=== PATIENT | male | born 1950 | race Caucasian/White ===

== ENCOUNTER 2022-04-02 12:43 | Outpatient (RCR) | payer MEDICARE, SELFPAY | END 2022-10-23 16:00 | disposition home or self-care (01) | LOC: HO.WCC 12:43 | PROVIDERS: PCP Internal Medicine; Visit Provider Surgery | DX: I87.333 Chronic venous hypertension (idiopathic) with ulcer and inflammation of bilateral lower extremity (principal); L97.812 Non-pressure chronic ulcer of other part of right lower leg with fat layer exposed; L97.822 Non-pressure chronic ulcer of other part of left lower leg with fat layer exposed; L97.322 Non-pressure chronic ulcer of left ankle with fat layer exposed; L13.8 Other specified bullous disorders; I89.0 Lymphedema, not elsewhere classified; Z79.01 Long term (current) use of anticoagulants; Z79.4 Long term (current) use of insulin; Z79.899 Other long term (current) drug therapy | CPT/HCPCS: 11042; 11045; 29580; 97597; 97598; 99212; 99213; 99214 ==

== ENCOUNTER 2023-01-13 03:14 | Inpatient (IN) | payer MEDICARE, SELFPAY ==
[2023-01-13] VITALS (7 sets, daily range): BP systolic 120–170; BP diastolic 56–70; PULSE 60–92; RESP 16–20; TEMP 36.5–36.8; O2SAT 95–97; BMI 48.5
--- NOTE | ~2023-01-13 | XR_ITS ---
EXAMINATION: XR CHEST CLINICAL INFORMATION: NG tube placement COMPARISON: None available. TECHNIQUE: Frontal view of the chest was obtained. FINDINGS: Enteric tube courses into the stomach. Left-sided pacemaker lead tips overlie the right atrium and right ventricle. Lung volumes are symmetric. No focal consolidation is seen. No evidence of pneumothorax, pleural effusion, or pulmonary edema. The cardiomediastinal contour is unremarkable. No acute osseous findings are seen. XR/XR chest 1V IMPRESSION: Enteric tube courses into the stomach. No acute cardiopulmonary findings.
--- NOTE | ~2023-01-13 | CT_ITS ---
EXAMINATION: CT ABDOMEN AND PELVIS WITHOUT CONTRAST CLINICAL INFORMATION: Abdominal pain, suspect small bowel obstruction COMPARISON: None available. TECHNIQUE: Multidetector volumetric imaging was performed from the superior aspect of the liver through the pubic symphysis. Sagittal and coronal reformatted images were obtained on the technologist's workstation. This CT examination was performed using dose optimization techniques as appropriate, variously including the following: *Automated exposure control *Adjustment of mA and/or kV according to patient size (this includes techniques or standardized protocols for targeted exams where dose is matched to indication/reason for exam; i.e. extremities or head) *Use of iterative reconstruction technique DLP: 989 mGy-cm FINDINGS: LUNG BASES: The visualized lung bases are unremarkable. LIVER, GALLBLADDER, AND BILIARY TREE: The liver is normal in size, shape, and attenuation. No focal hepatic lesion or biliary ductal dilatation is identified on this noncontrast exam. The gallbladder is unremarkable. PANCREAS: Unremarkable. SPLEEN: Unremarkable. ADRENAL GLANDS: Unremarkable. KIDNEYS AND URETERS: No hydronephrosis or obstructing calculus bilaterally. Few small bilateral renal cysts are noted; no follow-up recommended. BLADDER: Unremarkable. GASTROINTESTINAL TRACT: There are multiple dilated, fluid-filled loops of small bowel predominantly in the central to left abdomen. The more distal small bowel in the right abdomen is nondilated, and overall configuration is most suspicious for a small bowel obstruction. Transition point is suspected to be related to a right periumbilical hernia containing loops of small bowel. The appendix is unremarkable. No free fluid or free air is seen. ABDOMINAL WALL: As noted above, there is a periumbilical hernia containing loops of small bowel. There is an additional supraumbilical ventral hernia containing loops of small and large bowel. Bilateral fat-containing hernias are also present. LYMPH NODES: Borderline enlarged retroperitoneal lymph node on image 45/82. VASCULAR: Scattered atherosclerotic calcification. PELVIC VISCERA: Unremarkable. OSSEOUS STRUCTURES: Degenerative changes are noted in the spine. CT/CT abdomen pelvis wo IV con IMPRESSION: 1. Small bowel obstruction with transition point suspected to be related to a right periumbilical hernia containing loops of small bowel. 2. Additional supraumbilical ventral hernia containing loops of small and large bowel. 3. Borderline enlarged retroperitoneal lymph node, of uncertain clinical significance.
--- NOTE | ~2023-01-13 | XR_ITS ---
EXAMINATION: XR CHEST CLINICAL INFORMATION: Confirm NG tube placement COMPARISON: January 13, 2023 TECHNIQUE: AP portable view of the chest was obtained. FINDINGS: Density about the upper and lower right lung appears be related to calcified cartilage. No confluent parenchymal disease identified. No pneumothorax pleural effusion. Heart normal size. No evidence of pulmonary edema. Dual-chamber pacemaker in place. Enteric catheter seen traversing to the stomach. Sidehole appears to be in the region of the gastroesophageal junction. XR/XR chest 1V IMPRESSION: Enteric catheter appears to lie within the stomach with sidehole at the level of the GE junction.
--- NOTE | ~2023-01-13 | XR_ITS ---
EXAMINATION: XR CHEST CLINICAL INFORMATION: Confirm new NG tube placement COMPARISON: Chest radiograph from earlier in the day. TECHNIQUE: Frontal view of the chest was obtained. FINDINGS: Bipolar pacer again identified. NG tube tip is barely in the stomach and needs to be advanced. Heart, mediastinum and pulmonary vessels within normal limits. Left base atelectasis again noted. Degenerative changes present. XR/XR chest 1V IMPRESSION: Proximal positioning of NG tube which needs advancement and repeat imaging. Left base atelectasis.
--- NOTE | 2023-01-13 04:24 | ED_ITS ---
HPI - General Adult General Chief complaint: General Medical Stated complaint: Hernia, Constipation Time Seen by Provider: 01/13/23 03:26 Source: patient Mode of arrival: EMS History of Present Illness HPI narrative: 72-year-old male is brought in by EMS for no bowel movement for the past 3 days, he is not passing gas, he did try magnesium citrate today and has recently been admitted to [facility] for bowel obstruction secondary to his ventral hernia. Patient states that he is mildly nauseated but has been able to drink small amounts of water but he has not been able to eat he otherwise denies any fevers or chills. Related Data Allergies Allergy/AdvReac Type Severity Reaction Status Date / Time Unable to Assess Allergy Verified 01/13/23 03:51 Review of Systems 2 Review of Systems: Pertinent positives and negatives as stated in HPI [facility] Past Medical History Source: nursing notes reviewed Social History Social History Alcohol intake: former Smoked in Last 30 Days: No Use of substances other than those prescribed or required for medical reasons: No Advance Directives: No Advance Directives Information Provided: Yes Physical Exam ED Vital Signs: Vital Signs - 24 hr 01/13/23 03:28 01/13/23 03:33 Temperature 98.0 F 98.0 F Pulse Rate 61 60 Respiratory Rate 20 20 Blood Pressure 120/66 132/58 L Pulse Oximetry 97 96 Oxygen Delivery Method Room Air Room Air BMI result Body Mass Index 48.5 VITAL SIGNS: Reviewed. GENERAL: Elevated BMI, Well developed, well nourished, in no acute distress. HEAD: Normocephalic/atraumatic EYES: PERRLA, EOMI EARS: Ext canals without abnormality NOSE: Nares patent bilateral OROPHARYNX: no oral lesions noted, posterior pharynx clear NECK: Supple, no adenopathy LUNGS: Normal breath sounds. No adventitious sounds or accessory muscle use. SpO2<96> CARDIOVASCULAR: Regular rate and rhythm without noted murmurs ABDOMEN: Soft, large ventral hernia noted but not for and no overlying skin changes, non-distended with bowel sounds. MUSCULOSKELETAL: No tenderness, deformities, or effusions noted on gross inspection. EXTREMITIES: No cyanosis, clubbing or edema. SKIN: Inspection of the skin reveals no rashes NEUROLOGIC: Alert and oriented x 4. Strength and sensation to light touch were grossly intact x 4. Medical Decision Making Medical Decision Making [facility] Narrative: 72-year-old male with history and clinical presentation, DDX: SBO, constipation, gastritis I reviewed all investigations and there is no leukocytosis that there is a mild left shift, patient has a normocytic anemia and otherwise no thrombocytopenia. Chemistry indices are negative for TOMEKA and there are no electrolyte or transaminases derangements. Total bilirubin is mildly elevated at 1.7. Urinalysis is negative for UTI or hematuria. CT scan confirms that in fact there is a small bowel obstruction with a transition point in relation to the right periumbilical hernia containing loops of small bowel. There is an additional ventral hernia that contains loops of small and large bowel. NG has been placed and patient was made NPO. [id number]: I discussed case with General surgery, Dr. Howard, who will see the patient. Differential Diagnosis Differential Diagnoses: The differential diagnosis associated with the presentation includes Please see the discussion above Admission/Observation Consideration of admission/observation: Escalation of care including admission/observation considered Please see the discussion above Consult Healthcare Provider Management of the patient was discussed with: Sales Planner Please see the discussion above Lab Data [facility] Lab Attestation statement: I reviewed the patient's lab results. Please see the discussion above 01/13/23 04:39 01/13/23 04:39 Labs: Lab Results 01/13/23 01/13/23 Range/Units 04:22 04:39 WBC 7.7 (4.8-10.8) X10*3/uL RBC 3.80 L (4.60-5.80) X10*6/uL Hgb 12.3 L (14.0-18.0) g/dl Hct 37.3 L (42.0-52.0) % MCV 98.2 H (80.0-98.0) fL MCH 32.4 (27.0-33.0) pg MCHC 33.0 (31.0-36.0) g/dl RDW 14.4 (11.0-16.0) % Plt Count 160 (160-400) X10*3/uL MPV 8.8 L (9.4-12.4) fL Immature Gran % (Auto) 0.3 (0.0-0.4) % Neut % (Auto) 75.4 H (45-73) % Lymph % (Auto) 15.5 L (20-40) % [place] % (Auto) 7.2 (2-11) % Eos % (Auto) 1.3 (0-4) % Baso % (Auto) 0.3 (0-2) % Lymph # (Auto) 1.2 (1.2-4.9) X10*3/uL [place] # (Auto) 0.6 (0.1-1.2) X10*3/uL Eos # (Auto) 0.1 (0.0-0.4) X10*3/uL Baso # (Auto) 0.0 (0.0-0.2) X10*3/uL Abs Immat Gran (auto) 0.02 (0.00-0.03) X10*3/uL Absolute Neuts (auto) 5.8 (2.0-8.3) x10*3/uL Absolute Nucleated RBC 0.000 (0.0-0.012) X10*3/uL Nucleated RBC % (auto) 0.0 (0.0-0.2) /100WBC Sodium 142 (135-145) mmol/L Potassium 4.2 (3.3-5.1) mmol/L Chloride 105 (96-108) mmol/L Carbon Dioxide 25 (22-29) mmol/L Anion Gap 16 (12-20) BUN 12 (9-16) mg/dL Creatinine 0.90 (0.5-1.4) mg/dL Estim Creat Clear Calc 110.2 Estimated GFR > 60 POC Glucose 175 H (60-115) mg/dL Random Glucose 184 H (60-115) mg/dL Calcium 9.4 (8.4-10.2) mg/dL Total Bilirubin 1.7 H (0.0-1.0) mg/dL AST 25 (5-37) U/L ALT 23 (0-40) U/L Alkaline Phosphatase 76 (39-117) U/L Total Protein 7.1 (6.5-8.0) g/dL Albumin 4.0 (3.5-5.0) g/dL Urine Color Yellow Urine Appearance Clear Urine pH 7.0 (5.0-9.0) Ur Specific [place] 1.015 (1.005-1.025) Urine Protein 100 (2+) H (Neg-Trace) mg/dL Urine Glucose (UA) Negative (Negative) mg/dL Urine Ketones Trace (Negative) mg/dL Urine Blood Negative (Negative) Urine Nitrite Negative (Negative) Ur Leukocyte Esterase Negative (Negative) Urine RBC 0-2 (0-2) /HPF Urine WBC 0-5 (0-5) /HPF Ur Squamous Epith Cells 0-2 (0-2) /HPF Urine Bacteria None Seen (None Seen) Hyaline Casts 0-2 (0-2) /LPF Radiology Impression Discussion of test interpretation with radiology: I have reviewed the radiologist's reading. Radiologist Impression: Please see the discussion above Chronic Conditions Patient?s care impacted by: Diabetes Discharge Plan Discharge Clinical Impression: Complete small bowel obstruction Patient Disposition: Admitted As Inpatient
[2023-01-13 04:45] LABS: Glucose, Whole Blood 175 mg/dL (60-115)
[2023-01-13 04:46] LABS: MANUAL DIFF FLAG NO
[2023-01-13 04:47] LABS: Basophils Percent Auto 0.3 % (0-2); Eosinophils Absolute Auto 0.1 X10*3/uL (0.0-0.4); Eosinophils Percent Auto 1.3 % (0-4); Hematocrit 37.3 % (42.0-52.0); Hemoglobin 12.3 g/dl (14.0-18.0); Imm Gran Abs Auto 0.02 X10*3/uL (0.00-0.03); Imm Gran Pct Auto 0.3 % (0.0-0.4); Lymphocytes Absolute Auto 1.2 X10*3/uL (1.2-4.9); Lymphocytes Percent Auto 15.5 % (20-40); Mean Corpuscular Hemoglobin 32.4 pg (27.0-33.0); Mean Corpuscular Volume 98.2 fL (80.0-98.0); Mean Platelet Volume 8.8 fL (9.4-12.4); Monocytes Absolute Auto 0.6 X10*3/uL (0.1-1.2); Monocytes Percent Auto 7.2 % (2-11); Neutrophils Absolute Auto 5.8 x10*3/uL (2.0-8.3); Neutrophils Percent Auto 75.4 % (45-73); Platelet Count 160 X10*3/uL (160-400); Red Cell Distribution Width 14.4 % (11.0-16.0); White Blood Count 7.7 X10*3/uL (4.8-10.8)
[2023-01-13 04:48] LABS: Appearance Urine Clear; Color Urine Yellow; Glucose Urine UA Negative (Negative); Leukocyte Esterase Urine Negative (Negative); Nitrite Urine Negative (Negative); Specific Gravity - Urine 1.015 (1.005-1.025); UMIC TRIGGER UACC YES; Urine Blood Negative (Negative); Urine Ketones Trace mg/dL (Negative); Urine Protein 100 (2+) mg/dL (Neg-Trace)
[2023-01-13 04:53] LABS: Bacteria Urine None Seen (None Seen); Hyaline Casts Urine 0-2 /LPF (0-2); RBC Urine 0-2 /HPF (0-2); Squamous Epithelial Cell Urine 0-2 /HPF (0-2); WBC Urine 0-5 /HPF (0-5)
[2023-01-13 05:07] LABS: Alanine Aminotransferase 23 U/L (0-40); Alkaline Phosphatase 76 U/L (39-117); Anion Gap 16 (12-20); Aspartate Amino Transferase 25 U/L (5-37); Bilirubin Total 1.7 mg/dL (0.0-1.0); Blood Urea Nitrogen 12 mg/dL (9-16); Calcium 9.4 mg/dL (8.4-10.2); Carbon Dioxide 25 mmol/L (22-29); Chloride 105 mmol/L (96-108); Creatinine Clr Calc Pharmacy 110.2; Estimated Glomerular Filt Rate > 60; Glucose Random 184 mg/dL (60-115); Potassium 4.2 mmol/L (3.3-5.1); Sodium 142 mmol/L (135-145); Total Protein 7.1 g/dL (6.5-8.0)
--- NOTE | 2023-01-13 05:40 | PC.NURSE ---
This RN attempted to put in NG tube, per pt L-nare is blocked due to an old break. Attempted in R-nare. unsuccessful at this time.
[2023-01-13] MEDS: Lidocaine HCl 2 % Urojet 10 ML JEL.PF.APP TOPICAL (06:02)
[2023-01-13] MEDS: 0.9 % Sodium Chloride 1,000 ML 75 ML IVCONT (06:12)
--- NOTE | 2023-01-13 06:25 | PC.NURSE ---
studio model assisted to put in NG tube after lidocaine administered. CXR put in computer.
--- NOTE | 2023-01-13 06:44 | PM.HPGS ---
History of Present Illness History of Present Illness Date of Service: 01/16/23 Chief complaint: Ventral Hernias Narrative: Cedrick Aguilera Jr is a 72 year old male seen here in the ED for abdominal pain and hernia. He says he has had this abdominal hernia for many years. He says he has been to [facility] multiple times for this hernia and similar complaints of abdominal pain. He says his last visit to [facility] was maybe 3 months ago for the same problem. About 3 days ago, he had diarrhea and vague abdominal pain. He says that this abdominal pain had persisted. He though that he started to feel constipated yesterday as well. He says his pain seemed worse yesterday so he decided to come to the ED last night. He denies any vomitting. He says he has had some flatus here in the ED. He also says that his pain has improved a lot and describes this as mild now. He had colon resection for diverticular disease in [facility] in 2006. He says he underwent emergency surgery for bowel obstruction in 2013 in [facility] and he says part of small bowel were resected at that time. He says he was in a coma for several days thereafter. He also says that since he had the surgery in 2013, he may have had hernias since then. He has a pacemaker in place. He says he is an ex smoker, and was diagnosed to have COPD. Review of Systems Constitutional: Constitutional: Denies chills and Denies fever(s) Cardiovascular: Cardiovascular: Denies chest pain, Denies dyspnea and Reports dyspnea on exertion Respiratory: Respiratory: Denies cough, Denies dyspnea and Reports dyspnea on exertion Gastrointestinal: Gastrointestinal: Denies hematochezia, Denies change in bowel habits and Reports diarrhea Genitourinary: Genitourinary: Denies hematuria and Denies difficulty urinating Musculoskeletal: Musculoskeletal: Denies back pain and Denies limited range of motion Neurologic: Denies focal weakness and Denies convulsions Psychiatric: Psychiatric: Denies depression and Denies mood swings [facility] Past Medical History Medical History (Updated 01/13/23 @ 12:05 by Edgard Howard MD) Bilateral leg ulcer Chronic edema Diabetes mellitus Morbid obesity Ventral hernia COPD (chronic obstructive pulmonary disease) HTN (hypertension), benign Pacemaker Family History Family History (Updated 01/13/23 @ 11:44 by Mattie Jasen, PAPER MACHINE TENDER) Mother Breast cancer Surgical History Surgical History (Updated 01/13/23 @ 07:21 by Edgard Howard MD) History of exploratory laparotomy History of colon resection Social History Social History Household Members: None Housing: Apartment Alcohol intake: former Patient Tobacco Use Status: Never used Tobacco service: No Meds Allergies Allergy/AdvReac Type Severity Reaction Status Date / Time Unable to Assess Allergy Verified 01/13/23 03:51 Active Medications: Current Medications Sodium Chloride (Ns) 1,000 mls @ 75 mls/hr IVCONT .[id number] DEBRA Last Admin: 01/13/23 06:12 Dose: 75 mls/hr Home Medications Medication Instructions Recorded Confirmed Last Taken Type acetaminophen 325 mg tablet 650 mg PO BEDTIME PRN Pain 01/13/23 01/13/23 Unknown History (Tylenol) amlodipine 5 mg tablet 5 mg PO DAILY 01/13/23 01/13/23 01/12/23 History aripiprazole 2 mg tablet 2 mg PO DAILY 01/13/23 01/13/23 01/12/23 History atenolol 25 mg tablet 25 mg PO BID 01/13/23 01/13/23 01/12/23 History atorvastatin 40 mg tablet 40 mg PO BEDTIME 01/13/23 01/13/23 Unknown History furosemide 40 mg tablet 40 mg PO DAILY 01/13/23 01/13/23 Unknown History gabapentin 100 mg capsule 200 mg PO BEDTIME 01/13/23 01/13/23 Unknown History insulin glargine 100 unit/mL (3 60 unit subcut BEDTIME 01/13/23 01/13/23 Unknown History mL) subcutaneous pen (Lantus Solostar U-100 Insulin) insulin lispro 100 unit/mL See Protocol subcut TID 01/13/23 01/13/23 Unknown History subcutaneous pen (Humalog KwikPen (U-100) Insulin) levothyroxine 150 mcg tablet 150 mcg PO DAILY@0600 01/13/23 01/13/23 01/12/23 History lithium carbonate 300 mg capsule 300 mg PO BID 01/13/23 01/13/23 01/12/23 History omeprazole 40 mg capsule,delayed 40 mg PO SUTUTHSA@0630 01/13/23 01/13/23 Unknown History release ropinirole 0.5 mg tablet 0.5 mg PO BEDTIME 01/13/23 01/13/23 Unknown History sertraline 100 mg tablet 200 mg PO DAILY 01/13/23 01/13/23 01/12/23 History warfarin 5 mg tablet 5 mg PO DAILY@1800 01/13/23 01/13/23 Unknown History Physical Exam Vital Signs: Vital Signs: Last Vital Signs Temp 98.0 F 01/13/23 03:33 Pulse 60 01/13/23 03:33 Resp 20 01/13/23 03:33 BP 132/58 L 01/13/23 03:33 Pulse Ox 96 01/13/23 03:33 O2 Del Method Room Air 01/13/23 03:33 BMI result Body Mass Index 48.5 Const: Other: looks comfortable General: comfortable and no acute distress Orientation/consciousness: patient oriented x3 Neck: Neck: Yes no lymphadenopathy Resp: Auscultation: clear to auscultation bilaterally Cardio: Rhythm: regular rhythm GI: Other: large hernia x2, midline and to the right, soft, minimal tenderness on midline, no guarding or rebound Palpation (GI): Soft to palpation, nontender and no guarding Neuro: General: patient oriented x3 Extrem: Other: Bilateral lower extremity edema Results Results Labs: Short CBC 01/13/23 Range/Units 04:39 WBC 7.7 (4.8-10.8) X10*3/uL Hgb 12.3 L (14.0-18.0) g/dl Hct 37.3 L (42.0-52.0) % Plt Count 160 (160-400) X10*3/uL BMP 01/13/23 04:39 Sodium 142 Potassium 4.2 Chloride 105 Carbon Dioxide 25 BUN 12 Creatinine 0.90 Calcium 9.4 Liver Function 01/13/23 Range/Units 04:39 Total Bilirubin 1.7 H (0.0-1.0) mg/dL AST 25 (5-37) U/L ALT 23 (0-40) U/L Alkaline Phosphatase 76 (39-117) U/L Albumin 4.0 (3.5-5.0) g/dL Urine 01/13/23 Range/Units 04:22 Urine Color Yellow Urine Appearance Clear Urine pH 7.0 (5.0-9.0) Ur Specific [place] 1.015 (1.005-1.025) Urine Protein 100 (2+) H (Neg-Trace) mg/dL Urine Glucose (UA) Negative (Negative) mg/dL Additional studies: Laboratory Results WBC 7.7 X10*3/uL (4.8-10.8) 01/13/23 04:39 RBC 3.80 X10*6/uL (4.60-5.80) L 01/13/23 04:39 Hgb 12.3 g/dl (14.0-18.0) L 01/13/23 04:39 Hct 37.3 % (42.0-52.0) L 01/13/23 04:39 MCV 98.2 fL (80.0-98.0) H 01/13/23 04:39 MCH 32.4 pg (27.0-33.0) 01/13/23 04:39 MCHC 33.0 g/dl (31.0-36.0) 01/13/23 04:39 RDW 14.4 % (11.0-16.0) 01/13/23 04:39 Plt Count 160 X10*3/uL (160-400) 01/13/23 04:39 MPV 8.8 fL (9.4-12.4) L 01/13/23 04:39 Immature Gran % (Auto) 0.3 % (0.0-0.4) 01/13/23 04:39 Neut % (Auto) 75.4 % (45-73) H 01/13/23 04:39 Lymph % (Auto) 15.5 % (20-40) L 01/13/23 04:39 [place] % (Auto) 7.2 % (2-11) 01/13/23 04:39 Eos % (Auto) 1.3 % (0-4) 01/13/23 04:39 Baso % (Auto) 0.3 % (0-2) 01/13/23 04:39 Lymph # (Auto) 1.2 X10*3/uL (1.2-4.9) 01/13/23 04:39 [place] # (Auto) 0.6 X10*3/uL (0.1-1.2) 01/13/23 04:39 Eos # (Auto) 0.1 X10*3/uL (0.0-0.4) 01/13/23 04:39 Baso # (Auto) 0.0 X10*3/uL (0.0-0.2) 01/13/23 04:39 Abs Immat Gran (auto) 0.02 X10*3/uL (0.00-0.03) 01/13/23 04:39 Absolute Neuts (auto) 5.8 x10*3/uL (2.0-8.3) 01/13/23 04:39 Absolute Nucleated RBC 0.000 X10*3/uL (0.0-0.012) 01/13/23 04:39 Nucleated RBC % (auto) 0.0 /100WBC (0.0-0.2) 01/13/23 04:39 Sodium 142 mmol/L (135-145) 01/13/23 04:39 Potassium 4.2 mmol/L (3.3-5.1) 01/13/23 04:39 Chloride 105 mmol/L (96-108) 01/13/23 04:39 Carbon Dioxide 25 mmol/L (22-29) 01/13/23 04:39 Anion Gap 16 (12-20) 01/13/23 04:39 BUN 12 mg/dL (9-16) 01/13/23 04:39 Creatinine 0.90 mg/dL (0.5-1.4) 01/13/23 04:39 Estim Creat Clear Calc 110.2 01/13/23 04:39 Estimated GFR > 60 01/13/23 04:39 POC Glucose 175 mg/dL (60-115) H 01/13/23 04:39 Random Glucose 184 mg/dL (60-115) H 01/13/23 04:39 Calcium 9.4 mg/dL (8.4-10.2) 01/13/23 04:39 Total Bilirubin 1.7 mg/dL (0.0-1.0) H 01/13/23 04:39 AST 25 U/L (5-37) 01/13/23 04:39 ALT 23 U/L (0-40) 01/13/23 04:39 Alkaline Phosphatase 76 U/L (39-117) 01/13/23 04:39 Total Protein 7.1 g/dL (6.5-8.0) 01/13/23 04:39 Albumin 4.0 g/dL (3.5-5.0) 01/13/23 04:39 Urine Color Yellow 01/13/23 04:22 Urine Appearance Clear 01/13/23 04:22 Urine pH 7.0 (5.0-9.0) 01/13/23 04:22 Ur Specific [place] 1.015 (1.005-1.025) 01/13/23 04:22 Urine Protein 100 (2+) mg/dL (Neg-Trace) H 01/13/23 04:22 Urine Glucose (UA) Negative mg/dL (Negative) 01/13/23 04:22 Urine Ketones Trace mg/dL (Negative) 01/13/23 04:22 Urine Blood Negative (Negative) 01/13/23 04:22 Urine Nitrite Negative (Negative) 01/13/23 04:22 Ur Leukocyte Esterase Negative (Negative) 01/13/23 04:22 Urine RBC 0-2 /HPF (0-2) 01/13/23 04:22 Urine WBC 0-5 /HPF (0-5) 01/13/23 04:22 Ur Squamous Epith Cells 0-2 /HPF (0-2) 01/13/23 04:22 Urine Bacteria None Seen (None Seen) 01/13/23 04:22 Hyaline Casts 0-2 /LPF (0-2) 01/13/23 04:22 Impressions Abdomen/Pelvis CT 01/13/23 04:22 IMPRESSION: 1. Small bowel obstruction with transition point suspected to be related to a right periumbilical hernia containing loops of small bowel. 2. Additional supraumbilical ventral hernia containing loops of small and large bowel. 3. Borderline enlarged retroperitoneal lymph node, of uncertain clinical significance. Chest X-Ray 01/13/23 06:30 IMPRESSION: Enteric tube courses into the stomach. No acute cardiopulmonary findings. Assessment and Plan (1) Ventral hernia: Status: Acute He has 2 ventral hernias above. I have reviewed his CT scan and these hernias show bowel loops with some dilatation of SB loops on the right periumbilical hernia. He has had no vomitting and says he has passed flatus in the ED. An NGT was inserted in the ED and there was not much output. I explained to him that his CT scan showing involvement of bowel loops in the hernia, especially on the periumbilical one is concerning. I had a long discussion with him therefore about proceeding with repair of these hernias with likely mesh placement. I reviewed with him the risks including but not limited to bleeding, infections, bowel injury, recurrence, blood clots, NH, stroke, respiratory failure. He does state that he feels he has had this problem for years., He actually looks comfortable and states that his pain appears to have resolved. He says he would like soem time to think about any surgical intervention as he understands that he has significant perioperative risks. He does have multiple medical problems and it may be best to have risk assessment and stratification prior to proceeding with surgery for the hernia. His overall exam is very benign at this time. Time Spent With Patient Time: Total time managing care of this patient today ____ minutes. Quality Stroke Does the patient have a stroke diagnosis?: No VTE Prior VTE?: No VTE Risk Level:: Medical - moderate - high VTE Device Contraindication: N/A - Device Ordered VTE Drug Contraindication: N/A - Med Ordered Procedures Date of Service Date of Service: 01/16/23
--- NOTE | 2023-01-13 07:10 | PC.NURSE ---
This RN notified by Tech that NG tube was out. Oncoming RN aware and will work with educator to replace.
--- NOTE | 2023-01-13 07:27 | P.CONHOSP_ITS ---
History of Present Illness Data of Consult Service Date: 01/13/23 Primary Care Provider: Unknown Physician HPI 72 year old man with hx of HTN, DM. obesity, pacemaker admitted by general surgery for 2 ventral hernias and possible SBO. He had complaints of no bowel movement for 3 days and no flatus. He has a history of bowel obstruction due to ventral hernia. He reported some mild nausea but no vomiting. NGT placed in the ED with minimal output. If the patient was to agree to surgery the plan would be for repair of hernias with mesh placement. Vital signs have been stable and labs are all within acceptable limits. Review of Systems 2 Review of Systems: Denies any recent fever chills or decrease in appetite respiratory denies any shortness of breath coverage production cardiovascular denied chest pain gastrointestinal denies any dysphagia abdominal pain nausea vomiting or diarrhea genitourinary denies any dysuria frequency or hematuria musculoskeletal denies any joint pain or swelling neuropsych denies any weakness or seizures all other systems reviewed are negative [facility] Medical History (Updated 01/13/23 @ 12:05 by Edgard Howard MD) Bilateral leg ulcer Chronic edema Diabetes mellitus Morbid obesity Ventral hernia COPD (chronic obstructive pulmonary disease) HTN (hypertension), benign Pacemaker Family History (Updated 01/13/23 @ 11:44 by Mattie Aggarwal NP) Mother Breast cancer Surgical History (Updated 01/13/23 @ 07:21 by Edgard Howard MD) History of exploratory laparotomy History of colon resection Social History Alcohol intake: former Patient Tobacco Use Status: Never used Tobacco Smoked in Last 30 Days: No Use of substances other than those prescribed or required for medical reasons: No Advance Directives: No Advance Directives Information Provided: Yes Nutrition Risks: No Nutritional Risk Meds Allergies Allergy/AdvReac Type Severity Reaction Status Date / Time Unable to Assess Allergy Verified 01/13/23 03:51 Active Medications: Current Medications Heparin Sodium (Porcine) (Heparin Sodium,Porcine 5,000 Unit/Ml Vial) 5,000 unit SUBCUT Q8H [facility] Sodium Chloride (Ns) 1,000 mls @ 75 mls/hr IVCONT .[id number] DEBRA Last Admin: 01/13/23 06:12 Dose: 75 mls/hr Lactated Ringer's (Lr) 1,000 mls @ 80 mls/hr IVCONT .[id number] [facility] Sodium Chloride (0.9 % Sodium Chloride Flush 3 Ml Syringe) 3 ml IVFLUSH QSHIFT [facility] Home Medications Medication Instructions Recorded Confirmed Last Taken Type acetaminophen 325 mg tablet 650 mg PO BEDTIME PRN Pain 01/13/23 01/13/23 Unknown History (Tylenol) amlodipine 5 mg tablet 5 mg PO DAILY 01/13/23 01/13/23 01/12/23 History aripiprazole 2 mg tablet 2 mg PO DAILY 01/13/23 01/13/23 01/12/23 History atenolol 25 mg tablet 25 mg PO BID 01/13/23 01/13/23 01/12/23 History atorvastatin 40 mg tablet 40 mg PO BEDTIME 01/13/23 01/13/23 Unknown History furosemide 40 mg tablet 40 mg PO DAILY 01/13/23 01/13/23 Unknown History gabapentin 100 mg capsule 200 mg PO BEDTIME 01/13/23 01/13/23 Unknown History insulin glargine 100 unit/mL (3 60 unit subcut BEDTIME 01/13/23 01/13/23 Unknown History mL) subcutaneous pen (Lantus Solostar U-100 Insulin) insulin lispro 100 unit/mL See Protocol subcut TID 01/13/23 01/13/23 Unknown History subcutaneous pen (Humalog KwikPen (U-100) Insulin) levothyroxine 150 mcg tablet 150 mcg PO DAILY@0600 01/13/23 01/13/23 01/12/23 History lithium carbonate 300 mg capsule 300 mg PO BID 01/13/23 01/13/23 01/12/23 History omeprazole 40 mg capsule,delayed 40 mg PO SUTUTHSA@0630 01/13/23 01/13/23 Unknown History release ropinirole 0.5 mg tablet 0.5 mg PO BEDTIME 01/13/23 01/13/23 Unknown History sertraline 100 mg tablet 200 mg PO DAILY 01/13/23 01/13/23 01/12/23 History warfarin 5 mg tablet 5 mg PO DAILY@1800 01/13/23 01/13/23 Unknown History Physical Exam 2 Vital Signs and Narrative: Vital Signs: Last Vital Signs Temp 98.0 F 01/13/23 03:33 Pulse 60 01/13/23 03:33 Resp 20 01/13/23 03:33 BP 132/58 L 01/13/23 03:33 Pulse Ox 96 01/13/23 03:33 O2 Del Method Room Air 01/13/23 03:33 BMI result Body Mass Index 48.5 Appearing in no acute distress head is normocephalic atraumatic eyes pupils are PERRLA sclera is anicteric mouth throat mucous membranes are intact and moist neck is supple no lymphadenopathy, no JVD noted lung sounds are clear to auscultation heart regular rate rhythm, clear S1, S2 positive bowel sounds, abdomen is soft, nontender, NG tube in place neuro patient is alert x3, no focal deficits Results Labs 01/13/23 04:39 01/13/23 04:39 Labs: Laboratory Results - last 24 hr 01/13/23 01/13/23 04:22 04:39 MCV 98.2 H MCH 32.4 MCHC 33.0 RDW 14.4 Plt Count 160 MPV 8.8 L Immature Gran % (Auto) 0.3 Neut % (Auto) 75.4 H Lymph % (Auto) 15.5 L Holt % (Auto) 7.2 Eos % (Auto) 1.3 Baso % (Auto) 0.3 Lymph # (Auto) 1.2 Holt # (Auto) 0.6 Eos # (Auto) 0.1 Baso # (Auto) 0.0 Abs Immat Gran (auto) 0.02 Absolute Neuts (auto) 5.8 Absolute Nucleated RBC 0.000 Nucleated RBC % (auto) 0.0 Anion Gap 16 Estim Creat Clear Calc 110.2 Estimated GFR > 60 POC Glucose 175 H Random Glucose 184 H Calcium 9.4 Total Bilirubin 1.7 H AST 25 ALT 23 Alkaline Phosphatase 76 Total Protein 7.1 Albumin 4.0 Urine Color Yellow Urine Appearance Clear Urine pH 7.0 Ur Specific [place] 1.015 Urine Protein 100 (2+) H Urine Glucose (UA) Negative Urine Ketones Trace Urine Blood Negative Urine Nitrite Negative Ur Leukocyte Esterase Negative Urine RBC 0-2 Urine WBC 0-5 Ur Squamous Epith Cells 0-2 Urine Bacteria None Seen Hyaline Casts 0-2 Imaging Radiologist's Impressions: Impressions Abdomen/Pelvis CT 01/13/23 04:22 IMPRESSION: 1. Small bowel obstruction with transition point suspected to be related to a right periumbilical hernia containing loops of small bowel. 2. Additional supraumbilical ventral hernia containing loops of small and large bowel. 3. Borderline enlarged retroperitoneal lymph node, of uncertain clinical significance. Chest X-Ray 01/13/23 06:30 IMPRESSION: Enteric tube courses into the stomach. No acute cardiopulmonary findings. Assessment and Plan (1) Bilateral leg ulcer: Status: Acute Plan 72 year old man with hx of HTN, DM. obesity, pacemaker admitted by general surgery for 2 ventral hernias and possible SBO. NGT placed in the ED with minimal output. If the patient was to agree to surgery the plan would be for repair of hernias with mesh placement. Regarding risk stratification, according to ACS surgical risk calculator (https://riskcalculator.facs.org/RiskCalculator/Outcome.jsp ) patient is moderate risk for cade and post-operative complications. Ventral hernia with possible SBO Patient with NG tube placed in ED Management as per surgical team Hx of DVT on Warfarin Bilateral lower extremity lymphedema Cleanse bilateral lower extremity with soap and water Jw wraps Diabetes mellitus type 2 Sliding scale Long-acting insulin Hypertension Stable blood pressure Continue amlodipine and atenolol Hypothyroidism Continue levothyroxine Mental health Continue home medications GERD Continue PPI Morbid obesity. BMI 40.5 Discussed importance of weight management as this may be contributing to worsening of other comorbidities DVT prophylaxis as per admitting provider Time Spent With Patient Time: Total time managing care of this patient today ____ minutes.
--- NOTE | 2023-01-13 07:38 | PC.NURSE ---
a&ox3, vss and up to date. when receiving shift report from night RN - pt was ambulating to the commode on the side of the bed and accidentally dislodged/took out NG tube that was just placed. new 14Fr NG tube placed w/o difficulty - hyperactive/gurgling sounds noted upon auscultation when assessing placement, gastric content visible in canister - intermittent suction paused until chest xray confirms placement of tube. pt complains of no pain jessica. IVF still hung and running at 75mls/hr. pt resting in no apparent distress. respirations even and unlabored. call ramon placed within reach.
--- NOTE | 2023-01-13 08:01 | PM.EVENT ---
Event Note Date of Service: 01/14/23 Event Note: Patient admitted earlier because of ventral hernia with abdominal pain. States he feels much better and pain has resolved. He had good bowel movements about 45 minutes ago in the ER and states he has been passing good flatus Large hernias noted Abdominal exam very benign - soft, no significant tenderness no guarding no rebound Hospitalist consult requested in view multiple medical problems Clinically looks well Time Spent With Patient Time: Total time managing care of this patient today ____ minutes.
[2023-01-13] MEDS: Lactated Ringers 1,000 ML 80 ML IVCONT (08:17)
--- NOTE | 2023-01-13 08:17 | PC.NURSE ---
IVF administered per provider order. pt resting in no apparent distress w/ the lights dimmed. call ramon placed within reach.
--- NOTE | 2023-01-13 09:02 | PC.NURSE ---
chest xray order put in to confirm placement of NGT.
--- NOTE | 2023-01-13 09:10 | PHA.MEDREC ---
Pharmacy Consult ? Medication Reconciliation Pharmacy has completed the medication reconciliation. Patient was drowsy but still able to name medications, strengths and timing.
--- NOTE | 2023-01-13 10:00 | PC.NURSE ---
vss and up to date. pt verbalizing no pain at this time. pt still waiting for chest xray to confirm placement of NGT - will place pt on suction when able. pt resting comfortably in no apparent distress. respirations even and unlabored. IVF still up and running. call ramon placed within reach.
--- NOTE | 2023-01-13 10:06 | PC.NURSE ---
case management came to pt's room to speak with pt. pt currently sleeping in this time. case management states that they will try again shortly. pt in no apparent distress. call ramon placed within reach.
--- NOTE | 2023-01-13 10:07 | MHC.CM.PN ---
PATIENT IS ASLEEP AND DOES NOT WAKE EASILY. RN IN ROOM WITH PATIENT. CALL TO CONTACT LISTED @ [phone] AND FOUND TO BE A PHYSICIAN OFFICE. NO MESSAGE LEFT. CASE MANAGEMENT TO MEET WITH PATIENT AT A BETTER TIME. DC PLAN IS CURRENTLY SURGICAL INTERVENTION VERSUS CONSERVATIVE CARE. PATIENT IS CONSIDERING HIS OPTIONS, ACCORDING TO NOTES. LIFE LINE AROUND NECK. NO HCP ON FILE. IT IS UNCLEAR AT THIS TIME IF PATIENT LIVES ALONE OR HAS ANY SERVICES. IMM 01/13 LEFT BEDSIDE FOR REVIEW. COPY IN CHART.
--- NOTE | 2023-01-13 10:12 | MHC.CM.PN ---
NO CM ASSESSMENT PERFORMED UNTIL PATIENT IS AWAKE AND ALERT.
--- NOTE | 2023-01-13 10:27 | MHC.CM.PN ---
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 HCP CAN BE COMPLETED AT A MORE APPROPRIATE TIME PATIENT CURRENTLY AWAITING XRAY CONFIRMATION OF NG PLACEMENT.
--- NOTE | 2023-01-13 11:37 | PC.NURSE ---
the patient still has not had his cxr to confirm placement of his new NG tube, this nurse went into XR and stated he needed a repeat cxr and it had previously been ordered. radiology stated they will go perform the cxr next.
--- NOTE | 2023-01-13 12:32 | PC.NURSE ---
repeat cxr performed, its noted that the NG tube needed further advancement, this nurse advanced the NG tube further and placed another cxr order for confirment
--- NOTE | 2023-01-13 13:02 | PC.NURSE ---
pt remains alert and oriented. pt resting comfortably in bed watching tv in no apparent distress. respirations even and unlabored. IVF still hung and running at 80mls/hr. call ramon placed within reach.
--- NOTE | 2023-01-13 14:08 | PC.NURSE ---
pt sleeping, woke to verbal stimulus, a&ox3, pt IVF running per order, ng tube turned onto intermittent wall suction, pt aware he needs to call if he needs to get oob due to the NG tube, call ramon within reach, will continue to monitor
--- NOTE | 2023-01-13 14:51 | PC.NURSE ---
pts sister called, pt ok'd for us to let her know he is doing well and that he will be in the hospital with a bowel obstruction. he asked for us not to mention surgery being involved with his care as to not frighten her. the sister was informed that he was doing well and will be staying in the hospital. pt notified to call his sister when he gets to the room.
--- NOTE | 2023-01-13 15:05 | PM.EVENT ---
Event Note Date of Service: 01/13/23 Event Note: Seen multiple times during the day Says he feels ?pretty good? Denies abdominal pain Has had multiple flatus Good BMs Appears comfortable Abdomen soft with large hernias, nontender NG tube output scanty Appreciate hospitalist eval Patient states he uncertain if he will proceed with repair Time Spent With Patient Time: Total time managing care of this patient today ____ minutes.
--- NOTE | 2023-01-13 15:42 | PC.NURSE ---
a&ox3, vss and up to date. pt remains to c/o no pain at this time. pt is asking what information was relayed to his sister who called and asked about status update. notified pt on what information was given to sister. pt is verbalizing that he is nervous that his sister will become nervous d/t the fact that he is in the hospital. notified pt that we have a patient phone that he is able to utilize if he would like to talk to his sister on his own. IVF still hung and running. pt resting comfortably in no apparent distress. respirations even and unlabored. call ramon placed within reach.
[2023-01-13] MEDS: 0.9 % Sodium Chloride Flush 3 ML SYRINGE IVFLUSH (15:46)
--- NOTE | 2023-01-13 18:58 | PC.NURSE ---
messaged admitting provider in regards to pt requesting anxiety medication. pt does not take anxiety medication at home normally but states that he's been feeling extremely anxious while being in the hospital bed. pt aware that provider has been notified.
[2023-01-13] MEDS: LORazepam 2 MG/ML VIAL 0.5 MG IVPUSH (19:22)
--- NOTE | 2023-01-13 19:23 | PC.NURSE ---
per admitting provider telephone order (quinten garcía), 0.5mg ativan administered per provider order. order now put in mar for q6h.
--- NOTE | 2023-01-13 20:02 | PC.NURSE ---
Pt placed on hospital bed for comfort. Appears less anxious after ativan administration.
[2023-01-13 21:09] LABS: Glucose, Whole Blood 139 mg/dL (60-115)
[2023-01-13] MEDS: Gabapentin 100 MG CAPSULE 200 MG PO (22:06)
[2023-01-13] MEDS: rOPINIRole HCL 0.5 MG TABLET PO (22:07)
[2023-01-13] MEDS: Lithium Carbonate 300 MG CAPSULE PO (22:07)
[2023-01-13] MEDS: atenoloL 25 MG TABLET PO (22:07)
[2023-01-14] MEDS: LORazepam 2 MG/ML VIAL 0.5 MG IVPUSH (02:43)
--- NOTE | 2023-01-14 03:33 | PC.NURSE ---
New NG securement device applied at this time
[2023-01-14] MEDS: Lactated Ringers 1,000 ML 80 ML IVCONT (04:49)
[2023-01-14] MEDS: Levothyroxine Sodium 150 MCG TABLET PO (06:07)
[2023-01-14] MEDS: Sertraline HCL 100 MG TABLET 200 MG PO (07:59)
[2023-01-14] MEDS: atenoloL 25 MG TABLET PO (07:59)
[2023-01-14] MEDS: amLODIPine Besylate 5 MG TABLET PO (07:59)
[2023-01-14] MEDS: Furosemide 40 MG TABLET PO (07:59)
[2023-01-14] MEDS: Heparin Sodium,Porcine 5,000 UNIT/ML VIAL 5000 UNIT SUBCUT (08:00)
[2023-01-14] MEDS: 0.9 % Sodium Chloride Flush 3 ML SYRINGE IVFLUSH (08:02)
[2023-01-14 08:04] VITALS: BP 151/67; PULSE 54; RESP 19
--- NOTE | 2023-01-14 08:52 | P.PNGS_ITS ---
Subjective Subjective Date of Service: 01/16/23 Interval history: Not happy with care in the ER overnight He implied that staff was not pain him attention Otherwise pain much improved Minimal output from the NG tube overnight He has had multiple large bowel movements and has been passing flatus Does have baseline chronic pain with regards to his hernias Physical Exam 2 Vital Signs: Vital Signs: Last Vital Signs Temp 97.7 F 01/13/23 19:46 Pulse 54 01/14/23 08:04 Resp 19 01/14/23 08:04 BP 151/67 H 01/14/23 08:04 Pulse Ox 97 01/13/23 22:07 O2 Del Method Room Air 01/13/23 22:07 BMI result Body Mass Index 48.5 Const: Other: Mildly short of breath General: comfortable Resp: Other: Some shortness of breath - he says this is baseline for him Cardio: Other: Regular rhythm GI: Other: Large hernia x2, soft, no guarding rebound, partially reducible Extrem: Other: Dressings taken down on both legs - note of chronic edema, some patchy superficial ulcerations, no scabbing or necrosis or eschar Objective Data Active Medications Amlodipine Besylate (Amlodipine Besylate 5 Mg Tablet) 5 mg PO DAILY [facility]; Protocol Last Admin: 01/14/23 07:59 Dose: 5 mg Documented By: MALCOM Aripiprazole (Aripiprazole 2 Mg Tablet) 2 mg PO DAILY [facility] Atenolol (Atenolol 25 Mg Tablet) 25 mg PO BID [facility]; Protocol Last Admin: 01/14/23 07:59 Dose: 25 mg Documented By: MALCOM Furosemide (Furosemide 40 Mg Tablet) 40 mg PO DAILY [facility]; Protocol Last Admin: 01/14/23 07:59 Dose: 40 mg Documented By: MALCOM Gabapentin (Gabapentin 100 Mg Capsule) 200 mg PO BEDTIME [facility] Last Admin: 01/13/23 22:06 Dose: 200 mg Documented By: LISANDRO Heparin Sodium (Porcine) (Heparin Sodium,Porcine 5,000 Unit/Ml Vial) 5,000 unit SUBCUT Q8H [facility] Last Admin: 01/14/23 08:00 Dose: 5,000 unit Documented By: MALCOM Sodium Chloride (Ns) 1,000 mls @ 75 mls/hr IVCONT .[id number] [facility] Last Admin: 01/13/23 17:41 Dose: Not Given Documented By: NEPTALI Non-Admin Reason: See Note Lactated Ringer's (Lr) 1,000 mls @ 80 mls/hr IVCONT .[id number] [facility] Last Admin: 01/14/23 04:49 Dose: 80 mls/hr Documented By: LISANDRO Insulin Glargine (Insulin Glargine,Hum.Rec.Anlog 100 Unit/Ml 10 Ml Vial) 60 unit SUBCUT BEDTIME [facility] Last Admin: 01/13/23 22:09 Dose: Not Given Documented By: LISANDRO Non-Admin Reason: NPO Levothyroxine Sodium (Levothyroxine Sodium 150 Mcg Tablet) 150 mcg PO DAILY@0600 [facility] Last Admin: 01/14/23 06:07 Dose: 150 mcg Documented By: LISANDRO [place] Carbonate ([place] Carbonate 300 Mg Capsule) 300 mg PO BID [facility] Last Admin: 01/13/23 22:07 Dose: 300 mg Documented By: LISANDRO Lorazepam (Lorazepam 2 Mg/Ml Vial) 0.5 mg IVPUSH Q6H PRN PRN Reason: anxiety Last Admin: 01/14/23 02:43 Dose: 0.5 mg Documented By: ZACHERY Morphine Sulfate (Morphine Sulfate 4 Mg/Ml Cartridge) 3 mg IVPUSH Q4H PRN; Protocol PRN Reason: Pain, Severe (Pain Scale 7-10) Omeprazole (Omeprazole 40 Mg Capsule.Dr) 40 mg PO SUTUTHSA@0630 [facility] Ondansetron HCl (Ondansetron Hcl 4 Mg/2 Ml Vial) 4 mg IVPUSH Q8H PRN PRN Reason: Nausea and Vomiting Ropinirole HCl (Ropinirole Hcl 0.5 Mg Tablet) 0.5 mg PO BEDTIME [facility] Last Admin: 01/13/23 22:07 Dose: 0.5 mg Documented By: LISANDRO Sertraline HCl (Sertraline Hcl 100 Mg Tablet) 200 mg PO DAILY [facility] Last Admin: 01/14/23 07:59 Dose: 200 mg Documented By: MALCOM Sodium Chloride (0.9 % Sodium Chloride Flush 3 Ml Syringe) 3 ml IVFLUSH QSHIFT [facility] Last Admin: 01/14/23 08:02 Dose: 3 ml Documented By: MALCOM Labs 01/13/23 04:39 01/13/23 04:39 Labs: Laboratory Results - last 24 hr 01/13/23 21:06 POC Glucose 139 H Procedures Date of Service Date of Service: 01/16/23 Progress Note: A&P Assessment and plan (1) Ventral hernia: Status: Acute Assessment and Plan: He has multiple large ventral hernias He now states that he had seen an hernia specialist in [place] and he was told to lose 100 lb for any surgery Currently does not seem to present with acute obstructive symptoms He does admit to chronic pain in his hernias for many years Practically no output from his NG tube Passing flatus and BMs He says that he would like to hold off on urgent hernia surgery at least for now He understands complexity of the surgery along with this significant perioperative risks I will remove his NG tube He is waiting for a regular hospital room (2) Bilateral leg ulcer: Status: Acute Assessment and Plan: He has chronic stasis ulcers on both lower legs He says he is being followed in [place] for this in a wound clinic I change all his dressings wrapped both feet in bandage because of edema Time Spent With Patient Time: Total time managing care of this patient today ____ minutes. Quality Stroke Does the patient have a stroke diagnosis?: No VTE Prior VTE?: No VTE Risk Level:: Medical - moderate - high VTE Device Contraindication: N/A - Device Ordered VTE Drug Contraindication: N/A - Med Ordered
--- NOTE | 2023-01-14 09:47 | PC.NURSE ---
messaged provider logged on in orders ricky to touch base and clarify orders for IV fluids. notified hr low to mid 50s, no cp/dizziness/sob at rest. talking well. NGT in place. +CMS.
[2023-01-14 09:48] LABS: Lithium 0.45 mmol/L (0.60-1.20)
[2023-01-14 09:50] VITALS: BP 162/69; PULSE 53; RESP 15; TEMP 36.5; O2SAT 97
--- NOTE | 2023-01-14 10:11 | MHC.EDTECH ---
SISTER/OLIVA VELOZ CALLS FOR UPDAT ON HER BROTHER CALLS FROM [phone]
--- NOTE | 2023-01-14 11:08 | PC.NURSE ---
NGT removed- no issues on removal. reports abdominal pain has been mostly relieved. aox4. calm, coop. ambulated at bedside for urinal. mostly steady gait. standby asst.
--- NOTE | 2023-01-14 11:25 | PC.NURSE ---
md garcía made aware pt req'ing to go home- beds/tiger text chat members notified re: this - doctor pending response and tp come down to talk w pt per rn request as well as pt request. holding off on admit at this time.
--- NOTE | 2023-01-14 11:44 | PC.NURSE ---
report given to antonia monaco to contact transport
[2023-01-14] MEDS: Lithium Carbonate 300 MG CAPSULE PO (11:50)
[2023-01-14] MEDS: ARIPiprazole 2 MG TABLET PO (11:50)
[2023-01-14 11:56] VITALS: BP 158/77; PULSE 61; RESP 20; TEMP 36.6; O2SAT 98
--- NOTE | 2023-01-14 11:58 | PC.NURSE ---
belongings check done by conrado at this time- bringing item to security. transport was called by xin akbar
--- NOTE | 2023-01-14 12:04 | MHC.CM.PN ---
CM MET WITH PT IN ED 22 PT REPORTS HE LIVES ALONE AND IS INDEPENDENT WITH CARE HE SAYS HE HAS NO SERVICES AT THIS TIME HE REPORTS [facility] DID TRY TO SET UP SERVICES FOR HIM THE PAST, HOWEVER THEY DID NOT STAY LONG AND REPORTED HE WAS DIFFICULT TO GET ALONG WITH. HE REPORTS AFTER THAT THEY DISCHARGED HIM FROM SERVICE HE DOES REPORT GOING TO [facility] PT REPORTS HE USES A CANE TO AMBULATE PT ALSO BELIEVES HE HAS A HCP AT [facility], HE DECLINED TO COMPLETE ONE TODAY AND SAYS IF [facility] DOES NOT HAVE ONE FOR HIM, HE DOES NOT WANT TO DO ONE PT SAYS HE GOES TO [facility] FOR PRIMARY CARE AND RECENTLY RECEIVED A LETTER SAYING HIS NEW PROVIDER IS DR PATEL, HIS USUAL PROVIDER HAS GONE ON [facility] IMM DELIVERED DCP: HOME, NO SERVICES UNSURE IF PT WOULD BE ELIGIBLE FOR A VNA HE HAS NOT SEE HIS NEW PROVIDER YET PT IS UNSURE IF HE WILL HAVE TRANSPORT, HE IS AWARE CM CAN ASSIST IF NOT
[2023-01-14 12:37] VITALS: BP 155/75; PULSE 61; RESP 18; TEMP 36.6; O2SAT 97
--- NOTE | 2023-01-14 13:01 | PM.EVENT ---
Event Note Date of Service: 01/16/23 Event Note: pt had stated earlier this morning - he wanted to sign out AMA while waiting for med surg med he was convinced to stay at least for today he was able to get up to med surg as per staff - pt was rude and uncooperative to nursing staff he says he has no abdl pain and continues to pass flatus abd remains soft denies nausea will try on sips of liquids for today I had a long discussion with him about importance of staying for now Time Spent With Patient Time: Total time managing care of this patient today ____ minutes.
--- NOTE | 2023-01-14 13:15 | PC.NURSE ---
patient very agitated, refusing high fall risk precautions even though very unsteady, ripped out iv with blood everywhere, aware that patient is signing out ama
[2023-01-14 15:17] VITALS: BP 155/72; PULSE 68; RESP 20; TEMP 36.8; O2SAT 97
[2023-01-15 09:19] LABS: Glucose, Whole Blood 140 mg/dL (60-115)
--- NOTE | 2023-05-29 13:03 | PM.DS ---
DS: Providers Provider Date of Service: 06/16/23 Date of admission: 01/13/23 07:03 Primary care physician: Unknown Physician Consults: 01/13/23 07:05 Consult to Hospitalist Routine Comment: Consulting Provider: Hospitalist Reason For Exam: HTN, COPD, DM, pacemaker DS: Diagnosis Discharge Diagnosis (1) Ventral hernia: Status: Acute (2) Bilateral leg ulcer: Status: Acute DS: Summary Hospital Course Hospital Course: The patient is a 72-year-old male with diabetes, morbid obesity, COPD, admitted because vomiting with question of partial small-bowel obstruction. He did have multiple abdominal wall hernias from previous surgeries. These contained bowel loops. However, he was passing flatus and bowel movements. Clinically, he was not obstructed. I started him on clear liquids which he tolerated. In view of his multiple medical problems, I had also consulted the hospitalist service However, the patient signed out against medical advise on 01/14/2023. Time Attestation Discharge coordination time: Less than 30 minutes Quality: Safe Use of Opioids Does Pt have an Active Cancer Diagnosis on the Problem List?: No Quality: Stroke Does the patient have a stroke diagnosis?: No Physical Exam Vital Signs: Vital Signs: Last Vital Signs Temp 98.2 F 01/14/23 15:17 Pulse 68 01/14/23 15:17 Resp 20 01/14/23 15:17 BP 155/72 H 01/14/23 15:17 Pulse Ox 97 01/14/23 15:17 O2 Del Method Room Air 01/14/23 15:17 BMI result Body Mass Index 48.5 Const: General: comfortable and no acute distress Orientation/consciousness: patient oriented x3 Neck: Neck: Yes no lymphadenopathy Resp: Auscultation: clear to auscultation bilaterally Cardio: Rhythm: regular rhythm GI: Other: Multiple abdominal hernias, nontender Palpation (GI): Soft to palpation, nontender and no guarding Neuro: General: patient oriented x3 DS: Data Data Completed and Pending Labs on day of discharge: Laboratory Results WBC 7.7 X10*3/uL (4.8-10.8) 01/13/23 04:39 RBC 3.80 X10*6/uL (4.60-5.80) L 01/13/23 04:39 Hgb 12.3 g/dl (14.0-18.0) L 01/13/23 04:39 Hct 37.3 % (42.0-52.0) L 01/13/23 04:39 MCV 98.2 fL (80.0-98.0) H 01/13/23 04:39 MCH 32.4 pg (27.0-33.0) 01/13/23 04:39 MCHC 33.0 g/dl (31.0-36.0) 01/13/23 04:39 RDW 14.4 % (11.0-16.0) 01/13/23 04:39 Plt Count 160 X10*3/uL (160-400) 01/13/23 04:39 MPV 8.8 fL (9.4-12.4) L 01/13/23 04:39 Immature Gran % (Auto) 0.3 % (0.0-0.4) 01/13/23 04:39 Neut % (Auto) 75.4 % (45-73) H 01/13/23 04:39 Lymph % (Auto) 15.5 % (20-40) L 01/13/23 04:39 [place] % (Auto) 7.2 % (2-11) 01/13/23 04:39 Eos % (Auto) 1.3 % (0-4) 01/13/23 04:39 Baso % (Auto) 0.3 % (0-2) 01/13/23 04:39 Lymph # (Auto) 1.2 X10*3/uL (1.2-4.9) 01/13/23 04:39 [place] # (Auto) 0.6 X10*3/uL (0.1-1.2) 01/13/23 04:39 Eos # (Auto) 0.1 X10*3/uL (0.0-0.4) 01/13/23 04:39 Baso # (Auto) 0.0 X10*3/uL (0.0-0.2) 01/13/23 04:39 Abs Immat Gran (auto) 0.02 X10*3/uL (0.00-0.03) 01/13/23 04:39 Absolute Neuts (auto) 5.8 x10*3/uL (2.0-8.3) 01/13/23 04:39 Absolute Nucleated RBC 0.000 X10*3/uL (0.0-0.012) 01/13/23 04:39 Nucleated RBC % (auto) 0.0 /100WBC (0.0-0.2) 01/13/23 04:39 Sodium 142 mmol/L (135-145) 01/13/23 04:39 Potassium 4.2 mmol/L (3.3-5.1) 01/13/23 04:39 Chloride 105 mmol/L (96-108) 01/13/23 04:39 Carbon Dioxide 25 mmol/L (22-29) 01/13/23 04:39 Anion Gap 16 (12-20) 01/13/23 04:39 BUN 12 mg/dL (9-16) 01/13/23 04:39 Creatinine 0.90 mg/dL (0.5-1.4) 01/13/23 04:39 Estim Creat Clear Calc 110.2 01/13/23 04:39 Estimated GFR > 60 01/13/23 04:39 POC Glucose 140 mg/dL (60-115) H 01/14/23 16:32 Random Glucose 184 mg/dL (60-115) H 01/13/23 04:39 Calcium 9.4 mg/dL (8.4-10.2) 01/13/23 04:39 Total Bilirubin 1.7 mg/dL (0.0-1.0) H 01/13/23 04:39 AST 25 U/L (5-37) 01/13/23 04:39 ALT 23 U/L (0-40) 01/13/23 04:39 Alkaline Phosphatase 76 U/L (39-117) 01/13/23 04:39 Total Protein 7.1 g/dL (6.5-8.0) 01/13/23 04:39 Albumin 4.0 g/dL (3.5-5.0) 01/13/23 04:39 Urine Color Yellow 01/13/23 04:22 Urine Appearance Clear 01/13/23 04:22 Urine pH 7.0 (5.0-9.0) 01/13/23 04:22 Ur Specific [place] 1.015 (1.005-1.025) 01/13/23 04:22 Urine Protein 100 (2+) mg/dL (Neg-Trace) H 01/13/23 04:22 Urine Glucose (UA) Negative mg/dL (Negative) 01/13/23 04:22 Urine Ketones Trace mg/dL (Negative) 01/13/23 04:22 Urine Blood Negative (Negative) 01/13/23 04:22 Urine Nitrite Negative (Negative) 01/13/23 04:22 Ur Leukocyte Esterase Negative (Negative) 01/13/23 04:22 Urine RBC 0-2 /HPF (0-2) 01/13/23 04:22 Urine WBC 0-5 /HPF (0-5) 01/13/23 04:22 Ur Squamous Epith Cells 0-2 /HPF (0-2) 01/13/23 04:22 Urine Bacteria None Seen (None Seen) 01/13/23 04:22 Hyaline Casts 0-2 /LPF (0-2) 01/13/23 04:22 [place] 0.45 mmol/L (0.60-1.20) L 01/14/23 09:23 Impressions Abdomen/Pelvis CT 01/13/23 04:22 IMPRESSION: 1. Small bowel obstruction with transition point suspected to be related to a right periumbilical hernia containing loops of small bowel. 2. Additional supraumbilical ventral hernia containing loops of small and large bowel. 3. Borderline enlarged retroperitoneal lymph node, of uncertain clinical significance. Chest X-Ray 01/13/23 12:41 IMPRESSION: Enteric catheter appears to lie within the stomach with sidehole at the level of the GE junction. Discharge Plan Discharge Patient Disposition: Left Against Medical Advice Discharge Diagnosis: partial small bowel obstruction Referrals: Physician,Unknown J [Primary Care Provider] - 1 Week Discharge Medications: No Action furosemide 40 mg tablet 40 mg PO DAILY atorvastatin 40 mg tablet 40 mg PO BEDTIME sertraline 100 mg tablet 200 mg PO DAILY atenolol 25 mg tablet 25 mg PO BID amlodipine 5 mg tablet 5 mg PO DAILY omeprazole 40 mg capsule,delayed release(DR/EC) 40 mg PO SUTUTHSA@0630 lithium carbonate 300 mg capsule 300 mg PO BID ropinirole 0.5 mg tablet 0.5 mg PO BEDTIME warfarin 5 mg tablet 5 mg PO DAILY@1800 levothyroxine 150 mcg tablet 150 mcg PO DAILY@0600 gabapentin 100 mg capsule 200 mg PO BEDTIME insulin lispro [Humalog KwikPen Insulin] 100 unit/mL insulin pen See Protocol subcut TID Protocol: Insulin Correction Scale Less than or equal to 110 ---- Give (units): 0 111 to 150 Give (units): 0 151 to 200 Give (units): 2 201 to 250 Give (units): 4 251 to 300 Give (units): 6 301 to 350 Give (units): 8 Greater than 350 Give (units): 10 Call MD if Blood Glucose > : 350 aripiprazole 2 mg tablet 2 mg PO DAILY insulin glargine [Lantus Solostar U-100 Insulin] 100 unit/mL (3 mL) insulin pen 60 unit subcut BEDTIME acetaminophen [Tylenol] 325 mg Tablet 650 mg PO BEDTIME PRN (Reason: Pain) Discharge Orders: Discharge Order (Routine); Ordered 05/29/23 Ordered By: Edgard Howard Care Plan Goals: Patient signed out against medical advise Health Concerns: Patient signed out against medical advise Multiple hernias, COPD, diabetes, hypertension Plan of Treatment: Patient signed out against medical advise Assessment: Patient signed out against medical advise Discharge Date/Time: 01/14/23 13:21
== END 2023-01-14 13:21 | disposition left against medical advice (07) | DRG 394 ==
LOC: HO.ED 05:29 → HO.EDOVER 07:08 → HO.S3 01-14 11:17
PROVIDERS: Nurse Practitioner Acute Care; Admitting Provider Surgery; Emergency Provider Student in an Organized Health Care Education/Training Program; Visit Provider Surgery
DX: K43.6 Other and unspecified ventral hernia with obstruction, without gangrene (principal); I87.313 Chronic venous hypertension (idiopathic) with ulcer of bilateral lower extremity; Z68.42 Body mass index [BMI] 45.0-49.9, adult; L97.929 Non-pressure chronic ulcer of unspecified part of left lower leg with unspecified severity; L97.919 Non-pressure chronic ulcer of unspecified part of right lower leg with unspecified severity; J44.9 Chronic obstructive pulmonary disease, unspecified; E66.01 Morbid (severe) obesity due to excess calories; Z95.0 Presence of cardiac pacemaker; Z79.4 Long term (current) use of insulin; Z79.01 Long term (current) use of anticoagulants; Z79.890 Hormone replacement therapy; Z79.899 Other long term (current) drug therapy
CPT/HCPCS: 36415; 71045; 74176; 80053; 80178; 81001; 82947; 85025; 99285; J1643; J2060

== ENCOUNTER → 2023-01-13 07:03 | Outpatient (BNV) | payer MEDICARE, SELFPAY | PROVIDERS: Admitting Provider Surgery; Emergency Provider Student in an Organized Health Care Education/Training Program; Visit Provider Nurse Practitioner Acute Care | DX: L97.919 Non-pressure chronic ulcer of unspecified part of right lower leg with unspecified severity (principal); L97.929 Non-pressure chronic ulcer of unspecified part of left lower leg with unspecified severity | CPT/HCPCS: 99222 ==

== ENCOUNTER → 2023-01-13 07:03 | Outpatient (BNV) | payer MEDICARE, SELFPAY | PROVIDERS: Admitting Provider Surgery; Emergency Provider Student in an Organized Health Care Education/Training Program; Visit Provider Surgery | DX: K43.9 Ventral hernia without obstruction or gangrene (principal); L97.919 Non-pressure chronic ulcer of unspecified part of right lower leg with unspecified severity; L97.929 Non-pressure chronic ulcer of unspecified part of left lower leg with unspecified severity | CPT/HCPCS: 99222; 99238; 99499 ==

== ENCOUNTER 2023-01-14 15:35 | Inpatient (IN) | payer MEDICARE, SELFPAY ==
--- NOTE | 2023-01-14 15:33 | PM.EVENT ---
Event Note Date of Service: 01/14/23 Event Note: pt apparently had signed out AMA, changed his mind and went to administration previous orders have been discontinued - will continue with same orders as per Dr. Charles - no need to do admit H and P Time Spent With Patient Time: Total time managing care of this patient today ____ minutes.
--- OUTSIDE RECORDS SUMMARY | 2023-01-14 15:38 | XMS_ITS | Continuity of Care Document ---
Author Name Unknown Organization [facility] Address [address] [place] [address]- Care Team Providers Care Electrical Engineering Professor Name Role Phone Chyna Duarte MD Primary Care Physician Encounter [facility] Date(s): 11/05/20 - 12/05/[address] [address]- Allergies, Adverse Reactions, Alerts Substance Reaction Severity Status NKA Active Immunizations Given and Recorded Vaccine Date Status Refusal Reason SARS-CoV-2 (COVID-19) mRNA BNT-162b2 vac 08/29/20 Given SARS-CoV-2 (COVID-19) mRNA BNT-162b2 vac 08/07/20 Given influenza virus vaccine, inactivated 02/23/20 Give n influenza virus vaccine, inactivated 1 03/31/19 Gi alana influenza virus vaccine, inactivated 02/10/18 Give n influenza virus vaccine, inactivated 03/05/17 Give n influenza virus vaccine, inactivated 02/08/16 Give n influenza virus vaccine, inactivated 02/28/15 Give n influenza virus vaccine, inactivated 01/25/14 Give n influenza virus vaccine, inactivated 01/10/13 Give n influenza virus vaccine, inactivated 2 01/28/10 Gi alana influenza virus vaccine, inactivated 3 01/25/09 Gi alana influenza virus vaccine, inactivated 4 03/04/06 Gi alana influenza virus vaccine, inactivated 03/15/05 Give n influenza virus vaccine, inactivated 03/20/04 Give n influenza virus vaccine, inactivated 02/15/03 Give n influenza virus vaccine, inactivated 03/07/02 Give n pneumococcal 13-valent vaccine 02/23/20 Given pneumococcal 13-valent vaccine 02/10/18 Given tetanus/diphtheria/pertussis, acel(Tdap) 03/31/19 Given pneumococcal 23-valent vaccine 04/16/14 Given FluLaval (oldterm) 6 01/05/12 Given Influenza Vaccine (oldterm) 7 02/10/11 Given Diphth-Tetanus Toxoids Adsorbed(oldterm) 8 01/25/09 Given Pneumococcal Poly (PPV23) (oldterm) 9 03/04/06 Giv en Pneumococcal Vacc (oldterm) 06/25/01 Given Not Given Vaccine Date Status Refusal Reason pneumococcal 23-valent vaccine 5 01/19/14 Not Give n Patient Refuses 1Early/Late Reason: Other : GIVEN 03/31/19 DURING VISIT 2Admin Note: VIS 12/04/2009 3Admin Note: VIS GIVEN 12/05/2008 4Admin Note: vis given 5Admin Note: VIS given 10/2011 6Admin Note: VIS GIVEN [id number] 7Admin Note: VIS GIVEN 03/14/2008 8Admin Note: vis given 9Result Note: pt states he has previously had this vaccine Medications acetaminophen 325 mg oral tablet 975 mg, 3, tablet, By Mouth, Every 6 hours, PRN, # 120 tablet, Refills 0, Tot. Refills 0, Maintenance, as needed for pain, 08/06/19 0:18:00 EDT, Route to Pharmacy Electronically, [id number], 176, cm, 07/07/19 10:15:00 EDT, Height, 129, kg,... Start Date: 08/06/19 Status: Ordered Aerochamber w/Mask (Large) See Instructions, # 1 each, Maintenance, to be used with flovent and albuterol dx: J44.9, 07/11/20 9:19:00 EDT, Supply, 176, cm, 07/11/20 8:51:00 EDT, Height, 131.6, kg, 06/03/20 4:19:00 EST, Dry Weight Start Date: 07/11/20 Status: Ordered albuterol CFC free 90 mcg/inh inhalation aerosol 2, puffs, Inhalation, Every 6 hours, PRN, # 9 Gm, Refills 5, Tot. Refills 5, Maintenance, 11/22/20 12:17:00 EDT, Aerosol, Route to Pharmacy Electronically, [id number], [facility], 176, cm, 11/22/20 11:05:00 EDT,... Start Date: 11/22/20 Status: Ordered amLODIPine 5 mg oral tablet 1 tablet, By Mouth, Daily, # 90 tablet, 3 Refills, Maintenance, 07/09/20 16:29:00 EDT, [facility], 176, cm, 06/28/20 13:04:00 EST, Height, 131.6, kg, 06/03/20 4:19:00 EST, Dry Weight Start Date: 07/09/20 Status: Ordered atenolol 25 mg oral tablet 1, tablet, By Mouth, 2 times a day, # 180 tablet, Refills 3, Tot. Refills 0, Maintenance, 07/01/20 20:37:00 EST, Route to Pharmacy Electronically, [facility], 176, cm, 06/28/20 13:04:00 EST, Height, 131.6, kg, 06/03/20 4:19:00 EST, Dry Weight Start Date: 07/01/20 Status: Ordered atorvastatin 40 mg oral tablet 1 tablet, By Mouth, Daily, # 90 tablet, 3 Refills, Maintenance, 07/09/20 16:32:00 EDT, [facility], 176, cm, 06/28/20 13:04:00 EST, Height, 131.6, kg, 06/03/20 4:19:00 EST, Dry Weight Start Date: 07/09/20 Status: Ordered AutoBIPAP EPAPmin 11 IPAPmax 22 PS 6 with heated humidification AutoBIPAP EPAPmin 11 IPAPmax 22 PS 6 with heated humidification, See Instructions, # 1 each, Refills 0, Tot. Refills 0, Maintenance, use overnight and naps from [facility], 11/08/19 11:45:00 EDT, Compound, 176, cm, 09/23/19 8:30:00 EDT, Height, 129, kg... Start Date: 11/08/19 Status: Ordered clonazePAM 0.5 mg oral tablet 1 tablet = 0.5 mg, By Mouth, Daily at bedtime, ordered by Dr. Maria Elena Nino, 0 Refills, Maintenance,11/05/17 10:42:58 EDT Start Date: 11/05/17 Status: Ordered Compression Stockings See Instructions, # 1 pair, Maintenance, Juxta Lite Circaid compression wraps bilateral 30-40 mmHg,06/12/16 10:24:21, Compound Start Date: 06/12/16 Status: Ordered Compression Stockings See Instructions, # 1 pair, Maintenance, Juxta Lite compression wraps bilateral lower legs DX CVI with ulcers, 05/13/16 15:16:30, Compound Start Date: 05/13/16 Status: Ordered Flovent HFA 110 mcg/inh inhalation aerosol 1 puff, Inhalation, 2 times a day, rinse mouth and throat after use use with spacer chamber, # 1 each, 0 Refills, Maintenance, 07/11/20 9:19:00 EDT, [facility], Partial fill upon patient request if the prescription is for a schedule II opi... Start Date: 07/11/20 Status: Ordered free style lyndon reader free style lyndon reader, See Instructions, # 1 each, Refills 0, Tot. Refills 0, Maintenance, to be used to check BG up to 4 times a day dx: E 11.65 NATASHA = lifetime, 07/19/18 12:54:46 EDT, Compound Start Date: 07/19/18 Status: Ordered free style lyndon sensors free style lyndon sensors, See Instructions, # 1 units, Refills 11, Tot. Refills 11, Maintenance, sammi used to check BG up to 4 times a day 1 unit = 30 day supply dx: E11.65 NATASHA: lifetime, 07/19/18 12:54:41 EDT, Compound Start Date: 07/19/18 Status: Ordered furosemide 40 mg oral tablet 1, tablet, By Mouth, Daily, # 90 tablet, Refills 3, Tot. Refills 0, Maintenance, 12/07/19 16:59:00 EDT, Route to Pharmacy Electronically, [email or web address], 176, cm, 09/23/19 8:30:00 EDT, Height, 129, kg, 05/29/18 0:31:00 EST, Dry Weight Start Date: 12/07/19 Status: Ordered gabapentin 300 mg oral capsule 300 mg, 1, capsule, By Mouth, 3 times a day, # 45 capsule, Refills 0, Tot. Refills 0, Maintenance, 08/06/19 0:18:00 EDT, Route to Pharmacy Electronically, [facility], 176, cm, 07/07/19 10:15:00 EDT, Height, 129, kg, 05/29/18 0:31:00 EST, . Start Date: 08/06/19 Status: Ordered HumaLOG KwikPen 100 units/mL injectable solution See Instructions, s/c inj TID before meals acc to scale: 1u 150-200; 3u 201-250; 5u 251-300; 7u 301-350; 9u 351-400; 11u 401-450; call MD for BG over 450, # 10 mL, 5 Refills, Maintenance, 11/08/20 7:18:00 EDT, [facility], 176, cm, 08/25... Start Date: 11/08/20 Status: Ordered Insulin Syringe, BD Ultra-Fine 1 cc 30 G x 12.7 mm (1/2in) See Instructions, # 360 each, Refills 3, Tot. Refills 3, Maintenance, to be used with insulin QID for dx: E11.65, 09/25/16 10:37:06, Compound Start Date: 09/25/16 Status: Ordered Juxta Fit Circaid compression wraps Juxta Fit Circaid compression wraps, See Instructions, # 1 pair, Refills 0, Tot. Refills 0, Maintenance, bilateral lower legs, 05/01/17 11:25:43, Compound Start Date: 05/01/17 Status: Ordered Lantus Solostar Pen 100 units/mL subcutaneous solution = 70 units, Subcutaneous Injection, Daily at bedtime, # 75 mL, 1 Refills, Maintenance, 06/28/20 16:38:00 EST, Solution, [facility], 176, cm, 06/28/20 13:04:00 EST, Height, 131.6, kg, 06/03/20 4:19:00 EST, Dry Weight Start Date: 06/28/20 Stop Date: 12/25/20 Status: Ordered levothyroxine 150 mcg (0.15 mg) oral tablet 1 tablet, By Mouth, Daily, # 90 tablet, 3 Refills, Maintenance, 07/01/20 20:38:00 EST, [facility], 176, cm, 06/28/20 13:04:00 EST, Height, 131.6, kg, 06/03/20 4:19:00 EST, Dry Weight Start Date: 07/01/20 Status: Ordered lisinopril 40 mg oral tablet 1 tablet, By Mouth, Daily, # 90 tablet, 3 Refills, Maintenance, 07/09/20 16:32:00 EDT, [facility], 176, cm, 06/28/20 13:04:00 EST, Height, 131.6, kg, 06/03/20 4:19:00 EST, Dry Weight Start Date: 07/09/20 Status: Ordered lithium 300 mg oral tablet, extended release 2 tablet = 600 mg, By Mouth, Daily at bedtime, Maintenance, 11/30/09 22:37:01 Start Date: 11/30/09 Status: Ordered omeprazole 40 mg oral enteric coated capsule 1 capsule, By Mouth, Daily, # 90 capsule, 3 Refills, Maintenance, 07/09/20 16:32:00 EDT, [facility], 176, cm, 06/28/20 13:04:00 EST, Height, 131.6, kg, 06/03/20 4:19:00 EST, Dry Weight Start Date: 07/09/20 Status: Ordered PAP Supplies - Mask, Tubing, Filters, Head Gear, Chin Strap, and Water Chamber PAP Supplies - Mask, Tubing, Filters, Head Gear, Chin Strap, and Water Chamber, See Instructions, #1 each, Refills 12, Tot. Refills 12, Maintenance, to be used with CPAP machine for dx: SANJIV G47.30 length of need: 99=lifetime, 05/08/16 13:26:55, Com... Start Date: 05/08/16 Status: Ordered Pen Bowman, 31 G x 5 mm BD Ultra Fine III See Instructions, # 300 each, Refills 3, Tot. Refills 3, Maintenance, use with lantus and humalog as directed dx: e11.65, 05/06/16 15:47:30, Compound Start Date: 05/06/16 Stop Date: 05/01/17 Status: Ordered Readi-Cat 2 oral suspension See Instructions, take as directed, # 2 each, 0 Refills, Maintenance, 12/05/20 15:52:00 EDT, [facility], Partial fill upon patient request if the prescription is for a schedule II opioid drug., take as directed, 176, cm, 11/22/20 11:05:0... Start Date: 12/05/20 Status: Ordered rOPINIRole 0.5 mg oral tablet 1 tablet, By Mouth, Daily at bedtime, # 90 tablet, 3 Refills, Maintenance, 03/26/20 13:32:00 EST, [facility], 176, cm, 02/02/20 8:56:00 EDT, Height, 129, kg, 05/29/18 0:31:00 EST, Dry Weight Start Date: 03/26/20 Status: Ordered sertraline 100 mg oral tablet 2 tablet = 200 mg, By Mouth, Daily, # 30 tablet, 0 Refills, Maintenance, Tablet Start Date: 06/05/11 Status: Ordered Tagitol V 40% oral suspension See Instructions, for CT colonography, dispense three 20mL bottles, # 3 each, 0 Refills, Maintenance, 10/15/20 18:05:00 EDT, [facility], Partial fill upon patient request if the prescription is for a schedule II opioid drug., for CT colo... Start Date: 10/15/20 Status: Ordered unna boot dressing change once a week unna boot dressing change once a week, See Instructions, # 1 each, Refills 0, Tot. Refills 0, Maintenance, for dx: diabetic leg wound, 11/14/19 10:32:00 EDT, Supply Start Date: 11/14/19 Status: Ordered warfarin 5 mg oral tablet See Instructions, TAKE 1 AND 1/2 TO 2 TABLETS BY MOUTH DAILY PER MD/RN PROTOCOL, # 180 tablet, 3Refills, Maintenance, [facility], 176, cm, 09/06/20 11:13:00 EDT, Height, 131.6, kg, 06/03/20 4:19:00 EST, Dry Weight Start Date: 11/05/20 Status: Ordered Problem List Condition Effective Dates Status Health Status Inform ant Cataract(Confirmed) Active Chronic constipation(Confirmed) 08/21/08 Active COVID-19 virus infection(Confirmed) Active DVT (deep venous thrombosis)(Confirmed) Active Diabetes mellitus - adult onset(Confirmed) 08/21/08 Active Essential hypertension(Confirmed) 08/03/08 Active Benign essential tremor(Confirmed) Active Positive FIT (fecal immunoch emical test)(Confirmed) Active Goal-TO SURVIVE THIS YEAR(Confirmed) Active Hernia, ventral(Confirmed) Active Hypothyroidism(Confirmed) 2004 Active Secondary insomnia(Confirmed) Active Fatty liver disease based on CT(Confirmed) 08/21/08 Active Lower back pain(Confirmed) Active Lymphedema(Confirmed) Active Major depression(Confirmed) 1 Active Morbid obesity(Confirmed) Active SANJIV (obstructive sleep apnea)(Confirmed) Active Sigmoid colon resection + complication(Confirmed) 2002 Active Tachy-nelda syndrome(Confirmed) Active Diabetic leg ulcer(Confirmed) Active 1Sees Dr. Molina and Radha, therapist, at [facility] [place] Social History Social History Type Response Smoking Status Former smoker, quit more than 30 days ago entered on: 06/28/20 Sex
--- OUTSIDE RECORDS SUMMARY | 2023-01-14 15:38 | XMS_ITS | Continuity of Care Document ---
Author Name Unknown Organization [facility] ter Address [address] [place] [id number] Care Team Providers Care Assembly Detailer Name Role Phone Mary GARRISON, Jann Culp Primary Care Physician Encounter [facility] Date(s): 10/04/22 - 10/07/[address] [id number] Discharge Disposition: A-Transfer VNA/Home Health Attending Physician: Jacob Hutchins MD Admitting Physician: Ann Hale MD Referring Physician: Not on Staff, Referring MD Allergies, Adverse Reactions, Alerts No Known Allergies Immunizations Given and Recorded Vaccine Date Status Refusal Reason [id number] 12y+ bivalent booster vax 03/11/22 Given influenza virus vaccine, inactivated 03/11/22 Give n influenza virus vaccine, inactivated 02/07/21 Give n influenza virus vaccine, inactivated 02/23/20 Give n [...] influenza virus vaccine, inactivated 03/07/02 Give n SARS-CoV-2 mRNA ([id number]) vax 5/5/22 Given pneumococcal 23-valent vaccine 06/06/21 Given pneumococcal 23-valent vaccine 04/16/14 Given SARS-CoV-2 (COVID-19) mRNA BNT-162b2 vac 6 03/04/21 Given SARS-CoV-2 (COVID-19) mRNA BNT-162b2 vac 08/29/20 Given SARS-CoV-2 (COVID-19) mRNA BNT-162b2 vac 08/07/20 Given pneumococcal 13-valent vaccine 02/23/20 Given pneumococcal 13-valent vaccine 02/10/18 Given tetanus/diphtheria/pertussis, acel(Tdap) 03/31/19 Given FluLaval (oldterm) 7 01/05/12 Given Influenza Vaccine (oldterm) 8 02/10/11 Given Diphth-Tetanus Toxoids Adsorbed(oldterm) 9 01/25/09 Given Pneumococcal Poly (PPV23) (oldterm) 10 03/04/06 Gi alana Pneumococcal Vacc (oldterm) 06/25/01 Given Not Given Vaccine Date Status Refusal Reason pneumococcal 23-valent vaccine 5 01/19/14 Not Give n Patient Refuses 1Early/Late Reason: Other : GIVEN 03/31/19 DURING VISIT 2Admin Note: VIS 12/04/2009 3Admin Note: VIS GIVEN 12/05/2008 4Admin Note: vis given 5Result Comment: DILUENT LOT#: [id number] EXP: 08/2022 MFG: FRESENSIUS 6Admin Note: VIS given 10/2011 7Admin Note: VIS GIVEN [id number] 8Admin Note: VIS GIVEN 03/14/2008 9Admin Note: vis given 10Result Note: pt states he has previously had this vaccine Medications Abilify 2 mg oral tablet 2 mg, 1, tablet, By Mouth, Daily, # 30 tablet, Refills 0, Maintenance, 05/02/22 9:55:00 EST, Partial fill upon patient request if the prescription is for a schedule II opioid drug. Start Date: 05/02/22 Status: Ordered acetaminophen 325 mg oral tablet 975 mg, 3, tablet, By Mouth, Every 6 hours, PRN, # 120 tablet, Refills 0, Tot. Refills 0, Maintenance, as needed for pain, 08/06/19 0:18:00 EDT, Route to Pharmacy Electronically, [id number], 176, cm, 07/07/19 10:15:00 EDT, Height, 129, kg,... Start Date: 08/06/19 Status: Ordered Aerochamber w/Mask (Large) See Instructions, # 1 each, Maintenance, to be used with flovent and albuterol dx: J44.9, 07/11/20 9:19:00 EDT, Supply, 176, cm, 07/11/20 8:51:00 EDT, Height, 131.6, kg, 06/03/20 4:19:00 EST, Dry Weight Start Date: 07/11/20 Status: Ordered Albuterol (Eqv-ProAir HFA) 90 mcg/inh inhalation aerosol 2 inhalation, Inhalation, Every 6 hours, PRN NEEDED FOR WHEEZING, # 17 Gm, 6 Refills, Maintenance, 01/15/22 14:49:00 EDT, [facility] ([facility]), 50, USE 2 INHALATIONS BY MOUTHEVERY 6 HOURS NEEDED FOR WHEEZING, 176, cm, ... Start Date: 01/15/22 Status: Ordered amLODIPine 5 mg oral tablet 1 tablet, By Mouth, Daily, # 90 tablet, 3 Refills, Maintenance, 01/15/22 14:49:00 EDT, [facility] ([facility]), 176, cm, 01/15/22 10:10:00 EDT, Height, 131.6, kg, 06/03/20 4:19:00 EST, Dry Weight Start Date: 01/15/22 Status: Ordered atenolol 25 mg oral tablet 1, tablet, By Mouth, 2 times a day, # 180 tablet, Refills 3, Maintenance, 12/31/21 14:27:00 EDT, Route to Pharmacy Electronically, [facility] ([facility]), 176, cm, 08/29/21 9:11:00 EDT, Height, 131.6, kg, 06/03/20 4:19:00 EST, Dry... Start Date: 12/31/21 Status: Ordered atorvastatin 40 mg oral tablet 1 tablet, By Mouth, Daily, # 90 tablet, 1 Refills, Maintenance, 08/02/22 15:55:00 EDT, [facility] ([facility]), 176, cm, 07/10/22 14:41:00 EDT, Height Start Date: 08/02/22 Status: Ordered AutoBIPAP EPAPmin 11 IPAPmax 22 PS 6 with heated humidification AutoBIPAP EPAPmin 11 IPAPmax 22 PS 6 with heated humidification, See Instructions, # 1 each, Refills 0, Tot. Refills 0, Maintenance, use overnight and naps from [facility], 11/08/19 11:45:00 EDT, Compound, 176, cm, 09/23/19 8:30:00 EDT, Height, 129, kg... Start Date: 11/08/19 Status: Ordered Compression Stockings See Instructions, # 1 pair, Maintenance, Juxta Lite Circaid compression wraps bilateral 30-40 mmHg,06/12/16 10:24:21, Compound Start Date: 06/12/16 Status: Ordered Compression Stockings See Instructions, # 1 pair, Maintenance, Juxta Lite compression wraps bilateral lower legs DX CVI with ulcers, 05/13/16 15:16:30, Compound Start Date: 05/13/16 Status: Ordered Flovent Diskus 250 mcg/inh inhalation powder 1 puffs, Inhalation, 2 times a day, # 1 each, 11 Refills, Maintenance, 07/11/22 17:27:00 EDT, Powder, [facility] ([facility] ), Partial fill upon patient request if the prescription is for a schedule II opioid drug., 1 puffs Inhalat... Start Date: 07/11/22 Status: Ordered free style lyndon reader free [...] Status: Ordered furosemide 40 mg oral tablet 60 mg, 1.5, tablet, By Mouth, Daily, # 90 tablet, Refills 3, Maintenance, 12/31/21 14:28:00 EDT, Route to Pharmacy Electronically, [facility] ([facility]), 176, cm, 08/29/21 9:11:00 EDT, Height, 131.6, kg, 06/03/20 4:19:00 EST, Dry... Start Date: 12/31/21 Status: Ordered gabapentin 100 mg oral capsule 200 mg, Capsule, By Mouth, 10/06/22 21:00:00 EDT Start Date: 10/06/22 Stop Date: 10/06/22 Status: Completed gabapentin 100 mg oral capsule 200 mg, 2, capsule, By Mouth, Daily at bedtime, # 60 capsule, Refills 0, Tot. Refills 0, Maintenance, 09/25/22 16:03:00 EDT, Do Not Route, Partial fill upon patient request if the prescription is fora schedule II opioid drug. Start Date: 09/25/22 Status: Ordered HumaLOG KwikPen 100 units/mL injectable solution See Instructions, s/c inj TID before meals acc to scale: 1u 150-200; 3u 201-250; 5u 251-300; 7u 301-350; 9u 351-400; 11u 401-450; call MD for BG over 450, # 15 mL, 3 Refills, Maintenance, 01/14/22 16:55:00 EDT, [facility], 176, cm, ... Start Date: 01/14/22 Status: Ordered Incruse Ellipta 62.5 mcg/inh inhalation powder 1 inhalation, Inhalation, Every 24 hours, APART., # 30 each, 11 Refills, Maintenance, 08/01/22 16:56:00 EDT, [facility] ([facility]), 176, cm, 07/10/22 14:41:00 EDT, Height Start Date: 08/01/22 Stop Date: 08/02/22 Status: Ordered Insulin Syringe, BD Ultra-Fine 1 [...] Solostar Pen 100 units/mL subcutaneous solution = 60 units, Subcutaneous Injection, Daily at bedtime, # 10 mL, 3 Refills, Maintenance, 01/14/22 16:55:00 EDT, Solution, [facility], 176, cm, 08/29/21 9:11:00 EDT, Height, 131.6, kg, 06/03/20 4:19:00 EST, Dry Weight Start Date: 01/14/22 Stop Date: 01/09/23 Status: Ordered levothyroxine 150 mcg (0.15 mg) oral tablet 1 tablet, By Mouth, Daily, # 90 tablet, 3 Refills, Maintenance, 04/01/22 15:34:00 EST, [facility] ([facility]), 176, cm, 03/24/22 14:42:00 EST, Height, 131.6, kg, 06/03/20 4:19:00 EST, Dry Weight Start Date: 04/01/22 Status: Ordered lisinopril 40 mg oral tablet 1 tablet, By Mouth, Daily, # 90 tablet, 3 Refills, [facility], 176, cm, 06/06/21 9:59:00 EST, Height, 131.6, kg, 06/03/20 4:19:00 EST, Dry Weight Start Date: 08/17/21 Status: Ordered lithium 300 mg oral tablet, extended release 2 tablet = 600 mg, By Mouth, Daily at bedtime, Maintenance, 11/30/09 22:37:01 Start Date: 11/30/09 Status: Ordered omeprazole 40 mg oral enteric coated capsule 1 capsule, By Mouth, Daily, # 90 capsule, 3 Refills, Maintenance, 06/26/22 20:48:00 EST, [facility] ([facility] ), 176, cm, 05/02/22 9:48:00 EST, Height Start Date: 06/26/22 Status: Ordered PAP Supplies - Mask, Tubing, Filters, Head Gear, Chin Strap, and Water Chamber PAP Supplies - Mask, Tubing, Filters, Head Gear, Chin Strap, and Water Chamber, See Instructions, #1 each, Refills 12, Tot. Refills 12, Maintenance, to be used with CPAP machine for dx: SANJIV G47.30 length of need: 99=lifetime, 05/08/16 13:26:55, Com... Start Date: 05/08/16 Status: Ordered Pen Mio, 31 G x 5 mm BD Ultra Fine III See Instructions, # 300 each, Refills 3, Tot. Refills 3, Maintenance, use with lantus and humalog as directed dx: e11.65, 05/06/16 15:47:30, Compound Start Date: 05/06/16 Stop Date: 05/01/17 Status: Ordered rOPINIRole 0.5 mg oral tablet 1 tablet, By Mouth, Daily at bedtime, # 90 tablet, 3 Refills, Maintenance, 04/01/22 15:34:00 EST, [facility] ([facility]), 176, cm, 03/24/22 14:42:00 EST, Height, 131.6, kg, 06/03/20 4:19:00 EST, Dry Weight Start Date: 04/01/22 Status: Ordered sertraline 100 mg oral tablet 2 tablet = 200 mg, By Mouth, Daily, # 30 tablet, 0 Refills, Maintenance, Tablet Start Date: 06/05/11 Status: Ordered unna boot dressing change once [...] MD/RN PROTOCOL, # 180 tablet, 3Refills, Maintenance, 12/31/21 14:28:00 EDT, [facility] ([facility]), 176, cm, 08/29/21 9:11:00 EDT, Height, 131.6, kg, 06/03/20 4:1... Start Date: 12/31/21 Status: Ordered Xeroform (4x9) See Instructions, # 14 each, Refills 1, Tot. 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 Goal-TO SURVIVE THIS YEAR Confirmed Active Hernia, ventral Confirmed Active Hypertension Confirmed Active Hypothyroidism Confirmed 2004 Active Secondary insomnia Confirmed Active Fatty liver disease based on CT Confirmed 08/21/08 Active Lower back pain Confirmed Active Lymphedema Confirmed Active Major depression 1 Confirmed Active Obese class I Confirmed Active SANJIV (obstructive sleep apnea) Confirmed Active Hip osteoarthritis Confirmed Active COPD type A Confirmed Active Sigmoid colon resection + complication Confirmed 2002 Active Right flank pain Confirmed Active Seborrheic dermatitis Confirmed Active 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 Molina and Giancarlo, therapist, at [facility] in [place] Results Orders for Microbiology Reports Name Date Urine Culture (URINE CULTURE) 10/04/22 Microbiology Reports TEST:Urine Culture STATUS:Auth (Verified) BODY SITE: SOURCE:URINE COLLECTED DATE/TIME:10/04/22 5:14 AM Urine Culture SPECIMEN DESCRIPTION : URINE SPECIAL REQUESTS : NONE CULTURE : <10,000 COL/ML REPORT STATUS : FINAL 10/05/2022 Radiology Reports * Exam Date Time Procedure Performing Provider Status 10/05/22 1:33 AM XR Abdomen AP Small Bowel W/ contrast Latrice Dolan; Auth (Verified) Notes: (XR Abdomen AP Small Bowel W/ contrast) Reason For Exam: Pain;Pain RESULT: XR Abdomen AP Small Bowel with contrast XR Abdomen AP Small Bowel with contrast INDICATION: Reason: Pain; Clinical Question(s): Obstruction; Order Comment: contrast given to nurse@ 1355pm and already charged to pt. DE NWC will time pt starts drinking. Day shift RN never called after pt drank contrast, did not pass on report to table games shift manager nurse about time. Per RN, pt states I drank contrast but do not remember when. @ 12:38AM COMPARISON: CT scan 10/04/2022 FINDINGS: Contrast gas seen throughout the colon. There is also contrast within the stomach. Mildly distendedsmall bowel loops may or present ileus. No free air identified. IMPRESSION: Limited examination demonstrates contrast within the colon. No evidence of obstruction. WSN: [id number] Ordering Physician: Temi Richards Dictated By: Junaid Conroy MD Dictated Date/Time: 10/05/22 9:11 am Reviewed By: Junaid Conroy MD Signed By: Junaid Conroy MD Signed Date/Time: 10/05/22 9:11 am Transcribed By: RAYMOND Transcribed Date/Time: 10/05/22 9:10 am * Exam Date Time Procedure Performing Provider Status 10/04/22 4:[address] Abd/Pelvis W/ IV Contrast Only Meri Burns (Verified) Notes: (CT Abd/Pelvis W/ IV Contrast Only) Reason For Exam: LLQ abdominal pain;Other: RESULT: CT Abd/Pelvis W/ IV Contrast Only CT Abd/Pelvis W/ IV Contrast Only Hx of Present Illness: from home-reports increased abd pain since this am; hs of multiple abdominalsurgeries-on coumadin; Reason: Other:; LLQ abdominal pain; Clinical Question(s): Obstruction; OrderComment: TECHNIQUE: Spiral CT through the abdomen and pelvis with IV contrast formatted in 3 planes. 100 cc of Omnipaque 300 was administered intravenously. This study was performed without oral contrast. Weight-based protocol using automatic tube modulation was used to optimize exposure parameters. CTDIvol Body: 20.20 mGy, DLP Body: 1100 mGy*cm. COMPARISON: 12/07/2020 FINDINGS: Control Cabinet Assembler View Findings, Lines and Tubes: None. Visualized Chest: Mild subsegmental atelectasis or scarring within the included portion of the right lower thorax Diaphragm: Unremarkable Liver: No evidence of focal parenchymal lesion or surface contour abnormality. Gallbladder: Physiologically distended without evidence of mineralized gallstone Bile ducts: No biliary ductal dilation. Spleen: Upper limits of normal in size without evidence of focal abnormality Pancreas: Enhances homogeneously. No evidence of peripancreatic collection. Adrenal glands: Normal. Kidneys and ureters: 1.4 cm exophytic cyst arising from the interpolar cortex of the left kidney isnot significantly changed in size. No evidence of developing renal contour abnormality, hydronephrosis or suspicious mass lesion. No evidence of hydronephrosis or genitourinary calculus. Bladder: Bladder contour is within normal limits for the degree of distention Reproductive organs: Unremarkable. Stomach, small bowel, and large bowel/abdominal wall: Stomach is moderately distended. Broad-based supraumbilical ventral abdominal wall hernia in the midline containing a portion of thetransverse colon and small bowel with sac measuring 1.2 x 1.2 cm, and neck measuring 7.8 cm. Periumbilical hernia centered to the right of midline containing small bowel. The exiting small bowel loop is relatively decompressed in keeping with several small bowel obstruction. Small bowel loops proximal to this level are mildly distended and contains scattered air fluid levels. Adjacent broad-based infraumbilical ventral abdominal hernias with sac measuring 5.1 x 5.6 cm and neck measuring 3.3 cm containing a mildly distended fluid- filled small bowel loop. Mild amount retained stool throughout the colon. Signs of prior left hemicolectomy with anastomoticsuture line visualized within the ventral aspect of the left hemipelvis. Multiple small and large bowel loops are closely applied to the ventral abdominal wall in keeping with underlying adhesions. Appendix: Normal in caliber Peritoneum and retroperitoneum: No ascites or pneumoperitoneum. No omental or mesenteric lesions. Lymph nodes: No enlarged lymph nodes. Blood vessels: Normal. No aneurysm. Portal vein enhances appropriately. Bones: Included skeleton demonstrates no CT evidence of aggressive bone lesion. IMPRESSION: 3 bowel containing ventral abdominal wall hernias That located to the right of midline in the periumbilical region represents the site of at least partial small bowel obstruction. Surgical consultation is recommended Signs of prior left hemicolectomy with anastomosis of the lateral descending/sigmoid colon Multiple bowel loops are closely applied to the ventral abdominal wall suggesting adhesions Preliminary report provided by [employer] was reviewed. An actionable message ([place]) has been communicated via the [email or web address] system on 10/04/2022 8:00 AM, Message ID [id number]. WSN: [id number] Ordering Physician: Mary Castano Dictated By: Dany Scott Jr, MD Dictated Date/Time: 10/04/22 8:01 am Reviewed By: Dany Scott Jr, MD Signed By: Dany Scott Jr, MD Signed Date/Time: 10/04/22 8:01 am Transcribed By: RAYMOND Transcribed Date/Time: 10/04/22 7:45 am Vital Signs Most recent to oldest [Reference Range]: 1 2 3 Height 175 cm (10/07/22 9:37 AM) 175 cm (10/07/22 6:45 AM) 175 cm (10/06/22 8:25 PM) Weight 105 kg (10/06/22 8:00 AM) Oxygen Saturation [94-100 %] 95 % (10/07/22 9:37 AM) 98 % (10/07/22 6:45 AM) 95 % (10/06/22 8:25 PM) Pulse Rate [55-90 bpm] 73 bpm (10/07/22 9:37 AM) 74 bpm (10/07/22 8:08 AM) 66 bpm (10/07/22 6:45 AM) Body Mass Index [18.5-24.99 kg/m2] 34.29 kg/m2 *>HHI* (10/06/22 8:00 AM) Blood Pressure [90-138/55-84 mm Hg] 116/60mm Hg (10/07/22 9:37 AM) 119/83mm Hg (10/07/22 8:08 AM) 145/62mm Hg *H* (10/07/22 6:45 AM) Respiratory Rate [16-30 br/min] 18 br/min (10/07/22 9:37 AM) 20 br/min (10/07/22 6:45 AM) 18 br/min (10/06/22 9:21 PM) Temperature [96.8-100.4 DegF] 97.3 DegF (10/07/22 9:37 AM) 97.7 DegF (10/07/22 6:45 AM) 97.7 DegF (10/06/22 8:25 PM) Mode of Delivery (Oxygen) Room air (10/07/22 9:37 AM) Room air (10/07/22 6:45 AM) Room air (10/06/22 8:25 PM) Blood pressure sites Arm, right (10/07/22 9:37 AM) Arm, left (10/07/22 8:08 AM) Arm, right (10/07/22 6:45 AM) Temperature Route Oral (10/07/22 9:37 AM) Oral (10/07/22 6:45 AM) Oral (10/06/22 8:25 PM) Dry Weight 130 kg (10/06/22 8:00 AM) 130.5 kg (10/06/22 6:00 AM) 130.5 kg (10/06/22 1:21 AM) Weight Obtained Via Bed scale (10/06/22 8:00 AM) Dry Weight Obtained Via Patient/family s tated (10/06/22 8:00 AM) Social History Social History Type Response Smoking Status Former smoker; Other : qiut 13 years; entered on: 05/24/14 Sex Admission evaluation note * David Musa MD: MODIFY David Musa MD: MODIFY, MODIFY, MODIFY, MODIFY, MODIFY, MODIFY, MODIFY Jacques DO, Dhaval: MODIFY, PERFORM Jacques DO, Dhaval: PERFORM, MODIFY Jacques DO, Dhaval: MODIFY, MODIFY Jacques DO, Dhaval: MODIFY, MODIFY Jacques DO, Dhaval: MODIFY, MODIFY Jacques DO, Dhaval: MODIFY, MODIFY Jacques DO, Dhaval: MODIFY, MODIFY Jacques DO, Dhaval: MODIFY, MODIFY Jacques DO, Dhaval: MODIFY, MODIFY Jacques DO, Dhaval: MODIFY, MODIFY Jacques DO, Dhaval: MODIFY, MODIFY Jacques DO, Dhaval: MODIFY, MODIFY Jacques DO, Dhaval: MODIFY, MODIFY Jacques DO, Dhaval: MODIFY, MODIFY Jacques DO, Dhaval: MODIFY, MODIFY Jacques DO, Dhaval: MODIFY, MODIFY Jacques DO, Dhaval: MODIFY, MODIFY Jacques DO, Dhaval: MODIFY, MODIFY Jacques DO, Dhaval: MODIFY, MODIFY Jacques DO, Dhaval: MODIFY, MODIFY Jacques DO, Dhaval: MODIFY, MODIFY Jacques DO, Dhaval: MODIFY, MODIFY Jacques DO, Dhaval: MODIFY Event Display: Admission Note Authored Date: Patient: ??TRUDY DARLING ? Age:??71 Years?Sex:??Male?:??1950?? Chief Complaint/Reason for Consultation Aox4 coming from home x2 known hernias, unable to have bowel movement or pass gas today. recent medchanges for lasix. feels constipated. History of Present Illness This is a 71-year-old male with a past medical history of diabetes mellitus, SANJIV on BiPAP, COPD, obesity, tremor, DVT on chronic warfarin anticoagulation, lymphedema, bipolar depression, hypertension, hyperlipidemia and 2 large ventral hernias with multiple past abdominal surgeries including a sigmoid colectomy for diverticulitis in 2002, SBO secondary to ventral hernia status post primary repairand excision in 2013, who presented to the ED with 2 days of abdominal pain and constipation, general surgery was contacted for possible SBO, no surgical intervention was recommended, patient will beadmitted for medical management.? The patient's last bowel movement was??reported to be?? evening??10/02, he has not had a bowel movement since or passed gas??and presents with??progressively worsening abdominal pain.??He reports??that prior to this episode he was having regular bowel movements??with brown stools, about ever y??day to a??day and a half. Since presenting to the ED??he has had 1 episode of vomiting??and has been passing??some slight amounts of flatulence.?? Endorses mild??baseline abdominal pain of 1/10 while sitting,??which worsens to 5-6 out of 10??with palpation. He was able to have 1 significant bowel movement??which she reports feeling much better afterwards.?? He endorses reduced oral intake, denies any fevers, chills, shortness of breath or difficulty breathing. He is able to reduce his ventral hernias without difficulty. ?? CT abdomen pelvis showed abdominal wall hernias containing bowel, there is a periumbilical hernia to the right of the midline containing small bowel, the exiting small bowel loop is relatively decompressed this was noted to represent the site of at least a partial small bowel obstruction, small bowel loops proximal to this level are mildly distended and contains scattered air-fluid levels.?? Noted to have signs of prior left hemicolectomy with anastomosis of the lateral descending/sigmoid colon.?? Multiple bowel loops closely applied to the ventral abdominal wall suggest adhesions. ?? Vital signs show the patient be afebrile, heart rate in the 50s to 60s, blood pressure 141/68, to 112/61, saturating 95% on room air.?? Labs show an elevated white cell count of 11.5, H&H of 13.1/40.7, platelet count of 170, INR 1.9, electrolytes largely within normal limits, glucose of 250, BUN of 24, creatinine 1.0, albumin of 5.0, LFTs within normal limits, total bilirubin elevated at 1.4.?? Lactate of 1.5.?? COVID-negative. UA shows elevated specific gravity, +1 albumin and +1 leukocytes with slight bacteria. ?? So far in the emergency department the patient received 1 treatment of albuterol nebulizer solution, 4 mg of Zofran, and a total of 1 L of LR IV fluids. At bedside he was resting comfortably??in an upright chair, following a bowel movement he reports??improvement??in??abdominal pain, he reports feeling much better. Review of Systems A review of systems was completed and is otherwise negative except as mentioned in history of present illness. Objective Measurements?? Height: 175 cm (10/04/22) Dry Weight: 130.5 kg (10/04/22) ?? Vital Signs?? Temperature: 98.1 DegF (10/04/22 06:38:00) Temperature Route: Oral (10/04/22 06:38:00) Pulse Rate: 60 bpm (10/04/22 17:30:00) Respiratory Rate: 16 br/min (10/04/22 17:30:00) Vented: No (10/04/22 17:30:00) Systolic Blood Pressure: 133 mm Hg (10/04/22 17:30:00) Diastolic Blood Pressure: 66 mm Hg (10/04/22 17:30:00) Blood pressure sites: Arm, right (10/04/22 17:30:00) Mean Arterial Pressure: 78 mm Hg (10/04/22 14:50:00) Pulse Pressure: 67 mm Hg (10/04/22 17:30:00) Oxygen Saturation: 95 % (10/04/22 17:30:00) Mode of Delivery (Oxygen): Room air (10/04/22 17:30:00) Early Warning Score: 2 (10/04/22 18:55:20) ?? Intake/Output? 10/04 12:08 10/04 07:00 10/03 07:00 10/02 07:00 10/01 07:00 ?? 10/04 19:30 10/04 19:30 10/04 06:59 10/03 06:59 10/02 06:59 Intake ?0 ?0 ?0 ?0 ?0 Output ?275 ?275 ?0 ?0 ?0 Net Total ? -275 ? -275 ?0 ?0 ?0 ?? Physical Exam General: The patient was found resting and in no acute distress, sitting upright at bedside. HEENT:??NCAT, EOMI, no scleral icterus,??moist mucus membranes, trachea midline. Cardiovascular: RRR S1 and S2 heard with no murmurs, rubs or gallops. Respiratory: Breath sounds clear to auscultation bilaterally. No wheezing. GI: Soft,??obese, with??2 ventral hernias, the left??ventral hernia was mildly tender to palpation.??Normal bowel sounds present. MSK/Skin:??Chronic venous stasis changes of the lower extremities??with erythema and trace edema. Chronic wounds with bandages placed over them, no drainage noted. Neuro: No gross motor or neuro deficits. Moving all four extremities independently, sensation intact throughout. Psych: Alert and oriented x3, appropriate level of concern and pleasant. Assessment/Plan This is a 71-year-old male with a past medical history of diabetes mellitus, SANJIV on BiPAP, COPD, obesity, tremor, DVT on chronic warfarin anticoagulation, lymphedema, bipolar depression, hypertension, hyperlipidemia and 2 large ventral hernias with multiple past abdominal surgeries including a sigmoid colectomy for diverticulitis in 2002, SBO secondary to ventral hernia status post primary repairand excision in 2013, who presented to the ED with 2 days of abdominal pain and constipation, general surgery was contacted for possible SBO, no surgical intervention was recommended, patient will beadmitted for medical management.? Possible SBO Large ventral hernias??- s/p multiple past abdominal surgeries H/o SBO - secondary to ventral hernia??repair H/o sigmoid colectomy Patient presented with??2-day history of??constipation??without passing flatulence??and progressively worsening abdominal pain.??Patient has been afebrile with stable vital signs. CT a/p showed??a periumbilical hernia to the right of the midline containing small bowel, the exiting small bowel loop is relatively decompressed this was noted to represent the site of at least a partial small bowel obstruction, small bowel loops proximal to this level are mildly distended and contains scattered air-fluid levels.?? He was seen by surgery??and no acute surgical intervention was recommended. ??Pending??KUB as per??SBO??protocol. Since presenting to the ED the patient??reports passing gas and has had a bowel movement. Patient reports improved symptoms after having a bowel movement. Although pt had a??bowel movement, it's possible he could still??have??SBO,??so??we will continue to monitor??closely??and follow-up with KUB. ?? Plan - F/u with KUB as per surgery SBO protocol - If the patient develops further nausea or vomiting??consider placing NG tube placement for decompression - Hold Coumadin, started on heparin gtt for prior DVT history - NPO except for medications - Hold bowel regimen - as per surgery team recs - Surgery following ?? H/o DVT Chronic venous stasis INR 1.9 on warfarin. Pt without new LE??pain or swelling. ?? Plan: - Hold warfarin - Start heparin gtt? Diabetes mellitus Patient on insulin glargine 60 units daily at home??with insulin sliding scale ?? Plan -Start glargine 30 units nightly, reduced dose due to NPO -ISS q4h with POC q4h -Hypoglycemia emergency orders ?? HTN Patient on amlodipine??5 mg daily,??atenolol 25 mg twice daily??and??lisinopril 40 mg daily Patient has been mostly normotensive??since presentation Given patient is n.p.o. we will hold oral antihypertensives ?? Plan -Ordered-IV metoprolol 5 mg??every 6 hours -Hold??oral antihypertensives??while n.p.o. ?? Hypothyroidism Pt currently on levothyroxine??150 mcg daily Per pharmacy can hold??levothyroxine for few days given long half-life. ?? Plan -Ordered??levothyroxine 260 mcg IV??twice a week starting Thursday -Hold PO??levothyroxine while n.p.o. -Follow-up with TSH??reflex T4 ?? Major depression w/ Bipolar features Patient follows with psychiatry ?? Plan -Continue home [place] and check level -Hold sertraline??and??Abilify ?? COPD Patient on home Flovent discuss and Incruse Ellipta Patient saturating well on room air??without audible wheeze. ?? Plan?? Ordered Breo Ellipta in place of Flovent??(not on formulary) Ordered for Spiriva in place of Incruse Ellipta??(not on formulary) ?? Benign essential tremor Hold atenolol while NPO as above ?? RLS - Hold ropinirole ?? HLD - Hold atorvastatin ?? SANJIV - not on BiPAP Patient unable to tolerate BiPAP at home, stopped last January Declines trial while hospitalized here. ?? Quality Measures: VTE prophylaxis: heparin gtt Diet: NPO Code status: DNR - confirmed with pt at bedside OMN:??possibly SBO ?? Discussed with ??Mutlu ?? - Dhaval Jacques DO - PGY2 - Internal Medicine - Pager # [phone]? The patient seen and examined on this date. The case reviewed in detail with admitting resident on this date. I reviewed and agree as above, Dvt, moderate risk. David Musa MD?? Histories Allergies Allergies ?(Active and Proposed Allergies Only) NKA? (Severity: Unknown severity, Onset: Unknown) ?? Past Medical History/Problem List Active Problems??(26) Benign essential tremor Cataract Chronic constipation COPD type A Diabetes mellitus - adult onset Diabetic leg ulcer DVT (deep venous thrombosis) Fatty liver disease based on CT Goal-TO SURVIVE THIS YEAR Hernia, ventral Hip osteoarthritis Hypertension Hypothyroidism Lower back pain Lymphedema Major depression SANJIV (obstructive sleep apnea) Positive FIT (fecal immunochemical test) Right flank pain Seborrheic dermatitis Secondary insomnia Severe obesity Sigmoid colon resection + complication Suspected [place] disease Tachy-nelda syndrome Wheezing ?? Past Surgical History colon resection: 11/2002 Sigmoid colectomy Incisional hernia, incarcerated ?? Social History Alcohol Details:??Use: Never. Employment/School Details:??Status: Retired. 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 Tobacco Details:??Former smoker, Other: qiut 13 years. Details:??Use: Former smoker. ?? Family History Mother: Cancer of breast Medications Home Medications Acetaminophen (acetaminophen 325 mg oral tablet)?975?Milligram?3?tablet?By Mouth?Every 6 hours?as needed?as needed for pain Albuterol (Albuterol (Eqv-ProAir HFA) 90 mcg/inh inhalation aerosol)?2?inhalation?Inhalation?Every 6 hours?as needed? NEEDED FOR WHEEZING Amlodipine (amLODIPine 5 mg oral tablet)?1?tab(s)?By Mouth?Daily Aripiprazole (Abilify 2 mg oral tablet)?2?Milligram?1?tablet?By Mouth?Daily Atenolol (atenolol 25 mg oral tablet)?1?tablet?By Mouth?2 times a day Atorvastatin (atorvastatin 40 mg oral tablet)?1?tab(s)?By Mouth?Daily Fluticasone (Flovent Diskus 250 mcg/inh inhalation powder)?1?puff(s)?Inhalation?2 timesa day Furosemide (furosemide 40 mg oral tablet)?60?Milligram?1.5?tablet?By Mouth?Daily Gabapentin (gabapentin 100 mg oral capsule)?200?Milligram?2?capsule?By Mouth?Daily at bedtime Insulin Glargine (Lantus Solostar Pen 100 units/mL subcutaneous solution)?60?unit(s)?Subcutaneous Injection?Daily at bedtime?for 90?Days Insulin Lispro (HumaLOG KwikPen 100 units/mL injectable solution)?See Instructions?s/c inj TID before meals acc to scale: 1u 150-200; 3u 201-250; 5u 251-300; 7u 301-350; 9u 351-400; 11u 401-450; call MD for BG over 450 Levothyroxine (levothyroxine 150 mcg (0.15 mg) oral tablet)?1?tab(s)?By Mouth?Daily Lisinopril (lisinopril 40 mg oral tablet)?1?tab(s)?By Mouth?Daily [place] (lithium 300 mg oral tablet, extended release)?2?tab(s)?600?Milligram?By Mouth?Daily at bedtime Omeprazole (omeprazole 40 mg oral enteric coated capsule)?1?capsule?By Mouth?Daily Ropinirole (rOPINIRole 0.5 mg oral tablet)?1?tab(s)?By Mouth?Daily at bedtime Sertraline (sertraline 100 mg oral tablet)?2?tab(s)?200?Milligram?By Mouth?Daily umeclidinium (Incruse Ellipta 62.5 mcg/inh inhalation powder)?1?inhalation?Inhalation?Every 24 hours?for 24?hour?APART. Warfarin (warfarin 5 mg oral tablet)?See Instructions?TAKE 1 AND 1/2 TO 2 TABLETS BY MOUTH DAILY PER MD/RN PROTOCOL ?? Inpatient Medications Medications (22) Active SCHEDULED: (9) Breo Ellipta 200 mcg / 25 mcg Inhaler (Breo Ellipta 200 mcg-25 mcg Inhaler) ??1 puffs, Inhalation, Daily Insulin Glargine 100 units/mL Inj (Insulin Glargine Inj) ??30 units 0.3 mL, Subcutaneous Injection,Daily at bedtime Insulin Lispro 100 units/mL Inj (3mL) (Insulin LISPRO Sliding Scale) ??2-10 units, Subcutaneous Injection, Every 4 hours Levothyroxine 100 mcg Inj (Levothyroxine Inj) ??260 mcg, IV Push Slowly, Every Thursday and [place] 300 mg Tablet (LITHium Tablet) ??600 mg, By Mouth, Daily at bedtime Metoprolol 5 mg Inj (Metoprolol Inj) ??5 mg 5 mL, IV Push Slowly, Every 6 hours NaCl 0.9% Flush 3ml (NaCL 0.9% Flush) ??3 mL, IV Push, Every 8 hours Pantoprazole 40 mg EC Tablet (pantoprazole 40 mg oral delayed release tablet) ??40 mg, By Mouth, Daily Spiriva Respimat 2.5 mcg Inhaler (Spiriva Respimat Inhaler) ??2 puffs, Inhalation, Daily CONTINUOUS: (1) Heparin 25,000 units / 250 mL D5W premix 25,000 units [12 units/kg/hr] + D5%W Premixed IV 250 mL (Heparin 25,000 units in 250 mL Premix 25,000 units [12 units/kg/hr] + D5%W Premixed IV 250 mL) ??250 mL, IV Infusion, 15.66 mL/hr PRN: (12) Acetaminophen 325 mg Tablet (Acetaminophen Tablet) ??650 mg, By Mouth, Every 4 hours Albuterol 90mcg/Inhalation Inhaler HFA (Ventolin 90 mcg Inhaler) ??180 mcg 2 puffs, Inhalation, Every 6 hours Dextromethorphan-Guaifenesin 20 mg-200 mg/10 mL Liqu UD (Robitussin DM Liquid) ??10 mL, By Mouth, Every 4 hours Dextrose Inj Syringe (Dextrose 50% Inj Syringe (25Gm)) ??12.5 Gm, IV Push Slowly, Every 20 minutes Dextrose Inj Syringe (Dextrose 50% Inj Syringe (25Gm)) ??25 Gm, IV Push Slowly, Every 15 minutes Glucose 40% Gel (15 Gm) (Glucose Gel) ??15 Gm, By Mouth, Every 20 minutes Glucose 40% Gel (15 Gm) (Glucose Gel) ??30 Gm, By Mouth, Every 20 minutes Heparin 5000 units/mL Inj (1 mL) (Heparin Inj) ??7,500 units 1.5 mL, IV Push, Every 6 hours Heparin 5000 units/mL Inj (1 mL) (Heparin Inj) ??4,000 units 0.8 mL, IV Push, Every 6 hours Melatonin 3 mg Tablet (Melatonin Tablet) ??3 mg, By Mouth, Daily at bedtime NaCl 0.9% Flush 3ml (NaCL 0.9% Flush) ??3 mL, IV Push, Every 8 hours Ondansetron 2mg/mL Inj (2mL Vial) (Ondansetron Inj) ??4 mg, IV Push Slowly, Every 30 minutes Results Recent Labs BLOOD COUNT & DIFF WBC 11.5 k/mm3 (High)?? 10/04/2022 00:47 RBC 4.24 m/mm3 (Low)?? 10/04/2022 00:47 Hgb 13.1 Gm/dL (Low)?? 10/04/2022 00:47 Hct 40.7 % ()?? 10/04/2022 00:47 MCV 96.0 femtoliters (High)?? 10/04/2022 00:47 MCH 30.9 pg ()?? 10/04/2022 00:47 MCHC 32.2 g/dL (Low)?? 10/04/2022 00:47 Platelet Count 170 k/mm3 ()?? 10/04/2022 00:47 RDW-SD 49.3 femtoliters (High)?? 10/04/2022 00:47 MPV 9.8 femtoliters ()?? 10/04/2022 00:47 Nucleated RBC (Automated) 0.0 #/100 WBC'S ()?? 10/04/2022 00:47 Abs. NRBC 0.0 k/mm3 ()?? 10/04/2022 00:47 Abs. Neut 9.3 k/mm3 (High)?? 10/04/2022 00:47 Abs. Lymph 1.2 k/mm3 ()?? 10/04/2022 00:47 Abs. [place] 0.7 k/mm3 ()?? 10/04/2022 00:47 Abs. Eo 0.2 k/mm3 ()?? 10/04/2022 00:47 Abs. Baso 0.0 k/mm3 ()?? 10/04/2022 00:47 Neut % 80.7 % (High)?? 10/04/2022 00:47 Lymph % 10.8 % (Low)?? 10/04/2022 00:47 [place] % 5.8 % ()?? 10/04/2022 00:47 Eos % 1.9 % ()?? 10/04/2022 00:47 Baso % 0.3 % ()?? 10/04/2022 00:47 Imm Gran 0.5 % ()?? 10/04/2022 00:47 Abs. Imm Gran 0.1 k/mm3 ()?? 10/04/2022 00:47 ?? CHEM GENERAL Sodium 137 mmol/L ()?? 10/04/2022 00:47 Potassium 5.0 mmol/L ()?? 10/04/2022 00:47 Chloride 101 mmol/L ()?? 10/04/2022 00:47 Bicarbonate Level 26 mmol/L ()?? 10/04/2022 00:47 Anion Gap 10 ()?? 10/04/2022 00:47 Glucose Level 250 mg/dL (High)?? 10/04/2022 00:47 BUN 24 mg/dL (High)?? 10/04/2022 00:47 Creatinine-Blood 1.0 mg/dL ()?? 10/04/2022 00:47 Estimated GFR Creatinine 79 ML/MIN/1.73 M2 ()?? 10/04/2022 00:47 Calcium 10.0 mg/dL ()?? 10/04/2022 00:47 Protein, Total 7.6 Gm/dL ()?? 10/04/2022 00:47 Albumin 5.0 Gm/dL (High)?? 10/04/2022 00:47 AG Ratio 1.9 ()?? 10/04/2022 00:47 Alkaline Phosphatase 101 units/L ()?? 10/04/2022 00:47 Lipase 14 units/L ()?? 10/04/2022 00:47 AST (SGOT) 18 units/L ()?? 10/04/2022 00:47 ALT (SGPT) 22 units/L ()?? 10/04/2022 00:47 Bilirubin, Total 1.4 mg/dL (High)?? 10/04/2022 00:47 Lactate 1.5 mmol/L ()?? 10/04/2022 00:47 ?? COAG INR 1.9 (High)?? 10/04/2022 00:52 Protime (PT) 19.5 seconds (High)?? 10/04/2022 00:52 ?? COUMADIN CLINIC RESULTS INR (Coumadin Clinic) 2.2 (Normal)?? 10/03/2022 00:00 ?? UA/URINALYSIS Appear/Color, Urine YELLOW ()?? 10/04/2022 05:14 Specific [place], Urine 1.031 (High)?? 10/04/2022 05:14 pH, Urine 6.5 ()?? 10/04/2022 05:14 Albumin, Urine 1+ (Abnormal)?? 10/04/2022 05:14 Glucose, Urine NEGATIVE ()?? 10/04/2022 05:14 Ketones, Urine NEGATIVE ()?? 10/04/2022 05:14 Bilirubin, Urine NEGATIVE ()?? 10/04/2022 05:14 Hemoglobin, Urine NEGATIVE ()?? 10/04/2022 05:14 Nitrite, Urine NEGATIVE ()?? 10/04/2022 05:14 Leukocyte, Urine 1+ (Abnormal)?? 10/04/2022 05:14 Urobilinogen NORMAL mg/dL ()?? 10/04/2022 05:14 WBC's, Urine 2 /HPF ()?? 10/04/2022 05:14 RBC's, Urine 1 /HPF ()?? 10/04/2022 05:14 Bacteria SLIGHT HPF (Abnormal)?? 10/04/2022 05:14 Squamous Epith 1 /HPF ()?? 10/04/2022 05:14 Mucus SLIGHT /LPF ()?? 10/04/2022 05:14 Hold Urine Culture Testing available 48 hours from time of collection. ()?? 10/04/2022 05:14 ?? URINE OTHER Est Creatinine Clearance 69.49 mL/min ()?? 10/04/2022 01:57 ?? VIROLOGY COVID-19 by RT-PCR NEGATIVE ()?? 10/04/2022 12:30 ? Urinalysis Albumin, Urine: 1+ Abnormal (05:14) Appear/Color, Urine: YELLOW (05:14) Bacteria: SLIGHT Abnormal (05:14) Bilirubin, Urine: NEGATIVE (05:14) Est Creatinine Clearance: 69.49 mL/min (01:57) Glucose, Urine: NEGATIVE (05:14) Hemoglobin, Urine: NEGATIVE (05:14) Hold Urine Culture: Testing available 48 hours from time of collection. (05:14) Ketones, Urine: NEGATIVE (05:14) Leukocyte, Urine: 1+ Abnormal (05:14) Mucus: SLIGHT (05:14) Nitrite, Urine: NEGATIVE (05:14) pH, Urine: 6.5 (05:14) RBC's, Urine: 1 /HPF (05:14) Specific [place], Urine:??1.031??High (05:14) Squamous Epith: 1 /HPF (05:14) Urobilinogen: NORMAL (05:14) WBC's, Urine: 2 /HPF (05:14) ?? Microbiology ?? COVID-19 (Novel Coronavirus), Rapid PCR?? Completed?? Source: Nasal Body Site: Nose Collected Dt/Tm: 10/04/2022 11:54 Last Updated Dt/Tm: 10/04/2022 13:37 ? Cardiology * Event Display: Cardiac Rhythm Strips Authored Date: Hospital Progress note * Catrina Payton RN: PERFORM, SIGN, VERIFY Event Display: Progress Note Hospital Authored Date: Patient: TRUDY DARLING Age: 71 years Sex: Male : 1950 Associated Diagnoses: None Author: Catrina Payton RN Findings Problem Related to Alteration in Comfort : Alteration in Comfort/new 10/06/2022 16:00 EDT Alteration in Comfort Related to Disease process Goals & Outcomes: Comfort Pt will report acceptable level of comfort & pain control, Pt will demonstrate necessary skills to manage pain Interventions Implemented: Comfort Assess pain using appropriate pain scale/tools BH Goals/Interventions, Comfort Yes Comfort, Problem Start 10/06/2022 16:00 Reviewed plan with, Comfort Patient Patient Progression, Comfort Plan Initiation Comfort, Problem Ongoing Yes . Narrative/Incidental Patient admitted to S2 from ED. PVD wounds to BLE, dressings changed per wound care orders. Patientdenies pain. . * Jacob Hutchins MD: MODIFY, PERFORM Event Display: Progress Note Hospital Authored Date: [id number] Patient: ??TRUDY DARLING ? Age:??71 Years?Sex:??Male?:??1950?? Subjective 71 y/o male patient that presented with unable to have bowel movements or passing gas, and felt constipated ?? No acute overnight events. underwriting assistant adjusted pacer, he was found with Afib/flutter with V paced ?? Patient described that had multiple episodes of BM during the night, small amount Denied any nausea or vomiting, no abdominal pain No chest pain, no dyspnea ?? Telemetry: atrial flutter, HR 60-70s ?? Review of Systems Constitutional:??No fever or chills Cardiovascular:??No chest pain Respiratory:??No shortness of breath, positive for productive cough Gastrointestinal:??No nausea, No vomiting. No abdominal pain. Objective Vital Signs?? Temperature: 97.8 DegF (10/05/22 23:15:00) Temperature Route: Oral (10/05/22 23:15:00) Pulse Rate: 63 bpm (10/06/22 06:00:00) Respiratory Rate: 18 br/min (10/06/22 06:00:00) Systolic Blood Pressure:??148 mm Hg??High (10/06/22 08:36:00) Diastolic Blood Pressure: 67 mm Hg (10/06/22 08:36:00) Blood pressure sites: Arm, left (10/06/22 06:00:00) Mean Arterial Pressure: 75 mm Hg (10/06/22 06:00:00) Pulse Pressure: 31 mm Hg (10/06/22 06:00:00) Oxygen Saturation: 95 % (10/06/22 06:00:00) Mode of Delivery (Oxygen): Room air (10/06/22 06:00:00) Early Warning Score: 7 (10/06/22 08:43:28) ? Intake/Output? 10/04 12:08 10/06 07:00 10/05 07:00 10/04 07:00 10/03 07:00 ?? 10/06 08:44 10/06 08:44 10/06 06:59 10/05 06:59 10/04 06:59 Intake ? 50 ?0 ? 50 ?0 ?0 Output ? 2074 ?150 ?0 ? 1924 ?0 Net Total ?-2024 ? -150 ? 50 ?-1924 ?0 ? Physical Exam Constitutional: Alert, in no acute distress. Mental Status: Oriented to person, place and time. Head: Normocephalic. Respiratory: Clear to auscultation bilaterally. No wheezing, rales or rhonchi. Cardiovascular: S1 S2 regular. No murmurs, rubs or gallops. Regular rate, irregular rhythm Gastrointestinal: Abdomen soft, non-tender,??Normal bowel sounds. 2 large abdominal hernias, retractable. Neurologic:??Moves all extremities spontaneously. Skin: No rashes or lesions. No jaundice. skin Hyperpigmentation on lower??LE bilaterally Musculoskeletal: No cyanosis or clubbing. No gross deformities.??No pitting edema on Right and LeftLE Results Recent Labs BLOOD COUNT & DIFF WBC 8.0 k/mm3 ()?? 10/06/2022 06:00 RBC 3.78 m/mm3 (Low)?? 10/06/2022 06:00 Hgb 11.8 Gm/dL (Low)?? 10/06/2022 06:00 Hct 37.2 % (Low)?? 10/06/2022 06:00 MCV 98.4 femtoliters (High)?? 10/06/2022 06:00 MCH 31.2 pg ()?? 10/06/2022 06:00 MCHC 31.7 g/dL (Low)?? 10/06/2022 06:00 Platelet Count 133 k/mm3 (Low)?? 10/06/2022 06:00 RDW-SD 50.1 femtoliters (High)?? 10/06/2022 06:00 MPV 9.5 femtoliters ()?? 10/06/2022 06:00 Nucleated RBC (Automated) 0.0 #/100 WBC'S ()?? 10/06/2022 06:00 Abs. NRBC 0.0 k/mm3 ()?? 10/06/2022 06:00 ?? CHEM GENERAL Sodium 142 mmol/L ()?? 10/05/2022 04:26 Potassium 4.4 mmol/L ()?? 10/05/2022 04:26 Chloride 108 mmol/L (High)?? 10/05/2022 04:26 Bicarbonate Level 25 mmol/L ()?? 10/05/2022 04:26 Anion Gap 9 ()?? 10/05/2022 04:26 Glucose, POC 181 mg/dL (High)?? 10/05/2022 13:26 BUN 21 mg/dL ()?? 10/05/2022 04:26 Creatinine-Blood 0.9 mg/dL ()?? 10/05/2022 04:26 Estimated GFR Creatinine 90 ML/MIN/1.73 M2 ()?? 10/05/2022 04:26 Phosphorus 2.6 mg/dL ()?? 10/05/2022 04:26 Magnesium 2.1 mg/dL ()?? 10/05/2022 04:26 ?? COAG INR 1.5 (High)?? 10/06/2022 06:00 Protime (PT) 15.6 seconds (High)?? 10/06/2022 06:00 APTT 29.1 seconds ()?? 10/06/2022 06:00 ?? URINE OTHER Est Creatinine Clearance 77.21 mL/min ()?? 10/05/2022 05:26 ? Assessment/Plan A/P: 71-year-old male with a past medical history of diabetes mellitus, SANJIV on BiPAP, COPD, obesity, tremor, DVT on chronic warfarin anticoagulation, lymphedema, bipolar depression, hypertension, hyperlipidemia and 2 large ventral hernias with multiple past abdominal surgeries including a sigmoid colectomy for diverticulitis in 2002, SBO secondary to ventral hernia status post primary repair and excision in 2013, who presented to the ED with 2 days of abdominal pain and constipation, general surgery was contacted for possible SBO ?? 1. Paroxysmal Atrial fibrillation/flutter: patient was noticed with V paced rhythm yesterday, had underwriting assistant interrogated pacer which showed Afib/flutter rhythm, and had pacer adjusted with improvement of his heart rate. Willl follow up with official EP cardiology consultation today. ?? 2.??Possible SBO: he continued with BMs, and no signs of acute abdomen. Tolerated soft diet yesterday.??Abdominal series??showed no signs of obstruction. Appreciate surgery follow up, no surgical intervention. He has large ventral hernias??- s/p multiple past abdominal surgeries; with hx of??SBO - secondary to ventral hernia??repair H/o sigmoid colectomy CT scan abdomen/pelvis showed??a periumbilical hernia to the right of the midline containing small bowel, the exiting small bowel loop is relatively decompressed this was noted to represent the site of at least a partial small bowel obstruction, small bowel loops proximal to this level are mildly distended and contains scattered air-fluid levels.?? plan: advanced to cardiac diet today ?? 2. History of??DVT:??INR down to 1.5 today, after holding coumadin in case of surgical procedure. Will resume home regimen.??He was started on heparin drip on admission which was dc yesterday.?? plan:??resume Coumadin 10 mg ? monitor??INR daily ?? 3.??Diabetes mellitus type 2: restarted on half dose since was NPO, will change back to home regimen. plan: change to??Lantus??60 units ?monitor POC and cover with lispro SS ?? 4.??HTN: overall blood pressure. stable. plan: continue with??home dose of Amlodipine 5 mg. ? Hold other home meds,??atenolol 25 mg twice daily??and??lisinopril 40 mg daily ?? 5.??Hypothyroidism: TSH within normal range plan: continue with??levothyroxine??150 mcg daily ?? 6. Major depression w/ Bipolar features:??home dose of [place], sertraline??and??Abilify ?? 7. COPD: no signs of COPD exacerbation. Patient on home Flovent discuss and Incruse Ellipta plan: Ordered Breo Ellipta in place of Flovent??(not on formulary) Ordered for Spiriva in place of Incruse Ellipta??(not on formulary) ?? SANJIV - not on BiPAP ?? Quality Measures: VTE prophylaxis: coumadin Code status: DNR - confirmed with pt at bedside ?? Dispo: possible discharge home tomorrow * Jacob Hutchins MD: PERFORM, MODIFY Event Display: Progress Note Hospital Authored Date: [id number] Patient: ??PHONG TRUDY ? Age:??71 Years?Sex:??Male?:??1950?? Subjective Reviewed [facility] notes, 71 y/o male patient that presented with unable to have bowel movements or passing gas, and felt constipated ?? Patient was seen in the ED area He described feeling better, had 3 liquid stool BM during the night and no abdominal pain at the moment, some discomfort from abdominal hernias when retracting No nausea or vomiting, no fever or chills ?? Review of Systems Constitutional:??No fever or chills Cardiovascular:??No chest pain Respiratory:??No shortness of breath, positive for productive cough Gastrointestinal:??No nausea, No vomiting. No abdominal pain. Objective Vital Signs?? Temperature: 98.1 DegF (10/05/22 08:05:00) Temperature Route: Oral (10/05/22 08:05:00) Pulse Rate: 67 bpm (10/05/22 08:05:00) Respiratory Rate:??15 br/min??Low (10/05/22 08:05:00) Vented: No (10/04/22 17:30:00) Systolic Blood Pressure: 121 mm Hg (10/05/22 08:05:00) Diastolic Blood Pressure:??46 mm Hg??Low (10/05/22 08:05:00) Blood pressure sites: Arm, right (10/04/22 22:41:00) Mean Arterial Pressure: 83 mm Hg (10/05/22 05:38:00) Pulse Pressure: 75 mm Hg (10/05/22 08:05:00) Oxygen Saturation: 95 % (10/05/22 08:05:00) Mode of Delivery (Oxygen): Room air (10/05/22 08:05:00) Early Warning Score: 5 (10/05/22 08:05:40) ? Intake/Output? 10/04 12:08 10/05 07:00 10/04 07:00 10/03 07:00 10/02 07:00 ?? 10/05 08:39 10/05 08:39 10/05 06:59 10/04 06:59 10/03 06:59 Intake ?0 ?0 ?0 ?0 ?0 Output ? 1924 ?0 ? 1924 ?0 ?0 Net Total ?-192 ?0 ?-1924 ?0 ?0 ? Physical Exam Constitutional: Alert, in no acute distress. Mental Status: Oriented to person, place and time. Head: Normocephalic. Respiratory: Clear to auscultation bilaterally. No wheezing, rales or rhonchi. Cardiovascular: S1 S2 regular. No murmurs, rubs or gallops. Regular rate and rhythm Gastrointestinal: Abdomen soft, non-tender,??Normal bowel sounds. 2 large abdominal hernias, retractable. Neurologic:??Moves all extremities spontaneously. Skin: No rashes or lesions. No jaundice. skin Hyperpigmentation on lower??LE bilaterally Musculoskeletal: No cyanosis or clubbing. No gross deformities. +1 pitting edema on Right and Left LE ?? Results Recent Labs BLOOD COUNT & DIFF WBC 9.0 k/mm3 ()?? 10/05/2022 04:26 RBC 3.79 m/mm3 (Low)?? 10/05/2022 04:26 Hgb 11.8 Gm/dL (Low)?? 10/05/2022 04:26 Hct 37.7 % (Low)?? 10/05/2022 04:26 MCV 99.5 femtoliters (High)?? 10/05/2022 04:26 MCH 31.1 pg ()?? 10/05/2022 04:26 MCHC 31.3 g/dL (Low)?? 10/05/2022 04:26 Platelet Count 132 k/mm3 (Low)?? 10/05/2022 04:26 RDW-SD 51.5 femtoliters (High)?? 10/05/2022 04:26 MPV 9.7 femtoliters ()?? 10/05/2022 04:26 Nucleated RBC (Automated) 0.0 #/100 WBC'S ()?? 10/05/2022 04:26 Abs. NRBC 0.0 k/mm3 ()?? 10/05/2022 04:26 Abs. Neut 9.3 k/mm3 (High)?? 10/04/2022 00:47 Abs. Lymph 1.2 k/mm3 ()?? 10/04/2022 00:47 Abs. [place] 0.7 k/mm3 ()?? 10/04/2022 00:47 Abs. Eo 0.2 k/mm3 ()?? 10/04/2022 00:47 Abs. Baso 0.0 k/mm3 ()?? 10/04/2022 00:47 Neut % 80.7 % (High)?? 10/04/2022 00:47 Lymph % 10.8 % (Low)?? 10/04/2022 00:47 [place] % 5.8 % ()?? 10/04/2022 00:47 Eos % 1.9 % ()?? 10/04/2022 00:47 Baso % 0.3 % ()?? 10/04/2022 00:47 Imm Gran 0.5 % ()?? 10/04/2022 00:47 Abs. Imm Gran 0.1 k/mm3 ()?? 10/04/2022 00:47 ?? CHEM GENERAL Sodium 142 mmol/L ()?? 10/05/2022 04:26 Potassium 4.4 mmol/L ()?? 10/05/2022 04:26 Chloride 108 mmol/L (High)?? 10/05/2022 04:26 Bicarbonate Level 25 mmol/L ()?? 10/05/2022 04:26 Anion Gap 9 ()?? 10/05/2022 04:26 Glucose Level 250 mg/dL (High)?? 10/04/2022 00:47 Glucose, POC 147 mg/dL (High)?? 10/05/2022 07:38 BUN 21 mg/dL ()?? 10/05/2022 04:26 Creatinine-Blood 0.9 mg/dL ()?? 10/05/2022 04:26 Estimated GFR Creatinine 90 ML/MIN/1.73 M2 ()?? 10/05/2022 04:26 Calcium 10.0 mg/dL ()?? 10/04/2022 00:47 Phosphorus 2.6 mg/dL ()?? 10/05/2022 04:26 Magnesium 2.1 mg/dL ()?? 10/05/2022 04:26 Protein, Total 7.6 Gm/dL ()?? 10/04/2022 00:47 Albumin 5.0 Gm/dL (High)?? 10/04/2022 00:47 AG Ratio 1.9 ()?? 10/04/2022 00:47 Alkaline Phosphatase 101 units/L ()?? 10/04/2022 00:47 Lipase 14 units/L ()?? 10/04/2022 00:47 AST (SGOT) 18 units/L ()?? 10/04/2022 00:47 ALT (SGPT) 22 units/L ()?? 10/04/2022 00:47 Bilirubin, Total 1.4 mg/dL (High)?? 10/04/2022 00:47 Lactate 1.5 mmol/L ()?? 10/04/2022 00:47 ?? COAG INR 2.0 (High)?? 10/05/2022 04:26 Protime (PT) 19.8 seconds (High)?? 10/05/2022 04:26 APTT 49.3 seconds (High)?? 10/05/2022 04:26 ?? ENDOCRINE/TUMOR MARKER TSH 2.45 uIU/mL ()?? 10/04/2022 21:38 ?? HEME OTHER Hold Lavender Top SPECIMEN DISCARDED AFTER 24 HOURS. ()?? 10/04/2022 21:38 Hold Blue Top SPECIMEN DISCARDED AFTER 4 HOURS. ()?? 10/04/2022 21:38 ?? MISC. CHEMISTRY Hold Red Top SPECIMEN DISCARDED AFTER 1 WEEK ()?? 10/04/2022 21:38 ?? TOXICOLOGY/TDM [place] Level 0.8 mmol/L ()?? 10/04/2022 21:38 ?? UA/URINALYSIS Appear/Color, Urine YELLOW ()?? 10/04/2022 05:14 Specific [place], Urine 1.031 (High)?? 10/04/2022 05:14 pH, Urine 6.5 ()?? 10/04/2022 05:14 Albumin, Urine 1+ (Abnormal)?? 10/04/2022 05:14 Glucose, Urine NEGATIVE ()?? 10/04/2022 05:14 Ketones, Urine NEGATIVE ()?? 10/04/2022 05:14 Bilirubin, Urine NEGATIVE ()?? 10/04/2022 05:14 Hemoglobin, Urine NEGATIVE ()?? 10/04/2022 05:14 Nitrite, Urine NEGATIVE ()?? 10/04/2022 05:14 Leukocyte, Urine 1+ (Abnormal)?? 10/04/2022 05:14 Urobilinogen NORMAL mg/dL ()?? 10/04/2022 05:14 WBC's, Urine 2 /HPF ()?? 10/04/2022 05:14 RBC's, Urine 1 /HPF ()?? 10/04/2022 05:14 Bacteria SLIGHT HPF (Abnormal)?? 10/04/2022 05:14 Squamous Epith 1 /HPF ()?? 10/04/2022 05:14 Mucus SLIGHT /LPF ()?? 10/04/2022 05:14 Hold Urine Culture Testing available 48 hours from time of collection. ()?? 10/04/2022 05:14 ?? URINE OTHER Est Creatinine Clearance 77.21 mL/min ()?? 10/05/2022 05:26 ?? VIROLOGY COVID-19 by RT-PCR NEGATIVE ()?? 10/04/2022 12:30 ? Assessment/Plan A/P: 71-year-old male with a past medical history of diabetes mellitus, SANJIV on BiPAP, COPD, obesity, tremor, DVT on chronic warfarin anticoagulation, lymphedema, bipolar depression, hypertension, hyperlipidemia and 2 large ventral hernias with multiple past abdominal surgeries including a sigmoid colectomy for diverticulitis in 2002, SBO secondary to ventral hernia status post primary repair and excision in 2013, who presented to the ED with 2 days of abdominal pain and constipation, general surgery was contacted for possible SBO ?? 1. Possible SBO: patient had BM during the night, and Abdominal series this morning showing no signs of obstruction. Discussed with Surgery, which recommended to advanced diet as tolerated; no acute surgical intervention He has large ventral hernias??- s/p multiple past abdominal surgeries; with hx of??SBO - secondary to ventral hernia??repair H/o sigmoid colectomy CT scan abdomen/pelvis showed??a periumbilical hernia to the right of the midline containing small bowel, the exiting small bowel loop is relatively decompressed this was noted to represent the site of at least a partial small bowel obstruction, small bowel loops proximal to this level are mildly distended and contains scattered air-fluid levels.?? plan: advanced to clear liquid diet, if tolerates might advanced to solid later today ?? 2. History of??DVT:??INR 2.0 today, he is on warfarin as outpatient; was held and started on heparin drip in case would need surgical intervention plan: will dc heparin drip since therapeutic INR ? resume Coumadin likely tomorrow if no surgical intervention ? monitor??INR daily ?? 3.??Diabetes mellitus type 2: restarted on half dose since was NPO plan: continue with Lantus 30 units ?monitor POC and cover with lispro SS ?? 4.??HTN: will restart home dose of Amlodipine 5 mg. Hold other home meds,??atenolol 25 mg twice daily??and??lisinopril 40 mg daily ?? 5.??Hypothyroidism: TSH within normal range plan: restart with??levothyroxine??150 mcg daily ?? 6. Major depression w/ Bipolar features:??home [place], restart??sertraline??and??Abilify ?? 7. COPD: no signs of COPD exacerbation. Patient on home Flovent discuss and Incruse Ellipta plan: Ordered Breo Ellipta in place of Flovent??(not on formulary) Ordered for Spiriva in place of Incruse Ellipta??(not on formulary) ?? SANJIV - not on BiPAP ?? Quality Measures: VTE prophylaxis: holding heparin drip, therapeutic INR Code status: DNR - confirmed with pt at bedside * Jacob Hutchins MD: PERFORM Event Display: Progress Note Hospital Authored Date: Patient had change in rhythm in the ED. Reviewed EKG; noticed wide QRS tachycardia HR in 120-130s, possible V paced rhythm. Patient has no symptoms, RN noticed with mild decrease in blood pressure but SBP > 100. Discussed briefly with Cardiology, they will come to evaluate patient and have pacerinterrogation; unclear if pacer dependent tachycardia vs [place] Vtach. Patient will need hopper attendant continuously on medical floor. Will follow up with Cardiology consultation, no need for urgentintervention or cardioversion. ?? Note * Valencia Richards RN: PERFORM Event Display: Discharge/Transfer Note Hospital Authored Date: [id number] Nursing Discharge Note Entered On: 10/07/2022 9:26 EDT Performed On: 10/07/2022 9:26 EDT by Valencia Richards RN Nursing Discharge Note 2 Discharge Time : 10/07/2022 10:24 EDT Valencia Richards RN - 10/07/2022 16:40 EDT Discharge Level of Care at Discharge : Home/Custodial/Foster Care Patient Left Unit Via : Wheelchair Patient Accompanied Off Unit with : Responsible adult, Other: STAFF DC Instructions Provided & Signed by Pt : Yes Patient Understands D/C Instructions : Yes Patient Instructions Discharge Signed : Yes Did Pt have Specialty Bed or Wound Vac : No Valencia Richards RN - 10/07/2022 9:26 EDT * Jacob Hutchins MD: PERFORM, MODIFY Event Display: Discharge/Transfer Note Hospital Authored Date: [id number] Patient: ??TRUDY DARLING ? Age:??71 Years?Sex:??Male?:??1950?? Patient Information Discharge Location: S2 Primary Care Physician: Chyna Duarte MD Admit Date/Time: 10/04/22 12:08 Discharge Disposition Discharge Disposition: Home with Home Health Discharge Diagnosis Paroxysmal atrial flutter (I48.92) Small bowel obstruction (K56.609) ?? _ Discharge Medications Acetaminophen (acetaminophen 325 mg oral tablet)?975?Milligram?3?tablet?By Mouth?Every 6 hours?as needed?as needed for pain Albuterol (Albuterol (Eqv-ProAir HFA) 90 mcg/inh inhalation aerosol)?2?inhalation?Inhalation?Every 6 hours?as needed? NEEDED FOR WHEEZING Amlodipine (amLODIPine 5 mg oral tablet)?1?tab(s)?By Mouth?Daily Aripiprazole (Abilify 2 mg oral tablet)?2?Milligram?1?tablet?By Mouth?Daily Atenolol (atenolol 25 mg oral tablet)?1?tablet?By Mouth?2 times a day Atorvastatin (atorvastatin 40 mg oral tablet)?1?tab(s)?By Mouth?Daily Durable Medical Equipment (Pen [place], 31 G x 5 mm BD Ultra Fine III)?See Instructions?for 90?Days?use with lantus and humalog as directed dx: e11.65 Durable Medical Equipment (PAP Supplies - Mask, Tubing, Filters, Head Gear, Chin Strap, and Water Chamber)?See Instructions?to be used with CPAP machine for dx: ??SANJIV G47.30length of need: 99=lifetime Durable Medical Equipment (Compression Stockings)?See Instructions?Juxta Lite compression wraps bilateral lower legsDX ??CVI with ulcers Durable Medical Equipment (Compression Stockings)?See Instructions?Juxta Lite Circaid compression wraps bilateral 30-40 mmHg Durable Medical Equipment (Insulin Syringe, BD Ultra-Fine 1 cc 30 G x 12.7 mm (1/2in))?See Instructions?to be used with insulin QID for dx: E11.65 Durable Medical Equipment (Juxta Fit Circaid compression wraps)?See Instructions?bilateral lower legs Durable Medical Equipment (free style lyndon sensors)?See Instructions?to be used to check BG up to 4 times a day1 unit = 30 day supplydx: E11.65LON: lifetime Durable Medical Equipment (free style lyndon reader)?See Instructions?to be used to check BG up to 4 times a daydx: E 11.65LON = lifetime Durable Medical Equipment (AutoBIPAP EPAPmin 11 IPAPmax 22 PS 6 with heated humidification)?See Instructions?use overnight and napsfrom Regional Durable Medical Equipment (unna boot dressing change once a week)?See Instructions?for dx: diabetic leg wound Durable Medical Equipment (Aerochamber w/Mask (Large))?See Instructions?to be used with flovent and albuteroldx: J44.9 Durable Medical Equipment (Xeroform (4x9))?See Instructions?change daily for leg ulcer Fluticasone (Flovent Diskus 250 mcg/inh inhalation powder)?1?puff(s)?Inhalation?2 timesa day Furosemide (furosemide 40 mg oral tablet)?60?Milligram?1.5?tablet?By Mouth?Daily Gabapentin (gabapentin 100 mg oral capsule)?200?Milligram?2?capsule?By Mouth?Daily at bedtime Insulin Glargine (Lantus Solostar Pen 100 units/mL subcutaneous solution)?60?unit(s)?Subcutaneous Injection?Daily at bedtime?for 90?Days Insulin Lispro (HumaLOG KwikPen 100 units/mL injectable solution)?See Instructions?s/c inj TID before meals acc to scale: 1u 150-200; 3u 201-250; 5u 251-300; 7u 301-350; 9u 351-400; 11u 401-450; call MD for BG over 450 Levothyroxine (levothyroxine 150 mcg (0.15 mg) oral tablet)?1?tab(s)?By Mouth?Daily Lisinopril (lisinopril 40 mg oral tablet)?1?tab(s)?By Mouth?Daily [place] (lithium 300 mg oral tablet, extended release)?2?tab(s)?600?Milligram?By Mouth?Daily at bedtime Omeprazole (omeprazole 40 mg oral enteric coated capsule)?1?capsule?By Mouth?Daily Ropinirole (rOPINIRole 0.5 mg oral tablet)?1?tab(s)?By Mouth?Daily at bedtime Sertraline (sertraline 100 mg oral tablet)?2?tab(s)?200?Milligram?By Mouth?Daily umeclidinium (Incruse Ellipta 62.5 mcg/inh inhalation powder)?1?inhalation?Inhalation?Every 24 hours?for 24?hour?APART. Warfarin (warfarin 5 mg oral tablet)?See Instructions?TAKE 1 AND 1/2 TO 2 TABLETS BY MOUTH DAILY PER MD/RN PROTOCOL ? Medications Started none Medications Discontinued none Doses Changed none Allergies Allergies ?(Active and Proposed Allergies Only) NKA? (Severity: Unknown severity, Onset: Unknown) ? Future Appointments Thursday 7:40 AM EDT ?? Where: [facility] [place] [address]- Status: Pending Hospital Course 71-year-old male with a past medical history of diabetes mellitus, SANJIV on BiPAP, COPD, obesity, tremor, DVT on chronic warfarin anticoagulation, lymphedema, bipolar depression, hypertension, hyperlipidemia and 2 large ventral hernias with multiple past abdominal surgeries including a sigmoid colectomy for diverticulitis in 2002, SBO secondary to ventral hernia status post primary repair and excision in 2013, who presented to the ED with 2 days of abdominal pain and constipation, general surgerywas contacted for possible SBO ?? 1. Paroxysmal Atrial fibrillation/flutter: initially patient??presented for SBO symptoms; however he was noticed with wide QRS tachycardia on telemetry.??Cardiology was consulted, and he??had??pacer interrogated??which showed Afib/flutter rhythm, and had pacer adjusted with improvement of his heart rate. He had no recurrent episodes of tachycardia, and he will follow up with Cardiology as outpatient. He is already on anticoagulation ?? 2. Possible SBO: he presented with concerned for SBO, no signs of acute abdomen.??Surgery was consulted;??Abdominal series showed no signs of obstruction. He was restarted on diet after having bowel movement, and tolerated well, no complications. ??He has large ventral hernias - s/p multiple past abdominal surgeries; with hx of SBO - secondary to ventral hernia repair.?H/o sigmoid colectomy ??CT scan abdomen/pelvis showed a periumbilical hernia to the right of the midline containing smallbowel, the exiting small bowel loop is relatively decompressed this was noted to represent the siteof at least a partial small bowel obstruction, small bowel loops proximal to this level are mildly distended and contains scattered air-fluid levels.?3. History of DVT: INR down??after holding coumadin in case of surgical procedure. He was restarted on??home regimen of coumadin. He was started on heparin drip on admission which was discontinued.?? He is Coumadin 10 mg on Sun,Mon, Thur, Fri; 75 mg on?? Thu and Thu, and 5 mg on Sat ?? Other chronic medical conditions were stable during hospital course, no changes to home meds ?? Home VNA services to be resumed as previously ordered ? Objective Assessment and Plan Discharge Planning:? Vital Signs?? Temperature: 97.7 DegF (10/07/22 06:45:00) Temperature Route: Oral (10/07/22 06:45:00) Pulse Rate: 74 bpm (10/07/22 08:08:00) Respiratory Rate: 20 br/min (10/07/22 06:45:00) Vented: No (10/07/22 08:08:00) Systolic Blood Pressure: 119 mm Hg (10/07/22 08:08:00) Diastolic Blood Pressure: 83 mm Hg (10/07/22 08:08:00) Blood pressure sites: Arm, left (10/07/22 08:08:00) Mean Arterial Pressure: 90 mm Hg (10/07/22 06:45:00) Pulse Pressure: 36 mm Hg (10/07/22 08:08:00) Oxygen Saturation: 98 % (10/07/22 06:45:00) Mode of Delivery (Oxygen): Room air (10/07/22 06:45:00) Early Warning Score: 5 (10/07/22 09:07:32) ? . Physical Exam Constitutional: Alert, in no acute distress. Mental Status: Oriented to person, place and time. Head: Normocephalic. Respiratory: Clear to auscultation bilaterally. No wheezing, rales or rhonchi. Cardiovascular: S1 S2 regular. No murmurs, rubs or gallops. Regular rate and rhythm Gastrointestinal: Abdomen soft, non-tender,??Normal bowel sounds. 2 large abdominal hernias, retractable. Neurologic:??Moves all extremities spontaneously. Skin: No rashes or lesions. No jaundice. skin Hyperpigmentation on lower??LE bilaterally Musculoskeletal: No cyanosis or clubbing. No gross deformities.??No pitting edema on Right and LeftLE Consultants surgery EP Cardiology Pending Results Add On Lab Order ordered on 10/04/2022 Add On Lab Order ordered on 10/04/2022 CBC ordered on 10/04/2022 Hold Blue Top Tube ordered on 10/04/2022 Hold Gel Top Tube ordered on 10/06/2022 INR ordered on 10/05/2022 PTT ordered on 10/05/2022 PTT ordered on 10/05/2022 Follow-Up Appointments Added Follow Up ?Time Frame ?Comments Hank Leal?Cardiology will call you to setup a follow up appointment Chyna Duarte?2 to 5 weeks Post Discharge Care Code Status: ?? No Resuscitation Discharge ?10/07/22 9:08:00 EDT Discharge Prescriptions ?None, ??10/07/22 9:08:00 EDT Results Discharge Labs BLOOD COUNT & DIFF WBC 8.0 k/mm3 ()?? 10/06/2022 06:00 RBC 3.78 m/mm3 (Low)?? 10/06/2022 06:00 Hgb 11.8 Gm/dL (Low)?? 10/06/2022 06:00 Hct 37.2 % (Low)?? 10/06/2022 06:00 MCV 98.4 femtoliters (High)?? 10/06/2022 06:00 MCH 31.2 pg ()?? 10/06/2022 06:00 MCHC 31.7 g/dL (Low)?? 10/06/2022 06:00 Platelet Count 133 k/mm3 (Low)?? 10/06/2022 06:00 RDW-SD 50.1 femtoliters (High)?? 10/06/2022 06:00 MPV 9.5 femtoliters ()?? 10/06/2022 06:00 Nucleated RBC (Automated) 0.0 #/100 WBC'S ()?? 10/06/2022 06:00 Abs. NRBC 0.0 k/mm3 ()?? 10/06/2022 06:00 Abs. Neut 9.3 k/mm3 (High)?? 10/04/2022 00:47 Abs. Lymph 1.2 k/mm3 ()?? 10/04/2022 00:47 Abs. [place] 0.7 k/mm3 ()?? 10/04/2022 00:47 Abs. Eo 0.2 k/mm3 ()?? 10/04/2022 00:47 Abs. Baso 0.0 k/mm3 ()?? 10/04/2022 00:47 Neut % 80.7 % (High)?? 10/04/2022 00:47 Lymph % 10.8 % (Low)?? 10/04/2022 00:47 [place] % 5.8 % ()?? 10/04/2022 00:47 Eos % 1.9 % ()?? 10/04/2022 00:47 Baso % 0.3 % ()?? 10/04/2022 00:47 Imm Gran 0.5 % ()?? 10/04/2022 00:47 Abs. Imm Gran 0.1 k/mm3 ()?? 10/04/2022 00:47 ?? CHEM GENERAL Sodium 142 mmol/L ()?? 10/05/2022 04:26 Potassium 4.4 mmol/L ()?? 10/05/2022 04:26 Chloride 108 mmol/L (High)?? 10/05/2022 04:26 Bicarbonate Level 25 mmol/L ()?? 10/05/2022 04:26 Anion Gap 9 ()?? 10/05/2022 04:26 Glucose Level 250 mg/dL (High)?? 10/04/2022 00:47 Glucose, POC 171 mg/dL (High)?? 10/07/2022 09:06 BUN 21 mg/dL ()?? 10/05/2022 04:26 Creatinine-Blood 0.9 mg/dL ()?? 10/05/2022 04:26 Estimated GFR Creatinine 90 ML/MIN/1.73 M2 ()?? 10/05/2022 04:26 Calcium 10.0 mg/dL ()?? 10/04/2022 00:47 Phosphorus 2.6 mg/dL ()?? 10/05/2022 04:26 Magnesium 2.1 mg/dL ()?? 10/05/2022 04:26 Protein, Total 7.6 Gm/dL ()?? 10/04/2022 00:47 Albumin 5.0 Gm/dL (High)?? 10/04/2022 00:47 AG Ratio 1.9 ()?? 10/04/2022 00:47 Alkaline Phosphatase 101 units/L ()?? 10/04/2022 00:47 Lipase 14 units/L ()?? 10/04/2022 00:47 AST (SGOT) 18 units/L ()?? 10/04/2022 00:47 ALT (SGPT) 22 units/L ()?? 10/04/2022 00:47 Bilirubin, Total 1.4 mg/dL (High)?? 10/04/2022 00:47 Lactate 1.5 mmol/L ()?? 10/04/2022 00:47 ?? COAG INR 1.5 (High)?? 10/06/2022 06:00 Protime (PT) 15.6 seconds (High)?? 10/06/2022 06:00 APTT 29.1 seconds ()?? 10/06/2022 06:00 ? ENDOCRINE/TUMOR MARKER TSH 2.45 uIU/mL ()?? 10/04/2022 21:38 ? HEME OTHER Hold Lavender Top SPECIMEN DISCARDED AFTER 24 HOURS. ()?? 10/04/2022 21:38 Hold Blue Top SPECIMEN DISCARDED AFTER 4 HOURS. ()?? 10/04/2022 21:38 ?? MISC. CHEMISTRY Hold Red Top SPECIMEN DISCARDED AFTER 1 WEEK ()?? 10/04/2022 21:38 ? TOXICOLOGY/TDM [place] Level 0.8 mmol/L ()?? 10/04/2022 21:38 ? UA/URINALYSIS Appear/Color, Urine YELLOW ()?? 10/04/2022 05:14 Specific [place], Urine 1.031 (High)?? 10/04/2022 05:14 pH, Urine 6.5 ()?? 10/04/2022 05:14 Albumin, Urine 1+ (Abnormal)?? 10/04/2022 05:14 Glucose, Urine NEGATIVE ()?? 10/04/2022 05:14 Ketones, Urine NEGATIVE ()?? 10/04/2022 05:14 Bilirubin, Urine NEGATIVE ()?? 10/04/2022 05:14 Hemoglobin, Urine NEGATIVE ()?? 10/04/2022 05:14 Nitrite, Urine NEGATIVE ()?? 10/04/2022 05:14 Leukocyte, Urine 1+ (Abnormal)?? 10/04/2022 05:14 Urobilinogen NORMAL mg/dL ()?? 10/04/2022 05:14 WBC's, Urine 2 /HPF ()?? 10/04/2022 05:14 RBC's, Urine 1 /HPF ()?? 10/04/2022 05:14 Bacteria SLIGHT HPF (Abnormal)?? 10/04/2022 05:14 Squamous Epith 1 /HPF ()?? 10/04/2022 05:14 Mucus SLIGHT /LPF ()?? 10/04/2022 05:14 Hold Urine Culture Testing available 48 hours from time of collection. ()?? 10/04/2022 05:14 ? URINE OTHER Est Creatinine Clearance 77.21 mL/min ()?? 10/05/2022 05:26 ? VIROLOGY COVID-19 by RT-PCR NEGATIVE ()?? 10/04/2022 12:30 ? Imaging(s) ?CT Abd/Pelvis W/ IV Contrast Only ?? 10/04/2022 04:20??by Sonia Roblero MD, Dany Wang ? IMPRESSION: ?? 3 bowel containing ventral abdominal wall hernias ?? That located to the right of midline in the periumbilical region represents the site of at least partial small bowel obstruction. Surgical consultation is recommended ?? Signs of prior left hemicolectomy with anastomosis of the lateral descending/sigmoid colon ?? Multiple bowel loops are closely applied to the ventral abdominal wall suggesting adhesions ?? Preliminary report provided by [facility] was reviewed. ?XR Abdomen AP Small Bowel W/ contrast ?? 10/05/2022 01:33??by Rafiq GARRISON, Junaid Mcbride ? IMPRESSION: ?? Limited examination demonstrates contrast within the colon. No evidence of obstruction. ? 33??minutes spent on discharge * Valencia Richards RN: PERFORM Event Display: Patient Education/Instruction Authored Date: [id number] Inpatient Adult Discharge Instructions [address] [address] Name: TRUDY DARLING : 1950 Visit: 10/04/2022 12:08:00 Current Date: 10/07/2022 09:26 Account: [id number] Inpatient Adult Discharge Instructions We would like to thank you for allowing us to assist you with your healthcare needs. The following includes patient education materials and information regarding your injury/illness. Our entire staffstrives to provide an excellent experience for our patients and their families. PLEASE ENSURE YOU FOLLOW-UP PER THE INSTRUCTIONS BELOW! ?? YOUR OPINION IS IMPORTANT TO US! Please complete the survey you may receive by mail or email. Your feedback will be used to make improvements to the healthcare experiences of our patients and their families. Surveys are administered by [employer]. ?? If further treatment with your primary care physician or another doctor is recommended, it is important for you to keep the appointment. Call your primary care physician or return to the Emergency Department immediately if your condition worsens, fails to improve, or new symptoms develop. If you need to find a doctor, you can call [facility] for a referral at [phone] or toll free at [phone]) or log in to [email or web address] ?? You can view and manage your care through the patient portal or by using a health care leanne of your choosing. [employer] is a website that allows you to securely view your medical information including your hospital discharge summary, office visit summaries, medications and follow-up visits. You can also request appointments, renew medications, and request access to your medical information using a health care leanne of your choosing, or just ask a question. You can enroll at [email or web address] or register during your next office visit. You have been discharged from [facility], Patient Care Unit: S2. If you have any questions regarding these instructions after you leave, please call us and we will be happy to assist you. [facility] Your Care Team Attending Physician Jacob Hutchins MD Discharging Providers Jacob Hutchins MD Reason for Admission Aox4 coming from home x2 known hernias, unable to have bowel movement or pass gas today. recent medchanges for lasix. feels constipated. Your Diagnosis Small bowel obstruction Venous stasis dermatitis Venous stasis ulcer of left calf Venous stasis ulcer of right lower leg with edema of right lower leg Non-pressure chronic ulcer of left calf limited to breakdown of skin Non-pressure chronic ulcer right lower leg, limited to breakdown skin Venous stasis Lymphedema Paroxysmal atrial flutter Tests Performed Below is a partial list of the tests performed during your hospitalization. You may have had other tests and procedures not included in this list. Please discuss all test results with your provider. BUN CBC CBC w/ Differential Comprehensive Metabolic Panel COVID-19 (Novel Coronavirus), Rapid PCR Creatinine Electrolytes GLUCOSE POC HOLD BLUE TUBE HOLD LAVENDER TUBE HOLD RED TUBE INR Lactic Acid Level Lipase [place] Level Magnesium Level Phosphorus Level PT (INR) PTT TSH WITH REFLEX TO FT4 Urinalysis w/hold for Urine Culture CT Abd/Pelvis W/ IV Contrast Only XR Abdomen AP Small Bowel with contrast Primary Care Provider Chyna Duarte MD Advance Directive Health Care Proxy on File Yes - Health Care Proxy Yes - MOLST Discharge Vitals Temperature: 97.7 DegF Height: 175 cm Pulse Rate: 74 bpm Weight: 105 kg Respiratory Rate: 20 br/min Body Mass Index:??34.29 kg/m2??Critical Systolic Blood Pressure: 119 mm Hg Body surface area: 2.26 Diastolic Blood Pressure: 83 mm Hg ?? Oxygen Saturation: 98 % ?? Studies Pending All tests and labs ordered during this hospital stay have been completed unless listed below. Please discuss all pending results with your provider listed above in these instructions. ?? Add On Lab Order (Lab Add On Order) CBC Hold Blue Top Tube (HOLD BLUE TUBE) Hold Gel Top Tube (HOLD GEL TUBE) INR PTT What to do next Instructions From Your Doctor Discharge Orders Code Status:?? No Resuscitation Scheduled Follow-Up Appointments Thursday 7:40 AM EDT ?? Where: [facility] [address] [place] [id number]- Status: Pending You Need to Schedule the Following Appointments Follow Up with??Hank Leal Why: Cardiology will call you to setup a follow up appointment Where: [address] [place] [address] [address] [facility] [place] [address]- Business (1) Follow Up with??Chyna Duarte When:??Within 2 to 5 weeks Discharge Medications TRUDY DARLING :1950 Visit Date:10/04/2022 Medications: Please continue your medications until treatment is completed or stopped by your provider. Medications not listed below should be discontinued. Discuss any questions related to medications with your provider. What How Much When Why Instructions Next Dose Unchanged Acetaminophen (acetaminophen 325 mg oral tablet) 3 tab(s) Oral Every 6 hours as needed for as needed for pain as needed Unchanged Albuterol (Albuterol (Eqv-ProAir HFA) 90 mcg/ inh inhalation aerosol) 2 inhalation Inhalation Every 6 hours as needed for NEEDED FOR WHEEZING as needed Unchanged Amlodipine (amLODIPine 5 mg oral tablet) 1 tab(s) Oral Daily 10/08 Unchanged Aripiprazole (Abilify 2 mg oral tablet) 1 tab(s) Oral Daily 10/08 Unchanged Atenolol (atenolol 25 mg oral tablet) 1 tab(s) Oral Twice a day 10/07 Unchanged Atorvastatin (atorvastatin 40 mg oral tablet) 1 tab(s) Oral Daily 10/08 Unchanged Durable Medical Equipment (Aerochamber w/ Mask (Large)) See instructions to be used with flovent and albuterol dx: J44.9 ?? see instructions Unchanged Durable Medical Equipment (AutoBIPAP EPAPmin 11 IPAPmax 22 PS 6 with heated humidification) See instructions use overnight and naps from [facility] ?? 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 see instructions Unchanged Durable Medical Equipment (free style lyndon reader) See instructions to be used to check BG up to 4 times a day dx: E 11.65 NATASHA = lifetime ?? see instructions Unchanged Durable Medical Equipment (free style lyndon sensors) See instructions to be used to check BG up to 4 times a day 1 unit = 30 day supply dx: E11.65 NATASHA: lifetime ?? see instructions Unchanged Durable Medical Equipment (Insulin Syringe, BD Ultra-Fine 1 cc 30 G x 12.7 mm (1/ 2in)) See instructions to be used with insulin QID for dx: E11.65 ?? see instructions Unchanged Durable Medical Equipment (Juxta Fit Circaid compression wraps) See instructions Varicose veins with ulcer and inflammation Lymphedema bilateral lower legs ?? see instructions Unchanged Durable Medical Equipment (PAP Supplies - Mask, Tubing, Filters, Head Gear, Chin Strap, and Water Chamber) See instructions to be used with CPAP machine for dx: ??SANJIV G47.30 length of need: 99=lifetime ?? see instructions Unchanged Durable Medical Equipment (Pen Mio, 31 G x 5 mm BD Ultra Fine III) See instructions Duration: 90 Days use with lantus and humalog as directed dx: e11.65 ?? see instructions Unchanged Durable Medical Equipment (unna boot dressing change once a week) See instructions for dx: diabetic leg wound ?? see instructions Unchanged Durable Medical Equipment (Xeroform (4x9)) See instructions change daily for leg ulcer ?? see instructions Unchanged Fluticasone (Flovent Diskus 250 mcg/ inh inhalation powder) 1 puff(s) Inhalation Twice a day 10/07 Unchanged Furosemide (furosemide 40 mg oral tablet) 1.5 tab(s) Oral Daily 10/08 Unchanged Gabapentin (gabapentin 100 mg oral capsule) 2 capsule Oral Daily at Bedtime 10/07 Unchanged Insulin Glargine (Lantus Solostar Pen 100 units/ mL subcutaneous solution) 60 unit(s) Subcutaneous Injection Daily at Bedtime Duration: 90 Days 10/07 Unchanged Insulin Lispro (HumaLOG KwikPen 100 units/ mL injectable solution) See instructions s/ c inj TID before meals acc to scale: 1u 150-200; 3u 201-250; 5u 251-300; 7u 301-350; 9u 351-400; 11u 401-450; call MD for BG over 450 ?? see instructions Unchanged Levothyroxine (levothyroxine 150 mcg (0.15 mg) oral tablet) 1 tab(s) Oral Daily 10/08 Unchanged Lisinopril (lisinopril 40 mg oral tablet) 1 tab(s) Oral Daily 10/08 Unchanged [place] (lithium 300 mg oral tablet, extended release) 2 tab(s) Oral Daily at Bedtime 10/07 Unchanged Omeprazole (omeprazole 40 mg oral enteric coated capsule) 1 capsule Oral Daily 10/08 Unchanged Ropinirole (rOPINIRole 0.5 mg oral tablet) 1 tab(s) Oral Daily at Bedtime 10/07 Unchanged Sertraline (sertraline 100 mg oral tablet) 2 tab(s) Oral Daily 10/08 Unchanged umeclidinium (Incruse Ellipta 62.5 mcg/ inh inhalation powder) 1 inhalation Inhalation Every 24 hours Duration: 24 hour APART. ?? every 24 hours Unchanged Warfarin (warfarin 5 mg oral tablet) See instructions TAKE 1 AND 1/ 2 TO 2 TABLETS BY MOUTH DAILY PER MD/ RN PROTOCOL ?? 6pm 10/07 see instructions Test Results Below is a partial list of the most recent Laboratory test results done prior to this discharge. You may have had other tests and procedures not included in this list. Please discuss all test resultswith your provider. Est Creatinine Clearance - 77.21 mL/min (10/05/2022) BUN (10/05/2022) ???BUN - 21 mg/dL CBC (10/06/2022) ???WBC - 8.0 k/mm3???RBC - 3.78 m/mm3???Hgb - 11.8 Gm/dL???Hct - 37.2 %???MCV - 98.4 femtoliters???MCH - 31.2 pg???MCHC - 31.7 g/dL???Platelet Count - 133 k/mm3???RDW-SD - 50.1 femtoliters???MPV - 9.5 femtoliters???Nucleated RBC (Automated) - 0.0 #/100 WBC'S???Abs. NRBC - 0.0 k/mm3 CBC w/ Differential (10/04/2022) ???WBC - 11.5 k/mm3???RBC - 4.24 m/mm3???Hgb - 13.1 Gm/dL???Hct - 40.7 %???MCV - 96.0 femtoliters???MCH - 30.9 pg???MCHC - 32.2 g/dL???Platelet Count - 170 k/mm3???RDW-SD - 49.3 femtoliters???MPV - 9.8 femtoliters???Nucleated RBC (Automated) - 0.0 #/100 WBC'S???Abs. NRBC - 0.0 k/mm3???Abs. Neut - 9.3 k/mm3???Abs. Lymph - 1.2 k/mm3???Abs. [place] - 0.7 k/mm3???Abs. Eo - 0.2 k/mm3???Abs. Baso - 0.0 k/mm3???Neut % - 80.7 %???Lymph % - 10.8 %???[place] % - 5.8 %???Eos % - 1.9 %???Baso % - 0.3 %???Imm Gran - 0.5 %???Abs. Imm Gran - 0.1 k/mm3 Comprehensive Metabolic Panel (10/04/2022) ???Sodium - 137 mmol/L???Potassium - 5.0 mmol/L???Chloride - 101 mmol/L???Bicarbonate Level - 26 mmol/L???Anion Gap - 10???Glucose Level - 250 mg/dL???BUN - 24 mg/dL???Creatinine-Blood - 1.0 mg/dL???Estimated GFR Creatinine - 79 ML/MIN/1.73 M2???Calcium - 10.0 mg/dL???Protein, Total - 7.6 Gm/dL???Al bumin - 5.0 Gm/dL???AG Ratio - 1.9???Alkaline Phosphatase - 101 units/L???AST (SGOT) - 18 units/L???ALT (SGPT) - 22 units/L???Bilirubin, Total - 1.4 mg/dL COVID-19 (Novel Coronavirus), Rapid PCR (10/04/2022) ???COVID-19 by RT-PCR - NEGATIVE Creatinine (10/05/2022) ???Creatinine-Blood - 0.9 mg/dL???Estimated GFR Creatinine - 90 ML/MIN/1.73 M2 Electrolytes (10/05/2022) ???Sodium - 142 mmol/L???Potassium - 4.4 mmol/L???Chloride - 108 mmol/L???Bicarbonate Level - 25 mmol/L???Anion Gap - 9 GLUCOSE POC (10/07/2022) ???Glucose, POC - 171 mg/dL HOLD BLUE TUBE (10/04/2022) ???Hold Blue Top - SPECIMEN DISCARDED AFTER 4 HOURS. HOLD LAVENDER TUBE (10/04/2022) ???Hold Lavender Top - SPECIMEN DISCARDED AFTER 24 HOURS. HOLD RED TUBE (10/04/2022) ???Hold Red Top - SPECIMEN DISCARDED AFTER 1 WEEK INR (10/06/2022) ???INR - 1.5???Protime (PT) - 15.6 seconds Lactic Acid Level (10/04/2022) ???Lactate - 1.5 mmol/L Lipase (10/04/2022) ???Lipase - 14 units/L [place] Level (10/04/2022) ???[place] Level - 0.8 mmol/L Magnesium Level (10/05/2022) ???Magnesium - 2.1 mg/dL Phosphorus Level (10/05/2022) ???Phosphorus - 2.6 mg/dL PT (INR) (10/05/2022) ???INR - 2.0???Protime (PT) - 19.8 seconds PTT (10/06/2022) ???APTT - 29.1 seconds TSH WITH REFLEX TO FT4 (10/04/2022) ???TSH - 2.45 uIU/mL Urinalysis w/hold for Urine Culture (10/04/2022) ???Appear/Color, Urine - YELLOW???Specific [place], Urine - 1.031???pH, Urine - 6.5???Albumin, Urine - 1+???Glucose, Urine - NEGATIVE???Ketones, Urine - NEGATIVE???Bilirubin, Urine - NEGATIVE???Hemoglobin, Urine - NEGATIVE???Nitrite, Urine - NEGATIVE???Leukocyte, Urine - 1+???Urobilinogen - NORMAL???WBC's, Urine - 2 /HPF???RBC's, Urine - 1 /HPF???Bacteria - SLIGHT???Squamous Epith - 1 /HPF???Mucus - SLIGHT???Hold Urine Culture - Testing available 48 hours from time of collection. Allergies (NKA means No Known Allergies) NKA Problems Active Problems??(30) Age at leaving school-12th grade?? Benign essential tremor?? Cataract?? Chronic constipation?? COPD type A?? Diabetes mellitus - adult onset?? Diabetic leg ulcer?? DVT (deep venous thrombosis)?? Fatty liver disease based on CT?? GERD?? Goal-TO SURVIVE THIS YEAR?? Hernia, ventral?? Hip osteoarthritis?? Hypercholesterolemia?? Hypertension?? Hypothyroidism?? [facility] Ecommerce Marketing Specialist [phone]?? Lower back pain?? Lymphedema?? Major depression?? Obese class I?? SANJIV (obstructive sleep apnea)?? Positive FIT (fecal immunochemical test)?? Right flank pain?? Seborrheic dermatitis?? Secondary insomnia?? Sigmoid colon resection + complication?? Suspected [place] disease?? Tachy-nelda syndrome?? Wheezing?? Education Materials Below is the list of Educational Leaflet Providered with your Discharge Instructions. Valuables and Belongings I fully understand and agree that [facility] accepts no responsibility for all my personal property including clothing, toilet articles, radios, jewelry, dentures, hearing aids, rings, money, or any other property that is in my possession or is brought to me after admission. I understand certain valuables may be placed in a hospital safe for a short period of time. I understand that the hospital is not liable for loss or damage due to accident, fire, or other natural occurrence while said property is in the safe. I accept full responsibility for any personal property that I keep with me, and will not hold the hospital responsible in case of loss or disappearance. I acknowledge that i have been encouraged to send valuables and belongings home. ?? Date for Pt to Sign Valuables/Belongings: 10/05/22 03:37:00 ?? Other Discharge Information ?? Wound Assessment?? Wound Assessment?? Wound Location I: Leg, left lower Wound Type I: Diabetic foot ulcer Wound Location II: Leg, right lower Wound Type II: Diabetic foot ulcer ?? Case Management Discharge Plan?? Discharge Plan?? Discharge Level of Care at Discharge: Home/Custodial/Foster Care ?? Pulmonary Rehab Status?? Pulmonary Rehab Discharge Status?? Respiratory Rate: 20 br/min ? Common Emergency Awareness Tips IS IT A STROKE? Act FAST and Check for these signs: FACE Does the face look uneven? ARM Does one arm drift down? SPEECH Does their speech sound strange? TIME Call at any sign of stroke ?? Heart Attack Signs Chest discomfort: Most heart attacks involve discomfort in the center of the chest and lasts more than a few minutes, or goes away and comes back. It can feel like uncomfortable pressure, squeezing, fullness or pain. Discomfort in upper body: Symptoms can include pain or discomfort in one or both arms, back, neck, jaw or stomach. Shortness of breath: With or without discomfort. Other signs: Breaking out in a cold sweat, nausea, or lightheaded. Remember, MINUTES DO MATTER. If you experience any of these heart attack warning signs, call to get immediate medical attention! ?? Smoking can increase your chances of developing chronic health problems and can cause harmful effects to other family members in your house. If you smoke, you are strongly encouraged to quit. Please call [facility] at [phone] or [phone] ([phone]) or log in to [email or web address] for referrals to smoking cessation programs. ?? 784 Suicide & Crisis Lifeline is available 17/11 if you or someone you know needs to find a reason to keep living. By calling 385 you'll be connected to a skilled, trained counselor at a crisis center in your area. INPATIENT DISCHARGE INSTRUCTIONS SIGNATURE PAGE TRUDY DARLING Location:[facility] Registration Date and Time:10/04/2022 12:08 EDT Primary Care Physician: Chyna Duarte MD, Attending Physician: Jacob Hutchins MD, I TRUDY DARLING, have received the above patient education materials/instructions and have verbalized understanding. If ambulance or transport services are being used I further acknowledge being given a choice of service. ?? If you need to contact me, please call me at this number: . Patient/Batch Blender Name: Patient/Batch Blender Signature: Relationship to Patient: Witness Name/Signature: Date: * Jacob Hutchins MD: PERFORM, SIGN, VERIFY Event Display: Patient Education Handout Authored Date: [id number] * Valencia Richards RN: PERFORM Event Display: Patient Education Leaflets Authored Date: [id number] Diabetes: Inspecting Your Feet ?? 80774 Diabetes: Inspecting Your Feet Diabetes increases your chances of foot problems. So inspect your feet every day. This helps you find small skin irritations before they become serious sores (ulcers) or infections. If you have trouble seeing the bottoms of your feet, use a mirror or ask a family member or friend to help. How to check your feet These tips can help you look for foot problems. Try to check your feet at the same time each day, such as when you get out of bed in the morning: ??? Check the top of each foot. The tops of toes, back of the heel, and outer edge of the foot can get a lot of rubbing from poor-fitting shoes. ??? Check the bottom of each foot. Daily wear and tear often leads to problems at pressure spots. ??? Check the toes, nails, and between each toe. Fungal infections often occur between toes. Toenail problems can also be a sign of fungal infections or lead to breaks in the skin. ??? Check your shoes, too. Loose objects inside a shoe can injure the foot. Use your hand to feel inside your shoes for things like gm, loose stitching, or rough areas that could irritate your skin. ?? Warning signs Look for any color changes in the foot. Redness with streaks can signal a severe infection, which needs fast medical care. Tell your healthcare provider right away if you have any of these problems: ??? Swelling, sometimes with color changes, may be a sign of poor blood flow or infection. Symptoms include soreness and an increase in the size of your foot. Extra fluid (edema) makes it harder for awound to heal. ??? Warm or hot areas on your feet may be signs of infection. A foot that is red when it hangs down may not be getting enough blood. It also may be cold. ??? Feelings??such as burning,tingling, or ???pins and needles?? can be signs of a nerve problem. Also check for numb areas. ??? Hot spots??are caused by friction or pressure. Look for hot spots in areas that get a lot of rubbing. Hot spots can turn into blisters, calluses, or sores. ??? Cracks and sores??are caused by dry or irritated skin. They're a sign that the skin is breaking down. This can lead to infection. ??? Toenail problems??to watch for include nails growing into the skin (ingrown toenail). This can cause redness or pain. Thick, yellow, or discolored nails can be a sign of a fungal infection. ??? Leaking fluid and a strong smell??can happen with untreated sores. Call your provider right away if you have white or yellow fluid, bleeding, or a strong odor coming from a sore.? If you find anything on you r daily foot exam that concerns you, call your provider. It's very important to take care of any foot problem right away. ?? Last Reviewed Date: 2021 ?? [id number] [employer]. All rights reserved. This information is not intended as a substitute for professional medical care. Always follow your healthcare professional's instructions. ?? * Valencia Richards RN: PERFORM Event Display: Patient Education Leaflets Authored Date: [id number] Diabetes: Keeping Feet Healthy ?? 58947 Diabetes: Keeping Feet Healthy Diabetes can damage nerves in your feet. It can cause weakness, numbness, and pain (neuropathy).??This makes it hard to feel injuries or sore spots. Diabetes can also change blood flow. This can makeit harder for small problems, like a blister, to heal. In fact, small injuries can quickly become serious infections. They can send you to the hospital. Self-care is hong. It helps protect your feet and keep them healthy.?? Take special care These tips can help you care for your feet: ??? Check your feet daily for problems such as swelling, redness, and blisters. Also looks for cracks, dry skin, or numbness. Use a mirror to see the bottoms of your feet. Or ask for help. Try to check your feet at the same time each day. ??? Manage your d iabetes. Check and control your blood sugar. Take all your medicines as prescribed. Call your provider if you have trouble controlling your blood sugar. ??? Don't walk barefoot, even indoors. Always wear socks inside your shoes.? Wash your feet with warm water and mild soap. Check the water temperature before putting your foot in the water. Dry feet well, especially between toes. ??? Don???ttreat in-grown toenails, corns, or calluses yourself. Talk with your provider or foot doctor (marketing database coordinator) if you need help trimming your toenails. Ask your marketing database coordinator for a foot care plan. ??? Use skin cream or lotion if you have dry skin. But, don???t use it between toes. ??? Don???t use heating pads on your feet. If you have nerve damage (neuropathy), you could get a burn and not feel it. ??? Stop smoking. Smoking limits blood flow. It can make it harder for wounds to heal. ??? Don't use sharp blades to trim your nails. Use a nail clipper and file instead.? Have regular checkups Foot problems can happen fast. Follow your healthcare team???s schedule for checkups. During officevisits, take off your shoes and socks as soon as you get in the exam room. Ask your provider to check your feet for problems. This will make it easier to find and treat small skin problems before they get worse. Regular checkups can also help keep track of the blood flow and feeling in your feet. In some cases, you may have a decrease in the pulses in your feet. Then your provider may refer you to have special measurements taken of the blood pressures in your arms and legs. You may need to havecheckups more often if you have neuropathy. Have your feet checked every time you see your healthcare provider, and at least once a year. ?? Wear the right footwear Wearing correct footwear is very important. Parts of your feet have been damaged by too much pressure. Then your provider may advise changing your footwear. You may need to not wear high heels or tight work boots. Or your provider may advise special shoes or inserts. These help protect your feet. And they keep current problems from getting worse. If you need special footwear, ask your provider if you qualify for Medicare's custom-molded and extra-depth diabetic shoe and insert program.? Make sure shoes and socks fit Any pair of shoes???new or old???should feel comfortable as soon as you put them on. There shouldn???t be any rubbing when you walk. Wear the right shoe for any activity. For instance, a running shoeis meant to keep your feet free from injury while you jog. Buy shoes at the end of the day, when your feet are larger. Check that they provide support without feeling too loose. Check that your socksfit, too. Wear soft, seamless, well-padded socks for activity. Cotton or microfiber socks are best.They help to absorb sweat. To protect your feet, don't wear open-toed or open-heeled shoes. Talk with your healthcare team if you have questions about what kinds of shoes and socks are best. . ?? Get regular exercise Regular exercise helps blood flow in your feet. It also helps make your feet stronger and more flexible. Gentle exercises such as walking or riding a stationary bike are best. You can also do specialfoot exercises. Talk with your provider before starting any exercise program. Also tell your provider if any exercise causes pain, redness, or other foot problems. ? Note: If you have any kind of break in the skin of your foot or ankle, keep the area clean. Then call your healthcare provider. This is especially true if the area doesn???t seem to be healing. ?? Last Reviewed Date: 2021 ?? [employer]. All rights reserved. This information is not intended as a substitute for professional medical care. Always follow your healthcare professional's instructions. ?? * Valencia Richards RN: PERFORM Event Display: Patient Education Leaflets Authored Date: [id number] Your Diabetes Foot Care Program ?? 23888 Your Diabetes Foot Care Program Every day you depend on your feet to keep you moving. But when you have diabetes, your feet need special care. Even a small foot problem can become very serious. So don???t take your feet for granted. Work with your diabetes healthcare team. They can help you protect your feet and keep them healthy. Assessing your feet An assessment helps your healthcare provider check the condition of your feet. The assessment includes a review of your diabetes history and overall health. It may also include a foot exam, X-rays, or other tests. These can help show problems beneath the skin that you can???t see or feel. ?? Health history You will be asked about your overall health and any history of foot problems. You???ll also discussyour diabetes history, such as if your blood sugar level has changed over time. It also includes questions about feelings of pain, tingling, pins and needles, or numbness. Your healthcare provider will also want to know if you have high blood pressure and heart or kidney disease. Or if you smoke.??Tell your provider about any past foot infections. Discuss all of the medicines (including [id number]), vitamins, supplements, or herbs you take. ?? Foot exam A foot exam checks the condition of different parts of your foot. First your skin and nails are checked for any signs of infection. Blood flow is checked by feeling for the pulses in each foot. You may also have tests to study the nerves in the foot. These include using a small wire (monofilament) to see how sensitive your feet are. Dry skin on your feet may be a sign of damage to nerves which control the moisture on your skin. Toenail fungal infections may lead to more serious bacterial infections. In certain cases, you will be asked to walk a short distance. This is done to check for bone, joint, and muscle problems. ?? Diagnostic tests If needed, your healthcare provider will suggest certain tests to learn more about your feet. Theseinclude: ??? Doppler tests. These measure blood flow in the feet and lower leg. ??? X-rays. These can show bone or joint problems. ??? Other imaging tests. These may include an MRI, bone scan, and CTscan. These can help show bone infections. ??? Other tests. These may include vascular tests. Thesetests study the blood flow in your feet and legs. This is done by comparing the blood pressures in your arm and ankle. You may also have nerve studies to learn how sensitive your feet are. ?? Creating a foot care program Based on the evaluation, your healthcare provider will create a foot care program for you. This maybe as simple as starting a daily self-care routine. And changing the types of shoes you wear. It may also include treating minor foot problems, such as a corn or blister. In some cases, surgery will be needed to treat an infection. Or to treat mechanical problems, such as claw toes and hammer toes. ?? Preventing problems When you have diabetes, it???s easier to prevent problems than to treat them later on. So see your healthcare team for regular checkups and foot care. Your healthcare team can also help you learn more about caring for your feet at home. For example, you may be told to not walk barefoot, even in your home. Or you may be told you need special footwear to protect your feet. ?? Have regular checkups Foot problems can happen quickly. So follow your healthcare team???s schedule for regular checkups.During office visits, take off your shoes and socks as soon as you get in the exam room. Ask your healthcare provider to check your feet for problems. This will make it easier to find and treat smallskin issues before they get worse. Regular checkups can also help keep track of the blood flow and feeling in your feet. You may have pain or lack of feeling in your feet (neuropathy). Then you'll need checkups more often. ?? Learn about self-care The more you know about diabetes and your feet, the easier it will be to prevent problems. Your healthcare team can teach you how to check your feet every day. And teach you to look for warning signs. They can also give you other foot care tips. Before your office visits, write down any foot care questions you have. During office visits, ask any questions you have. ?? Last Reviewed Date: 2021 ?? [id number] [employer]. All rights reserved. This information is not intended as a substitute for professional medical care. Always follow your healthcare professional's instructions. ?? Radiology * PRASANNA Hayes S: TRANSCRIJunaid Connelly MD: VERIFY Event Display: Result: Authored Date: [id number] XR Abdomen AP Small Bowel with contrast INDICATION: Reason: Pain; Clinical Question(s): Obstruction; Order Comment: contrast given to nurse@ 1355pm and already charged to pt. [place] NWC will time pt starts drinking. Day shift RN never called after pt drank contrast, did not pass on report to table games shift manager nurse about time. Per RN, pt states I drank contrast but do not remember when. @ 12:38AM COMPARISON: CT scan 10/04/2022 FINDINGS: Contrast gas seen throughout the colon. There is also contrast within the stomach. Mildly distendedsmall bowel loops may or present ileus. No free air identified. IMPRESSION: Limited examination demonstrates contrast within the colon. No evidence of obstruction. WSN: [id number] Ordering Physician: Temi Richards Dictated By: Junaid Conroy MD Dictated Date/Time: 10/05/22 9:11 am Reviewed By: Junaid Conroy MD Signed By: Junaid Conroy MD Signed Date/Time: 10/05/22 9:11 am Transcribed By: RAYMOND Transcribed Date/Time: 10/05/22 9:[address] Abdomen and Pelvis W contrast IV * PRASANNA Hayes S: TRANSCRIBE Sonia Roblero MD, Dany P: VERIFY Event Display: Result: Authored Date: [id number] CT Abd/Pelvis W/ IV Contrast Only Hx of Present Illness: from home-reports increased abd pain since this am; hs of multiple abdominalsurgeries-on coumadin; Reason: Other:; LLQ abdominal pain; Clinical Question(s): Obstruction; OrderComment: TECHNIQUE: Spiral CT through the abdomen and pelvis with IV contrast formatted in 3 planes. 100 cc of Omnipaque 300 was administered intravenously. This study was performed without oral contrast. Weight-based protocol using automatic tube modulation was used to optimize exposure parameters. CTDIvol Body: 20.20 mGy, DLP Body: 1100 mGy*cm. COMPARISON: 12/07/2020 FINDINGS: Control Cabinet Assembler View Findings, Lines and Tubes: None. Visualized Chest: Mild subsegmental atelectasis or scarring within the included portion of the right lower thorax Diaphragm: Unremarkable Liver: No evidence of focal parenchymal lesion or surface contour abnormality. Gallbladder: Physiologically distended without evidence of mineralized gallstone Bile ducts: No biliary ductal dilation. Spleen: Upper limits of normal in size without evidence of focal abnormality Pancreas: Enhances homogeneously. No evidence of peripancreatic collection. Adrenal glands: Normal. Kidneys and ureters: 1.4 cm exophytic cyst arising from the interpolar cortex of the left kidney isnot significantly changed in size. No evidence of developing renal contour abnormality, hydronephrosis or suspicious mass lesion. No evidence of hydronephrosis or genitourinary calculus. Bladder: Bladder contour is within normal limits for the degree of distention Reproductive organs: Unremarkable. Stomach, small bowel, and large bowel/abdominal wall: Stomach is moderately distended. Broad-based supraumbilical ventral abdominal wall hernia in the midline containing a portion of thetransverse colon and small bowel with sac measuring 1.2 x 1.2 cm, and neck measuring 7.8 cm. Periumbilical hernia centered to the right of midline containing small bowel. The exiting small bowel loop is relatively decompressed in keeping with several small bowel obstruction. Small bowel loops proximal to this level are mildly distended and contains scattered air fluid levels. Adjacent broad-based infraumbilical ventral abdominal hernias with sac measuring 5.1 x 5.6 cm and neck measuring 3.3 cm containing a mildly distended fluid- filled small bowel loop. Mild amount retained stool throughout the colon. Signs of prior left hemicolectomy with anastomoticsuture line visualized within the ventral aspect of the left hemipelvis. Multiple small and large bowel loops are closely applied to the ventral abdominal wall in keeping with underlying adhesions. Appendix: Normal in caliber Peritoneum and retroperitoneum: No ascites or pneumoperitoneum. No omental or mesenteric lesions. Lymph nodes: No enlarged lymph nodes. Blood vessels: Normal. No aneurysm. Portal vein enhances appropriately. Bones: Included skeleton demonstrates no CT evidence of aggressive bone lesion. IMPRESSION: 3 bowel containing ventral abdominal wall hernias That located to the right of midline in the periumbilical region represents the site of at least partial small bowel obstruction. Surgical consultation is recommended Signs of prior left hemicolectomy with anastomosis of the lateral descending/sigmoid colon Multiple bowel loops are closely applied to the ventral abdominal wall suggesting adhesions Preliminary report provided by ad was reviewed. An actionable message ([place]ano) has been communicated via the [email or web address] system on 10/04/2022 8:00 AM, Message ID [id number]. WSN: [id number] Ordering Physician: Mary Castano Dictated By: Dany Scott Jr, MD Dictated Date/Time: 10/04/22 8:01 am Reviewed By: Dany Scott Jr, MD Signed By: Dany Scott Jr, MD Signed Date/Time: 10/04/22 8:01 am Transcribed By: RAYMOND Transcribed Date/Time: 10/04/22 7:45 am Patient Care team information Care Team Personnel Name: Catrina Payton RN Position: [facility] RN Member Role: Primary Care Nurse Name: Jann Hernandez MD Position: [facility] Physician - Primary Care Member Role: PCP Address: Address: [address] [place] [address] Name: Florencio Saldana RN Position: [facility] ED RN W/OE and Tasks Member Role: Primary Care Nurse Name: Brooklyn Coyne NP Position: [facility] Associate Professional Member Role: Primary Care Nurse Address: Address: [address] [place] [address] Trauma [place] [address]- Name: Tatyana Cosme RN Position: [facility] RN Member Role: Primary Care Nurse Name: Valencia Richards RN Position: [facility] RN Member Role: Primary Care Nurse Name: Xiomara DORSEY Attending Position: [facility] ED Medicine Name: Alfredo Stokes RN Position: [facility] ED RN W/OE and Tasks Member Role: Patient Care Provider Name: Lara Nichols LPN Position: [facility] ED RN W/OE and Tasks Member Role: Patient Care Provider Name: Lori Marte Position: [facility] ED [facility] Member Role: Patient Care Provider Care Team Related Persons Name: SHILO VALE Address: home [address] [facility] [address] [place] [address] Name: GIANCARLO BROOKS Address: home [address] [place] [place] [address] Name: OLIVA VELOZ Address: home [address] [place] [address]
--- OUTSIDE RECORDS SUMMARY | 2023-01-14 15:38 | XMS_ITS | Continuity of Care Document ---
Author Name Unknown Organization [facility] ter Address [address] [place] [address]- Care Team Providers Care Corporate Wellness Coordinator Name Role Phone Fara GARRISON, Dereje Culp Primary Care Physician [facility]counter [facility] Date[facility]s): 12/24/22 - 12/24/[address] [address]- Discharge Disposition: A-D/C Home Attending Physician: Jluis Mancilla MD Admitting Physician: Jluis Mancilla MD Referring Physician: Not on Staff, Referring MD Allergies, Adverse Reactions, Alerts No Known Allergies Immunizations Given and Recorded Vaccine Date Status Refusal Reason [id number] 12y+ bivalent booster vax 03/11/22 Given influenza [...] vaccine, inactivated 03/07/02 Give n SARS-CoV-2 mRNA ([id number]) vax 08/29/21 Given pneumococcal 23-valent vaccine 06/06/21 Given pneumococcal 23-valent vaccine 04/16/14 Given SARS-CoV-2 (COVID-19) mRNA BNT-162b2 vac 5 03/04/21 Given SARS-CoV-2 (COVID-19) mRNA BNT-162b2 vac 08/29/20 Given SARS-CoV-2 (COVID-19) mRNA BNT-162b2 vac 08/07/20 Given pneumococcal 13-valent vaccine 02/23/20 Given pneumococcal 13-valent vaccine 02/10/18 Given tetanus/diphtheria/pertussis, acel(Tdap) 03/31/19 Given FluLaval (oldterm) 6 01/05/12 Given Influenza Vaccine (oldterm) 7 02/10/11 Given Diphth-Tetanus Toxoids Adsorbed(oldterm) 8 01/25/09 Given Pneumococcal Poly (PPV23) (oldterm) 9 03/04/06 Giv en Pneumococcal Vacc (oldterm) 06/25/01 Given 1Early/Late Reason: Other : GIVEN 03/31/19 DURING VISIT 2Admin Note: VIS 12/04/2009 3Admin Note: VIS GIVEN 12/05/2008 4Admin Note: vis given 5Result Comment: DILUENT LOT#: [id number] EXP: 08/2022 G: FRESENSIUS 6Admin Note: VIS given 10/2011 7Admin Note: VIS GIVEN [id number] 8Admin Note: VIS GIVEN 03/14/2008 9Admin Note: vis given Medications Abilify 2 mg oral tablet 2 [...] 08/06/19 0:18:00 EDT, Route to Pharmacy Electronically, [facility], 176, cm, 07/07/19 10:15:00 EDT, [...] Maintenance, 01/15/22 14:49:00 EDT, [facility]), 50, USE 2 INHALATIONS BY MOUTHEVERY 6 HOURS NEEDED FOR WHEEZING, 176, cm, ... Start Date: 01/15/22 Status: Ordered amLODIPine 5 mg oral tablet 1 tablet, By Mouth, Daily, # 90 tablet, 3 Refills, Maintenance, 01/15/22 14:49:00 EDT, [facility]), 176, cm, 01/15/22 10:10:00 EDT, Height, 131.6, kg, 06/03/20 4:19:00 EST, Dry Weight Start Date: 01/15/22 Status: Ordered atenolol 25 mg oral tablet 1, tablet, By Mouth, 2 times a day, # 180 tablet, Refills 3, Maintenance, 12/31/21 14:27:00 EDT, Route to Pharmacy Electronically, [facility]), 176, cm, 08/29/21 9:11:00 EDT, [...] 07/11/22 17:27:00 EDT, Powder, [facility] ), Partial fill upon patient [...] Route to Pharmacy Electronically, [facility] ([facility]), 176, cm, 08/29/21 9:11:00 EDT, [...] mL, 3 Refills, Maintenance, 01/14/22 16:55:00 EDT, [facility], 176, cm, ... Start Date: 01/14/22 Status: Ordered Incruse Ellipta 62.5 mcg/inh inhalation powder 1 inhalation, Inhalation, Every 24 hours, APART., # 30 each, 11 Refills, Maintenance, 08/01/22 16:56:00 EDT, [facility]), 176, cm, 07/10/22 14:41:00 EDT, [...] 3 Refills, Maintenance, 01/14/22 16:55:00 EDT, Solution, [facility] 3, 176, cm, 08/29/21 9:11:00 EDT, Height, 131.6, kg, 06/03/20 4:19:00 EST, Dry Weight Start Date: 01/14/22 Stop Date: 01/09/23 Status: Ordered levothyroxine 150 mcg (0.15 mg) oral tablet 1 tablet, By Mouth, Daily, # 90 tablet, 3 Refills, Maintenance, 04/01/22 15:34:00 EST, [facility] ([facility]), 176, cm, 03/24/22 14:42:00 EST, [...] Refills, Maintenance, 06/26/22 20:48:00 EST, [facility] 176, cm, 05/02/22 9:48:00 EST, Height Start Date: 06/26/22 Status: Ordered oxyCODONE 5 mg oral tablet 5 mg, Tablet, By Mouth, Once, STAT, 12/24/22 14:39:00 EDT, Stop date 12/24/22 14:39:00 EDT Start Date: 12/24/22 Stop Date: 12/24/22 Status: Completed PAP Supplies - Mask, Tubing, Filters, Head Gear, Chin Strap, and Water Chamber PAP Supplies - Mask, Tubing, Filters, Head Gear, Chin Strap, and Water Chamber, See Instructions, #1 each, Refills 12, Tot. Refills 12, Maintenance, to be used with CPAP machine for dx: SANJIV G47.30 length of need: 99=lifetime, 05/08/16 13:26:55, Com... Start Date: 05/08/16 Status: Ordered Pen [place], 31 G x 5 mm BD Ultra [...] Maintenance, Tablet Start Date: 06/05/11 Status: Ordered simethicone 125 mg oral tablet, chewable 1 tablet = 125 mg, Chew, 3 times a day after meals and bedtime, for 30 days, # 120 tablet, 11 Refills, Acute 10/17/23 11:46:00 EDT, 10/22/22 11:46:00 EDT, [facility] upon patient request if the prescription i... Start Date: 10/22/22 Stop Date: 10/17/23 Status: Ordered unna boot dressing change once [...] FIT (fecal immunochemical test) Confirmed Active Suspected [place] disease Confirmed Active Goal-TO SURVIVE THIS YEAR Confirmed Active Hernia, ventral Confirmed Active Hypertension Confirmed Active Hypothyroidism Confirmed 2004 Active Secondary insomnia Confirmed Active Fatty liver disease based on CT Confirmed 08/21/08 Active Lower back pain Confirmed Active Lymphedema Confirmed Active Major depression 1 Confirmed Active SANJIV (obstructive sleep apnea) Confirmed Active Hip osteoarthritis Confirmed Active COPD type A Confirmed Active Sigmoid colon resection + complication Confirmed 2002 Active Right flank pain Confirmed Active Seborrheic dermatitis Confirmed Active Severe obesity Confirmed Active 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 Molina and Giancarlo, therapist, at [facility] in [place] Vital Signs Most recent to oldest [Reference Range]: 1 2 3 Height 175 cm (12/24/22 5:06 PM) 175 cm (12/24/22 3:16 PM) 175 cm (12/24/22 1:37 PM) Oxygen Saturation [94-100 %] 98 % (12/24/22 3:16 PM) 99 % (12/24/22 1:37 PM) 100 % (12/24/22 11:46 AM) Pulse Rate [55-90 bpm] 68 bpm (12/24/22 3:16 PM) 65 bpm (12/24/22 1:37 PM) 60 bpm (12/24/22 11:46 AM) Blood Pressure [90-138/55-84 mm Hg] 148/72mm Hg *H* (12/24/22 3:16 PM) 156/93mm Hg *H* (12/24/22 1:37 PM) 159/75mm Hg *H* (12/24/22 11:46 AM) Respiratory Rate [16-30 br/min] 16 br/min (12/24/22 5:06 PM) 16 br/min (12/24/22 4:01 PM) 16 br/min (12/24/22 3:16 PM) Temperature [96.8-100.4 DegF] 98.7 DegF (12/24/22 3:16 PM) 98.3 DegF (12/24/22 1:37 PM) 97.9 DegF (12/24/22 11:46 AM) Mode of Delivery (Oxygen) Room air (12/24/22 3:16 PM) Room air (12/24/22 1:37 PM) Room air (12/24/22 11:46 AM) Blood pressure sites Arm, left (12/24/22 3:16 PM) Arm, left (12/24/22 1:37 PM) Arm, right (12/24/22 11:46 AM) Temperature Route Oral (12/24/22 3:16 PM) Oral (12/24/22 1:37 PM) Oral (12/24/22 11:46 AM) Dry Weight 126.5 kg (12/24/22 5:06 PM) 126.5 kg (12/24/22 3:16 PM) 126.5 kg (12/24/22 1:37 PM) Social History Social History Type Response Smoking Status Former smoker; Other : qiut 13 years; entered on: 05/24/14 Sex Note * Jose BURDEN, Arcadio Acuna: PERFORM Event Display: Patient Education Leaflets Authored Date: [id number] Lymphedema ?? [id number] Lymphedema The lymphatic system is made up of lymph vessels and lymph nodes, which carry a fluid called??lymph.??Lymph consists of waste from the cells. This fluid drains through lymph vessels under the skin tonearby lymph nodes. Lymph nodes filter waste products from the cells. They kill any bacteria present before returning the lymph fluid to your blood circulation. When the lymph vessels are damaged,??lymph fluid can't drain from tissues.??This causes the lymph fluid to back up, causing swelling. This most often affects the arms or legs. Signs of lymphedema include heaviness, stiffness, or aching in an arm or leg.??The limb may swell.??The skin might look red. Shoes and rings may feel tight. Ankles and wrists might become less flexible. The most common cause of damage to the lymph system is surgery or radiation for breast or testicular cancer. Other causes include repeated skin infections (cellulitis), mathis, or injury to the arms or legs. It can take many years for symptoms of lymphedema to appear. Once present, lymphedema can become an ongoing (chronic) condition.??This means the problem can be managed but not cured.?? Treatment often includes using compression garments, getting massage, and doing special exercises. Talk with your healthcare provider about these treatments and the best treatment plan for you. Ask your healthcare provider about a referral to a certified lymphedema therapist. This is a provider whospecializes in lymphedema teaching and management. Home care You can help keep the condition from getting worse. Follow all instructions you have been given. Doyour exercises and wear your compression garments as recommended. Also, care for yourself as advised by your healthcare provider.? Be careful with your skin. Small skin injuries like a cut, burn, or insect bite are more likelyto cause a skin infection. Take special care to not get injured.??If you have any signs of infection, call your healthcare provider right away. ??? Take care of your skin and nails. Use a moisturizeron dry skin. Wear protective gloves when doing chores, such as gardening.? Don't wear tight clothing or jewelry on the affected arm or leg. Don't carry bags or other weight with the affected arm. ??? Shave with an electric razor instead of a razor blade. ??? If at all possible, don???t have blood pressure taken, get shots, or have blood drawn in the affected arm. ??? If a leg is involved, don ???t cross your legs when sitting. Don't go barefoot. ??? Don't use hot tubs, steam rooms, or saunas. If you are at risk for lymphedema but have not developed it, these tips can help also help prevent it. Follow your healthcare provider's instructions. ?? Follow-up care Follow up with your healthcare provider, or as advised. Lymphedema??can change??the appearance of your body. This can be emotionally difficult to adjust to. You may benefit from a support group where practical advice and emotional support is offered. Alsoconsider getting one-on-one counseling. ?? When to get medical advice Call your healthcare provider right away if any of the following occur: ??? Swelling gets worse ???Rash, blistering, or other skin changes on the affected limb ??? Area of skin becomes red, painful,or warm to the touch ??? A wound increases in pain, becomes warm, drains pus, or sends out red streaks ??? Fever of 100.4??F (38??C) or higher, or as directed by your healthcare provider ?? Last Reviewed Date: 2022 ?? [id number] [employer]. All rights reserved. This information is not intended as a substitute for professional medical care. Always follow your healthcare professional's instructions. ?? Patient Care team information Care Team Personnel Name: Dereje Chaudhari MD Position: [facility] Physician - Primary Care Member Role: PCP Address: Address: [address] [place] [address]- Name: Florencio Saldana RN Position: [facility] ED RN W/OE and Tasks Member Role: Primary Care Nurse Name: Brooklyn Coyne NP Position: [facility] Associate Professional Member Role: Primary Care Nurse Address: Address: [address] [place] [address] Trauma [place] [address]- Name: Tatyana Cosme RN Position: [facility] RN Member Role: Primary Care Nurse Name: Valencia Richards RN Position: [facility] RN Member Role: Primary Care Nurse Name: Arcadio Julian Position: [facility] Associate Professional Member Role: ED Physician Cane Cutter Address: Address: [address] [place] [address]- Name: Jluis Mancilla MD Position: [facility] ED Medicine MD Member Role: Admitting Physician Address: Address: [address] [place] [address]- Name: Jaylen Cope Position: [facility] ED [facility] Member Role: Waiter/Waitress Informal Name: Hyacinth Skaggs RN Position: [facility] ED RN W/OE and Tasks Member Role: Patient Care Provider Care Team Related Persons Name: SHILO VALE Address: home [address] [address] Name: GIANCARLO BROOKS Address: [place] [address] Name: OLIVA VELOZ Address: home
--- OUTSIDE RECORDS SUMMARY | 2023-01-14 15:38 | XMS_ITS | Continuity of Care Document ---
Author Name Unknown Organization [facility] Address [address] [place] [address]- Care Team Providers Care Patient Safety Officer Name Role Phone Chyna Duarte MD Primary Care Physician [facility]s): 09/03/20 - 10/03/[address] [address]- Allergies, Adverse Reactions, Alerts Substance Reaction Severity [...] VIS given 10/2011 6Admin Note: VIS GIVEN [id number] 7Admin Note: VIS GIVEN 03/14/2008 8Admin Note: vis given 9Result Note: pt states he has previously had this vaccine Medications acetaminophen 325 mg oral tablet 975 mg, 3, tablet, By Mouth, Every 6 hours, PRN, # 120 tablet, Refills 0, Tot. Refills 0, Maintenance, as needed for pain, 08/06/19 0:18:00 EDT, Route to Pharmacy Electronically, [facility], 176, cm, 07/07/19 10:15:00 [...] Gm, Refills 5, Tot. Refills 5, Maintenance, 10/04/18 16:40:37 EDT, Aerosol, Route to Pharmacy Electronically, [id number], [facility] Start Date: 10/04/18 Status: Ordered amLODIPine 5 mg oral tablet [...] 0, Maintenance, use overnight and naps from [facility], 11/08/19 11:45:00 EDT, Compound, 176, cm, 09/23/19 [...] each, 0 Refills, Maintenance, 07/11/20 9:19:00 EDT, [facility], Partial fill upon patient [...] 12/07/19 16:59:00 EDT, Route to Pharmacy Electronically, [facility], 176, cm, 09/23/19 8:30:00 EDT, Height, 129, kg, 05/29/18 0:31:00 EST, Dry Weight Start Date: 12/07/19 Status: Ordered gabapentin 300 mg oral capsule 300 mg, 1, capsule, By Mouth, 3 times a day, # 45 capsule, Refills 0, Tot. Refills 0, Maintenance, 08/06/19 0:18:00 EDT, Route to Pharmacy Electronically, [facility], 176, cm, 07/07/19 10:15:00 EDT, Height, 129, kg, 05/29/18 0:31:00 EST, . Start Date: 08/06/19 Status: Ordered HumaLOG KwikPen 100 units/mL injectable solution See Instructions, s/c inj TID before meals acc to scale: 1u 150-200; 3u 201-250; 5u 251-300; 7u 301-350; 9u 351-400; 11u 401-450; call MD for BG over 450, # 10 mL, 11 Refills, Maintenance, 06/22/19 23:05:00 EST, [facility], 176, cm,... Start Date: 06/22/19 Status: Ordered Insulin Syringe, BD Ultra-Fine 1 [...] 1 Refills, Maintenance, 06/28/20 16:38:00 EST, Solution, [facility], 176, cm, 06/28/20 13:04:00 EST, [...] Com... Start Date: 05/08/16 Status: Ordered Pen [place], 31 G x 5 mm BD Ultra [...] DAILY PER MD/RN PROTOCOL, # 180 tablet, 0Refills, Maintenance, [facility], 176, cm, 07/11/20 8:51:00 EDT, Height, 131.6, kg, 06/03/20 4:19:00 EST, Dry Weight Start Date: 09/03/20 Status: Ordered Problem List Condition Effective Dates [...] and Radha, therapist, at [facility] in [place] Social History Social History Type Response Smoking Status Former smoker, quit more than 30 days ago entered on: 3/4/21 Sex
--- OUTSIDE RECORDS SUMMARY | 2023-01-14 15:38 | XMS_ITS | Continuity of Care Document ---
Author Name Unknown Organization [facility] Address [address] [place] [address]- Care Team Providers Care Varitype Operator Name Role Phone Chyna Duarte MD Primary Care Physician [facility]counter [facility] Date(s): 11/27/20 - 12/27/[address] [address]- Allergies, Adverse Reactions, Alerts Substance Reaction Severity [...] VIS given 10/2011 6Admin Note: VIS GIVEN [id number] 7Admin Note: VIS GIVEN 03/14/2008 8Admin Note: vis given 9Result Note: pt states he has previously had this vaccine Medications acetaminophen 325 mg oral tablet 975 mg, 3, tablet, By Mouth, Every 6 hours, PRN, # 120 tablet, Refills 0, Tot. Refills 0, Maintenance, as needed for pain, 08/06/19 0:18:00 EDT, Route to Pharmacy Electronically, [facility], 176, cm, 07/07/19 10:15:00 [...] 12:17:00 EDT, Aerosol, Route to Pharmacy Electronically, [id number], [facility], 176, cm, 11/22/20 11:05:00 EDT,... [...] 0, Maintenance, use overnight and naps from [facility], 11/08/19 11:45:00 EDT, Compound, 176, cm, 09/23/19 [...] each, 0 Refills, Maintenance, 07/11/20 9:19:00 EDT, [facility], Partial fill upon patient request if the [...] 12/07/19 16:59:00 EDT, Route to Pharmacy Electronically, [facility], 176, cm, 09/23/19 8:30:00 EDT, Height, 129, kg, 05/29/18 0:31:00 EST, Dry Weight Start Date: 12/07/19 Status: Ordered gabapentin 300 mg oral capsule 300 mg, 1, capsule, By Mouth, 3 times a day, # 45 capsule, Refills 0, Tot. Refills 0, Maintenance, 08/06/19 0:18:00 EDT, Route to Pharmacy Electronically, [facility], 176, cm, 07/07/19 10:15:00 EDT, Height, 129, kg, 05/29/18 0:31:00 EST, . Start Date: 08/06/19 Status: Ordered HumaLOG KwikPen 100 units/mL injectable solution See Instructions, s/c inj TID before meals acc to scale: 1u 150-200; 3u 201-250; 5u 251-300; 7u 301-350; 9u 351-400; 11u 401-450; call MD for BG over 450, # 10 mL, 5 Refills, Maintenance, 11/08/20 7:18:00 EDT, [facility], 176, cm, 08/25... Start Date: [...] 1 Refills, Maintenance, 06/28/20 16:38:00 EST, Solution, [facility], 176, cm, 06/28/20 13:04:00 EST, [...] Com... Start Date: 05/08/16 Status: Ordered Pen [place], 31 G x 5 mm BD Ultra Fine III See Instructions, # 300 each, Refills 3, Tot. Refills 3, Maintenance, use with lantus and humalog as directed dx: e11.65, 05/06/16 15:47:30, Compound Start Date: 05/06/16 Stop Date: 05/01/17 Status: Ordered Readi-Cat 2 oral suspension See Instructions, take as directed, # 2 each, 0 Refills, Maintenance, 12/05/20 15:52:00 EDT, [facility], Partial fill upon patient request [...] each, 0 Refills, Maintenance, 10/15/20 18:05:00 EDT, [facility], Partial fill upon patient request [...] and Radha, therapist, at [facility] in [place] Social History Social History Type Response Smoking Status Former smoker, quit more than 30 days ago entered on: 06/28/20 Sex
--- OUTSIDE RECORDS SUMMARY | 2023-01-14 15:38 | XMS_ITS | Continuity of Care Document ---
Author Name Unknown Organization [facility] Address [address] [place] [id number]- Care Team Providers Care Title I Coordinator Name Role Phone Chyna Duarte MD Primary Care Physician [phone] Encounter [facility] Date(s): 06/28/20 - 07/28/[address] [address]- Allergies, Adverse Reactions, Alerts Substance Reaction Severity Status NKA Active Immunizations Given and Recorded Vaccine Date Status Refusal Reason influenza virus vaccine, inactivated 02/23/20 Give n [...] VIS given 10/2011 6Admin Note: VIS GIVEN [id number] 7Admin Note: VIS GIVEN 03/14/2008 8Admin Note: vis given 9Result Note: pt states he has previously had this vaccine Medications acetaminophen 325 mg oral tablet 975 mg, 3, tablet, By Mouth, Every 6 hours, PRN, # 120 tablet, Refills 0, Tot. Refills 0, Maintenance, as needed for pain, 08/06/19 0:18:00 EDT, Route to Pharmacy Electronically, [facility], 176, cm, 07/07/19 10:15:00 [...] 16:40:37 EDT, Aerosol, Route to Pharmacy Electronically, [id number], [facility] Start Date: 10/04/18 Status: [...] 0, Maintenance, use overnight and naps from [facility], 11/08/19 11:45:00 EDT, Compound, 176, cm, 09/23/19 [...] each, 0 Refills, Maintenance, 07/11/20 9:19:00 EDT, [facility], Partial fill upon patient request if the [...] 12/07/19 16:59:00 EDT, Route to Pharmacy Electronically, [facility], 176, cm, 09/23/19 8:30:00 EDT, Height, 129, kg, 05/29/18 0:31:00 EST, Dry Weight Start Date: 12/07/19 Status: Ordered gabapentin 300 mg oral capsule 300 mg, 1, capsule, By Mouth, 3 times a day, # 45 capsule, Refills 0, Tot. Refills 0, Maintenance, 08/06/19 0:18:00 EDT, Route to Pharmacy Electronically, [facility], 176, cm, 07/07/19 10:15:00 EDT, Height, 129, kg, 05/29/18 0:31:00 EST, . Start Date: 08/06/19 Status: Ordered HumaLOG KwikPen 100 units/mL injectable solution See Instructions, s/c inj TID before meals acc to scale: 1u 150-200; 3u 201-250; 5u 251-300; 7u 301-350; 9u 351-400; 11u 401-450; call MD for BG over 450, # 10 mL, 11 Refills, Maintenance, 06/22/19 23:05:00 EST, [facility], 176, cm,... Start Date: 06/22/19 [...] 1 Refills, Maintenance, 06/28/20 16:38:00 EST, Solution, [facility], 176, cm, 06/28/20 13:04:00 EST, Height, 131.6, kg, 06/03/20 4:19:00 EST, Dry Weight Start Date: 06/28/20 Stop Date: 12/25/20 Status: Ordered levothyroxine 150 mcg (0.15 mg) oral tablet 1 tablet, By Mouth, Daily, # 90 tablet, 3 Refills, Maintenance, 07/01/20 20:38:00 EST, [facility], 176, cm, 06/28/20 13:04:00 EST, Height, 131.6, [...] Com... Start Date: 05/08/16 Status: Ordered Pen [place], 31 G x 5 mm BD Ultra [...] 0Refills, Maintenance, [facility], 176, cm, 06/28/20 13:04:00 EST, Height, 131.6, kg, 06/03/20 4:19:00 EST, Dry Weight Start Date: 07/01/20 Status: Ordered Problem List Condition Effective Dates [...] and Radha, therapist, at [facility] in [place] Social History Social History Type Response Smoking Status Former smoker, quit more than 30 days ago entered on: 06/28/20 Sex
--- OUTSIDE RECORDS SUMMARY | 2023-01-14 15:39 | XMS_ITS | Continuity of Care Document ---
Author Name Unknown Organization [facility] Address [address] [place] [address]- Care Team Providers Care Roller Mill Tender Name Role Phone Chyna Duarte MD Primary Care Physician Encounter [facility] Date(s): 02/19/21 - 03/21/[address] [address]- Allergies, Adverse Reactions, Alerts Substance Reaction Severity Status NKA Active Immunizations Given and Recorded Vaccine Date Status Refusal Reason SARS-CoV-2 (COVID-19) mRNA BNT-162b2 vac 1 03/04/21 Given SARS-CoV-2 (COVID-19) mRNA BNT-162b2 vac 08/29/20 Given SARS-CoV-2 (COVID-19) mRNA BNT-162b2 vac 08/07/20 Given influenza virus vaccine, inactivated 02/07/21 Give n influenza virus vaccine, inactivated 02/23/20 Give n influenza virus vaccine, inactivated 2 03/31/19 Gi alnaa influenza virus vaccine, inactivated 02/10/18 Give n influenza virus vaccine, inactivated 03/05/17 Give n influenza virus vaccine, inactivated 02/08/16 Give n influenza virus vaccine, inactivated 02/28/15 Give n influenza virus vaccine, inactivated 01/25/14 Give n influenza virus vaccine, inactivated 01/10/13 Give n influenza virus vaccine, inactivated 3 01/28/10 Gi alana influenza virus vaccine, inactivated 4 01/25/09 Gi alana influenza virus vaccine, inactivated 5 03/04/06 Gi alana influenza virus vaccine, inactivated 03/15/05 Give n influenza virus vaccine, inactivated 03/20/04 Give n influenza virus vaccine, inactivated 02/15/03 Give n influenza virus vaccine, inactivated 03/07/02 Give n pneumococcal 13-valent vaccine 02/23/20 Given pneumococcal 13-valent vaccine 02/10/18 Given tetanus/diphtheria/pertussis, acel(Tdap) 03/31/19 Given pneumococcal 23-valent vaccine 04/16/14 Given FluLaval (oldterm) 7 01/05/12 Given Influenza Vaccine (oldterm) 8 02/10/11 Given Diphth-Tetanus Toxoids Adsorbed(oldterm) 9 01/25/09 Given Pneumococcal Poly (PPV23) (oldterm) 10 03/04/06 Gi alana Pneumococcal Vacc (oldterm) 06/25/01 Given Not Given Vaccine Date Status Refusal Reason pneumococcal 23-valent vaccine 6 01/19/14 Not Give n Patient Refuses 1Result Comment: DILUENT LOT#: [id number] EXP: 08/2022 MFG: FRESENSIUS 2Early/Late Reason: Other : GIVEN 03/31/19 DURING VISIT 3Admin Note: VIS 12/04/2009 4Admin Note: VIS GIVEN 12/05/2008 5Admin Note: vis given 6Admin Note: VIS given 10/2011 7Admin Note: VIS GIVEN [id number] 8Admin Note: VIS GIVEN 03/14/2008 9Admin Note: vis given 10Result Note: pt states he has previously had this vaccine Medications acetaminophen 325 mg oral tablet 975 mg, 3, tablet, By Mouth, Every 6 hours, PRN, # 120 tablet, Refills 0, Tot. Refills 0, Maintenance, as needed for pain, 08/06/19 0:18:00 EDT, Route to Pharmacy Electronically, [facility], 176, cm, 07/07/19 10:15:00 [...] 12:17:00 EDT, Aerosol, Route to Pharmacy Electronically, [id number], [facility], 176, cm, 11/22/20 11:05:00 [...] 0, Maintenance, use overnight and naps from [facility], 11/08/19 11:45:00 EDT, Compound, 176, cm, [...] each, 0 Refills, Maintenance, 07/11/20 9:19:00 EDT, [facility], Partial fill upon patient [...] # 90 tablet, Refills 3, Tot. Refills 3, Maintenance, 01/04/21 14:54:00 EDT, Route to Pharmacy Electronically, [facility], 176, cm, 11/22/20 11:05:00 EDT, Height,131.6, kg, 06/03/20 4:19:00 EST, Dry Weight Start Date: 01/04/21 Status: Ordered gabapentin 300 mg oral capsule 300 mg, 1, capsule, By Mouth, 3 times a day, # 45 capsule, Refills 0, Tot. Refills 0, Maintenance, 08/06/19 0:18:00 EDT, Route to Pharmacy Electronically, [facility], 176, cm, 07/07/19 10:15:00 EDT, Height, 129, kg, 05/29/18 0:31:00 EST, . Start Date: 08/06/19 Status: Ordered HumaLOG KwikPen 100 units/mL injectable solution See Instructions, s/c inj TID before meals acc to scale: 1u 150-200; 3u 201-250; 5u 251-300; 7u 301-350; 9u 351-400; 11u 401-450; call MD for BG over 450, # 10 mL, 5 Refills, Maintenance, 11/08/20 7:18:00 EDT, [facility], 176, cm, 08/25... Start [...] 1 Refills, Maintenance, 06/28/20 16:38:00 EST, Solution, [facility], 176, cm, 06/28/20 13:04:00 [...] Com... Start Date: 05/08/16 Status: Ordered Pen [place], 31 G x 5 mm BD Ultra Fine III See Instructions, # 300 each, Refills 3, Tot. Refills 3, Maintenance, use with lantus and humalog as directed dx: e11.65, 05/06/16 15:47:30, Compound Start Date: 05/06/16 Stop Date: 05/01/17 Status: Ordered Readi-Cat 2 oral suspension See Instructions, take as directed, # 2 each, 0 Refills, Maintenance, 12/05/20 15:52:00 EDT, [facility], Partial fill upon patient request if [...] each, 0 Refills, Maintenance, 10/15/20 18:05:00 EDT, [facility], Partial fill upon patient request if [...] and Radha, therapist, at [facility] in [place] Social History Social History Type Response Smoking Status Former smoker, quit more than 30 days ago entered on: 06/28/20 Sex
--- OUTSIDE RECORDS SUMMARY | 2023-01-14 15:39 | XMS_ITS | Continuity of Care Document ---
Author Name Unknown Organization [facility] Address [address] [place] [address]- Care Team Providers Care Patient Liaison Name Role Phone Chyna Duarte MD Primary Care Physician Encounter [facility] Date(s): 11/07/20 - 12/13/20 [facility] [address] [place] [address]- Attending Physician: Pawan Henderson MD Admitting Physician: Pawan Henderson MD Referring Physician: Chyna Duarte MD Allergies, Adverse Reactions, Alerts Substance Reaction Severity [...] VIS given 10/2011 6Admin Note: VIS GIVEN [id number] 7Admin Note: VIS GIVEN 03/14/2008 8Admin Note: vis given 9Result Note: pt states he has previously had this vaccine Medications acetaminophen 325 mg oral tablet 975 mg, 3, tablet, By Mouth, Every 6 hours, PRN, # 120 tablet, Refills 0, Tot. Refills 0, Maintenance, as needed for pain, 08/06/19 0:18:00 EDT, Route to Pharmacy Electronically, [facility], 176, cm, 07/07/19 10:15:00 [...] 12:17:00 EDT, Aerosol, Route to Pharmacy Electronically, [id number], [facility], 176, cm, 11/22/20 11:05:00 EDT,... Start [...] 0, Maintenance, use overnight and naps from [facility], 11/08/19 11:45:00 EDT, Compound, 176, [...] each, 0 Refills, Maintenance, 07/11/20 9:19:00 EDT, [facility], Partial fill upon patient request if the prescription is for a schedule II opi... Start Date: 07/11/20 Status: Ordered free style lyndon reader free style lyndon reader, See Instructions, # 1 each, Refills 0, Tot. Refills 0, Maintenance, to be used to check BG up to 4 times a day dx: E 11.65 NATASAH = lifetime, 07/19/18 12:54:46 EDT, Compound Start [...] 12/07/19 16:59:00 EDT, Route to Pharmacy Electronically, [facility], 176, cm, 09/23/19 8:30:00 EDT, Height, 129, kg, 05/29/18 0:31:00 EST, Dry Weight Start Date: 12/07/19 Status: Ordered gabapentin 300 mg oral capsule 300 mg, 1, capsule, By Mouth, 3 times a day, # 45 capsule, Refills 0, Tot. Refills 0, Maintenance, 08/06/19 0:18:00 EDT, Route to Pharmacy Electronically, [facility], 176, cm, 07/07/19 10:15:00 EDT, Height, 129, kg, 05/29/18 0:31:00 EST, . Start Date: 08/06/19 Status: Ordered HumaLOG KwikPen 100 units/mL injectable solution See Instructions, s/c inj TID before meals acc to scale: 1u 150-200; 3u 201-250; 5u 251-300; 7u 301-350; 9u 351-400; 11u 401-450; call MD for BG over 450, # 10 mL, 5 Refills, Maintenance, 11/08/20 7:18:00 EDT, [facility], 176, cm, 08/25... Start [...] 1 Refills, Maintenance, 06/28/20 16:38:00 EST, Solution, [facility], 176, cm, 06/28/20 13:04:00 [...] Com... Start Date: 05/08/16 Status: Ordered Pen [place], 31 G x 5 mm BD Ultra Fine III See Instructions, # 300 each, Refills 3, Tot. Refills 3, Maintenance, use with lantus and humalog as directed dx: e11.65, 05/06/16 15:47:30, Compound Start Date: 1/10/17 Stop Date: 05/01/17 Status: Ordered Readi-Cat 2 oral suspension See Instructions, take as directed, # 2 each, 0 Refills, Maintenance, 12/05/20 15:52:00 EDT, [facility], Partial fill upon patient [...] each, 0 Refills, Maintenance, 10/15/20 18:05:00 EDT, [facility], Partial fill upon patient [...] and Radha, therapist, at [facility] in [place] Social History Social History Type Response Smoking Status Former smoker, quit more than 30 days ago entered on: 06/28/20 Sex
--- OUTSIDE RECORDS SUMMARY | 2023-01-14 15:39 | XMS_ITS | Continuity of Care Document ---
Author Name Unknown Organization [facility] Address [address] [place] [address]- Care Team Providers Care Director Of Donor Relations Name Role Phone Chyna Duarte MD Primary Care Physician [phone] Encounter [facility] Date(s): 06/18/19 - 10/16/19 [facility] [address] [place] [address] [facility] Attending Physician: Hank Leal MD Admitting Physician: Hank Leal MD Referring Physician: Chyna Duarte MD Allergies, Adverse Reactions, Alerts Substance Reaction Severity Status NKA Active Immunizations Given and Recorded Vaccine Date Status Refusal Reason tetanus/diphtheria/pertussis, acel(Tdap) 03/31/19 Given influenza virus vaccine, inactivated 1 03/31/19 Gi [...] inactivated 03/07/02 Give n pneumococcal 13-valent vaccine 02/10/18 Given pneumococcal 23-valent vaccine 04/16/14 Given FluLaval [...] VIS given 10/2011 6Admin Note: VIS GIVEN [id number] 7Admin Note: VIS GIVEN 03/14/2008 8Admin Note: vis given 9Result Note: pt states he has previously had this vaccine Medications acetaminophen 325 mg oral tablet 975 mg, 3, tablet, By Mouth, Every 6 hours, PRN, # 120 tablet, Refills 0, Tot. Refills 0, Maintenance, as needed for pain, 08/06/19 0:18:00 EDT, Route to Pharmacy Electronically, [facility], 176, cm, 07/07/19 10:15:00 EDT, Height, 129, kg,... Start Date: 08/06/19 Status: Ordered albuterol CFC free 90 mcg/inh inhalation aerosol 2, puffs, Inhalation, Every 6 hours, PRN, # 9 Gm, Refills 5, Tot. Refills 5, Maintenance, 10/04/18 16:40:37 EDT, Aerosol, Route to Pharmacy Electronically, [id number], [facility] Start Date: 10/04/18 Status: Ordered amLODIPine 5 mg oral tablet 5 mg, 1, tablet, By Mouth, Daily, # 90 tablet, Refills 3, Tot. Refills 3, Maintenance, 05/30/19 13:21:00 EST, Route to Pharmacy Electronically, [facility], 176, cm, 03/31/19 9:59:00 EST, Height, 129, kg, 05/29/18 0:31:00 EST, Dry Weight Start Date: 05/30/19 Status: Ordered atenolol 25 mg oral tablet 25 mg, 1, tablet, By Mouth, 2 times a day, # 180 tablet, Refills 3, Tot. Refills 3, Maintenance, 05/30/19 13:21:00 EST, Route to Pharmacy Electronically, [facility], 176, cm, 03/31/19 9:59:00 EST, Height, 129, kg, 05/29/18 0:31:00 EST, Dry W... Start Date: 05/30/19 Stop Date: 05/24/20 Status: Ordered atorvastatin 40 mg oral tablet 1 tablet = 40 mg, By Mouth, Daily, # 90 tablet, 3 Refills, Maintenance, 05/30/19 13:21:00 EST, Tablet, [facility], 176, cm, 03/31/19 9:59:00 EST, Height, 129, kg, 05/29/18 0:31:00 EST, Dry Weight Start Date: 05/30/19 Status: Ordered AutoBIPAP EPAPmin 10 IPAPmax 22 PS 6 with heated humidification AutoBIPAP EPAPmin 10 IPAPmax 22 PS 6 with heated humidification, See Instructions, # 1 each, Refills 0, Tot. Refills 0, Maintenance, use overnight and naps from [facility], 07/26/18 12:52:33 EDT, Compound Start Date: 07/26/18 Status: Ordered clonazePAM 0.5 mg oral tablet [...] 15:16:30, Compound Start Date: 05/13/16 Status: Ordered free style lyndon reader free [...] Status: Ordered furosemide 40 mg oral tablet 40 mg, By Mouth, Daily, # 90 tablet, Refills 0, Tot. Refills 0, Maintenance, 09/26/19 9:42:00 EDT, Route to Pharmacy Electronically, [facility], 176, cm, 09/23/19 8:30:00 EDT, Height, 129, kg, 05/29/18 0:31:00 EST, Dry Weight Start Date: 09/26/19 Stop Date: 12/25/19 Status: Ordered gabapentin 300 mg oral capsule 300 mg, 1, capsule, By Mouth, 3 times a day, # 45 capsule, Refills 0, Tot. Refills 0, Maintenance, 08/06/19 0:18:00 EDT, Route to Pharmacy Electronically, [facility], 176, cm, 07/07/19 10:15:00 EDT, Height, 129, kg, 05/29/18 0:31:00 EST, Start Date: 08/06/19 Status: Ordered HumaLOG KwikPen 100 units/mL injectable solution See Instructions, s/c inj TID before meals acc to scale: 1u 150-200; 3u 201-250; 5u 251-300; 7u 301-350; 9u 351-400; 11u 401-450; call MD for BG over 450, # 10 mL, 11 Refills, Maintenance, 06/22/19 23:05:00 EST, [facility], 176, cm,... Start Date: 06/22/19 Status: Ordered ibuprofen 600 mg oral tablet 600 mg, 1, tablet, By Mouth, Every 6 hours, # 50 tablet, Refills 0, Tot. Refills 0, Maintenance, 08/06/19 0:18:00 EDT, Route to Pharmacy Electronically, [facility], 176, cm, 07/07/19 10:15:00 EDT, Height, 129, kg, 05/29/18 0:31:00 EST, Dry... Start Date: 08/06/19 Status: Ordered Insulin Syringe, BD Ultra-Fine 1 [...] bedtime, # 75 mL, 1 Refills, Maintenance, 09/07/19 17:07:00 EDT, Solution, [facility], 176, cm, 08/30/19 11:03:00 EDT, Height, 129, kg, 05/29/18 0:31:00 EST, Dry Weight Start Date: 09/07/19 Stop Date: 03/05/20 Status: Ordered levothyroxine 150 mcg (0.15 mg) oral tablet 1 tablet = 0.15 mg, By Mouth, Daily, # 90 tablet, 3 Refills, Maintenance, 05/30/19 13:21:00 EST, Tablet, [facility], 176, cm, 03/31/19 9:59:00 EST, Height, 129, kg, 05/29/18 0:31:00 EST, Dry Weight Start Date: 05/30/19 Status: Ordered lisinopril 40 mg oral tablet 1 tablet = 40 mg, By Mouth, Daily, # 90 tablet, 3 Refills, Maintenance, 05/30/19 13:21:00 EST, Tablet, [facility], 176, cm, 03/31/19 9:59:00 EST, Height, 129, kg, 05/29/18 0:31:00 EST, Dry Weight Start Date: 05/30/19 Stop Date: 05/24/20 Status: Ordered lithium 300 mg oral tablet, extended release 2 tablet = 600 mg, By Mouth, Daily at bedtime, Maintenance, 11/30/09 22:37:01 Start Date: 11/30/09 Status: Ordered omeprazole 40 mg oral enteric coated capsule 1 capsule, By Mouth, Daily, # 90 capsule, 0 Refills, Maintenance, 08/15/19 14:10:00 EDT, [facility], 176, cm, 08/11/19 12:46:00 EDT, Height, 129, kg, 05/29/18 0:31:00 EST, Dry Weight Start Date: 08/15/19 Status: Ordered PAP Supplies - Mask, Tubing, Filters, Head Gear, Chin Strap, and Water Chamber PAP Supplies - Mask, Tubing, Filters, Head Gear, Chin Strap, and Water Chamber, See Instructions, #1 each, Refills 12, Tot. Refills 12, Maintenance, to be used with CPAP machine for dx: SANJIV G47.30 length of need: 99=lifetime, 05/08/16 13:26:55, Com... Start Date: 05/08/16 Status: Ordered Pen [place], 31 G x 5 mm BD Ultra Fine III See Instructions, # 300 each, Refills 3, Tot. Refills 3, Maintenance, use with lantus and humalog as directed dx: e11.65, 05/06/16 15:47:30, Compound Start Date: 05/06/16 Stop Date: 05/01/17 Status: Ordered rOPINIRole 0.5 mg oral tablet 1 tablet = 0.5 mg, By Mouth, Daily at bedtime, # 90 tablet, 1 Refills, Maintenance, 09/26/19 9:43:00 EDT, Tablet, [facility], 176, cm, 09/23/19 8:30:00 EDT, Height, 129, kg, 05/29/18 0:31:00 EST, Dry Weight Start Date: 09/26/19 Status: Ordered sertraline 100 mg oral tablet 2 tablet = 200 mg, By Mouth, Daily, # 30 tablet, 0 Refills, Maintenance, Tablet Start Date: 06/05/11 Status: Ordered Tylenol Extra Strength 500 mg oral tablet 2 tablet = 1,000 mg, By Mouth, Daily at bedtime, 0 Refills, Maintenance, 11/05/17 10:39:56 EDT Start Date: 11/05/17 Status: Ordered warfarin 5 mg oral tablet See Instructions, 1.5 - 2 tablets PO QD as per MD/RN protocol, # 180 tablet, 3 Refills, Maintenance, 05/02/19 16:16:00 EST, [facility], 176, cm, 03/31/19 9:59:00 EST, Height, 129, kg, 05/29/18 0:31:00 EST, Dry Weight Start Date: 05/02/19 Status: Ordered Problem List Condition Effective Dates Status Health Status Inform ant Cataract(Confirmed) Active Chronic constipation(Confirmed) 08/21/08 Active DVT (deep venous thrombosis)(Confirmed) Active Diabetes mellitus - adult onset(Confirmed) 08/21/08 Active Essential hypertension(Confirmed) 08/03/08 Active Benign essential tremor(Confirmed) Active Positive FIT (fecal immunoch emical test)(Confirmed) Active Goal-TO SURVIVE THIS YEAR(Confirmed) Active Hernia, ventral(Confirmed) Active Hypothyroidism(Confirmed) 2004 Active Fatty liver disease based on CT(Confirmed) 08/21/08 Active Lower back pain(Confirmed) Active Lymphedema(Confirmed) Active Major depression(Confirmed) 1 Active Morbid obesity(Confirmed) Active SANJIV (obstructive sleep apnea)(Confirmed) Active Open leg wound(Confirmed) Active Sigmoid colon resection + complication(Confirmed) 2002 Active Tachy-nelda syndrome(Confirmed) Active Diabetic leg ulcer(Confirmed) Active 1Sees Dr. Molina and Radha, therapist[facility] [place] Social History Social History Type Response Smoking Status Never smoker; Tobacc o user in household: No entered on: 05/25/15 Sex
--- OUTSIDE RECORDS SUMMARY | 2023-01-14 15:39 | XMS_ITS | Continuity of Care Document ---
Author Name Unknown Organization [facility] Address [address] [place] [address]- Care Team Providers Care Group Segment Consultant Name Role Phone Chyna Duarte MD Primary Care Physician [facility] Date[facility]s): 01/04/21 - 02/03/[address] [address]- Allergies, Adverse Reactions, Alerts Substance Reaction Severity [...] VIS given 10/2011 6Admin Note: VIS GIVEN [id number] 7Admin Note: VIS GIVEN 03/14/2008 8Admin Note: vis given 9Result Note: pt states he has previously had this vaccine Medications acetaminophen 325 mg oral tablet 975 mg, 3, tablet, By Mouth, Every 6 hours, PRN, # 120 tablet, Refills 0, Tot. Refills 0, Maintenance, as needed for pain, 08/06/19 0:18:00 EDT, Route to Pharmacy Electronically, [facility], 176, cm, 07/07/19 10:15:00 EDT, [...] 12:17:00 EDT, Aerosol, Route to Pharmacy Electronically, [id number][facility], [facility], cm, 11/22/20 11:05:00 EDT,... Start [...] each, 0 Refills, Maintenance, 07/11/20 9:19:00 EDT, [facility], Partial fill upon patient request if the [...] 01/04/21 14:54:00 EDT, Route to Pharmacy Electronically, [facility], 176, cm, 11/22/20 11:05:00 EDT, Height,131.6, kg, 06/03/20 4:19:00 EST, Dry Weight Start Date: 01/04/21 Status: Ordered gabapentin 300 mg oral capsule 300 mg, 1, capsule, By Mouth, 3 times a day, # 45 capsule, Refills 0, Tot. Refills 0, Maintenance, 08/06/19 0:18:00 EDT, Route to Pharmacy Electronically, [facility], 176, cm, 07/07/19 10:15:00 EDT, Height, 129, kg, 05/29/18 0:31:00 EST, . Start Date: 08/06/19 Status: Ordered HumaLOG KwikPen 100 units/mL injectable solution See Instructions, s/c inj TID before meals acc to scale: 1u 150-200; 3u 201-250; 5u 251-300; 7u 301-350; 9u 351-400; 11u 401-450; call MD for BG over 450, # 10 mL, 5 Refills, Maintenance, 11/08/20 7:18:00 EDT, [facility], 176, cm, 08/25... Start [...] 1 Refills, Maintenance, 06/28/20 16:38:00 EST, Solution, [facility], 176, cm, 06/28/20 13:04:00 [...] Com... Start Date: 05/08/16 Status: Ordered Pen [place], 31 G x 5 mm BD Ultra Fine III See Instructions, # 300 each, Refills 3, Tot. Refills 3, Maintenance, use with lantus and humalog as directed dx: e11.65, 05/06/16 15:47:30, Compound Start Date: 05/06/16 Stop Date: 05/01/17 Status: Ordered Readi-Cat 2 oral suspension See Instructions, take as directed, # 2 each, 0 Refills, Maintenance, 12/05/20 15:52:00 EDT, [facility], Partial fill upon patient [...] each, 0 Refills, Maintenance, 10/15/20 18:05:00 EDT, [facility], Partial fill upon patient [...] and Radha, therapist, at [facility] in [place] Social History Social History Type Response Smoking Status Former smoker, quit more than 30 days ago entered on: 06/28/20 Sex
--- OUTSIDE RECORDS SUMMARY | 2023-01-14 15:39 | XMS_ITS | Continuity of Care Document ---
Author Name Unknown Organization [facility] Address [address] [place] [address]- Care Team Providers Care Production Machine Tender Name Role Phone Chyna Duarte MD Primary Care Physician [phone] [facility]): 09/12/20 - 10/18/20 [facility] [address] [place] [id number] Attending Physician: Pawan Henderson MD Admitting Physician: [...] VIS given 10/2011 6Admin Note: VIS GIVEN [id number] 7Admin Note: VIS GIVEN 03/14/2008 8Admin Note: vis given 9Result Note: pt states he has previously had this vaccine Medications acetaminophen 325 mg oral tablet 975 mg, 3, tablet, By Mouth, Every 6 hours, PRN, # 120 tablet, Refills 0, Tot. Refills 0, Maintenance, as needed for pain, 08/06/19 0:18:00 EDT, Route to Pharmacy Electronically, [facility], 176, cm, 07/07/19 10:15:00 [...] 16:40:37 EDT, Aerosol, Route to Pharmacy Electronically, [id number], [facility] Start Date: 10/04/18 Status: [...] 0, Maintenance, use overnight and naps from [facility], 11/08/19 11:45:00 EDT, Compound, 176, cm, [...] each, 0 Refills, Maintenance, 07/11/20 9:19:00 EDT, [facility], Partial fill upon patient request [...] 12/07/19 16:59:00 EDT, Route to Pharmacy Electronically, [facility], 176, cm, 09/23/19 8:30:00 EDT, Height, 129, kg, 05/29/18 0:31:00 EST, Dry Weight Start Date: 12/07/19 Status: Ordered gabapentin 300 mg oral capsule 300 mg, 1, capsule, By Mouth, 3 times a day, # 45 capsule, Refills 0, Tot. Refills 0, Maintenance, 08/06/19 0:18:00 EDT, Route to Pharmacy Electronically, [facility], 176, cm, 07/07/19 10:15:00 EDT, Height, 129, kg, 05/29/18 0:31:00 EST, Start Date: 08/06/19 Status: Ordered HumaLOG KwikPen 100 units/mL injectable solution See Instructions, s/c inj TID before meals acc to scale: 1u 150-200; 3u 201-250; 5u 251-300; 7u 301-350; 9u 351-400; 11u 401-450; call MD for BG over 450, # 10 mL, 11 Refills, Maintenance, 06/22/19 23:05:00 EST, [facility], 176, cm,... Start Date: [...] 1 Refills, Maintenance, 06/28/20 16:38:00 EST, Solution, [facility], 176, cm, 06/28/20 13:04:00 [...] Com... Start Date: 05/08/16 Status: Ordered Pen [place], 31 G x 5 mm BD Ultra [...] each, 0 Refills, Maintenance, 10/15/20 18:05:00 EDT, [facility], Partial fill upon patient request if [...] and Radha, therapist, at [facility] in [place] Social History Social History Type Response Smoking Status Former smoker, quit more than 30 days ago entered on: 06/28/20 Sex
--- OUTSIDE RECORDS SUMMARY | 2023-01-14 15:39 | XMS_ITS | Continuity of Care Document ---
Author Name Unknown Organization [facility] Address [address] [place] [address]- Care Team Providers Care Metal Numerical Tool Programmer Name Role Phone Mary GARRISON, Jann Culp Primary Care Physician [facility] Date[facility]s): 09/25/22 - 10/25/[address] [address]- Allergies, Adverse Reactions, Alerts No Known Allergies Immunizations Given and Recorded Vaccine Date Status Refusal Reason [id number] 12y+ bivalent booster vax 03/11/22 Given influenza [...] influenza virus vaccine, inactivated 2 01/28/10 Gi alaan influenza virus vaccine, inactivated 3 01/25/09 Gi alana influenza virus vaccine, inactivated 4 03/04/06 Gi alana influenza virus vaccine, inactivated 03/15/05 Give n influenza virus vaccine, inactivated 03/20/04 Give n influenza virus vaccine, inactivated 02/15/03 Give n influenza virus vaccine, inactivated 03/07/02 Give n SARS-CoV-2 mRNA ([id number]) vax 08/29/21 Given pneumococcal 23-valent vaccine 06/06/21 [...] Note: vis given 5Result Comment: DILUENT LOT#: [id number] EXP: 08/2022 MFG: FRESENSIUS 6Admin Note: VIS given 10/2011 7Admin Note: VIS GIVEN [id number] 8Admin Note: VIS GIVEN 03/14/2008 9Admin Note: [...] 08/06/19 0:18:00 EDT, Route to Pharmacy Electronically, [facility], 176, cm, 07/07/19 10:15:00 [...] Maintenance, 01/15/22 14:49:00 EDT, [facility] ([facility]), 50, USE 2 INHALATIONS BY [...] Route to Pharmacy Electronically, [facility] ([facility]), 176, cm, 08/29/21 9:11:00 EDT, [...] 07/11/22 17:27:00 EDT, Powder, [facility] ([facility] ), Partial fill upon patient [...] Route to Pharmacy Electronically, [facility] ([facility]), 176, cm, 08/29/21 9:11:00 EDT, [...] mL, 3 Refills, Maintenance, 01/14/22 16:55:00 EDT, [facility], 176, cm, ... Start Date: 01/14/22 Status: Ordered Incruse Ellipta 62.5 mcg/inh inhalation powder 1 inhalation, Inhalation, Every 24 hours, APART., # 30 each, 11 Refills, Maintenance, 08/01/22 16:56:00 EDT, [facility] ([facility]), 176, cm, 07/10/22 14:41:00 EDT, [...] 3 Refills, Maintenance, 01/14/22 16:55:00 EDT, Solution, [facility], 176, cm, 08/29/21 9:11:00 EDT, Height, 131.6, kg, 06/03/20 4:19:00 EST, Dry Weight Start Date: 01/14/22 Stop Date: 01/09/23 Status: Ordered levothyroxine 150 mcg (0.15 mg) oral tablet 1 tablet, By Mouth, Daily, # 90 tablet, 3 Refills, Maintenance, 04/01/22 15:34:00 EST, [facility] ([facility]), 176, cm, 03/24/22 14:42:00 EST, [...] Refills, Maintenance, 06/26/22 20:48:00 EST, [facility] ([facility] ), 176, cm, 05/02/22 9:48:00 [...] Com... Start Date: 05/08/16 Status: Ordered Pen [place], 31 G x 5 mm BD Ultra [...] Maintenance, 04/01/22 15:34:00 EST, [facility] ([facility]), 176, cm, 03/24/22 14:42:00 EST, [...] 11:46:00 EDT, 10/22/22 11:46:00 EDT, [facility]w Tablet, [facility] fill upon patient request if [...] FIT (fecal immunochemical test) Confirmed Active Suspected [place] disease Confirmed Active Goal-TO SURVIVE THIS YEAR [...] Dr. Molina and Giancarlo, therapist, at [facility] in [place] Social History Social History Type Response Smoking Status Former smoker; Other : qiut 13 years; entered on: 05/24/14 Sex Patient Care team information Care Team Personnel Name: Jann Hernandez MD Position: [facility] Physician - Primary Care Member Role: PCP Address: Address: [address] [place] [id number]- Name: Florencio Saldana RN Position: [facility] ED RN W/OE and Tasks Member Role: Primary Care Nurse Name: Brooklyn Coyne NP Position: [facility] Associate Professional Member Role: Primary Care Nurse Address: Address: [address] [place] [address] Trauma [place] [address]- Name: Tatyana Cosme RN Position: S RN Member Role: Primary Care Nurse Name: Valencia Richards RN Position: [facility] RN Member Role: Primary Care Nurse Care Team Related Persons Name: SHILO VALE Address: [address] [address] Name: GIANCARLO BROOKS Address: [place] [address] Name: OLIVA VELOZ Address: home [address] [place] [address]
--- OUTSIDE RECORDS SUMMARY | 2023-01-14 15:39 | XMS_ITS | Continuity of Care Document ---
Author Name Unknown Organization [facility] Address [address] [place] [address]- Care Team Providers Care Ceramic Painter Name Role Phone Chyna Duarte MD Primary Care Physician [phone] Encounter [facility] R [id number] Date(s): 11/06/21 - 12/06/[address] [address]- Attending Physician: Admtr, Ar8 Allergies, Adverse Reactions, Alerts No Known Allergies Immunizations Given and Recorded Vaccine Date Status Refusal Reason SARS-CoV-2 mRNA ([id number]) vax 08/29/21 Given pneumococcal 23-valent vaccine 06/06/21 Given pneumococcal 23-valent vaccine 04/16/14 Given SARS-CoV-2 (COVID-19) mRNA BNT-162b2 vac 2 03/04/21 Given SARS-CoV-2 (COVID-19) mRNA BNT-162b2 vac 08/29/20 Given SARS-CoV-2 (COVID-19) mRNA BNT-162b2 vac 08/07/20 Given influenza virus vaccine, inactivated 02/07/21 Give n influenza virus vaccine, inactivated 02/23/20 Give n influenza virus vaccine, inactivated 3 03/31/19 Gi alana influenza virus vaccine, inactivated 02/10/18 Give n influenza virus vaccine, inactivated 03/05/17 Give n influenza virus vaccine, inactivated 02/08/16 Give n influenza virus vaccine, inactivated 02/28/15 Give n influenza virus vaccine, inactivated 01/25/14 Give n influenza virus vaccine, inactivated 01/10/13 Give n influenza virus vaccine, inactivated 4 01/28/10 Gi alana influenza virus vaccine, inactivated 5 01/25/09 Gi alana influenza virus vaccine, inactivated 6 03/04/06 Gi alana influenza virus vaccine, inactivated [...] Date Status Refusal Reason pneumococcal 23-valent vaccine 1 01/19/14 Not Give n Patient Refuses 1Result Comment: DILUENT LOT#: [id number] EXP: 08/2022 MFG: FRESENSIUS 2Early/Late Reason: Other : GIVEN 03/31/19 DURING VISIT 3Admin Note: VIS 12/04/2009 4Admin Note: VIS GIVEN 12/05/2008 5Admin Note: vis given 6Admin Note: VIS given 10/2011 7Admin Note: VIS GIVEN [id number] 8Admin Note: VIS GIVEN 03/14/2008 9Admin Note: vis given 10Result Note: pt states he has previously had this vaccine Medications acetaminophen 325 mg oral tablet 975 mg, 3, tablet, By Mouth, Every 6 hours, PRN, # 120 tablet, Refills 0, Tot. Refills 0, Maintenance, as needed for pain, 08/06/19 0:18:00 EDT, Route to Pharmacy Electronically, [facility], 176, cm, 07/07/19 10:15:00 [...] Gm, Refills 5, Tot. Refills 5, Maintenance, 09/12/21 10:40:00 EDT, Aerosol, Route to Pharmacy Electronically, [id number], [facility], 176, cm, 08/29/21 9:11:00 EDT, He[place]... Start Date: 09/12/21 Status: Ordered amLODIPine 5 mg oral tablet 1 tablet, By Mouth, Daily, # 90 tablet, 1 Refills, [facility], 176, cm, 08/29/21 9:11:00 EDT, Height, 131.6, kg, 06/03/20 4:19:00 EST, Dry Weight Start Date: 09/02/21 Status: Ordered atenolol 25 mg oral tablet 1, tablet, By Mouth, 2 times a day, # 180 tablet, Refills 1, Route to Pharmacy Electronically, [facility], 176, cm, 06/06/21 9:59:00 EST, Height, 131.6, kg, 06/03/20 4:19:00 EST, Dry Weight Start Date: 06/30/21 Status: Ordered atorvastatin 40 mg oral tablet 1 tablet, By Mouth, Daily, # 90 tablet, 1 Refills, [facility], 176, cm, 06/06/21 9:59:00 EST, Height, 131.6, kg, 06/03/20 4:19:00 EST, Dry Weight Start Date: 06/30/21 Status: Ordered AutoBIPAP EPAPmin 11 IPAPmax 22 PS 6 with heated humidification AutoBIPAP EPAPmin 11 IPAPmax 22 PS 6 with heated humidification, See Instructions, # 1 each, Refills 0, Tot. Refills 0, Maintenance, use overnight and naps from [facility], 11/08/19 11:45:00 EDT, Compound, 176, cm, 09/23/19 [...] after use use with spacer chamber, # 3 each, 3 Refills, Maintenance, 09/26/21 15:07:00 EDT, [facility] ([facility]), Partial fill upon patient request if the prescription i... Start Date: 09/26/21 Status: Ordered free style lyndon reader free [...] 01/04/21 14:54:00 EDT, Route to Pharmacy Electronically, [facility], 176, cm, 11/22/20 11:05:00 EDT, Height,131.6, kg, 06/03/20 4:19:00 EST, Dry Weight Start Date: 01/04/21 Status: Ordered gabapentin 300 mg oral capsule 300 mg, 1, capsule, By Mouth, 3 times a day, # 45 capsule, Refills 0, Tot. Refills 0, Maintenance, 08/06/19 0:18:00 EDT, Route to Pharmacy Electronically, [facility], 176, cm, 07/07/19 10:15:00 EDT, Height, 129, kg, 05/29/18 0:31:00 EST, . Start Date: 08/06/19 Status: Ordered HumaLOG KwikPen 100 units/mL injectable solution See Instructions, s/c inj TID before meals acc to scale: 1u 150-200; 3u 201-250; 5u 251-300; 7u 301-350; 9u 351-400; 11u 401-450; call MD for BG over 450, # 10 mL, 5 Refills, Maintenance, 08/26/21 14:44:00 EDT, [facility], 176, cm, ... Start Date: 08/26/21 Status: Ordered Insulin Syringe, BD Ultra-Fine 1 [...] Injection, Daily at bedtime, # 75 mL, 0 Refills, Maintenance, 08/26/21 14:44:00 EDT, Solution, [facility], 176, cm, 06/06/21 9:59:00 EST, Height, 131.6, kg, 06/03/20 4:19:00 EST, Dry Weight Start Date: 08/26/21 Stop Date: 11/24/21 Status: Ordered levothyroxine 150 mcg (0.15 mg) oral tablet 1 tablet, By Mouth, Daily, # 90 tablet, 1 Refills, Maintenance, 08/12/21 10:06:00 EDT, [facility], 176, cm, 06/06/21 9:59:00 EST, Height, 131.6, kg, 06/03/20 4:19:00 EST, Dry Weight Start Date: 08/12/21 Status: Ordered lisinopril 40 mg oral tablet [...] Com... Start Date: 05/08/16 Status: Ordered Pen [place], 31 G x 5 mm BD Ultra Fine III See Instructions, # 300 each, Refills 3, Tot. Refills 3, Maintenance, use with lantus and humalog as directed dx: e11.65, 05/06/16 15:47:30, Compound Start Date: 05/06/16 Stop Date: 05/01/17 Status: Ordered Readi-Cat 2 oral suspension See Instructions, take as directed, # 2 each, 0 Refills, Maintenance, 12/05/20 15:52:00 EDT, [facility], Partial fill upon patient request if the prescription is for a schedule II opioid drug., take as directed, 176, cm, 11/22/20 11:05:0... Start Date: 12/05/20 Status: Ordered rOPINIRole 0.5 mg oral tablet 1 tablet, By Mouth, Daily at bedtime, # 90 tablet, 3 Refills, [facility], 176, cm, 02/07/21 8:49:00 EDT, Height, 131.6, kg, 06/03/20 4:19:00 EST, Dry Weight Start Date: 04/01/21 Status: Ordered sertraline 100 mg oral tablet 2 tablet = 200 mg, By Mouth, Daily, # 30 tablet, 0 Refills, Maintenance, Tablet Start Date: 06/05/11 Status: Ordered Tagitol V 40% oral suspension See Instructions, for CT colonography, dispense three 20mL bottles, # 3 each, 0 Refills, Maintenance, 10/15/20 18:05:00 EDT, [facility] 3, Partial fill upon patient request if [...] Diabetes mellitus - adult onset(Confirmed) 08/21/08 Active Benign essential tremor(Confirmed) Active Positive FIT (fecal immunoch emical test)(Confirmed) Active Goal-TO SURVIVE THIS YEAR(Confirmed) Active Hernia, ventral(Confirmed) Active Hypertension(Confirmed) Active Hypothyroidism(Confirmed) 2004 Active Secondary insomnia(Confirmed) Active Fatty liver disease based on CT(Confirmed) 08/21/08 Active Lower back pain(Confirmed) Active Lymphedema(Confirmed) Active Major depression(Confirmed) 1 Active SANJIV (obstructive sleep apnea)(Confirmed) Active Sigmoid colon resection + complication(Confirmed) 2002 Active Right flank pain(Confirmed) Active Severe obesity(Confirmed) Active Tachy-nelda syndrome(Confirmed) Active Diabetic leg ulcer(Confirmed) Active Wheezing(Confirmed) Active 1Sees Dr. Molina and Radha, therapist, at [facility] in [place] Social History Social History Type Response Smoking Status Former smoker, quit more than 30 days ago entered on: 06/28/20 Sex
--- OUTSIDE RECORDS SUMMARY | 2023-01-14 15:39 | XMS_ITS | Continuity of Care Document ---
Author Name Unknown Organization [facility] ter Address [address] [place] [address]- Care Team Providers Care Court Commissioner Name Role Phone Chyna Duarte MD Primary Care Physician [phone] [facility]counter [facility] Date[facility]s): 04/14/19 - 04/14/[address] [address]- [facility] Attending Physician: Chyna Durate MD Allergies, Adverse Reactions, Alerts Substance Reaction [...] VIS given 10/2011 6Admin Note: VIS GIVEN [id number] 7Admin Note: VIS GIVEN 03/14/2008 8Admin Note: vis given 9Result Note: pt states he has previously had this vaccine Medications albuterol CFC free 90 mcg/inh inhalation aerosol 2, puffs, Inhalation, Every 6 hours, PRN, # 9 Gm, Refills 5, Tot. Refills 5, Maintenance, 10/04/18 16:40:37 EDT, Aerosol, Route to Pharmacy Electronically, [id number], [facility] Start Date: 10/04/18 Status: Ordered amLODIPine 5 mg oral tablet 5 mg, 1, tablet, By Mouth, Daily, # 90 tablet, Refills 1, Tot. Refills 1, Maintenance, 04/11/19 9:59:42 EST, Route to Pharmacy Electronically, [facility], 176, cm, 03/31/19 9:59:52 EST, Height, 129, kg, 05/29/18 0:31:25 EST, Dry Weight Start Date: 04/11/19 Status: Ordered atenolol 25 mg oral tablet 25 mg, 1, tablet, By Mouth, 2 times a day, # 180 tablet, Refills 3, Tot. Refills 3, Maintenance, 05/06/18 10:55:10 EST, Route to Pharmacy Electronically, [id number], [facility] Start Date: 05/06/18 Stop Date: 05/01/19 Status: Ordered atorvastatin 40 mg oral tablet 1 tablet = 40 mg, By Mouth, Daily, # 90 tablet, 3 Refills, Maintenance, Tablet, Route to Pharmacy Electronically, [id number], [facility] Start Date: 05/06/18 Status: Ordered AutoBIPAP EPAPmin 10 IPAPmax 22 PS 6 with heated humidification AutoBIPAP EPAPmin 10 IPAPmax 22 PS 6 with heated humidification, See Instructions, # 1 each, Refills 0, Tot. Refills 0, Maintenance, [facility], 07/26/18 12:52:33 EDT, Compound Start Date: 07/26/18 [...] tablet, Refills 3, Tot. Refills 3, Maintenance, 05/06/18 10:56:08 EST,Route to Pharmacy Electronically, [id number], [facility] Start Date: 05/06/18 Stop Date: 05/01/19 Status: Ordered HumaLOG KwikPen 100 units/mL injectable solution See Instructions, s/c inj TID before meals acc to scale: 1u 150-200; 3u 201-250; 5u 251-300; 7u 301-350; 9u 351-400; 11u 401-450; call MD for BG over 450, # 10 mL, 11 Refills, Maintenance, 08/27/18 12:25:52 EDT Start Date: 08/27/18 Status: Ordered Insulin Syringe, BD Ultra-Fine 1 [...] units, Subcutaneous Injection, Daily at bedtime, # 30 mL, 3 Refills, Maintenance, 11/08/18 13:57:47 EDT, Solution Start Date: 11/08/18 Stop Date: 11/03/19 Status: Ordered levothyroxine 150 mcg (0.15 mg) oral tablet 1 tablet = 0.15 mg, By Mouth, Daily, # 90 tablet, 3 Refills, Maintenance, 05/06/18 10:55:04 EST, Tablet Start Date: 05/06/18 Status: Ordered lisinopril 40 mg oral tablet 1 tablet = 40 mg, By Mouth, Daily, # 90 tablet, 3 Refills, Maintenance, 05/06/18 10:56:13 EST, Tablet Start Date: 05/06/18 Stop Date: 05/01/19 Status: Ordered lithium 300 mg oral tablet, extended release 2 tablet = 600 mg, By Mouth, Daily at bedtime, Maintenance, 11/30/09 22:37:01 Start Date: 11/30/09 Status: Ordered omeprazole 40 mg oral enteric coated capsule 1 capsule = 40 mg, By Mouth, Daily, # 90 capsule, 3 Refills, Maintenance, 05/06/18 10:55:59 EST, ECCapsule Start Date: 05/06/18 Status: Ordered PAP Supplies - Mask, Tubing, Filters, Head Gear, Chin Strap, and Water Chamber PAP Supplies - Mask, Tubing, Filters, Head Gear, Chin Strap, and Water Chamber, See Instructions, #1 each, Refills 12, Tot. Refills 12, Maintenance, to be used with CPAP machine for dx: SANJIV G47.30 length of need: 99=lifetime, 05/08/16 13:26:55, Com... Start Date: 05/08/16 Status: Ordered Pen [place], 31 G x 5 mm BD Ultra Fine III See Instructions, # 300 each, Refills 3, Tot. Refills 3, Maintenance, use with lantus and humalog as directed dx: e11.65, 05/06/16 15:47:30, Compound Start Date: 05/06/16 Stop Date: 05/01/17 Status: Ordered rOPINIRole 0.5 mg oral tablet 1 tablet = 0.5 mg, By Mouth, Daily at bedtime, # 90 tablet, 3 Refills, Maintenance, 05/06/18 10:55:25 EST, Tablet Start Date: 05/06/18 Status: Ordered sertraline 100 mg oral tablet [...] protocol, # 180 tablet, 3 Refills, Maintenance, 05/06/18 10:55:29 EST Start Date: 05/06/18 Status: Ordered Problem List Condition Effective Dates [...] Sigmoid colon resection + complication(Confirmed) 2002 Active Sleep apnea - uses BiPAP(Confirmed) 2001 Active Tachy-nelda syndrome(Confirmed) Active Diabetic leg ulcer(Confirmed) Active 1Sees Dr. Molina and Radha, therapist, at [facility] in [place] Social History Social History Type Response Smoking Status Never smoker; Tobacc o user in household: No entered on: 05/25/15 Sex
--- OUTSIDE RECORDS SUMMARY | 2023-01-14 15:39 | XMS_ITS | Continuity of Care Document ---
Author Name Unknown Organization [facility] Address [address] [place] [address]- Care Team Providers Care Mechanical Maintenance Supervisor Name Role Phone Gerald GARRISON, Chyna Primary Care Physician [facility]counter [facility] Date(s): 04/02/20 - 05/02/[address] [address]- Allergies, Adverse Reactions, Alerts Substance Reaction Severity [...] VIS given 10/2011 6Admin Note: VIS GIVEN [id number] 7Admin Note: VIS GIVEN 03/14/2008 8Admin Note: vis given 9Result Note: pt states he has previously had this vaccine Medications acetaminophen 325 mg oral tablet 975 mg, 3, tablet, By Mouth, Every 6 hours, PRN, # 120 tablet, Refills 0, Tot. Refills 0, Maintenance, as needed for pain, 08/06/19 0:18:00 EDT, Route to Pharmacy Electronically, [facility], 176, cm, 07/07/19 10:15:00 EDT, Height, 129, kg,... Start Date: 08/06/19 Status: Ordered albuterol CFC free 90 mcg/inh inhalation aerosol 2, puffs, Inhalation, Every 6 hours, PRN, # 9 Gm, Refills 5, Tot. Refills 5, Maintenance, 10/04/18 16:40:37 EDT, Aerosol, Route to Pharmacy Electronically, [id number], [facility] Start Date: 10/04/18 Status: Ordered amLODIPine 5 mg oral tablet 5 mg, 1, tablet, By Mouth, Daily, # 90 tablet, Refills 3, Tot. Refills 3, Maintenance, 05/30/19 13:21:00 EST, Route to Pharmacy Electronically, [facility], 176, cm, 03/31/19 9:59:00 EST, Height, 129, kg, 05/29/18 0:31:00 EST, Dry Weight Start Date: 05/30/19 Status: Ordered atenolol 25 mg oral tablet 25 mg, 1, tablet, By Mouth, 2 times a day, # 180 tablet, Refills 3, Tot. Refills 3, Maintenance, 05/30/19 13:21:00 EST, Route to Pharmacy Electronically, [facility], 176, cm, 03/31/19 9:59:00 EST, [...] Start Date: 05/30/19 Status: Ordered AutoBIPAP EPAPmin 11 IPAPmax 22 PS 6 with heated humidification AutoBIPAP EPAPmin 11 IPAPmax 22 PS 6 with heated humidification, See Instructions, # 1 each, Refills 0, Tot. Refills 0, Maintenance, use overnight and naps from [facility], 11/08/19 11:45:00 EDT, Compound, 176, cm, [...] 12/07/19 16:59:00 EDT, Route to Pharmacy Electronically, [facility], 176, cm, 09/23/19 8:30:00 EDT, Height, 129, kg, 05/29/18 0:31:00 EST, Dry Weight Start Date: 12/07/19 Status: Ordered gabapentin 300 mg oral capsule 300 mg, 1, capsule, By Mouth, 3 times a day, # 45 capsule, Refills 0, Tot. Refills 0, Maintenance, 08/06/19 0:18:00 EDT, Route to Pharmacy Electronically, [facility], 176, cm, 07/07/19 10:15:00 EDT, Height, 129, kg, 05/29/18 0:31:00 EST, . Start Date: 08/06/19 Status: Ordered HumaLOG KwikPen 100 units/mL injectable solution See Instructions, s/c inj TID before meals acc to scale: 1u 150-200; 3u 201-250; 5u 251-300; 7u 301-350; 9u 351-400; 11u 401-450; call MD for BG over 450, # 10 mL, 11 Refills, Maintenance, 06/22/19 23:05:00 EST, [facility], 176, cm,... Start Date: 06/22/19 Status: Ordered ibuprofen 600 mg oral tablet 600 mg, 1, tablet, By Mouth, Every 6 hours, # 50 tablet, Refills 0, Tot. Refills 0, Maintenance, 08/06/19 0:18:00 EDT, Route to Pharmacy Electronically, [facility], 176, cm, 07/07/19 10:15:00 [...] 1 Refills, Maintenance, 09/07/19 17:07:00 EDT, Solution, [facility], 176, cm, 08/30/19 11:03:00 EDT, Height, [...] Daily, # 90 capsule, 0 Refills, Maintenance, 12/19/19 10:45:00 EDT, [facility], 176, cm, 09/23/19 8:30:00 EDT, Height, 129, kg, 05/29/18 0:31:00 EST, Dry Weight Start Date: 12/19/19 Status: Ordered PAP Supplies - Mask, Tubing, Filters, Head Gear, Chin Strap, and Water Chamber PAP Supplies - Mask, Tubing, Filters, Head Gear, Chin Strap, and Water Chamber, See Instructions, #1 each, Refills 12, Tot. Refills 12, Maintenance, to be used with CPAP machine for dx: SANJIV G47.30 length of need: 99=lifetime, 05/08/16 13:26:55, Com... Start Date: 05/08/16 Status: Ordered Pen [place], 31 G x 5 mm BD Ultra [...] 10:39:56 EDT Start Date: 11/05/17 Status: Ordered unna boot dressing change once [...] and Radha, therapist, at [facility] in [place] Social History Social History Type Response Smoking Status Never smoker; Tobacc o user in household: No entered on: 05/25/15 Sex
--- OUTSIDE RECORDS SUMMARY | 2023-01-14 15:39 | XMS_ITS | Continuity of Care Document ---
Author Name Unknown Organization [facility] Address [address] [place] [address]- Care Team Providers Care Machine Stoppage Frequency Checker Name Role Phone Chyna Duarte MD Primary Care Physician Encounter [facility] Date(s): 08/03/20 - 10/03/20 [facility] [address] [place] [address]- Attending Physician: Hank Leal MD Admitting Physician: [...] VIS given 10/2011 6Admin Note: VIS GIVEN [id number] 7Admin Note: VIS GIVEN 03/14/2008 8Admin Note: [...] 16:40:37 EDT, Aerosol, Route to Pharmacy Electronically, [id number], [facility] Start Date: 10/04/18 Status: [...] use overnight and naps from [facility], 11/08/19 11:45:00 EDT, Compound, 176, cm, 09/23/19 [...] Maintenance, 07/11/20 9:19:00 EDT, [facility], Partial fill upon patient request if the [...] 12/07/19 16:59:00 EDT, Route to Pharmacy Electronically, [facility], 176, cm, 09/23/19 8:30:00 EDT, [...] mL, 11 Refills, Maintenance, 06/22/19 23:05:00 EST, [facility], 176, cm,... Start Date: 06/22/19 [...] 1 Refills, Maintenance, 06/28/20 16:38:00 EST, Solution, [facility], 176, cm, 06/28/20 13:04:00 EST, [...] Com... Start Date: 05/08/16 Status: Ordered Pen [place], 31 G x 5 mm BD Ultra [...] and Radha, therapist, at [facility] in [place] Social History Social History Type Response Smoking Status Former smoker, quit more than 30 days ago entered on: 06/28/20 Sex
--- OUTSIDE RECORDS SUMMARY | 2023-01-14 15:39 | XMS_ITS | Continuity of Care Document ---
Author Name Unknown Organization [facility] Address [address] [place] [address]- Care Team Providers Care Automotive Worker Foreman Name Role Phone Chyna Duarte MD Primary Care Physician [phone] [facility]counter [facility] Date(s): 11/01/19 - 12/01/[address] [address]- [facility] Allergies, Adverse Reactions, Alerts Substance Reaction Severity [...] VIS given 10/2011 6Admin Note: VIS GIVEN 7Admin Note: VIS GIVEN 03/14/2008 8Admin Note: vis given 9Result Note: pt states he has previously had this vaccine Medications acetaminophen 325 mg oral tablet 975 mg, 3, tablet, By Mouth, Every 6 hours, PRN, # 120 tablet, Refills 0, Tot. Refills 0, Maintenance, as needed for pain, 08/06/19 0:18:00 EDT, Route to Pharmacy Electronically, [facility], 176, cm, 07/07/19 10:15:00 EDT, Height, 129, kg,... Start Date: 08/06/19 Status: Ordered albuterol CFC free 90 mcg/inh inhalation aerosol 2, puffs, Inhalation, Every 6 hours, PRN, # 9 Gm, Refills 5, Tot. Refills 5, Maintenance, 10/04/18 16:40:37 EDT, Aerosol, Route to Pharmacy Electronically, [id number], [facility] Start Date: 10/04/18 Status: Ordered amLODIPine 5 mg oral tablet 5 mg, 1, tablet, By Mouth, Daily, # 90 tablet, Refills 3, Tot. Refills 3, Maintenance, 05/30/19 13:21:00 EST, Route to Pharmacy Electronically, [facility], 176, cm, 03/31/19 9:59:00 EST, Height, 129, kg, 05/29/18 0:31:00 EST, Dry Weight Start Date: 05/30/19 Status: Ordered atenolol 25 mg oral tablet 25 mg, 1, tablet, By Mouth, 2 times a day, # 180 tablet, Refills 3, Tot. Refills 3, Maintenance, 05/30/19 13:21:00 EST, Route to Pharmacy Electronically, [facility], 176, cm, 03/31/19 9:59:00 [...] use overnight and naps from [facility], 11/08/19 11:45:00 EDT, Compound, 176, cm, 09/23/19 [...] 09/26/19 9:42:00 EDT, Route to Pharmacy Electronically, [facility], 176, cm, 09/23/19 8:30:00 EDT, Height, 129, kg, 05/29/18 0:31:00 EST, Dry Weight Start Date: 09/26/19 Stop Date: 12/25/19 Status: Ordered gabapentin 300 mg oral capsule 300 mg, 1, capsule, By Mouth, 3 times a day, # 45 capsule, Refills 0, Tot. Refills 0, Maintenance, 08/06/19 0:18:00 EDT, Route to Pharmacy Electronically, [facility], 176, cm, 07/07/19 10:15:00 EDT, Height, 129, kg, 05/29/18 0:31:00 EST, Start Date: 08/06/19 Status: Ordered HumaLOG KwikPen 100 units/mL injectable solution See Instructions, s/c inj TID before meals acc to scale: 1u 150-200; 3u 201-250; 5u 251-300; 7u 301-350; 9u 351-400; 11u 401-450; call MD for BG over 450, # 10 mL, 11 Refills, Maintenance, 06/22/19 23:05:00 EST, [facility], 176, cm,... Start Date: 06/22/19 Status: Ordered ibuprofen 600 mg oral tablet 600 mg, 1, tablet, By Mouth, Every 6 hours, # 50 tablet, Refills 0, Tot. Refills 0, Maintenance, 08/06/19 0:18:00 EDT, Route to Pharmacy Electronically, [facility], 176, cm, 07/07/19 [...] 1 Refills, Maintenance, 09/07/19 17:07:00 EDT, Solution, [facility], 176, cm, 08/30/19 11:03:00 EDT, Height, [...] Daily, # 90 capsule, 0 Refills, Maintenance, 10/17/19 10:03:00 EDT, [facility], 176, cm, 09/23/19 8:30:00 EDT, Height, 129, kg, 05/29/18 0:31:00 EST, Dry Weight Start Date: 10/17/19 Status: Ordered PAP Supplies - Mask, Tubing, Filters, Head Gear, Chin Strap, and Water Chamber PAP Supplies - Mask, Tubing, Filters, Head Gear, Chin Strap, and Water Chamber, See Instructions, #1 each, Refills 12, Tot. Refills 12, Maintenance, to be used with CPAP machine for dx: SANJIV G47.30 length of need: 99=lifetime, 05/08/16 13:26:55, Com... Start Date: 05/08/16 Status: Ordered Pen [place], 31 G x 5 mm BD Ultra [...] Dr. Molina and Radha, therapist, at [facility] in [place] Social History Social History Type Response Smoking Status Never smoker; Tobacc o user in household: No entered on: 05/25/15 Sex
--- OUTSIDE RECORDS SUMMARY | 2023-01-14 15:39 | XMS_ITS | Continuity of Care Document ---
Author Name Unknown Organization [facility] Address [address] [place] [address]- Care Team Providers Care Ruby Engineer Name Role Phone Gerald GARRISON, Chyna Primary Care Physician Encounter [facility] Date(s): 02/21/22 - 03/23/[address] [address]- Allergies, Adverse Reactions, Alerts No Known Allergies Immunizations Given and Recorded Vaccine Date Status Refusal Reason [id number] 12y+ bivalent booster vax 03/11/22 Given influenza [...] vaccine, inactivated 03/07/02 Give n SARS-CoV-2 mRNA ([id number]) vax 08/29/21 Given pneumococcal 23-valent vaccine 06/06/21 [...] Note: vis given 5Result Comment: DILUENT LOT#: [id number] EXP: 08/2022 MFG: FRESENSIUS 6Admin Note: VIS given 10/2011 7Admin Note: VIS GIVEN [id number] 8Admin Note: VIS GIVEN 03/14/2008 9Admin Note: vis given 10Result Note: pt states he has previously had this vaccine Medications acetaminophen 325 mg oral tablet 975 mg, 3, tablet, By Mouth, Every 6 hours, PRN, # 120 tablet, Refills 0, Tot. Refills 0, Maintenance, as needed for pain, 08/06/19 0:18:00 EDT, Route to Pharmacy Electronically, [facility], 176, cm, 07/07/19 [...] Maintenance, 01/15/22 14:49:00 EDT, [facility] 176, cm, 01/15/22 10:10:00 EDT, Height, 131.6, kg, 06/03/20 4:19:00 EST, Dry Weight Start Date: 01/15/22 Status: Ordered atenolol 25 mg oral tablet 1, tablet, By Mouth, 2 times a day, # 180 tablet, Refills 3, Maintenance, 12/31/21 14:27:00 EDT, Route to Pharmacy Electronically, [facility]), 176, cm, 08/29/21 9:11:00 EDT, Height, 131.6, kg, 06/03/20 4:19:00 EST, Dry... Start Date: 12/31/21 Status: Ordered atorvastatin 40 mg oral tablet 1 tablet, By Mouth, Daily, # 90 tablet, 1 Refills, Maintenance, 12/31/21 14:20:00 EDT, [facility]), 176, cm, 08/29/21 9:11:00 EDT, Height, 131.6, kg, 06/03/20 4:19:00 EST, Dry Weight Start Date: 12/31/21 Status: Ordered AutoBIPAP EPAPmin 11 IPAPmax 22 PS 6 with heated humidification AutoBIPAP EPAPmin 11 IPAPmax 22 PS 6 with heated humidification, See Instructions, # 1 each, Refills 0, Tot. Refills 0, Maintenance, [facility], 11/08/19 11:45:00 EDT, Compound, 176, cm, 09/23/19 8:30:00 EDT, Height, 129, kg... Start Date: 11/08/19 Status: Ordered cephalexin monohydrate 500 mg oral capsule 1 capsule = 500 mg, By Mouth, 4 times a day, for 7 days, # 28 capsule, 0 Refills, Acute 03/25/22 14:44:00 EST, 03/18/22 14:44:00 EST, Capsule, [facility], Partial fill upon patient request if the prescription is for a schedule II opioi... Start Date: 03/18/22 Stop Date: 03/25/22 Status: Ordered clonazePAM 0.5 mg oral tablet [...] 15:16:30, Compound Start Date: 05/13/16 Status: Ordered diclofenac 1% topical gel 1 application, Topically, 4 times a day, PRN Pain , Severe, # 100 Gm, 0 Refills, Maintenance, 03/17/22 13:55:00 EST, Gel, [facility], Partial fill upon patient request if the prescription is for a schedule II opioid drug., 176, cm, ... Start Date: 03/17/22 Status: Ordered Flovent HFA 110 mcg/inh inhalation aerosol 1 puff, Inhalation, 2 times a day, rinse mouth and throat after use use with spacer chamber, # 3 each, 3 Refills, Maintenance, 09/26/21 15:07:00 EDT, [facility]), Partial fill upon patient request [...] Route to Pharmacy Electronically, [facility]), 176, cm, 08/29/21 9:11:00 EDT, Height, 131.6, kg, 06/03/20 4:19:00 EST, Dry Weight Start Date: 12/31/21 Status: Ordered gabapentin 300 mg oral capsule 300 mg, 1, capsule, By Mouth, 3 times a day, # 45 capsule, Refills 0, Tot. Refills 0, Maintenance, 08/06/19 0:18:00 EDT, Route to Pharmacy Electronically, [facility], 176, cm, 07/07/19 10:15:00 EDT, Height, 129, kg, 05/29/18 0:31:00 ESTDr... Start Date: 08/06/19 Status: Ordered HumaLOG KwikPen 100 units/mL injectable solution See Instructions, s/c inj TID before meals acc to scale: 1u 150-200; 3u 201-250; 5u 251-300; 7u 301-350; 9u 351-400; 11u 401-450; call MD for BG over 450, # 15 mL, 3 Refills, Maintenance, 01/14/22 16:55:00 EDT, [facility], 176, cm, ... Start Date: 01/14/22 Status: Ordered Insulin Syringe, BD Ultra-Fine 1 [...] Injection, Daily at bedtime, # 75 mL, 3 Refills, Maintenance, 01/14/22 16:55:00 EDT, Solution, [facility], 176, cm, 08/29/21 9:11:00 EDT, [...] Dry Weight Start Date: 08/12/21 Status: Ordered lidocaine 5% topical ointment 1 application, Topically, 3 times a day, PRN Pain , Mild, # 50 Gm, 1 Refills, Maintenance, 03/19/2211:23:00 EST, [facility]intment, [facility] Partial fill upon patient request if the prescription is for a schedule II opioid drug., 1 applicat... Start Date: 03/19/22 Status: Ordered lisinopril 40 mg oral tablet [...] each, 0 Refills, Maintenance, 12/05/20 15:52:00 EDT, [facility], Partial fill upon patient request if [...] each, 0 Refills, Maintenance, 10/15/20 18:05:00 EDT, [facility], Partial fill upon patient [...] 06/03/20 4:1... 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 Goal-TO SURVIVE THIS YEAR Confirmed Active Hernia, ventral Confirmed Active Hypertension Confirmed Active Hypothyroidism Confirmed 2004 Active Secondary insomnia Confirmed Active Fatty liver disease based on CT Confirmed 08/21/08 Active Lower back pain Confirmed Active Lymphedema Confirmed Active Major depression 1 Confirmed Active SANJIV (obstructive sleep apnea) Confirmed Active Sigmoid colon resection + complication Confirmed 2002 Active Right flank pain Confirmed Active Severe obesity Confirmed Active 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 Molina and Giancarlo, therapist, at [facility] in [place] Social History Social History Type Response Smoking Status Former smoker, quit more than 30 days ago entered on: 06/28/20 Sex Patient Care team information Care Team Personnel Name: Florencio Saldana RN Position: [facility] ED RN W/OE and Tasks Member Role: Primary Care Nurse Name: Brooklyn Coyne NP Position: [facility] Associate Professional Member Role: Primary Care Nurse Address: Address: [address] [place] [address] Trauma [place] [address]- Name: Tatyana Cosme RN Position: [facility] RN Member Role: Primary Care Nurse Name: Chyna Duarte MD Position: [facility] Primary Care Physician Member Role: PCP Address: Address: [address] [place] [address]- Care Team Related Persons Name: SHILO VALE Address: home [address] [place] [id number] Name: GIANCARLO BROOKS Address: [place] [address] Name: OLIVA VELOZ Address: home [address] [place] [address]
--- OUTSIDE RECORDS SUMMARY | 2023-01-14 15:39 | XMS_ITS | Continuity of Care Document ---
Author Name Unknown Organization [facility] Address [address] [place] [address]- Care Team Providers Care Fish Flipper Name Role Phone Chyna Duarte MD Primary Care Physician [phone] [facility] 11[facility] - 12/21/[address] [address]- [facility] Allergies, Adverse Reactions, Alerts Substance Reaction [...] EDT, Route to Pharmacy Electronically, [facility], 176, cm, 07/07/19 10:15:00 EDT, Height, 129, kg,... Start Date: 08/06/19 Status: Ordered albuterol CFC free 90 mcg/inh inhalation aerosol 2, puffs, Inhalation, Every 6 hours, PRN, # 9 Gm, Refills 5, Tot. Refills 5, Maintenance, 10/04/18 16:40:37 EDT, Aerosol, Route to Pharmacy Electronically, [id number], [facility] Start Date: 10/04/18 Status: Ordered amLODIPine 5 mg oral tablet 5 mg, 1, tablet, By Mouth, Daily, # 90 tablet, Refills 3, Tot. Refills 3, Maintenance, 05/30/19 13:21:00 EST, Route to Pharmacy Electronically, [facility], 176, cm, 03/31/19 9:59:00 EST, [...] use overnight and naps from [facility], 11/08/19 11:45:00 EDT, Compound, 176, cm, 09/23/19 [...] 12/07/19 16:59:00 EDT, Route to Pharmacy Electronically, [facility], 176, cm, 09/23/19 8:30:00 EDT, Height, 129, kg, 05/29/18 0:31:00 EST, Dry Weight Start Date: 12/07/19 Status: Ordered gabapentin 300 mg oral capsule 300 mg, 1, capsule, By Mouth, 3 times a day, # 45 capsule, Refills 0, Tot. Refills 0, Maintenance, 08/06/19 0:18:00 EDT, Route to Pharmacy Electronically, [facility], 176, cm, 07/07/19 10:15:00 EDT, Height, 129, kg, 05/29/18 0:31:00 EST, . Start Date: 08/06/19 Status: Ordered HumaLOG KwikPen 100 units/mL injectable solution See Instructions, s/c inj TID before meals acc to scale: 1u 150-200; 3u 201-250; 5u 251-300; 7u 301-350; 9u 351-400; 11u 401-450; call MD for BG over 450, # 10 mL, 11 Refills, Maintenance, 06/22/19 23:05:00 EST, [facility], 176, cm,... Start Date: 06/22/19 Status: Ordered ibuprofen 600 mg oral tablet 600 mg, 1, tablet, By Mouth, Every 6 hours, # 50 tablet, Refills 0, Tot. Refills 0, Maintenance, 08/06/19 0:18:00 EDT, Route to Pharmacy Electronically, [facility], 176, cm, 07/07/19 10:15:00 [...] 1 Refills, Maintenance, 09/07/19 17:07:00 EDT, Solution, [facility], 176, cm, 08/30/19 11:03:00 EDT, Height, [...] Com... Start Date: 05/08/16 Status: Ordered Pen [place], 31 G x 5 mm BD Ultra [...] and Radha, therapist, at [facility] in [place] Social History Social History Type Response Smoking Status Never smoker; Tobacc o user in household: No entered on: 05/25/15 Sex
--- OUTSIDE RECORDS SUMMARY | 2023-01-14 15:40 | XMS_ITS | Continuity of Care Document ---
Author Name Unknown Organization [facility] Address [address] [place] [address]- Care Team Providers Care Family Practice Md Name Role Phone Chyna Duarte MD Primary Care Physician Encounter [facility] Date(s): 05/02/22 - 06/01/22 [facility] [address] [place] [address]- Attending Physician: Pop Kaye Admitting Physician: Pop Kaye Referring Physician: AdmtrPop Allergies, Adverse Reactions, Alerts No Known Allergies Immunizations Given and Recorded Vaccine Date Status Refusal Reason [id number] 12y+ bivalent booster vax 03/11/22 Given influenza [...] vaccine, inactivated 03/07/02 Give n SARS-CoV-2 mRNA ([id number]) vax 08/29/21 Given pneumococcal 23-valent vaccine 06/06/21 [...] Note: vis given 5Result Comment: DILUENT LOT#: [id number] EXP: 08/2022 MFG: FRESENSIUS 6Admin Note: VIS given 10/2011 7Admin Note: VIS GIVEN [id number] 8Admin Note: VIS GIVEN 03/14/2008 9Admin Note: [...] 08/06/19 0:18:00 EDT, Route to Pharmacy Electronically, [facility], 176, cm, 07/07/19 10:15:00 [...] Maintenance, 01/15/22 14:49:00 EDT, [facility] ([facility]), 50, USE 2 INHALATIONS BY [...] Route to Pharmacy Electronically, [facility] ([facility]), 176, cm, 08/29/21 9:11:00 EDT, [...] 0 Refills, Maintenance, 03/17/22 13:55:00 EST, [facility] upon patient request if the prescription is for a schedule II opioid drug., 176, cm, 11/... Start Date: 03/17/22 Status: Ordered Flovent HFA [...] 12/31/21 14:28:00 EDT, Route to Pharmacy Electronically, [facility] ([facility]), 176, cm, 08/29/21 9:11:00 EDT, Height, 131.6, kg, 06/03/20 4:19:00 EST, Dry Weight Start Date: 12/31/21 Status: Ordered gabapentin 300 mg oral capsule 300 mg, 1, capsule, By Mouth, 3 times a day, # 45 capsule, Refills 0, Tot. Refills 0, Maintenance, 08/06/19 0:18:00 EDT, Route to Pharmacy Electronically, [facility], 176, cm, 07/07/19 10:15:00 EDT, Height, 129, kg, 05/29/18 0:31:00 ESTDr... Start Date: 08/06/19 Status: Ordered HumaLOG KwikPen 100 units/mL injectable solution See Instructions, s/c inj TID before meals acc to scale: 1u 150-200; 3u 201-250; 5u 251-300; 7u 301-350; 9u 351-400; 11u 401-450; call MD for BG over 450, # 15 mL, 3 Refills, Maintenance, 01/14/22 16:55:00 EDT, [facility], 176, cm, ... Start Date: 01/14/22 [...] 3 Refills, Maintenance, 01/14/22 16:55:00 EDT, Solution, [facility], 176, cm, 08/29/21 9:11:00 EDT, [...] Dry Weight Start Date: 04/01/22 Status: Ordered lidocaine 5% topical ointment 1 application, Topically, 3 times a day, PRN Pain , Mild, # 50 Gm, 1 Refills, Maintenance, 03/19/2211:23:00 EST, [facility]int[facility], [facility] fill upon patient request [...] 11/30/09 22:37:01 Start Date: 11/30/09 Status: Ordered loperamide 2 mg oral tablet 1 tablet = 2 mg, By Mouth, Every 8 hours, PRN for loose stool, # 270 tablet, 5 Refills, Maintenance, 05/02/22 10:17:00 EST, Tablet, [facility] ([facility] ), Partial fill upon patient request if the prescription is for a schedule II... Start Date: 05/02/22 Status: Ordered omeprazole 40 mg oral enteric [...] Com... Start Date: 05/08/16 Status: Ordered Pen [place], 31 G x 5 mm BD Ultra Fine III See Instructions, # 300 each, Refills 3, Tot. Refills 3, Maintenance, use with lantus and humalog as directed dx: e11.65, 05/06/16 15:47:30, Compound Start Date: 05/06/16 Stop Date: 05/01/17 Status: Ordered Readi-Cat 2 oral suspension See Instructions, take as directed, # 2 each, 0 Refills, Maintenance, 12/05/20 15:52:00 EDT, [facility], Partial fill upon patient [...] each, 0 Refills, Maintenance, 10/15/20 18:05:00 EDT, [facility], Partial fill upon patient request [...] FIT (fecal immunochemical test) Confirmed Active Suspected [place] disease Confirmed Active Goal-TO SURVIVE THIS YEAR [...] and Giancarlo, therapist, at [facility] in [place] Social History Social History Type Response Smoking Status Former smoker; Other : qiut 13 years; entered on: 05/24/14 Sex Patient Care team information Care Team Personnel Name: Florencio Saldana RN Position: [facility] ED RN W/OE and Tasks Member Role: Primary Care Nurse Name: Brooklyn Coyne NP Position: [facility] Associate Professional Member Role: Primary Care Nurse Address: Address: [address] [place] [address] Trauma [place] [address]- Name: Tatyana Cosme RN Position: [facility] RN Member Role: Primary Care Nurse Name: hCyna Duarte MD Position: [facility] Primary Care Physician Member Role: PCP Address: Address: [address] [place] [address]- Care Team Related Persons Name: SHILO VALE Address: home [address] [place] [address] Name: GIANCARLO BROOKS Address: [place] [address] Name: OLIVA VELOZ Address: home [address] [place] [address]
--- OUTSIDE RECORDS SUMMARY | 2023-01-14 15:40 | XMS_ITS | Continuity of Care Document ---
Author Name Unknown Organization [facility] Address [address] [place] [address]- Care Team Providers Care Field Sales Agent Name Role Phone Chyna Duarte MD Primary Care Physician [facility] Date(s): 10/01/19 - 01/29/20 [facility] [address] [place] [address]- [facility] Attending Physician: Hank Leal MD Admitting Physician: [...] VIS given 10/2011 6Admin Note: VIS GIVEN [id number] 7Admin Note: VIS GIVEN 03/14/2008 8Admin Note: vis given 9Result Note: pt states he has previously had this vaccine Medications acetaminophen 325 mg oral tablet 975 mg, 3, tablet, By Mouth, Every 6 hours, PRN, # 120 tablet, Refills 0, Tot. Refills 0, Maintenance, as needed for pain, 08/06/19 0:18:00 EDT, Route to Pharmacy Electronically, [facility], 176, cm, 07/07/19 10:15:00 EDT, Height, 129, kg,... Start Date: 08/06/19 Status: Ordered albuterol CFC free 90 mcg/inh inhalation aerosol 2, puffs, Inhalation, Every 6 hours, PRN, # 9 Gm, Refills 5, Tot. Refills 5, Maintenance, 10/04/18 16:40:37 EDT, Aerosol, Route to Pharmacy Electronically, [id number], [facility] Start Date: 10/04/18 Status: Ordered amLODIPine 5 mg oral tablet 5 mg, 1, tablet, By Mouth, Daily, # 90 tablet, Refills 3, Tot. Refills 3, Maintenance, 05/30/19 13:21:00 EST, Route to Pharmacy Electronically, [facility], 176, cm, 03/31/19 9:59:00 EST, Height, 129, kg, 05/29/18 0:31:00 EST, Dry Weight Start Date: 05/30/19 Status: Ordered atenolol 25 mg oral tablet 25 mg, 1, tablet, By Mouth, 2 times a day, # 180 tablet, Refills 3, Tot. Refills 3, Maintenance, 05/30/19 13:21:00 EST, Route to Pharmacy Electronically, [email or web address], 176, cm, 03/31/19 9:59:00 EST, [...] 12/07/19 16:59:00 EDT, Route to Pharmacy Electronically, [facility], 176, cm, 09/23/19 8:30:00 EDT, Height, 129, kg, 05/29/18 0:31:00 EST, Dry Weight Start Date: 12/07/19 Status: Ordered gabapentin 300 mg oral capsule 300 mg, 1, capsule, By Mouth, 3 times a day, # 45 capsule, Refills 0, Tot. Refills 0, Maintenance, 08/06/19 0:18:00 EDT, Route to Pharmacy Electronically, [facility], 176, cm, 07/07/19 10:15:00 EDT, Height, 129, kg, 05/29/18 0:31:00 EST, . Start Date: 08/06/19 Status: Ordered HumaLOG KwikPen 100 units/mL injectable solution See Instructions, s/c inj TID before meals acc to scale: 1u 150-200; 3u 201-250; 5u 251-300; 7u 301-350; 9u 351-400; 11u 401-450; call MD for BG over 450, # 10 mL, 11 Refills, Maintenance, 06/22/19 23:05:00 EST, [facility], 176, cm,... Start Date: 06/22/19 Status: Ordered ibuprofen 600 mg oral tablet 600 mg, 1, tablet, By Mouth, Every 6 hours, # 50 tablet, Refills 0, Tot. Refills 0, Maintenance, 08/06/19 0:18:00 EDT, Route to Pharmacy Electronically, [facility], 176, cm, 07/07/19 10:15:00 [...] 1 Refills, Maintenance, 09/07/19 17:07:00 EDT, Solution, [facility], 176, cm, 08/30/19 11:03:00 [...] Com... Start Date: 05/08/16 Status: Ordered Pen [place], 31 G x 5 mm BD Ultra [...] and Radha, therapist, at [facility] in [place] Social History Social History Type Response Smoking Status Never smoker; Tobacc o user in household: No entered on: 05/25/15 Sex
--- OUTSIDE RECORDS SUMMARY | 2023-01-14 15:40 | XMS_ITS | Continuity of Care Document ---
Author Name Unknown Organization [facility] Address [address] [place] [address]- Care Team Providers Care Tongsman Name Role Phone Chyna Duarte MD Primary Care Physician [phone] Encounter [facility] Date(s): 11/04/21 - 12/06/[address] [address]- Attending Physician: Not on Staff, Attending MD Allergies, Adverse Reactions, Alerts No Known Allergies Immunizations Given and Recorded Vaccine Date Status Refusal Reason SARS-CoV-2 mRNA (tubupsc-jvag-tlexs) vax 08/29/21 Given pneumococcal 23-valent vaccine 06/06/21 [...] n Patient Refuses 1Result Comment: DILUENT LOT#: [id number] EXP: 08/2022 MFG: FRESENSIUS 2Early/Late Reason: Other : GIVEN 03/31/19 DURING VISIT 3Admin Note: VIS 12/04/2009 4Admin Note: VIS GIVEN 12/05/2008 5Admin Note: vis given 6Admin Note: VIS given 10/2011 7Admin Note: VIS GIVEN [id number] 8Admin Note: VIS GIVEN 03/14/2008 9Admin Note: vis given 10Result Note: pt states he has previously had this vaccine Medications acetaminophen 325 mg oral tablet 975 mg, 3, tablet, By Mouth, Every 6 hours, PRN, # 120 tablet, Refills 0, Tot. Refills 0, Maintenance, as needed for pain, 08/06/19 0:18:00 EDT, Route to Pharmacy Electronically, [facility], 176, cm, 07/07/19 [...] 10:40:00 EDT, Aerosol, Route to Pharmacy Electronically, [id number], [facility], 176, cm, 08/29/21 9:11:00 [...] 0, Maintenance, use overnight and naps from [facility], 11/08/19 11:45:00 EDT, Compound, 176, cm, [...] each, 3 Refills, Maintenance, 09/26/21 15:07:00 EDT, [facility] ([facility]), Partial fill upon patient request [...] 01/04/21 14:54:00 EDT, Route to Pharmacy Electronically, [facility], 176, cm, 11/22/20 11:05:00 EDT, Height,131.6, kg, 06/03/20 4:19:00 EST, Dry Weight Start Date: 01/04/21 Status: Ordered gabapentin 300 mg oral capsule 300 mg, 1, capsule, By Mouth, 3 times a day, # 45 capsule, Refills 0, Tot. Refills 0, Maintenance, 08/06/19 0:18:00 EDT, Route to Pharmacy Electronically, [facility], 176, cm, 07/07/19 [...] mL, 5 Refills, Maintenance, 08/26/21 14:44:00 EDT, [facility], 176, cm, ... Start Date: [...] 0 Refills, Maintenance, 08/26/21 14:44:00 EDT, Solution, [facility], 176, cm, 06/06/21 9:59:00 EST, [...] Com... Start Date: 05/08/16 Status: Ordered Pen [place], 31 G x 5 mm BD Ultra Fine III See Instructions, # 300 each, Refills 3, Tot. Refills 3, Maintenance, use with lantus and humalog as directed dx: e11.65, 05/06/16 15:47:30, Compound Start Date: 05/06/16 Stop Date: 05/01/17 Status: Ordered Readi-Cat 2 oral suspension See Instructions, take as directed, # 2 each, 0 Refills, Maintenance, 12/05/20 15:52:00 EDT, [facility], [facility] fill upon patient request [...] each, 0 Refills, Maintenance, 10/15/20 18:05:00 EDT, [facility] 3, Partial fill upon patient request if [...] Right flank pain(Confirmed) Active Severe obesity(Confirmed) Active Tachy-nedla syndrome(Confirmed) Active Diabetic leg ulcer(Confirmed) Active Wheezing(Confirmed) Active 1Sees Dr. Molina and Radha, therapist, at [facility] in [place] Social History Social History Type Response Smoking Status Former smoker, quit more than 30 days ago entered on: 06/28/20 Sex
--- OUTSIDE RECORDS SUMMARY | 2023-01-14 15:40 | XMS_ITS | Continuity of Care Document ---
Author Name Unknown Organization [facility] Address [address] [place] [address]- Care Team Providers Care Voice Teacher Name Role Phone Chyna Duarte MD Primary Care Physician Encounter [facility] Date(s): 09/06/20 - 10/06/[address] [address]- Attending Physician: Admtr, Ar8 Allergies, Adverse Reactions, Alerts Substance Reaction Severity [...] 01/25/09 Gi alana influenza virus vaccine, inactivated 03/04/06 Gi alana influenza virus vaccine, inactivated [...] VIS given 10/2011 6Admin Note: VIS GIVEN [id number] 7Admin Note: VIS GIVEN 03/14/2008 8Admin Note: vis given 9Result Note: pt states he has previously had this vaccine Medications acetaminophen 325 mg oral tablet 975 mg, 3, tablet, By Mouth, Every 6 hours, PRN, # 120 tablet, Refills 0, Tot. Refills 0, Maintenance, as needed for pain, 08/06/19 0:18:00 EDT, Route to Pharmacy Electronically, [facility], 176, cm, 07/07/19 10:15:00 [...] 16:40:37 EDT, Aerosol, Route to Pharmacy Electronically, [id number], [facility] Start Date: 10/04/18 Status: Ordered [...] 07/01/20 20:37:00 EST, Route to Pharmacy Electronically, [facility], 176, cm, 06/28/20 13:04:00 EST, [...] 0, Maintenance, use overnight and naps from [facility], 11/08/19 11:45:00 EDT, Compound, 176, [...] each, 0 Refills, Maintenance, 07/11/20 9:19:00 EDT, [facility], Partial fill upon patient [...] 12/07/19 16:59:00 EDT, Route to Pharmacy Electronically, [facility], 176, cm, 09/23/19 8:30:00 EDT, Height, 129, kg, 05/29/18 0:31:00 EST, Dry Weight Start Date: 12/07/19 Status: Ordered gabapentin 300 mg oral capsule 300 mg, 1, capsule, By Mouth, 3 times a day, # 45 capsule, Refills 0, Tot. Refills 0, Maintenance, 08/06/19 0:18:00 EDT, Route to Pharmacy Electronically, [facility], 176, cm, 07/07/19 10:15:00 EDT, Height, 129, kg, 05/29/18 0:31:00 EST, . Start Date: 08/06/19 Status: Ordered HumaLOG KwikPen 100 units/mL injectable solution See Instructions, s/c inj TID before meals acc to scale: 1u 150-200; 3u 201-250; 5u 251-300; 7u 301-350; 9u 351-400; 11u 401-450; call MD for BG over 450, # 10 mL, 11 Refills, Maintenance, 06/22/19 23:05:00 EST, [facility], 176, cm,... Start [...] 1 Refills, Maintenance, 06/28/20 16:38:00 EST, Solution, [facility], 176, cm, 06/28/20 [...] Com... Start Date: 05/08/16 Status: Ordered Pen [place], 31 G x 5 mm BD Ultra [...] and Radha, therapist, at [facility] in [place] Social History Social History Type Response Smoking Status Former smoker, quit more than 30 days ago entered on: 06/28/20 Sex
--- OUTSIDE RECORDS SUMMARY | 2023-01-14 15:40 | XMS_ITS | Continuity of Care Document ---
Author Name Unknown Organization [facility] Address [address] [place] [address]- Care Team Providers Care Director Of Human Resources Name Role Phone Chyna Duarte MD Primary Care Physician [facility]counter [facility] Date(s): 12/07/19 - 01/06/[address] [address]- [facility] Allergies, Adverse Reactions, Alerts Substance Reaction Severity [...] VIS given 10/2011 6Admin Note: VIS GIVEN [id number] 7Admin Note: VIS GIVEN 03/14/2008 8Admin Note: vis given 9Result Note: pt states he has previously had this vaccine Medications acetaminophen 325 mg oral tablet 975 mg, 3, tablet, By Mouth, Every 6 hours, PRN, # 120 tablet, Refills 0, Tot. Refills 0, Maintenance, as needed for pain, 08/06/19 0:18:00 EDT, Route to Pharmacy Electronically, [facility], 176, cm, 07/07/19 10:15:00 EDT, Height, 129, kg,... Start Date: 08/06/19 Status: Ordered albuterol CFC free 90 mcg/inh inhalation aerosol 2, puffs, Inhalation, Every 6 hours, PRN, # 9 Gm, Refills 5, Tot. Refills 5, Maintenance, 10/04/18 16:40:37 EDT, Aerosol, Route to Pharmacy Electronically, [id number], [facility] Start Date: 10/04/18 Status: Ordered amLODIPine 5 mg oral tablet 5 mg, 1, tablet, By Mouth, Daily, # 90 tablet, Refills 3, Tot. Refills 3, Maintenance, 05/30/19 13:21:00 EST, Route to Pharmacy Electronically, [facility], 176, cm, 03/31/19 9:59:00 EST, [...] 0, Maintenance, use overnight and naps from [facility], 11/08/19 11:45:00 EDT, Compound, 176, cm, [...] 12/07/19 16:59:00 EDT, Route to Pharmacy Electronically, [facility], 176, cm, 09/23/19 8:30:00 EDT, Height, 129, kg, 05/29/18 0:31:00 EST, Dry Weight Start Date: 12/07/19 Status: Ordered gabapentin 300 mg oral capsule 300 mg, 1, capsule, By Mouth, 3 times a day, # 45 capsule, Refills 0, Tot. Refills 0, Maintenance, 08/06/19 0:18:00 EDT, Route to Pharmacy Electronically, [facility], 176, cm, 07/07/19 10:15:00 EDT, Height, 129, kg, 05/29/18 0:31:00 EST, Start Date: 08/06/19 Status: Ordered HumaLOG KwikPen 100 units/mL injectable solution See Instructions, s/c inj TID before meals acc to scale: 1u 150-200; 3u 201-250; 5u 251-300; 7u 301-350; 9u 351-400; 11u 401-450; call MD for BG over 450, # 10 mL, 11 Refills, Maintenance, 06/22/19 23:05:00 EST, [facility], 176, cm,... Start Date: 06/22/19 Status: Ordered ibuprofen 600 mg oral tablet 600 mg, 1, tablet, By Mouth, Every 6 hours, # 50 tablet, Refills 0, Tot. Refills 0, Maintenance, 08/06/19 0:18:00 EDT, Route to Pharmacy Electronically, [facility], 176, cm, 07/07/19 10:15:00 [...] 1 Refills, Maintenance, 09/07/19 17:07:00 EDT, Solution, [facility], 176, cm, 08/30/19 11:03:00 EDT, Height, [...] Com... Start Date: 05/08/16 Status: Ordered Pen [place], 31 G x 5 mm BD Ultra [...] and Radha, therapist, at [facility] in [place] Social History Social History Type Response Smoking Status Never smoker; Tobacc o user in household: No entered on: 05/25/15 Sex
--- OUTSIDE RECORDS SUMMARY | 2023-01-14 15:40 | XMS_ITS | Continuity of Care Document ---
Author Name Unknown Organization [facility] Address [address] [place] [address]- Care Team Providers Care Icu Staff Nurse Name Role Phone Chyna Duarte MD Primary Care Physician [facility] Date(s): 12/26/19 - 01/25/[address] [address]- [facility] Allergies, Adverse Reactions, Alerts Substance Reaction [...] VIS given 10/2011 6Admin Note: VIS GIVEN [id number] 7Admin Note: VIS GIVEN 03/14/2008 8Admin Note: vis given 9Result Note: pt states he has previously had this vaccine Medications acetaminophen 325 mg oral tablet 975 mg, 3, tablet, By Mouth, Every 6 hours, PRN, # 120 tablet, Refills 0, Tot. Refills 0, Maintenance, as needed for pain, 08/06/19 0:18:00 EDT, Route to Pharmacy Electronically, [facility], 176, cm, 07/07/19 10:15:00 EDT, Height, 129, kg,... Start Date: 08/06/19 Status: Ordered albuterol CFC free 90 mcg/inh inhalation aerosol 2, puffs, Inhalation, Every 6 hours, PRN, # 9 Gm, Refills 5, Tot. Refills 5, Maintenance, 10/04/18 16:40:37 EDT, Aerosol, Route to Pharmacy Electronically, [id number], [facility] Start Date: 10/04/18 Status: Ordered amLODIPine 5 mg oral tablet 5 mg, 1, tablet, By Mouth, Daily, # 90 tablet, Refills 3, Tot. Refills 3, Maintenance, 05/30/19 13:21:00 EST, Route to Pharmacy Electronically, [facility], 176, cm, 03/31/19 9:59:00 EST, [...] 12/07/19 16:59:00 EDT, Route to Pharmacy Electronically, [facility], 176, cm, 09/23/19 8:30:00 EDT, Height, 129, kg, 05/29/18 0:31:00 EST, Dry Weight Start Date: 12/07/19 Status: Ordered gabapentin 300 mg oral capsule 300 mg, 1, capsule, By Mouth, 3 times a day, # 45 capsule, Refills 0, Tot. Refills 0, Maintenance, 08/06/19 0:18:00 EDT, Route to Pharmacy Electronically, [facility], 176, cm, 07/07/19 10:15:00 EDT, Height, 129, kg, 05/29/18 0:31:00 EST, Start Date: 08/06/19 Status: Ordered HumaLOG KwikPen 100 units/mL injectable solution See Instructions, s/c inj TID before meals acc to scale: 1u 150-200; 3u 201-250; 5u 251-300; 7u 301-350; 9u 351-400; 11u 401-450; call MD for BG over 450, # 10 mL, 11 Refills, Maintenance, 06/22/19 23:05:00 EST, [facility], 176, cm,... Start Date: 06/22/19 Status: Ordered ibuprofen 600 mg oral tablet 600 mg, 1, tablet, By Mouth, Every 6 hours, # 50 tablet, Refills 0, Tot. Refills 0, Maintenance, 08/06/19 0:18:00 EDT, Route to Pharmacy Electronically, [facility], 176, cm, 07/07/19 [...] 1 Refills, Maintenance, 09/07/19 17:07:00 EDT, Solution, [facility], 176, cm, 08/30/19 11:03:00 EDT, Height, [...] Com... Start Date: 05/08/16 Status: Ordered Pen [place], 31 G x 5 mm BD Ultra [...] and Radha, therapist, at [facility] in [place] Social History Social History Type Response Smoking Status Never smoker; Tobacc o user in household: No entered on: 05/25/15 Sex
--- OUTSIDE RECORDS SUMMARY | 2023-01-14 15:40 | XMS_ITS | Continuity of Care Document ---
Author Name Unknown Organization [facility] ter Address [address] [place] [address]- Care Team Providers Care Axminster Rug Setter Name Role Phone Chyna Duarte MD Primary Care Physician [phone] [facility] Date(s): 03/12/22 - 03/12/[address] [address]- Encounter Diagnosis Diabetes(Final) - 03/12/22 Lower extremity cellulitis(Final) - 03/12/22 Discharge Disposition: A-D/C Home Attending Physician: Lisa Case MD Admitting Physician: Lisa Case MD Referring Physician: Not on Staff, Referring MD Allergies, Adverse Reactions, Alerts No Known Allergies Immunizations Given and Recorded Vaccine Date Status Refusal Reason [id number] 12y+ bivalent booster vax 03/11/22 Given influenza [...] vaccine, inactivated 03/07/02 Give n SARS-CoV-2 mRNA ([id number]) vax 08/29/21 Given pneumococcal 23-valent vaccine 06/06/21 [...] Note: vis given 5Result Comment: DILUENT LOT#: [id number] EXP: 08/2022 MFG: FRESENSIUS 6Admin Note: VIS given 10/2011 7Admin Note: VIS GIVEN [id number] 8Admin Note: VIS GIVEN 03/14/2008 9Admin Note: vis given 10Result Note: pt states he has previously had this vaccine Medications acetaminophen 325 mg oral tablet 975 mg, 3, tablet, By Mouth, Every 6 hours, PRN, # 120 tablet, Refills 0, Tot. Refills 0, Maintenance, as needed for pain, 08/06/19 0:18:00 EDT, Route to Pharmacy Electronically, [facility], 176, cm, 07/07/19 10:15:00 [...] Route to Pharmacy Electronically, [facility] 176, cm, 08/29/21 9:11:00 EDT, [...] 0, Maintenance[facility]/08[facility]19 11:45:00 EDT, Compound, 176, cm, 09/23/19 8:30:00 EDT, Height, 129, kg... Start Date: 11/08/19 Status: Ordered cephalexin monohydrate 500 mg oral capsule 1 capsule = 500 mg, By Mouth, 4 times a day, for 7 days, # 28 capsule, 0 Refills, Acute 03/18/22 14:44:00 EST, 03/11/22 14:44:00 EST, Capsule, [facility], Partial fill upon patient request if the prescription is for a schedule II opioi... Start Date: 03/11/22 Stop Date: 03/18/22 Status: Ordered clonazePAM 0.5 mg oral tablet [...] 12/31/21 14:28:00 EDT, Route to Pharmacy Electronically, [facility] ([facility]), 176, cm, 08/29/21 9:11:00 EDT, Height, 131.6, kg, 06/03/20 4:19:00 EST, Dry Weight Start Date: 12/31/21 Status: Ordered gabapentin 300 mg oral capsule 300 mg, 1, capsule, By Mouth, 3 times a day, # 45 capsule, Refills 0, Tot. Refills 0, Maintenance, 08/06/19 0:18:00 EDT, Route to Pharmacy Electronically, [facility], 176, cm, 07/07/19 10:15:00 EDT, Height, 129, kg, 05/29/18 0:31:00 ESTDr... Start Date: 08/06/19 Status: Ordered HumaLOG KwikPen 100 units/mL injectable solution See Instructions, s/c inj TID before meals acc to scale: 1u 150-200; 3u 201-250; 5u 251-300; 7u 301-350; 9u 351-400; 11u 401-450; call MD for BG over 450, # 15 mL, 3 Refills, Maintenance, 01/14/22 16:55:00 EDT, [facility], 176, cm, ... Start Date: [...] 3 Refills, Maintenance, 01/14/22 16:55:00 EDT, Solution, [facility], 176, cm, 08/29/21 9:11:00 EDT, Height, [...] Com... Start Date: 05/08/16 Status: Ordered Pen [place], 31 G x 5 mm BD Ultra Fine III See Instructions, # 300 each, Refills 3, Tot. Refills 3, Maintenance, use with lantus and humalog as directed dx: e11.65, 05/06/16 15:47:30, Compound Start Date: 05/06/16 Stop Date: 05/01/17 Status: Ordered Readi-Cat 2 oral suspension See Instructions, take as directed, # 2 each, 0 Refills, Maintenance, 12/05/20 15:52:00 EDT, [facility], Partial fill upon patient request if [...] each, 0 Refills, Maintenance, 10/15/20 18:05:00 EDT, [facility], Partial fill upon patient [...] Maintenance, 12/31/21 14:28:00 EDT, [facility]), 176, cm, 08/29/21 9:11:00 EDT, [...] FIT (fecal immunochemical test) Confirmed Active Suspected [place] disease Confirmed Active Goal-TO SURVIVE THIS YEAR [...] Dr. Molina and Giancarlo, therapist, at [facility] [place] Results Radiology Reports * Exam Date Time Procedure Performing Provider Status 03/12/22 4:08 PM Chest Portable Audrey Jay; Auth (Verified) Notes: (Chest Portable) Reason For Exam: Shortness of Breath RESULT: Chest Portable Chest Portable Hx of Present Illness: pt found to have a wound on LLE on thursday, worsneing today. seen in ED yesterday had a scheduled appt for thursday but states pain too unbearable. CMS+; Reason: Shortness of Breath; Clinical Question(s): CHF COMPARISON: 06/03/2020 FINDINGS: Stable pacer leads. No acute cardiopulmonary process. IMPRESSION: No acute abnormality. WSN: [id number] Ordering Physician: Madonna Hilario Dictated By: Tereso Tom MD Dictated Date/Time: 03/12/22 4:10 pm Reviewed By: Tereso Tom MD Signed By: Tereso Tom MD Signed Date/Time: 03/12/22 4:10 pm Transcribed By: RAYMOND Transcribed Date/Time: 03/12/22 4:09 pm Vital Signs Most recent to oldest [Reference Range]: 1 2 3 Oxygen Saturation [94-100 %] 99 % (03/12/22 9:51 PM) 97 % (03/12/22 7:31 PM) 97 % (03/12/22 7:16 PM) Pulse Rate [55-90 bpm] 59 bpm (03/12/22 9:51 PM) 54 bpm *L* (03/12/22 7:31 PM) 55 bpm (03/12/22 7:16 PM) Blood Pressure [90-138/55-84 mm Hg] 128/67mm Hg (03/12/22 9:51 PM) 126/61mm Hg (03/12/22 7:31 PM) 126/61mm Hg (03/12/22 7:16 PM) Respiratory Rate [16-30 br/min] 18 br/min (03/12/22 9:51 PM) 16 br/min (03/12/22 7:31 PM) 20 br/min (03/12/22 7:16 PM) Temperature [96.8-100.4 DegF] 98.2 DegF (03/12/22 9:51 PM) 98.2 DegF (03/12/22 7:16 PM) 98.8 DegF (03/12/22 4:03 PM) Mode of Delivery (Oxygen) Room air (03/12/22 9:51 PM) Room air (03/12/22 7:31 PM) Room air (03/12/22 7:16 PM) Blood pressure sites Arm, left (03/12/22 9:51 PM) Arm, right (03/12/22 7:31 PM) Arm, right (03/12/22 7:16 PM) Temperature Route Oral (03/12/22 9:51 PM) Oral (03/12/22 7:16 PM) Oral (03/12/22 4:03 PM) Social History Social History Type Response Smoking Status Former smoker, quit more than 30 days ago entered on: 06/28/20 Sex Note * Madonna Hilario DO: PERFORM Event Display: Patient Education Leaflets Authored Date: [id number] Cellulitis ?? [id number] Cellulitis Cellulitis is an infection of the deep layers of skin. A break in the skin, such as a cut or scratch, can let bacteria under the skin. Cellulitis causes the affected skin to become red, swollen, warm, and sore. The reddened areas havea border you can see. An open sore may leak fluid (pus). You may have a fever, chills, and pain. Cellulitis is treated with antibiotics taken for 7 to 10 days. An open sore may be cleaned and covered with cool wet gauze. Symptoms should get better 1 to 2 days after treatment is started. Make sure to take all the antibiotics for the full number of days until they are gone. Keep taking the medicine even if your symptoms go away. If not treated, cellulitis can get into the bloodstream and lymph nodes. The infection can then spread throughout the body. This causes serious illness. Home care Follow these tips: ??? Limit the use of the part of your body with cellulitis.? If the infection is on your leg, keep your leg raised while sitting. This helps reduce swelling. ??? Take all of the antibiotic medicine exactly as directed until it is gone. Don't miss any doses, especially duringthe first 7 days. Finish taking all of the medicine even when your symptoms get better. ??? Keep the affected area clean and dry. ??? Wash your hands with soap and clean, running water before and after touching your skin. Anyone else who touches your skin should also wash his or her hands. Don't share towels. ?? Follow-up care Follow up with your healthcare provider, or as advised. If your infection doesn't go away after finishing the first antibiotic, your healthcare provider will prescribe a different one. ?? When to seek medical advice Call your healthcare provider right away if any of these occur: ??? Red areas that spread ??? Swelling or pain that gets worse ??? Fluid leaking from the skin (pus) ??? Fever higher of 100.4?? F (38.0?? C) or higher after 2 days on antibiotics ?? Last Reviewed Date: 2021 ?? 8427-3570 [employer]. All rights reserved. This information is not intended as a substitute for professional medical care. Always follow your healthcare professional's instructions. ?? Portable XR Chest Views * Abigail , PRASANNA S: TRANSCRIBE Tereso Tom MD: VERIFY Event Display: Result: Authored Date: [id number] Chest Portable Hx of Present Illness: pt found to have a wound on LLE on thursday, worsneing today. seen in ED yesterday had a scheduled appt for thursday but states pain too unbearable. CMS+; Reason: Shortness of Breath; Clinical Question(s): CHF COMPARISON: 06/03/2020 FINDINGS: Stable pacer leads. No acute cardiopulmonary process. IMPRESSION: No acute abnormality. WSN: [id number] Ordering Physician: Madonna Hilario Dictated By: Tereso Tom MD Dictated Date/Time: 03/12/22 4:10 pm Reviewed By: Tereso Tom MD Signed By: Tereso Tom MD Signed Date/Time: 03/12/22 4:10 pm Transcribed By: RAYMOND Transcribed Date/Time: 03/12/22 4:09 pm Patient Care team information Care Team Personnel Name: Florencio Saldana RN Position: [facility] ED RN W/OE and Tasks Member Role: Primary Care Nurse Name: Brooklyn Coyne NP Position: [facility] Associate Professional Member Role: Primary Care Nurse Address: Address: [address] [place] [address] Trauma and Acute Care Surgery [place], [place] [address] Name: Tatyana Cosme RN Position: [facility] RN Member Role: Primary Care Nurse Name: Chyna Duarte MD Position: [facility] Primary Care Physician Member Role: PCP Address: Address: [address] [place] [address]- Name: Blanca RNBre Position: [facility] ED RN W/OE and Tasks Member Role: Patient Care Provider Name: Kristine Otto Position: [facility] ED TA [facility] Member Role: Collections Rep Name: Lisa Case MD Position: [facility] ED Medicine MD Member Role: Admitting Physician Address: Address: [address] [place] [id number] Name: Madonna Hilario DO Position: [facility] Resident Member Role: ED Resident Address: Address: [address] [place] [address]- Care Team Related Persons Name: SHILO VALE Address: home [address] [place] [id number] Name: GIANCARLO BROOKS Address: [place] [address] Name: OLIVA VELOZ Address: home [address] [place] [address]
--- OUTSIDE RECORDS SUMMARY | 2023-01-14 15:40 | XMS_ITS | Continuity of Care Document ---
Author Name Unknown Organization [facility] Address [address] [place] [address]- Care Team Providers Care Plant Guard Name Role Phone Chyna Duarte MD Primary Care Physician [phone] [facility]counter [facility] Date(s): 12/02/19 - 01/01/[address] [address]- [facility] Allergies, Adverse Reactions, Alerts Substance [...] 16:40:37 EDT, Aerosol, Route to Pharmacy Electronically, [id number], [facility] Start Date: 10/04/18 Status: Ordered amLODIPine 5 mg oral tablet 5 mg, 1, tablet, By Mouth, Daily, # 90 tablet, Refills 3, Tot. Refills 3, Maintenance, 05/30/19 13:21:00 EST, Route to Pharmacy Electronically, [facility], 176, cm, 03/31/19 9:59:00 EST, [...] 0, Maintenance, use overnight and naps from [facility], 11/08/19 11:45:00 EDT, Compound, 176, cm, 09/23/19 [...] 12/07/19 16:59:00 EDT, Route to Pharmacy Electronically, [facility], 176, cm, 09/23/19 8:30:00 EDT, [...] EDT, Height, 129, kg, 05/29/18 0:31:00 EST, Dr[facility].. Start Date: 08/06/19 Status: Ordered HumaLOG KwikPen 100 units/mL injectable solution See Instructions, s/c inj TID before meals acc to scale: 1u 150-200; 3u 201-250; 5u 251-300; 7u 301-350; 9u 351-400; 11u 401-450; call MD for BG over 450, # 10 mL, 11 Refills, Maintenance, 06/22/19 23:05:00 EST, [facility], 176, cm,... Start Date: [...] 1 Refills, Maintenance, 09/07/19 17:07:00 EDT, Solution, [facility], 176, cm, 08/30/19 11:03:00 EDT, Height, [...] Com... Start Date: 05/08/16 Status: Ordered Pen [place], 31 G x 5 mm BD Ultra [...] and Radha, therapist, at [facility] in [place] Social History Social History Type Response Smoking Status Never smoker; Tobacc o user in household: No entered on: 05/25/15 Sex
--- OUTSIDE RECORDS SUMMARY | 2023-01-14 15:40 | XMS_ITS | Continuity of Care Document ---
Author Name Unknown Organization [facility] Address [address] [place] [address]- Care Team Providers Care Colorist Photography Name Role Phone Chyna Duarte MD Primary Care Physician [facility]counter [facility] Date(s): 12/14/20 - 01/13/21 [facility] [address] [place] [id number]- [place] Allergies, Adverse Reactions, Alerts Substance Reaction Severity [...] VIS given 10/2011 6Admin Note: VIS GIVEN [id number] 7Admin Note: VIS GIVEN 03/14/2008 8Admin Note: vis given 9Result Note: pt states he has previously had this vaccine Medications acetaminophen 325 mg oral tablet 975 mg, 3, tablet, By Mouth, Every 6 hours, PRN, # 120 tablet, Refills 0, Tot. Refills 0, Maintenance, as needed for pain, 08/06/19 0:18:00 EDT, Route to Pharmacy Electronically, [facility], 176, cm, 07/07/19 [...] 12:17:00 EDT, Aerosol, Route to Pharmacy Electronically, [id number], [facility], 176, cm, 11/22/20 11:05:00 EDT,... Start [...] use overnight and naps from [facility], 11/08/19 11:45:00 EDT, Compound, 176, cm, [...] each, 0 Refills, Maintenance, 07/11/20 9:19:00 EDT, [facility], Partial fill upon patient [...] 01/04/21 14:54:00 EDT, Route to Pharmacy Electronically, [facility], 176, cm, 11/22/20 11:05:00 EDT, Height,131.6, kg, 06/03/20 4:19:00 EST, Dry Weight Start Date: 01/04/21 Status: Ordered gabapentin 300 mg oral capsule 300 mg, 1, capsule, By Mouth, 3 times a day, # 45 capsule, Refills 0, Tot. Refills 0, Maintenance, 08/06/19 0:18:00 EDT, Route to Pharmacy Electronically, [facility], 176, cm, 07/07/19 [...] mL, 5 Refills, Maintenance, 11/08/20 7:18:00 EDT, [facility], 176, cm, 08/25... Start [...] 1 Refills, Maintenance, 06/28/20 16:38:00 EST, Solution, [facility], 176, cm, 06/28/20 13:04:00 [...] Com... Start Date: 05/08/16 Status: Ordered Pen [place], 31 G x 5 mm BD Ultra Fine III See Instructions, # 300 each, Refills 3, Tot. Refills 3, Maintenance, use with lantus and humalog as directed dx: e11.65, 05/06/16 15:47:30, Compound Start Date: 05/06/16 Stop Date: 05/01/17 Status: Ordered Readi-Cat 2 oral suspension See Instructions, take as directed, # 2 each, 0 Refills, Maintenance, 12/05/20 15:52:00 EDT, [facility], Partial fill upon patient request if [...] each, 0 Refills, Maintenance, 10/15/20 18:05:00 EDT, [facility], Partial fill upon patient [...] and Radha, therapist, at [facility] in [place] Social History Social History Type Response Smoking Status Former smoker, quit more than 30 days ago entered on: 06/28/20 Sex
--- OUTSIDE RECORDS SUMMARY | 2023-01-14 15:40 | XMS_ITS | Continuity of Care Document ---
Author Name Unknown Organization [facility] Address [address] [place] [address]- Care Team Providers Care Embossing Machine Operator Name Role Phone Chyna Duarte MD Primary Care Physician [facility] Date[facility]s): 08/15/19 - 08/22/[address] [address]- [facility] Attending Physician: Not on Staff, Attending MD Allergies, Adverse Reactions, Alerts Substance Reaction [...] VIS given 10/2011 6Admin Note: VIS GIVEN [id number] 7Admin Note: VIS GIVEN 03/14/2008 8Admin Note: [...] 16:40:37 EDT, Aerosol, Route to Pharmacy Electronically, [id number], [facility] Start Date: 10/04/18 Status: Ordered amLODIPine 5 mg oral tablet 5 mg, 1, tablet, By Mouth, Daily, # 90 tablet, Refills 3, Tot. Refills 3, Maintenance, 05/30/19 13:21:00 EST, Route to Pharmacy Electronically, [facility], 176, cm, 03/31/19 9:59:00 EST, Height, 129, kg, 05/29/18 0:31:00 EST, Dry Weight Start Date: 05/30/19 Status: Ordered atenolol 25 mg oral tablet 25 mg, 1, tablet, By Mouth, 2 times a day, # 180 tablet, Refills 3, Tot. Refills 3, Maintenance, 05/30/19 13:21:00 EST, Route to Pharmacy Electronically, [facility], 176, cm, 03/31/19 9:59:00 EST, [...] 0, Maintenance, use overnight and naps from [facility], 07/26/18 12:52:33 EDT, Compound Start Date: 07/26/18 [...] tablet, Refills 0, Tot. Refills 0, Maintenance, 07/01/19 8:58:00 EST, Route to Pharmacy Electronically, [facility], 176, cm, 06/23/19 13:14:00 EST, Height, 129,kg, 05/29/18 0:31:00 EST, Dry Weight Start Date: 07/01/19 Stop Date: 09/29/19 Status: Ordered gabapentin 300 mg oral capsule [...] mL, 11 Refills, Maintenance, 06/22/19 23:05:00 EST, [facility], 176, cm,... Start Date: [...] bedtime, # 30 mL, 3 Refills, Maintenance, 07/07/19 10:23:00 EDT, Solution, [facility], 176, cm, 07/07/19 10:15:00 EDT, Height, 129, kg, 05/29/18 0:31:00 EST, Dry Weight Start Date: 07/07/19 Stop Date: 07/01/20 Status: Ordered levothyroxine 150 mcg (0.15 mg) [...] Dry Weight Start Date: 08/15/19 Status: Ordered oxyCODONE 5 mg oral capsule 1 capsule = 5 mg, By Mouth, Every 6 hours, PRN for pain, # 20 capsule, 0 Refills, Maintenance, 08/06/19 0:18:00 EDT, Capsule, [facility], Partial fill upon patient request, 176, cm, 07/07/19 10:15:00 EDT, Height, 129, kg, 05/29/18 0:31:00 E... Start Date: 08/06/19 Status: Ordered PAP Supplies - Mask, Tubing, Filters, Head Gear, Chin Strap, and Water Chamber PAP Supplies - Mask, Tubing, Filters, Head Gear, Chin Strap, and Water Chamber, See Instructions, #1 each, Refills 12, Tot. Refills 12, Maintenance, to be used with CPAP machine for dx: SANJIV G47.30 length of need: 99=lifetime, 05/08/16 13:26:55, Com... Start Date: 05/08/16 Status: Ordered Pen [place], 31 G x 5 mm BD Ultra Fine III See Instructions, # 300 each, Refills 3, Tot. Refills 3, Maintenance, use with lantus and humalog as directed dx: e11.65, 05/06/16 15:47:30, Compound Start Date: 05/06/16 Stop Date: 05/01/17 Status: Ordered rOPINIRole 0.5 mg oral tablet 1 tablet = 0.5 mg, By Mouth, Daily at bedtime, # 90 tablet, 1 Refills, Maintenance, 05/02/19 15:42:00 EST, Tablet, [facility], 176, cm, 03/31/19 9:59:00 EST, Height, 129, kg, 05/29/18 0:31:00 EST, Dry Weight Start Date: 05/02/19 Status: Ordered sertraline 100 mg oral tablet [...] and Radha, therapist, at [facility] in [place] Social History Social History Type Response Smoking Status Never smoker; Tobacc o user in household: No entered on: 05/25/15 Sex
--- OUTSIDE RECORDS SUMMARY | 2023-01-14 15:40 | XMS_ITS | Continuity of Care Document ---
Author Name Unknown Organization [facility] Address [address] [place] [address]- Care Team Providers Care Staking Engineer Name Role Phone Chyna Duarte MD Primary Care Physician [phone] Encounter [facility] [id number] Date(s): 04/01/21 - 05/01/[address] [address]- Attending Physician: Admtr, Ar8 Allergies, Adverse Reactions, [...] influenza virus vaccine, inactivated 2 03/31/19 Gi alana influenza virus vaccine, inactivated 02/10/18 Give n influenza virus vaccine, inactivated 03/05/17 Give n influenza virus vaccine, inactivated 02/08/16 Give n influenza virus vaccine, inactivated 02/28/15 Give n influenza virus vaccine, inactivated 01/25/14 Give n influenza virus vaccine, inactivated 01/10/13 Give n influenza virus vaccine, inactivated 3 01/28/10 Gi laana influenza virus vaccine, inactivated 4 01/25/09 Gi [...] n Patient Refuses 1Result Comment: DILUENT LOT#: [id number] EXP: 08/2022 MFG: FRESENSIUS 2Early/Late Reason: Other : GIVEN 03/31/19 DURING VISIT 3Admin Note: VIS 12/04/2009 4Admin Note: VIS GIVEN 12/05/2008 5Admin Note: vis given 6Admin Note: VIS given 10/2011 7Admin Note: VIS GIVEN [id number] 8Admin Note: VIS GIVEN 03/14/2008 9Admin Note: vis given 10Result Note: pt states he has previously had this vaccine Medications acetaminophen 325 mg oral tablet 975 mg, 3, tablet, By Mouth, Every 6 hours, PRN, # 120 tablet, Refills 0, Tot. Refills 0, Maintenance, as needed for pain, 08/06/19 0:18:00 EDT, Route to Pharmacy Electronically, [facility], 176, cm, 07/07/19 [...] 12:17:00 EDT, Aerosol, Route to Pharmacy Electronically, [id number], [facility], 176, cm, 11/22/20 11:05:00 EDT,... Start [...] Maintenance, use overnight and naps from [facility], 11/08/19 11:45:00 EDT, Compound, 176, cm, 09/23/19 [...] each, 0 Refills, Maintenance, 07/11/20 9:19:00 EDT, [facility], Partial fill upon [...] 01/04/21 14:54:00 EDT, Route to Pharmacy Electronically, [facility], 176, cm, 11/22/20 11:05:00 EDT, Height,131.6, kg, 06/03/20 4:19:00 EST, Dry Weight Start Date: 01/04/21 Status: Ordered gabapentin 300 mg oral capsule 300 mg, 1, capsule, By Mouth, 3 times a day, # 45 capsule, Refills 0, Tot. Refills 0, Maintenance, 08/06/19 0:18:00 EDT, Route to Pharmacy Electronically, [facility], 176, cm, 07/07/19 [...] mL, 5 Refills, Maintenance, 11/08/20 7:18:00 EDT, [facility], 176, cm, 08/25... Start Date: 11/08/20 [...] 70 units, Subcutaneous Injection, Daily at bedtime, Labs due. Orders in system. Please go to any [facility] lab., # 75 mL, 0 Refills, Maintenance, 04/09/21 13:49:00 EST, Solution, [facility], 176, cm, 02/07/21 8:49:00 EDT, Height, 131.6,... Start Date: 04/09/21 Stop Date: 07/08/21 Status: Ordered levothyroxine 150 mcg (0.15 mg) [...] Com... Start Date: 05/08/16 Status: Ordered Pen [place], 31 G x 5 mm BD Ultra Fine III See Instructions, # 300 each, Refills 3, Tot. Refills 3, Maintenance, use with lantus and humalog as directed dx: e11.65, 05/06/16 15:47:30, Compound Start Date: 05/06/16 Stop Date: 05/01/17 Status: Ordered Readi-Cat 2 oral suspension See Instructions, take as directed, # 2 each, 0 Refills, Maintenance, 12/05/20 15:52:00 EDT, [facility] 3, Partial fill upon patient [...] each, 0 Refills, Maintenance, 10/15/20 18:05:00 EDT, [facility] 3, Partial fill upon patient [...] and Radha, therapist, at [facility] in [place] Social History Social History Type Response Smoking Status Former smoker, quit more than 30 days ago entered on: 06/28/20 Sex
--- OUTSIDE RECORDS SUMMARY | 2023-01-14 15:41 | XMS_ITS | Continuity of Care Document ---
Author Name Unknown Organization [facility] Address [address] [place] [address]- Care Team Providers Care Statistical Modeler Name Role Phone Gerald GARRISON, Chyna Primary Care Physician [facility] Date[facility]): 04/[facility]/20 - 05/02/[address] [address]- Allergies, Adverse Reactions, Alerts Substance Reaction Severity [...] VIS given 10/2011 6Admin Note: VIS GIVEN [id number] 7Admin Note: VIS GIVEN 03/14/2008 8Admin Note: [...] 16:40:37 EDT, Aerosol, Route to Pharmacy Electronically, [id number], [facility] Start Date: 10/04/18 Status: Ordered amLODIPine 5 mg oral tablet 5 mg, 1, tablet, By Mouth, Daily, # 90 tablet, Refills 3, Tot. Refills 3, Maintenance, 05/30/19 13:21:00 EST, Route to Pharmacy Electronically, [facility], 176, cm, 03/31/19 9:59:00 EST, Height, 129, kg, 05/29/18 0:31:00 EST, Dry Weight Start Date: 05/30/19 Status: Ordered atenolol 25 mg oral tablet 25 mg, 1, tablet, By Mouth, 2 times a day, # 180 tablet, Refills 3, Tot. Refills 3, Maintenance, 05/30/19 13:21:00 EST, Route to Pharmacy Electronically, [facility], 176, cm, 03/31/19 9:59:00 EST, [...] Maintenance, use overnight and naps from [facility], 11/08/19 11:45:00 EDT, Compound, 176, cm, [...] 12/07/19 16:59:00 EDT, Route to Pharmacy Electronically, [facility], 176, cm, 09/23/19 8:30:00 EDT, [...] mL, 11 Refills, Maintenance, 06/22/19 23:05:00 EST, [facility], 176, cm,... Start [...] 1 Refills, Maintenance, 09/07/19 17:07:00 EDT, Solution, [facility], 176, cm, 08/30/19 11:03:00 EDT, [...] Com... Start Date: 05/08/16 Status: Ordered Pen [place], 31 G x 5 mm BD Ultra [...] and Radha, therapist, at [facility] in [place] Social History Social History Type Response Smoking Status Never smoker; Tobacc o user in household: No entered on: 05/25/15 Sex
--- OUTSIDE RECORDS SUMMARY | 2023-01-14 15:41 | XMS_ITS | Continuity of Care Document ---
Author Name Unknown Organization [facility] Address [address] [place] [address]- Care Team Providers Care International Specialist Name Role Phone Chyna Duarte MD Primary Care Physician [phone] [facility]counter [facility] Date[facility]s): 04/18/21 - 05/18/[address] [address]- Allergies, Adverse Reactions, Alerts No Known Allergies [...] n Patient Refuses 1Result Comment: DILUENT LOT#: [id number] EXP: 08/2022 MFG: FRESENSIUS 2Early/Late Reason: Other : GIVEN 03/31/19 DURING VISIT 3Admin Note: VIS 12/04/2009 4Admin Note: VIS GIVEN 12/05/2008 5Admin Note: vis given 6Admin Note: VIS given 10/2011 7Admin Note: VIS GIVEN [id number] 8Admin Note: VIS GIVEN 03/14/2008 9Admin Note: vis given 10Result Note: pt states he has previously had this vaccine Medications acetaminophen 325 mg oral tablet 975 mg, 3, tablet, By Mouth, Every 6 hours, PRN, # 120 tablet, Refills 0, Tot. Refills 0, Maintenance, as needed for pain, 08/06/19 0:18:00 EDT, Route to Pharmacy Electronically, [facility], 176, cm, 07/07/19 10:15:00 [...] 12:17:00 EDT, Aerosol, Route to Pharmacy Electronically, [id number], [facility], 176, cm, 11/22/20 11:05:00 EDT,... [...] 0, Maintenance, use overnight and naps from [facility], 11/08/19 11:45:00 EDT, Compound, [...] each, 0 Refills, Maintenance, 07/11/20 9:19:00 EDT, [facility], Partial fill upon patient request [...] 01/04/21 14:54:00 EDT, Route to Pharmacy Electronically, [facility], 176, cm, 11/22/20 11:05:00 EDT, Height,131.6, kg, 06/03/20 4:19:00 EST, Dry Weight Start Date: 01/04/21 Status: Ordered gabapentin 300 mg oral capsule 300 mg, 1, capsule, By Mouth, 3 times a day, # 45 capsule, Refills 0, Tot. Refills 0, Maintenance, 08/06/19 0:18:00 EDT, Route to Pharmacy Electronically, [facility], 176, cm, 07/07/19 10:15:00 EDT, Height, 129, kg, 05/29/18 0:31:00 EST, . Start Date: 08/06/19 Status: Ordered HumaLOG KwikPen 100 units/mL injectable solution See Instructions, s/c inj TID before meals acc to scale: 1u 150-200; 3u 201-250; 5u 251-300; 7u 301-350; 9u 351-400; 11u 401-450; call MD for BG over 450, # 10 mL, 5 Refills, Maintenance, 11/08/20 7:18:00 EDT, [facility], 176, cm, 08/25... Start Date: [...] Orders in system. Please go to any [facility] lab., # 75 mL, 0 Refills, Maintenance, 04/09/21 13:49:00 EST, Solution, [facility], 176, cm, 02/07/21 8:49:00 EDT, Height, [...] Com... Start Date: 05/08/16 Status: Ordered Pen [place], 31 G x 5 mm BD Ultra Fine III See Instructions, # 300 each, Refills 3, Tot. Refills 3, Maintenance, use with lantus and humalog as directed dx: e11.65, 05/06/16 15:47:30, Compound Start Date: 05/06/16 Stop Date: 05/01/17 Status: Ordered Readi-Cat 2 oral suspension See Instructions, take as directed, # 2 each, 0 Refills, Maintenance, 12/05/20 15:52:00 EDT, [facility], Partial fill upon patient request if [...] each, 0 Refills, Maintenance, 10/15/20 18:05:00 EDT, [facility], Partial fill upon patient request if [...] and Radha, therapist, at [facility] in [place] Social History Social History Type Response Smoking Status Former smoker, quit more than 30 days ago entered on: 06/28/20 Sex
--- OUTSIDE RECORDS SUMMARY | 2023-01-14 15:41 | XMS_ITS | Continuity of Care Document ---
Author Name Unknown Organization [facility] Address [address] [place] [address]- Care Team Providers Care Tire Maintenance Technician Name Role Phone Chyna Duarte MD Primary Care Physician [phone] [facility]counter [facility] Date[facility]s): 07/05/20 - 08/04/[address] [address]- Allergies, Adverse Reactions, Alerts Substance Reaction Severity [...] VIS given 10/2011 6Admin Note: VIS GIVEN [id number] 7Admin Note: VIS GIVEN 03/14/2008 8Admin Note: vis given 9Result Note: pt states he has previously had this vaccine Medications acetaminophen 325 mg oral tablet 975 mg, 3, tablet, By Mouth, Every 6 hours, PRN, # 120 tablet, Refills 0, Tot. Refills 0, Maintenance, as needed for pain, 08/06/19 0:18:00 EDT, Route to Pharmacy Electronically, [facility], 176, cm, 07/07/19 [...] 16:40:37 EDT, Aerosol, Route to Pharmacy Electronically, [id number], [facility] Start Date: 10/04/18 Status: [...] Maintenance, use overnight and naps from [facility], 11/08/19 11:45:00 EDT, Compound, 176, cm, 09/23/19 [...] each, 0 Refills, Maintenance, 07/11/20 9:19:00 EDT, [facility], Partial fill upon [...] 12/07/19 16:59:00 EDT, Route to Pharmacy Electronically, [facility], 176, cm, 09/23/19 8:30:00 EDT, Height, 129, kg, 05/29/18 0:31:00 EST, Dry Weight Start Date: 12/07/19 Status: Ordered gabapentin 300 mg oral capsule 300 mg, 1, capsule, By Mouth, 3 times a day, # 45 capsule, Refills 0, Tot. Refills 0, Maintenance, 08/06/19 0:18:00 EDT, Route to Pharmacy Electronically, [facility], 176, cm, 07/07/19 [...] mL, 11 Refills, Maintenance, 06/22/19 23:05:00 EST, [facility], 176, cm,... Start Date: [...] 1 Refills, Maintenance, 06/28/20 16:38:00 EST, Solution, [facility], 176, cm, 06/28/20 13:04:00 EST, Height, 131.6, kg, 06/03/20 4:19:00 EST, Dry Weight Start Date: 06/28/20 Stop Date: 12/25/20 Status: Ordered levothyroxine 150 mcg (0.15 mg) oral tablet 1 tablet, By Mouth, Daily, # 90 tablet, 3 Refills, Maintenance, 07/01/20 20:38:00 EST, [facility], 176, cm, 06/28/20 13:04:00 EST, Height, 131.6, [...] Com... Start Date: 05/08/16 Status: Ordered Pen [place], 31 G x 5 mm BD Ultra [...] Dr. Molina and Radha, [facility] [place] Social History Social History Type Response Smoking Status Former smoker, quit more than 30 days ago entered on: 06/28/20 Sex
--- OUTSIDE RECORDS SUMMARY | 2023-01-14 15:41 | XMS_ITS | Continuity of Care Document ---
Author Name Unknown Organization [facility] ter Address [address] [place] [address]- Care Team Providers Care Technical Business Analyst Name Role Phone Chyna Duarte MD Primary Care Physician [place] [facility] [place]05[place] - 05/12/[address] [address]- [facility] Attending Physician: Chyna Duarte MD Allergies, Adverse Reactions, [...] VIS given 10/2011 6Admin Note: VIS GIVEN [id number] 7Admin Note: VIS GIVEN 03/14/2008 8Admin Note: vis given 9Result Note: pt states he has previously had this vaccine Medications albuterol CFC free 90 mcg/inh inhalation aerosol 2, puffs, Inhalation, Every 6 hours, PRN, # 9 Gm, Refills 5, Tot. Refills 5, Maintenance, 10/04/18 16:40:37 EDT, Aerosol, Route to Pharmacy Electronically, [id number], [facility] Start Date: 10/04/18 Status: Ordered amLODIPine 5 mg oral tablet 5 mg, 1, tablet, By Mouth, Daily, # 90 tablet, Refills 1, Tot. Refills 1, Maintenance, 04/11/19 9:59:42 EST, Route to Pharmacy Electronically, [facility], 176, cm, 03/31/19 9:59:52 EST, Height, 129, kg, 05/29/18 0:31:25 EST, Dry Weight Start Date: 04/11/19 Status: Ordered atenolol 25 mg oral tablet 25 mg, 1, tablet, By Mouth, 2 times a day, # 180 tablet, Refills 3, Tot. Refills 3, Maintenance, 05/06/18 10:55:10 EST, Route to Pharmacy Electronically, [id number], [facility] Start Date: 05/06/18 Stop Date: 05/01/19 Status: Ordered atorvastatin 40 mg oral tablet 1 tablet = 40 mg, By Mouth, Daily, # 90 tablet, 1 Refills, Maintenance, 05/02/19 9:29:00 EST, Tablet, [facility], 176, cm, 03/31/19 9:59:00 EST, Height, 129, kg, 05/29/18 0:31:00 EST, Dry Weight Start Date: 05/02/19 Status: Ordered AutoBIPAP EPAPmin 10 IPAPmax 22 [...] Maintenance, 05/06/18 10:56:08 EST,Route to Pharmacy Electronically, [id number], [facility] Start Date: 05/06/18 Stop [...] Com... Start Date: 05/08/16 Status: Ordered Pen [place], 31 G x 5 mm BD Ultra [...] and Radha, therapist, at [facility] in [place] Social History Social History Type Response Smoking Status Never smoker; Tobacc o user in household: No entered on: 05/25/15 Sex
--- OUTSIDE RECORDS SUMMARY | 2023-01-14 15:41 | XMS_ITS | Continuity of Care Document ---
Author Name Unknown Organization [facility] Address [address] [place] [address]- Care Team Providers Care Director Funeral Name Role Phone Chyna Duarte MD Primary Care Physician [place] [facility] [place] 11/14/20 - 01/12/[address] [address]- Attending Physician: Chyna Duarte MD Admitting Physician: Chyna Duarte MD Allergies, Adverse Reactions, [...] VIS given 10/2011 6Admin Note: VIS GIVEN [id number] 7Admin Note: VIS GIVEN 03/14/2008 8Admin Note: vis given 9Result Note: pt states he has previously had this vaccine Medications acetaminophen 325 mg oral tablet 975 mg, 3, tablet, By Mouth, Every 6 hours, PRN, # 120 tablet, Refills 0, Tot. Refills 0, Maintenance, as needed for pain, 08/06/19 0:18:00 EDT, Route to Pharmacy Electronically, [facility], 176, cm, 07/07/19 10:15:00 [...] 12:17:00 EDT, Aerosol, Route to Pharmacy Electronically, [id number], [facility], 176, cm, 11/22/20 11:05:00 EDT,... Start [...] Maintenance, use overnight and naps from [facility], 11/08/19 11:45:00 EDT, Compound, 176, cm, [...] each, 0 Refills, Maintenance, 07/11/20 9:19:00 EDT, [facility], Partial fill upon patient [...] 01/04/21 14:54:00 EDT, Route to Pharmacy Electronically, [facility], 176, cm, 11/22/20 11:05:00 EDT, Height,131.6, kg, 06/03/20 4:19:00 EST, Dry Weight Start Date: 01/04/21 Status: Ordered gabapentin 300 mg oral capsule 300 mg, 1, capsule, By Mouth, 3 times a day, # 45 capsule, Refills 0, Tot. Refills 0, Maintenance, 08/06/19 0:18:00 EDT, Route to Pharmacy Electronically, [facility], 176, cm, 07/07/19 10:15:00 EDT, Height, 129, kg, 05/29/18 0:31:00 EST, . Start Date: 08/06/19 Status: Ordered HumaLOG KwikPen 100 units/mL injectable solution See Instructions, s/c inj TID before meals acc to scale: 1u 150-200; 3u 201-250; 5u 251-300; 7u 301-350; 9u 351-400; 11u 401-450; call MD for BG over 450, # 10 mL, 5 Refills, Maintenance, 11/08/20 7:18:00 EDT, [facility], 176, cm, 08/25... Start [...] 1 Refills, Maintenance, 06/28/20 16:38:00 EST, Solution, [facility], 176, cm, 06/28/20 13:04:00 [...] Com... Start Date: 05/08/16 Status: Ordered Pen [place], 31 G x 5 mm BD Ultra Fine III See Instructions, # 300 each, Refills 3, Tot. Refills 3, Maintenance, use with lantus and humalog as directed dx: e11.65, 05/06/16 15:47:30, Compound Start Date: 1/10/17 Stop Date: 05/01/17 Status: Ordered Readi-Cat 2 oral suspension See Instructions, take as directed, # 2 each, 0 Refills, Maintenance, 12/05/20 15:52:00 EDT, [facility], Partial fill upon patient [...] each, 0 Refills, Maintenance, 10/15/20 18:05:00 EDT, [facility], Partial fill upon patient [...] and Radha, therapist, at [facility] in [place] Social History Social History Type Response Smoking Status Former smoker, quit more than 30 days ago entered on: 06/28/20 Sex
--- OUTSIDE RECORDS SUMMARY | 2023-01-14 15:41 | XMS_ITS | Continuity of Care Document ---
Author Name Unknown Organization [facility] Address [address] [place] [address]- Care Team Providers Care Parks And Recreation Manager Name Role Phone Chyna Duarte MD Primary Care Physician [phone] [facility] Date[facility]s): 06/15/20 - 07/15/[address] [address]- Allergies, Adverse Reactions, Alerts Substance Reaction Severity [...] VIS given 10/2011 6Admin Note: VIS GIVEN [id number] 7Admin Note: VIS GIVEN 03/14/2008 8Admin Note: vis given 9Result Note: pt states he has previously had this vaccine Medications acetaminophen 325 mg oral tablet 975 mg, 3, tablet, By Mouth, Every 6 hours, PRN, # 120 tablet, Refills 0, Tot. Refills 0, Maintenance, as needed for pain, 08/06/19 0:18:00 EDT, Route to Pharmacy Electronically, [facility], 176, cm, 07/07/19 [...] 16:40:37 EDT, Aerosol, Route to Pharmacy Electronically, [id number], [facility] Start Date: 10/04/18 Status: [...] use overnight and naps from [facility], 11/08/19 11:45:00 EDT, Compound, 176, [...] each, 0 Refills, Maintenance, 07/11/20 9:19:00 EDT, [facility], Partial fill upon [...] 12/07/19 16:59:00 EDT, Route to Pharmacy Electronically, [facility], 176, cm, 09/23/19 8:30:00 EDT, Height, 129, kg, 05/29/18 0:31:00 EST, Dry Weight Start Date: 12/07/19 Status: Ordered gabapentin 300 mg oral capsule 300 mg, 1, capsule, By Mouth, 3 times a day, # 45 capsule, Refills 0, Tot. Refills 0, Maintenance, 08/06/19 0:18:00 EDT, Route to Pharmacy Electronically, [facility], 176, cm, 07/07/19 [...] mL, 11 Refills, Maintenance, 06/22/19 23:05:00 EST, [facility], 176, cm,... Start Date: [...] 1 Refills, Maintenance, 06/28/20 16:38:00 EST, Solution, [facility], 176, cm, 06/28/20 13:04:00 [...] Com... Start Date: 05/08/16 Status: Ordered Pen [place], 31 G x 5 mm BD Ultra [...] and Radha, therapist, at [facility] in [place] Social History Social History Type Response Smoking Status Former smoker, quit more than 30 days ago entered on: 06/28/20 Sex
--- OUTSIDE RECORDS SUMMARY | 2023-01-14 15:41 | XMS_ITS | Continuity of Care Document ---
Author Name Unknown Organization [facility] Address [address] [place] [address]- Care Team Providers Care Architecture Internship Name Role Phone Chyna Duarte MD Primary Care Physician [facility] Date(s): 06/29/20 - 07/29/[address] [address]- Allergies, Adverse Reactions, Alerts Substance Reaction Severity [...] VIS given 10/2011 6Admin Note: VIS GIVEN [id number] 7Admin Note: VIS GIVEN 03/14/2008 8Admin Note: vis given 9Result Note: pt states he has previously had this vaccine Medications acetaminophen 325 mg oral tablet 975 mg, 3, tablet, By Mouth, Every 6 hours, PRN, # 120 tablet, Refills 0, Tot. Refills 0, Maintenance, as needed for pain, 08/06/19 0:18:00 EDT, Route to Pharmacy Electronically, [facility], 176, cm, 07/07/19 10:15:00 [...] 16:40:37 EDT, Aerosol, Route to Pharmacy Electronically, [id number], [facility] Start Date: 10/04/18 Status: [...] Maintenance, use overnight and naps from [facility], 11/08/19 11:45:00 EDT, Compound, 176, cm, [...] each, 0 Refills, Maintenance, 07/11/20 9:19:00 EDT, [facility], Partial fill upon patient [...] 12/07/19 16:59:00 EDT, Route to Pharmacy Electronically, [facility], 176, cm, 09/23/19 8:30:00 EDT, Height, 129, kg, 05/29/18 0:31:00 EST, Dry Weight Start Date: 12/07/19 Status: Ordered gabapentin 300 mg oral capsule 300 mg, 1, capsule, By Mouth, 3 times a day, # 45 capsule, Refills 0, Tot. Refills 0, Maintenance, 08/06/19 0:18:00 EDT, Route to Pharmacy Electronically, [facility], 176, cm, 07/07/19 10:15:00 EDT, Height, 129, kg, 05/29/18 0:31:00 EST, . Start Date: 08/06/19 Status: Ordered HumaLOG KwikPen 100 units/mL injectable solution See Instructions, s/c inj TID before meals acc to scale: 1u 150-200; 3u 201-250; 5u 251-300; 7u 301-350; 9u 351-400; 11u 401-450; call MD for BG over 450, # 10 mL, 11 Refills, Maintenance, 06/22/19 23:05:00 EST, [facility], 176, cm,... Start Date: 06/22/19 [...] 1 Refills, Maintenance, 06/28/20 16:38:00 EST, Solution, [facility], 176, cm, 06/28/20 13:04:00 EST, [...] Com... Start Date: 05/08/16 Status: Ordered Pen [place], 31 G x 5 mm BD Ultra [...] and Radha, therapist, at [facility] in [place] Social History Social History Type Response Smoking Status Former smoker, quit more than 30 days ago entered on: 06/28/20 Sex
--- OUTSIDE RECORDS SUMMARY | 2023-01-14 15:41 | XMS_ITS | Continuity of Care Document ---
Author Name Unknown Organization [facility] Address [address] [place] [address]- Care Team Providers Care Port Warden Name Role Phone Chyna Duarte MD Primary Care Physician [facility] Date[facility]s): 07/07/19 - 07/17/[address] [address]- [facility] Attending Physician: Admtr, Pop Allergies, Adverse Reactions, Alerts Substance Reaction Severity [...] VIS given 10/2011 6Admin Note: VIS GIVEN [phone] 7Admin Note: VIS GIVEN 03/14/2008 8Admin Note: vis given 9Result Note: pt states he has previously had this vaccine Medications albuterol CFC free 90 mcg/inh inhalation aerosol 2, puffs, Inhalation, Every 6 hours, PRN, # 9 Gm, Refills 5, Tot. Refills 5, Maintenance, 10/04/18 16:40:37 EDT, Aerosol, Route to Pharmacy Electronically, [id number], [facility] Start Date: 10/04/18 Status: Ordered amLODIPine 5 mg oral tablet 5 mg, 1, tablet, By Mouth, Daily, # 90 tablet, Refills 3, Tot. Refills 3, Maintenance, 05/30/19 13:21:00 EST, Route to Pharmacy Electronically, [facility], 176, cm, 03/31/19 9:59:00 EST, Height, 129, kg, 05/29/18 0:31:00 EST, Dry Weight Start Date: 05/30/19 Status: Ordered atenolol 25 mg oral tablet 25 mg, 1, tablet, By Mouth, 2 times a day, # 180 tablet, Refills 3, Tot. Refills 3, Maintenance, 05/30/19 13:21:00 EST, Route to Pharmacy Electronically, [facility], 176, cm, 03/31/19 9:59:00 EST, [...] 07/01/19 8:58:00 EST, Route to Pharmacy Electronically, [facility], 176, cm, 06/23/19 13:14:00 EST, Height, 129,kg, 05/29/18 0:31:00 EST, Dry Weight Start Date: 07/01/19 Stop Date: 09/29/19 Status: Ordered HumaLOG KwikPen 100 units/mL injectable solution See Instructions, s/c inj TID before meals acc to scale: 1u 150-200; 3u 201-250; 5u 251-300; 7u 301-350; 9u 351-400; 11u 401-450; call MD for BG over 450, # 10 mL, 11 Refills, Maintenance, 06/22/19 23:05:00 EST, [facility], 176, cm,... Start Date: 06/22/19 Status: [...] 3 Refills, Maintenance, 07/07/19 10:23:00 EDT, Solution, [facility], 176, cm, 07/07/19 10:15:00 EDT, Height, [...] Com... Start Date: 05/08/16 Status: Ordered Pen [place], 31 G x 5 mm BD Ultra [...] and Radha, therapist, at [facility] in [place] Social History Social History Type Response Smoking Status Never smoker; Tobacc o user in household: No entered on: 1/29/16 Sex
--- OUTSIDE RECORDS SUMMARY | 2023-01-14 15:41 | XMS_ITS | Continuity of Care Document ---
Author Name Unknown Organization [facility] Address [address] [place] [address]- Care Team Providers Care Senior Drafter Name Role Phone Chyna Duarte MD Primary Care Physician [facility] Date[facility]s): 11/04/19 - 12/04/[address] [address]- [facility] Allergies, Adverse Reactions, [...] 08/06/19 0:18:00 EDT, Route to Pharmacy Electronically, [facility], 176, cm, 07/07/19 10:15:00 EDT, Height, 129, kg,... Start Date: 08/06/19 Status: Ordered albuterol CFC free 90 mcg/inh inhalation aerosol 2, puffs, Inhalation, Every 6 hours, PRN, # 9 Gm, Refills 5, Tot. Refills 5, Maintenance, 10/04/18 16:40:37 EDT, Aerosol, Route to Pharmacy Electronically, [id number], [facility] Start Date: 10/04/18 Status: Ordered amLODIPine 5 mg oral tablet 5 mg, 1, tablet, By Mouth, Daily, # 90 tablet, Refills 3, Tot. Refills 3, Maintenance, 05/30/19 13:21:00 EST, Route to Pharmacy Electronically, [facility], 176, cm, 03/31/19 9:59:00 EST, [...] 0, Maintenance, use overnight and naps from [facility], 11/08/19 11:45:00 EDT, Compound, 176, cm, 09/23/19 [...] 09/26/19 9:42:00 EDT, Route to Pharmacy Electronically, [facility], 176, cm, 09/23/19 8:30:00 EDT, Height, 129, kg, 05/29/18 0:31:00 EST, Dry Weight Start Date: 09/26/19 Stop Date: 12/25/19 Status: Ordered gabapentin 300 mg oral capsule 300 mg, 1, capsule, By Mouth, 3 times a day, # 45 capsule, Refills 0, Tot. Refills 0, Maintenance, 08/06/19 0:18:00 EDT, Route to Pharmacy Electronically, [facility], 176, cm, 07/07/19 [...] 08/06/19 0:18:00 EDT, Route to Pharmacy Electronically, [facility], 176, cm, 07/07/19 [...] 1 Refills, Maintenance, 09/07/19 17:07:00 EDT, Solution, [facility], 176, cm, 08/30/19 11:03:00 EDT, [...] Com... Start Date: 05/08/16 Status: Ordered Pen [place], 31 G x 5 mm BD Ultra [...] Dr. Molina and Radha, therapist[facility] [place] Social History Social History Type Response Smoking Status Never smoker; Tobacc o user in household: No entered on: 05/25/15 Sex
--- OUTSIDE RECORDS SUMMARY | 2023-01-14 15:41 | XMS_ITS | Continuity of Care Document ---
Author Name Unknown Organization [facility] Address [address] [place] [address]- Care Team Providers Care Datapower Consultant Name Role Phone Chyna Duarte MD Primary Care Physician [phone] [facility] - 12/11/[address] [address]- [facility] Allergies, Adverse Reactions, Alerts Substance [...] 16:40:37 EDT, Aerosol, Route to Pharmacy Electronically, [id number], [facility] Start Date: 10/04/18 Status: Ordered amLODIPine 5 mg oral tablet 5 mg, 1, tablet, By Mouth, Daily, # 90 tablet, Refills 3, Tot. Refills 3, Maintenance, 05/30/19 13:21:00 EST, Route to Pharmacy Electronically, [facility], 176, cm, 03/31/19 9:59:00 EST, [...] use overnight and naps from [facility], 11/08/19 11:45:00 EDT, Compound, 176, cm, [...] 12/07/19 16:59:00 EDT, Route to Pharmacy Electronically, [facility], 176, cm, 09/23/19 8:30:00 EDT, [...] EDT, Height, 129, kg, 05/29/18 0:31:00 EST, DrFranco. Start Date: 08/06/19 Status: Ordered HumaLOG KwikPen 100 units/mL injectable solution See Instructions, s/c inj TID before meals acc to scale: 1u 150-200; 3u 201-250; 5u 251-300; 7u 301-350; 9u 351-400; 11u 401-450; call MD for BG over 450, # 10 mL, 11 Refills, Maintenance, 06/22/19 23:05:00 EST, [facility], 176, cm,... Start Date: [...] 1 Refills, Maintenance, 09/07/19 17:07:00 EDT, Solution, [facility], 176, cm, 08/30/19 11:03:00 EDT, [...] Com... Start Date: 05/08/16 Status: Ordered Pen [place], 31 G x 5 mm BD Ultra [...] and Radha, therapist, at [facility] in [place] Social History Social History Type Response Smoking Status Never smoker; Tobacc o user in household: No entered on: 05/25/15 Sex
--- OUTSIDE RECORDS SUMMARY | 2023-01-14 15:41 | XMS_ITS | Continuity of Care Document ---
Author Name Unknown Organization [facility] Address [address] [place] [address]- Care Team Providers Care Meat Market Manager Name Role Phone Chyna Duarte MD Primary Care Physician [facility]): 08/02/20 - 09/01/20 [facility] [address] [place] [address]- Attending Physician: Pop Kaye Admitting Physician: Pop Kaye Referring Physician: AdmtrPop Allergies, Adverse Reactions, Alerts Substance Reaction Severity [...] VIS given 10/2011 6Admin Note: VIS GIVEN [id number] 7Admin Note: VIS GIVEN 03/14/2008 8Admin Note: [...] 16:40:37 EDT, Aerosol, Route to Pharmacy Electronically, [id number], [facility] Start Date: 10/04/18 Status: [...] 0, Maintenance, use overnight and naps from [facility], 11/08/19 11:45:00 EDT, Compound, 176, [...] each, 0 Refills, Maintenance, 07/11/20 9:19:00 EDT, [facility], Partial fill upon patient request [...] 12/07/19 16:59:00 EDT, Route to Pharmacy Electronically, [facility], 176, cm, 09/23/19 8:30:00 EDT, [...] mL, 11 Refills, Maintenance, 06/22/19 23:05:00 EST, [facility], 176, cm,... Start Date: [...] Com... Start Date: 05/08/16 Status: Ordered Pen [place], 31 G x 5 mm BD Ultra [...] and Radha, therapist, at [facility] in [place] Social History Social History Type Response Smoking Status Former smoker, quit more than 30 days ago entered on: 06/28/20 Sex
--- OUTSIDE RECORDS SUMMARY | 2023-01-14 15:41 | XMS_ITS | Continuity of Care Document ---
Author Name Unknown Organization [facility] Address [address] [place] [address]- Care Team Providers Care Management Expert Name Role Phone Chyna Duarte MD Primary Care Physician [facility]s): 07/31/20 - 08/30/[address] [address]- Allergies, Adverse Reactions, Alerts Substance Reaction Severity [...] VIS given 10/2011 6Admin Note: VIS GIVEN [id number] 7Admin Note: VIS GIVEN 03/14/2008 8Admin Note: vis given 9Result Note: pt states he has previously had this vaccine Medications acetaminophen 325 mg oral tablet 975 mg, 3, tablet, By Mouth, Every 6 hours, PRN, # 120 tablet, Refills 0, Tot. Refills 0, Maintenance, as needed for pain, 08/06/19 0:18:00 EDT, Route to Pharmacy Electronically, [facility], 176, cm, 07/07/19 [...] 16:40:37 EDT, Aerosol, Route to Pharmacy Electronically, [id number], [facility] Start Date: 10/04/18 Status: [...] use overnight and naps from [facility], 11/08/19 11:45:00 EDT, Compound, 176, cm, 09/23/19 [...] each, 0 Refills, Maintenance, 07/11/20 9:19:00 EDT, [facility], Partial fill upon [...] 12/07/19 16:59:00 EDT, Route to Pharmacy Electronically, [facility], 176, cm, 09/23/19 8:30:00 EDT, Height, 129, kg, 05/29/18 0:31:00 EST, Dry Weight Start Date: 12/07/19 Status: Ordered gabapentin 300 mg oral capsule 300 mg, 1, capsule, By Mouth, 3 times a day, # 45 capsule, Refills 0, Tot. Refills 0, Maintenance, 08/06/19 0:18:00 EDT, Route to Pharmacy Electronically, [facility], 176, cm, 07/07/19 [...] mL, 11 Refills, Maintenance, 06/22/19 23:05:00 EST, [facility], 176, cm,... Start Date: [...] 1 Refills, Maintenance, 06/28/20 16:38:00 EST, Solution, [facility], 176, cm, 06/28/20 13:04:00 [...] Com... Start Date: 05/08/16 Status: Ordered Pen [place], 31 G x 5 mm BD Ultra [...] and Radha, therapist, at [facility] in [place] Social History Social History Type Response Smoking Status Former smoker, quit more than 30 days ago entered on: 06/28/20 Sex
--- OUTSIDE RECORDS SUMMARY | 2023-01-14 15:41 | XMS_ITS | Continuity of Care Document ---
Author Name Unknown Organization [facility] Address [address] [place] [address]- Care Team Providers Care Corporate Law Assistant Name Role Phone Chyna Duarte MD Primary Care Physician [facility]): 08/02/20 - 09/01/[address] [address]- Allergies, Adverse Reactions, Alerts Substance Reaction Severity [...] VIS given 10/2011 6Admin Note: VIS GIVEN [id number] 7Admin Note: VIS GIVEN 03/14/2008 8Admin Note: vis given 9Result Note: pt states he has previously had this vaccine Medications acetaminophen 325 mg oral tablet 975 mg, 3, tablet, By Mouth, Every 6 hours, PRN, # 120 tablet, Refills 0, Tot. Refills 0, Maintenance, as needed for pain, 08/06/19 0:18:00 EDT, Route to Pharmacy Electronically, [facility], 176, cm, 07/07/19 10:15:00 [...] 16:40:37 EDT, Aerosol, Route to Pharmacy Electronically, [id number], [facility] Start Date: 10/04/18 Status: [...] 0, Maintenance, use overnight and naps from [facility], 11/08/19 11:45:00 EDT, Compound, 176, cm, 09/23/19 [...] each, 0 Refills, Maintenance, 07/11/20 9:19:00 EDT, [facility], Partial fill upon patient [...] 12/07/19 16:59:00 EDT, Route to Pharmacy Electronically, [facility], 176, cm, 09/23/19 8:30:00 EDT, Height, 129, kg, 05/29/18 0:31:00 EST, Dry Weight Start Date: 12/07/19 Status: Ordered gabapentin 300 mg oral capsule 300 mg, 1, capsule, By Mouth, 3 times a day, # 45 capsule, Refills 0, Tot. Refills 0, Maintenance, 08/06/19 0:18:00 EDT, Route to Pharmacy Electronically, [facility], 176, cm, 07/07/19 10:15:00 [...] Com... Start Date: 05/08/16 Status: Ordered Pen [place], 31 G x 5 mm BD Ultra [...] and Radha, therapist, at [facility] in [place] Social History Social History Type Response Smoking Status Former smoker, quit more than 30 days ago entered on: 06/28/20 Sex
--- OUTSIDE RECORDS SUMMARY | 2023-01-14 15:41 | XMS_ITS | Continuity of Care Document ---
Author Name Unknown Organization [facility] Address [address] [place] [address]- Care Team Providers Care Ice Platform Supervisor Name Role Phone Gerald GARRISON, Chyna Primary Care Physician [facility] Date(s): 03/14/22 - 04/13/[address] [address]- Allergies, Adverse Reactions, Alerts No Known Allergies Immunizations Given and Recorded Vaccine Date Status Refusal Reason [id number] 12y+ bivalent booster vax 03/11/22 Given influenza [...] vaccine, inactivated 03/07/02 Give n SARS-CoV-2 mRNA ([id number]) vax 08/29/21 Given pneumococcal 23-valent vaccine 06/06/21 [...] Note: vis given 5Result Comment: DILUENT LOT#: [id number] EXP: 08/2022 MFG: FRESENSIUS 6Admin Note: VIS given 10/2011 7Admin Note: VIS GIVEN [id number] 8Admin Note: VIS GIVEN 03/14/2008 9Admin Note: vis given 10Result Note: pt states he has previously had this vaccine Medications acetaminophen 325 mg oral tablet 975 mg, 3, tablet, By Mouth, Every 6 hours, PRN, # 120 tablet, Refills 0, Tot. Refills 0, Maintenance, as needed for pain, 08/06/19 0:18:00 EDT, Route to Pharmacy Electronically, [facility], 176, cm, 07/07/19 [...] Maintenance, 01/15/22 14:49:00 EDT, [facility]), 176, cm, 01/15/22 10:10:00 EDT, Height, 131.6, kg, 06/03/20 4:19:00 EST, Dry Weight Start Date: 01/15/22 Status: Ordered atenolol 25 mg oral tablet 1, tablet, By Mouth, 2 times a day, # 180 tablet, Refills 3, Maintenance, 12/31/21 14:27:00 EDT, Route to Pharmacy Electronically, [facility] ([facility]), 176, cm, 08/29/21 9:11:00 EDT, [...] 0 Refills, Maintenance, 03/17/22 13:55:00 EST, Gel, [facility], Partial fill upon patient request [...] 12/31/21 14:28:00 EDT, Route to Pharmacy Electronically, [facility]), 176, cm, 08/29/21 9:11:00 EDT, Height, 131.6, kg, 06/03/20 4:19:00 EST, Dry Weight Start Date: 12/31/21 Status: Ordered gabapentin 300 mg oral capsule 300 mg, 1, capsule, By Mouth, 3 times a day, # 45 capsule, Refills 0, Tot. Refills 0, Maintenance, 08/06/19 0:18:00 EDT, Route to Pharmacy Electronically, [facility], 176, cm, 07/07/19 [...] mL, 3 Refills, Maintenance, 01/14/22 16:55:00 EDT, [facility], 176, cm, ... Start Date: 01/14/22 [...] 3 Refills, Maintenance, 01/14/22 16:55:00 EDT, Solution, [facility] 3, 176, cm, 08/29/21 9:11:00 [...] Gm, 1 Refills, Maintenance, 03/19/2211:23:00 EST, Ointment, [facility], Partial fill upon patient request [...] capsule, 3 Refills, Maintenance, 07/09/20 16:32:00 EDT, [facility], 176, cm, 06/28/20 13:04:00 EST, [...] Com... Start Date: 05/08/16 Status: Ordered Pen [place], 31 G x 5 mm BD Ultra Fine III See Instructions, # 300 each, Refills 3, Tot. Refills 3, Maintenance, use with lantus and humalog as directed dx: e11.65, 05/06/16 15:47:30, Compound Start Date: 05/06/16 Stop Date: 05/01/17 Status: Ordered Readi-Cat 2 oral suspension See Instructions, take as directed, # 2 each, 0 Refills, Maintenance, 12/05/20 15:52:00 EDT, [facility], Partial fill upon patient request if the prescription is for a schedule II opioid drug., take as directed, 176, cm, 11/22/20 11:05:0... Start Date: 12/05/20 Status: Ordered rOPINIRole 0.5 mg oral tablet 1 tablet, By Mouth, Daily at bedtime, # 90 tablet, 3 Refills, Maintenance, 04/01/22 15:34:00 EST, [facility]), 176, cm, 03/24/22 14:42:00 EST, [...] each, 0 Refills, Maintenance, 10/15/20 18:05:00 EDT, [facility], Partial fill upon patient request [...] FIT (fecal immunochemical test) Confirmed Active Suspected [place] disease Confirmed Active Goal-TO SURVIVE THIS YEAR [...] and Giancarlo, therapist, at [facility] in [place] Social History Social History Type Response Smoking Status Former smoker; Other : qiut 13 years; entered on: 05/24/14 Sex Patient Care team information Care Team Personnel Name: Florencio Saldana RN Position: [facility] ED RN W/OE and Tasks Member Role: Primary Care Nurse Name: Doretha WALTON, [place] Position: [facility] Associate Professional Member Role: Primary Care Nurse Address: Address: [address] [place] [address] Trauma and [place] [address]- Name: Tatyana Cosme RN Position: [facility] RN Member Role: Primary Care Nurse Name: Chyna Duarte MD Position: [facility] Primary Care Physician Member Role: PCP Address: Address: [address] [place] [address]- Care Team Related Persons Name: SHILO VALE Address: home [address] [address] Name: GIANCARLO BROOKS Address: [place] [address] Name: OLIVA VELOZ Address: home [address] [place] [address]
--- OUTSIDE RECORDS SUMMARY | 2023-01-14 15:41 | XMS_ITS | Continuity of Care Document ---
Author Name Unknown Organization [facility] Address [address] [place] [address]- Care Team Providers Care Radiology Technologist Name Role Phone Gerald GARRISON, Chyna Primary Care Physician [facility]): 03/29/20 - 04/28/[address] [address]- Allergies, Adverse Reactions, Alerts Substance Reaction Severity [...] 6 01/05/12 Given Influenza Vaccine (oldterm) 7 10/17/11 Given Diphth-Tetanus Toxoids Adsorbed(oldterm) 8 01/25/09 Given [...] VIS given 10/2011 6Admin Note: VIS GIVEN [id number] 7Admin Note: VIS GIVEN 03/14/2008 8Admin Note: [...] 16:40:37 EDT, Aerosol, Route to Pharmacy Electronically, [id number], [facility] Start Date: 10/04/18 Status: Ordered amLODIPine 5 mg oral tablet 5 mg, 1, tablet, By Mouth, Daily, # 90 tablet, Refills 3, Tot. Refills 3, Maintenance, 05/30/19 13:21:00 EST, Route to Pharmacy Electronically, [facility], 176, cm, 03/31/19 9:59:00 EST, Height, 129, kg, 05/29/18 0:31:00 EST, Dry Weight Start Date: 05/30/19 Status: Ordered atenolol 25 mg oral tablet 25 mg, 1, tablet, By Mouth, 2 times a day, # 180 tablet, Refills 3, Tot. Refills 3, Maintenance, 05/30/19 13:21:00 EST, Route to Pharmacy Electronically, [facility], 176, cm, 03/31/19 9:59:00 EST, [...] 12/07/19 16:59:00 EDT, Route to Pharmacy Electronically, [facility], 176, cm, 09/23/19 8:30:00 EDT, [...] mL, 11 Refills, Maintenance, 06/22/19 23:05:00 EST, [facility], 176, cm,... Start Date: [...] 1 Refills, Maintenance, 09/07/19 17:07:00 EDT, Solution, [facility], 176, cm, 08/30/19 11:03:00 EDT, Height, [...] Com... Start Date: 05/08/16 Status: Ordered Pen [place], 31 G x 5 mm BD Ultra [...] and Radha, therapist, at [facility] in [place] Social History Social History Type Response Smoking Status Never smoker; Tobacc o user in household: No entered on: 05/25/15 Sex
--- OUTSIDE RECORDS SUMMARY | 2023-01-14 15:42 | XMS_ITS | Continuity of Care Document ---
Author Name Unknown Organization [facility] Address [address] [place] [address]- Care Team Providers Care Cma Name Role Phone Chyna Duarte MD Primary Care Physician [phone] [facility] 12/02/19 - 01/01/[address] [address]- [facility] Allergies, Adverse Reactions, Alerts Substance [...] 08/06/19 0:18:00 EDT, Route to Pharmacy Electronically, [facility], 176, cm, 07/07/19 10:15:00 EDT, Height, 129, kg,... Start Date: 08/06/19 Status: Ordered albuterol CFC free 90 mcg/inh inhalation aerosol 2, puffs, Inhalation, Every 6 hours, PRN, # 9 Gm, Refills 5, Tot. Refills 5, Maintenance, 10/04/18 16:40:37 EDT, Aerosol, Route to Pharmacy Electronically, [id number], [facility] Start Date: 10/04/18 Status: Ordered amLODIPine 5 mg oral tablet 5 mg, 1, tablet, By Mouth, Daily, # 90 tablet, Refills 3, Tot. Refills 3, Maintenance, 05/30/19 13:21:00 EST, Route to Pharmacy Electronically, [facility], 176, cm, 03/31/19 9:59:00 EST, [...] 0, Maintenance, use overnight and naps from [facility], 11/08/19 11:45:00 EDT, Compound, 176, cm, 09/23/19 [...] 12/07/19 16:59:00 EDT, Route to Pharmacy Electronically, [facility], 176, cm, 09/23/19 8:30:00 EDT, Height, 129, kg, 05/29/18 0:31:00 EST, Dry Weight Start Date: 12/07/19 Status: Ordered gabapentin 300 mg oral capsule 300 mg, 1, capsule, By Mouth, 3 times a day, # 45 capsule, Refills 0, Tot. Refills 0, Maintenance, 08/06/19 0:18:00 EDT, Route to Pharmacy Electronically, [facility], 176, cm, 07/07/19 [...] mL, 11 Refills, Maintenance, 06/22/19 23:05:00 EST, [facility], 176, cm,... Start Date: 06/22/19 Status: Ordered ibuprofen 600 mg oral tablet 600 mg, 1, tablet, By Mouth, Every 6 hours, # 50 tablet, Refills 0, Tot. Refills 0, Maintenance, 08/06/19 0:18:00 EDT, Route to Pharmacy Electronically, [facility], 176, cm, 07/07/19 [...] 1 Refills, Maintenance, 09/07/19 17:07:00 EDT, Solution, [facility], 176, cm, 08/30/19 11:03:00 EDT, Height, [...] Com... Start Date: 05/08/16 Status: Ordered Pen [place], 31 G x 5 mm BD Ultra [...] and Radha, therapist, at [facility] in [place] Social History Social History Type Response Smoking Status Never smoker; Tobacc o user in household: No entered on: 05/25/15 Sex
--- OUTSIDE RECORDS SUMMARY | 2023-01-14 15:42 | XMS_ITS | Continuity of Care Document ---
Author Name Unknown Organization [facility] Address [address] [place] [address]- Care Team Providers Care Health Technical Writer Name Role Phone Chyna Duarte MD Primary Care Physician [phone] [facility] 08/28/20 - 09/27/[address] [address]- Allergies, Adverse Reactions, Alerts Substance Reaction Severity [...] VIS given 10/2011 6Admin Note: VIS GIVEN [id number] 7Admin Note: VIS GIVEN 03/14/2008 8Admin Note: vis given 9Result Note: pt states he has previously had this vaccine Medications acetaminophen 325 mg oral tablet 975 mg, 3, tablet, By Mouth, Every 6 hours, PRN, # 120 tablet, Refills 0, Tot. Refills 0, Maintenance, as needed for pain, 08/06/19 0:18:00 EDT, Route to Pharmacy Electronically, [facility], 176, cm, 07/07/19 10:15:00 [...] 16:40:37 EDT, Aerosol, Route to Pharmacy Electronically, [id number], [facility] Start Date: 10/04/18 Status: [...] 0, Maintenance, use overnight and naps from [facility], 11/08/19 11:45:00 EDT, Compound, 176, cm, [...] each, 0 Refills, Maintenance, 07/11/20 9:19:00 EDT, [facility], Partial fill upon patient [...] 12/07/19 16:59:00 EDT, Route to Pharmacy Electronically, [facility], 176, cm, 09/23/19 8:30:00 EDT, Height, 129, kg, 05/29/18 0:31:00 EST, Dry Weight Start Date: 12/07/19 Status: Ordered gabapentin 300 mg oral capsule 300 mg, 1, capsule, By Mouth, 3 times a day, # 45 capsule, Refills 0, Tot. Refills 0, Maintenance, 08/06/19 0:18:00 EDT, Route to Pharmacy Electronically, [facility], 176, cm, 07/07/19 10:15:00 [...] 1 Refills, Maintenance, 06/28/20 16:38:00 EST, Solution, [facility], 176, cm, 06/28/20 13:04:00 [...] Com... Start Date: 05/08/16 Status: Ordered Pen [place], 31 G x 5 mm BD Ultra [...] and Radha, therapist, at [facility] in [place] Social History Social History Type Response Smoking Status Former smoker, quit more than 30 days ago entered on: 3/4/21 Sex
--- OUTSIDE RECORDS SUMMARY | 2023-01-14 15:42 | XMS_ITS | Continuity of Care Document ---
Author Name Unknown Organization [facility] Address [address] [place] [address]- Care Team Providers Care Gear Cutting Machine Operator Name Role Phone Chyna Duarte MD Primary Care Physician [phone] [facility] 03/31/21 - 04/30/[address] [address]- Allergies, Adverse Reactions, Alerts Substance Reaction Severity [...] n Patient Refuses 1Result Comment: DILUENT LOT#: [id number] EXP: 08/2022 MFG: FRESENSIUS 2Early/Late Reason: Other : GIVEN 03/31/19 DURING VISIT 3Admin Note: VIS 12/04/2009 4Admin Note: VIS GIVEN 12/05/2008 5Admin Note: vis given 6Admin Note: VIS given 10/2011 7Admin Note: VIS GIVEN [id number] 8Admin Note: VIS GIVEN 03/14/2008 9Admin Note: vis given 10Result Note: pt states he has previously had this vaccine Medications acetaminophen 325 mg oral tablet 975 mg, 3, tablet, By Mouth, Every 6 hours, PRN, # 120 tablet, Refills 0, Tot. Refills 0, Maintenance, as needed for pain, 08/06/19 0:18:00 EDT, Route to Pharmacy Electronically, [facility], 176, cm, 07/07/19 [...] 12:17:00 EDT, Aerosol, Route to Pharmacy Electronically, [id number], [facility], 176, cm, 11/22/20 11:05:00 [...] each, 0 Refills, Maintenance, 07/11/20 9:19:00 EDT, [facility], Partial fill upon patient [...] 14:54:00 EDT, Route to Pharmacy Electronically, [facility], 176, cm, 11/22/20 11:05:00 EDT, Height,131.6, kg, 06/03/20 4:19:00 EST, Dry Weight Start Date: 01/04/21 Status: Ordered gabapentin 300 mg oral capsule 300 mg, 1, capsule, By Mouth, 3 times a day, # 45 capsule, Refills 0, Tot. Refills 0, Maintenance, 08/06/19 0:18:00 EDT, Route to Pharmacy Electronically, [facility], 176, cm, 07/07/19 [...] mL, 5 Refills, Maintenance, 11/08/20 7:18:00 EDT, [facility], 176, cm, 08/25... Start [...] Orders in system. Please go to any [facility] lab., # 75 mL, 0 Refills, Maintenance, 04/09/21 13:49:00 EST, Solution, [facility], 176, cm, 02/07/21 8:49:00 EDT, [...] Com... Start Date: 05/08/16 Status: Ordered Pen [place], 31 G x 5 mm BD Ultra Fine III See Instructions, # 300 each, Refills 3, Tot. Refills 3, Maintenance, use with lantus and humalog as directed dx: e11.65, 05/06/16 15:47:30, Compound Start Date: 05/06/16 Stop Date: 05/01/17 Status: Ordered Readi-Cat 2 oral suspension See Instructions, take as directed, # 2 each, 0 Refills, Maintenance, 12/05/20 15:52:00 EDT, [facility], Partial fill upon patient request [...] each, 0 Refills, Maintenance, 10/15/20 18:05:00 EDT, [facility], Partial fill upon patient request [...] and Radha, therapist, at [facility] in [place] Social History Social History Type Response Smoking Status Former smoker, quit more than 30 days ago entered on: 06/28/20 Sex
--- OUTSIDE RECORDS SUMMARY | 2023-01-14 15:42 | XMS_ITS | Continuity of Care Document ---
Author Name Unknown Organization [facility] Address [address] [place] [address]- Care Team Providers Care Restorative Coordinator Name Role Phone Chyna Duarte MD Primary Care Physician [phone] Encounter [facility] Date(s): 03/07/21 - 04/06/[address] [address]- Allergies, Adverse Reactions, Alerts Substance Reaction Severity [...] n Patient Refuses 1Result Comment: DILUENT LOT#: [id number] EXP: 08/2022 MFG: FRESENSIUS 2Early/Late Reason: Other : GIVEN 03/31/19 DURING VISIT 3Admin Note: VIS 12/04/2009 4Admin Note: VIS GIVEN 12/05/2008 5Admin Note: vis given 6Admin Note: VIS given 10/2011 7Admin Note: VIS GIVEN [id number] 8Admin Note: VIS GIVEN 03/14/2008 9Admin Note: vis given 10Result Note: pt states he has previously had this vaccine Medications acetaminophen 325 mg oral tablet 975 mg, 3, tablet, By Mouth, Every 6 hours, PRN, # 120 tablet, Refills 0, Tot. Refills 0, Maintenance, as needed for pain, 08/06/19 0:18:00 EDT, Route to Pharmacy Electronically, [facility], 176, cm, 07/07/19 [...] 12:17:00 EDT, Aerosol, Route to Pharmacy Electronically, [id number], [facility], 176, cm, 11/22/20 11:05:00 [...] each, 0 Refills, Maintenance, 07/11/20 9:19:00 EDT, [facility], Partial fill upon [...] 01/04/21 14:54:00 EDT, Route to Pharmacy Electronically, [facility], 176, cm, 11/22/20 11:05:00 EDT, Height,131.6, kg, 06/03/20 4:19:00 EST, Dry Weight Start Date: 01/04/21 Status: Ordered gabapentin 300 mg oral capsule 300 mg, 1, capsule, By Mouth, 3 times a day, # 45 capsule, Refills 0, Tot. Refills 0, Maintenance, 08/06/19 0:18:00 EDT, Route to Pharmacy Electronically, [facility], 176, cm, 07/07/19 [...] mL, 5 Refills, Maintenance, 11/08/20 7:18:00 EDT, [facility], 176, cm, 08/25... Start [...] 1 Refills, Maintenance, 06/28/20 16:38:00 EST, Solution, [facility], 176, cm, 06/28/20 13:04:00 [...] Com... Start Date: 05/08/16 Status: Ordered Pen [place], 31 G x 5 mm BD Ultra Fine III See Instructions, # 300 each, Refills 3, Tot. Refills 3, Maintenance, use with lantus and humalog as directed dx: e11.65, 05/06/16 15:47:30, Compound Start Date: 05/06/16 Stop Date: 05/01/17 Status: Ordered Readi-Cat 2 oral suspension See Instructions, take as directed, # 2 each, 0 Refills, Maintenance, 12/05/20 15:52:00 EDT[facility] [...] each, 0 Refills, Maintenance, 10/15/20 18:05:00 EDT, [facility], [facility] upon [...] and Radha, therapist, at [facility] [place] Social History Social History Type Response Smoking Status Former smoker, quit more than 30 days ago entered on: 06/28/20 Sex
--- OUTSIDE RECORDS SUMMARY | 2023-01-14 15:42 | XMS_ITS | Continuity of Care Document ---
Author Name Unknown Organization [facility] Address [address] [place] [address]- Care Team Providers Care Hearing Dog Trainer Name Role Phone Chyna Duarte MD Primary Care Physician [phone] [facility]counter [facility] Date(s): 10/12/21 - 03/16/22 [facility] [address] [place] [address]- Attending Physician: Hank Leal MD Admitting Physician: Hank Leal MD Referring Physician: Chyna Duarte MD Allergies, Adverse Reactions, Alerts No Known Allergies Immunizations Given and Recorded Vaccine Date Status Refusal Reason [id number] 12y+ bivalent booster vax 03/11/22 Given influenza [...] vaccine, inactivated 03/07/02 Give n SARS-CoV-2 mRNA ([id number]) vax 08/29/21 Given pneumococcal 23-valent vaccine 06/06/21 [...] Pneumococcal Poly (PPV23) (oldterm) 10 03/04/06 Gi alaan Pneumococcal Vacc (oldterm) 06/25/01 Given Not Given Vaccine Date Status Refusal Reason pneumococcal 23-valent vaccine 5 01/19/14 Not Give n Patient Refuses 1Early/Late Reason: Other : GIVEN 03/31/19 DURING VISIT 2Admin Note: VIS 12/04/2009 3Admin Note: VIS GIVEN 12/05/2008 4Admin Note: vis given 5Result Comment: DILUENT LOT#: [id number] EXP: 08/2022 MFG: FRESENSIUS 6Admin Note: VIS given 10/2011 7Admin Note: VIS GIVEN [id number] 8Admin Note: VIS GIVEN 03/14/2008 9Admin Note: vis given 10Result Note: pt states he has previously had this vaccine Medications acetaminophen 325 mg oral tablet 975 mg, 3, tablet, By Mouth, Every 6 hours, PRN, # 120 tablet, Refills 0, Tot. Refills 0, Maintenance, as needed for pain, 08/06/19 0:18:00 EDT, Route to Pharmacy Electronically, [facility], 176, cm, 07/07/19 10:15:00 [...] Route to Pharmacy Electronically, [facility] 176, cm, 08/29/21 9:11:00 EDT, Height, 131.6, kg, 06/03/20 4:19:00 EST, Dry... Start Date: 12/31/21 Status: Ordered atorvastatin 40 mg oral tablet 1 tablet, By Mouth, Daily, # 90 tablet, 1 Refills, Maintenance, 12/31/21 14:20:00 EDT, [facility] ([facility]), 176, cm, 08/29/21 9:11:00 EDT, Height, 131.6, kg, 06/03/20 4:19:00 EST, Dry Weight Start Date: 12/31/21 Status: Ordered AutoBIPAP EPAPmin 11 IPAPmax 22 PS 6 with heated humidification AutoBIPAP EPAPmin 11 IPAPmax 22 PS 6 with heated humidification, See Instructions, # 1 each, Refills 0, Tot. Refills 0, Maintenance, use overnight and naps from [facility], 11/08/19 11:45:00 EDT, Compound, 176, cm, 09/23/19 8:30:00 EDT, Height, 129, kg... Start Date: 11/08/19 Status: Ordered cephalexin monohydrate 500 mg oral capsule 1 capsule = 500 mg, By Mouth, 4 times a day, for 7 days, # 28 capsule, 0 Refills, Acute 03/18/22 14:44:00 EST, 03/11/22 14:44:00 EST, Capsule, [facility], Partial fill upon patient request if the [...] 12/31/21 14:28:00 EDT, Route to Pharmacy Electronically, [facility]), 176, cm, 08/29/21 9:11:00 EDT, Height, 131.6, kg, 06/03/20 4:19:00 EST, Dry Weight Start Date: 12/31/21 Status: Ordered gabapentin 300 mg oral capsule 300 mg, 1, capsule, By Mouth, 3 times a day, # 45 capsule, Refills 0, Tot. Refills 0, Maintenance, 08/06/19 0:18:00 EDT, Route to Pharmacy Electronically, [facility], 176, cm, 07/07/19 10:15:00 EDT, Height, 129, kg, 05/29/18 0:31:00 EST, Start Date: 08/06/19 Status: Ordered HumaLOG KwikPen 100 units/mL injectable solution See Instructions, s/c inj TID before meals acc to scale: 1u 150-200; 3u 201-250; 5u 251-300; 7u 301-350; 9u 351-400; 11u 401-450; call MD for BG over 450, # 15 mL, 3 Refills, Maintenance, 01/14/22 16:55:00 EDT, [facility], 176, cm, ... Start Date: 01/14/22 [...] 3 Refills, Maintenance, 01/14/22 16:55:00 EDT, Solution, [facility], 176, cm, 08/29/21 9:11:00 EDT, Height, [...] Com... Start Date: 05/08/16 Status: Ordered Pen [place], 31 G x 5 mm BD Ultra Fine III See Instructions, # 300 each, Refills 3, Tot. Refills 3, Maintenance, use with lantus and humalog as directed dx: e11.65, 05/06/16 15:47:30, Compound Start Date: 05/06/16 Stop Date: 05/01/17 Status: Ordered Readi-Cat 2 oral suspension See Instructions, take as directed, # 2 each, 0 Refills, Maintenance, 12/05/20 15:52:00 EDT, [facility], Partial fill upon patient request [...] each, 0 Refills, Maintenance, 10/15/20 18:05:00 EDT, [facility], Partial fill upon patient request [...] FIT (fecal immunochemical test) Confirmed Active Suspected [place] disease Confirmed Active Goal-TO SURVIVE THIS YEAR [...] Dr. Molina and Giancarlo, therapist, at [facility] [place] Social History Social History Type Response Smoking Status Former smoker, quit more than 30 days ago entered on: 06/28/20 Sex Patient Care team information Care Team Personnel Name: Florencio Saldana RN Position: [facility] ED RN W/OE and Tasks Member Role: Primary Care Nurse Name: Brooklyn Coyne NP Position: S Associate Professional Member Role: Primary Care Nurse Address: Address: [address] [place] [address] Trauma and Acute Care Surgery [address] Name: Tatyana Cosme RN Position: [facility] RN Member Role: Primary Care Nurse Name: Chyna Duarte MD Position: [facility] Primary Care Physician Member Role: PCP Address: Address: [address] [place] [address]- Care Team Related Persons Name: SHILO VALE Address: home [address] [place] [address] Name: GIANCARLO BROOKS Address: [place] [address] UM Name: OLIVA VELOZ Address: home [address] [place] [address]
--- OUTSIDE RECORDS SUMMARY | 2023-01-14 15:42 | XMS_ITS | Continuity of Care Document ---
Author Name Unknown Organization [facility] Address [address] [place] [address]- Care Team Providers Care Steamer Operator Name Role Phone Chyna Duarte MD Primary Care Physician [phone] [facility] Date[facility]s): 08/08/19 - 08/15/[address] [address]- [facility] Attending Physician: Dereje Chaudhari MD Allergies, Adverse Reactions, Alerts Substance Reaction [...] VIS given 10/2011 6Admin Note: VIS GIVEN [id number] 7Admin Note: VIS GIVEN 03/14/2008 8Admin Note: vis given 9Result Note: pt states he has previously had this vaccine Medications acetaminophen 325 mg oral tablet 975 mg, 3, tablet, By Mouth, Every 6 hours, PRN, # 120 tablet, Refills 0, Tot. Refills 0, Maintenance, as needed for pain, 08/06/19 0:18:00 EDT, Route to Pharmacy Electronically, [facility], 176, cm, 07/07/19 10:15:00 EDT, Height, 129, kg,... Start Date: 08/06/19 Status: Ordered albuterol CFC free 90 mcg/inh inhalation aerosol 2, puffs, Inhalation, Every 6 hours, PRN, # 9 Gm, Refills 5, Tot. Refills 5, Maintenance, 10/04/18 16:40:37 EDT, Aerosol, Route to Pharmacy Electronically, [id number], [facility] Start Date: 10/04/18 Status: Ordered amLODIPine 5 mg oral tablet 5 mg, 1, tablet, By Mouth, Daily, # 90 tablet, Refills 3, Tot. Refills 3, Maintenance, 05/30/19 13:21:00 EST, Route to Pharmacy Electronically, [facility], 176, cm, 03/31/19 9:59:00 EST, Height, 129, kg, 05/29/18 0:31:00 EST, Dry Weight Start Date: 05/30/19 Status: Ordered atenolol 25 mg oral tablet 25 mg, 1, tablet, By Mouth, 2 times a day, # 180 tablet, Refills 3, Tot. Refills 3, Maintenance, 05/30/19 13:21:00 EST, Route to Pharmacy Electronically, [facility], 176, cm, 03/31/19 9:59:00 EST, [...] naps from [facility], 07/26/18 12:52:33 EDT, Compound Start [...] 07/01/19 8:58:00 EST, Route to Pharmacy Electronically, [facility], 176, cm, 06/23/19 13:14:00 EST, Height, 129,kg, 05/29/18 0:31:00 EST, Dry Weight Start Date: 07/01/19 Stop Date: 09/29/19 Status: Ordered gabapentin 300 mg oral capsule 300 mg, 1, capsule, By Mouth, 3 times a day, # 45 capsule, Refills 0, Tot. Refills 0, Maintenance, 08/06/19 0:18:00 EDT, Route to Pharmacy Electronically, [facility], 176, cm, 07/07/19 10:15:00 EDT, Height, 129, kg, 05/29/18 0:31:00 EST, Start Date: 08/06/19 Status: Ordered HumaLOG KwikPen 100 units/mL injectable solution See Instructions, s/c inj TID before meals acc to scale: 1u 150-200; 3u 201-250; 5u 251-300; 7u 301-350; 9u 351-400; 11u 401-450; call MD for BG over 450, # 10 mL, 11 Refills, Maintenance, 06/22/19 23:05:00 EST, [facility], 176, cm,... Start Date: 06/22/19 Status: Ordered ibuprofen 600 mg oral tablet 600 mg, 1, tablet, By Mouth, Every 6 hours, # 50 tablet, Refills 0, Tot. Refills 0, Maintenance, 08/06/19 0:18:00 EDT, Route to Pharmacy Electronically, [facility], 176, cm, 07/07/19 10:15:00 [...] 3 Refills, Maintenance, 07/07/19 10:23:00 EDT, Solution, [facility], 176, cm, 07/07/19 10:15:00 EDT, [...] 0 Refills, Maintenance, 08/06/19 0:18:00 EDT, Capsule, [facility], Partial fill upon patient request, [...] Com... Start Date: 05/08/16 Status: Ordered Pen [place], 31 G x 5 mm BD Ultra [...] and Radha, therapist, at [facility] in [place] Social History Social History Type Response Smoking Status Never smoker; Tobacc o user in household: No entered on: 05/25/15 Sex
--- OUTSIDE RECORDS SUMMARY | 2023-01-14 15:42 | XMS_ITS | Continuity of Care Document ---
Author Name Unknown Organization [facility] Address [address] [place] [address]- Care Team Providers Care Laborer Yard Name Role Phone Chyna Duarte MD Primary Care Physician [phone] Encounter [facility] Date(s): 05/05/20 - 09/02/20 [facility] [address] [place] [address] Attending Physician: Hank Leal MD Admitting Physician: [...] VIS given 10/2011 6Admin Note: VIS GIVEN [id number] 7Admin Note: VIS GIVEN 03/14/2008 8Admin Note: vis given 9Result Note: pt states he has previously had this vaccine Medications acetaminophen 325 mg oral tablet 975 mg, 3, tablet, By Mouth, Every 6 hours, PRN, # 120 tablet, Refills 0, Tot. Refills 0, Maintenance, as needed for pain, 08/06/19 0:18:00 EDT, Route to Pharmacy Electronically, [facility], 176, cm, 07/07/19 10:15:00 EDT, [...] 16:40:37 EDT, Aerosol, Route to Pharmacy Electronically, [id number], [facility] Start Date: 10/04/18 Status: [...] and naps from [facility], 11/08/19 11:45:00 EDT, Compound, 176, cm, 09/23/19 [...] each, 0 Refills, Maintenance, 07/11/20 9:19:00 EDT, [facility], Partial fill upon patient request [...] 12/07/19 16:59:00 EDT, Route to Pharmacy Electronically, [facility], 176, cm, 09/23/19 8:30:00 EDT, Height, 129, kg, 05/29/18 0:31:00 EST, Dry Weight Start Date: 12/07/19 Status: Ordered gabapentin 300 mg oral capsule 300 mg, 1, capsule, By Mouth, 3 times a day, # 45 capsule, Refills 0, Tot. Refills 0, Maintenance, 08/06/19 0:18:00 EDT, Route to Pharmacy Electronically, [facility], 176, cm, 07/07/19 10:15:00 EDT, Height, 129, kg, 05/29/18 0:31:00 EST, . Start Date: 08/06/19 Status: Ordered HumaLOG KwikPen 100 units/mL injectable solution See Instructions, s/c inj TID before meals acc to scale: 1u 150-200; 3u 201-250; 5u 251-300; 7u 301-350; 9u 351-400; 11u 401-450; call MD for BG over 450, # 10 mL, 11 Refills, Maintenance, 06/22/19 23:05:00 EST, [facility], 176, cm,... Start Date: [...] 1 Refills, Maintenance, 06/28/20 16:38:00 EST, Solution, [facility], 176, cm, 06/28/20 13:04:00 [...] Com... Start Date: 05/08/16 Status: Ordered Pen [place], 31 G x 5 mm BD Ultra [...] and Radha, therapist, at [facility] [place] Social History Social History Type Response Smoking Status Former smoker, quit more than 30 days ago entered on: 06/28/20 Sex
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
--- OUTSIDE RECORDS SUMMARY | 2023-01-14 15:42 | XMS_ITS | Continuity of Care Document ---
Author Name Unknown Organization [facility] Address [address] [place] [address]- Care Team Providers Care Tariff Inspector Name Role Phone Chyna Duarte MD Primary Care Physician Encounter [facility] Date(s): 06/01/19 - 06/11/19 [facility] [address] [address]- [facility] Attending Physician: Pop Kaye Admitting Physician: Pop Kaye Referring Physician: Pop Kaye Allergies, Adverse Reactions, Alerts Substance Reaction Severity [...] 16:40:37 EDT, Aerosol, Route to Pharmacy Electronically, [id number], [facility] Start Date: 10/04/18 Status: Ordered amLODIPine 5 mg oral tablet 5 mg, 1, tablet, By Mouth, Daily, # 90 tablet, Refills 3, Tot. Refills 3, Maintenance, 05/30/19 13:21:00 EST, Route to Pharmacy Electronically, [facility], 176, cm, 03/31/19 9:59:00 EST, Height, 129, kg, 05/29/18 0:31:00 EST, Dry Weight Start Date: 05/30/19 Status: Ordered atenolol 25 mg oral tablet 25 mg, 1, tablet, By Mouth, 2 times a day, # 180 tablet, Refills 3, Tot. Refills 3, Maintenance, 05/30/19 13:21:00 EST, Route to Pharmacy Electronically, [facility], 176, cm, 03/31/19 9:59:00 EST, [...] Maintenance, 05/06/18 10:56:08 EST,Route to Pharmacy Electronically, [id number], [facility] Start Date: 05/06/18 Stop [...] Com... Start Date: 05/08/16 Status: Ordered Pen [place], 31 G x 5 mm BD Ultra [...] and Radha, therapist, at [facility] [place] Vital Signs Most recent to oldest [Reference Range]: 1 Height 176 cm (07/06/18 12:18 PM) Weight 129.2 kg (07/06/18 12:18 PM) Social History Social History Type Response Smoking Status Never smoker; Tobacc o user in household: No entered on: 05/25/15 Sex
--- OUTSIDE RECORDS SUMMARY | 2023-01-14 15:42 | XMS_ITS | Continuity of Care Document ---
Author Name Unknown Organization [facility] ter Address [address] [place] [address]- Care Team Providers Care Devulcanizer Charger Name Role Phone Chyna Duarte MD Primary Care Physician [facility] Date[facility]): 05/26/19 - 05/26/[address] [address]- [facility] Attending Physician: Chyna Duarte MD Allergies, Adverse [...] VIS given 10/2011 6Admin Note: VIS GIVEN [id number] 7Admin Note: VIS GIVEN 03/14/2008 8Admin Note: vis given 9Result Note: pt states he has previously had this vaccine Medications albuterol CFC free 90 mcg/inh inhalation aerosol 2, puffs, Inhalation, Every 6 hours, PRN, # 9 Gm, Refills 5, Tot. Refills 5, Maintenance, 10/04/18 16:40:37 EDT, Aerosol, Route to Pharmacy Electronically, [id number], [facility] Start Date: 10/04/18 Status: Ordered amLODIPine 5 mg oral tablet 5 mg, 1, tablet, By Mouth, Daily, # 90 tablet, Refills 1, Tot. Refills 1, Maintenance, 04/11/19 9:59:42 EST, Route to Pharmacy Electronically, [facility], 176, cm, 03/31/19 9:59:52 EST, Height, 129, kg, 05/29/18 0:31:25 EST, Dry Weight Start Date: 04/11/19 Status: Ordered atenolol 25 mg oral tablet 25 mg, 1, tablet, By Mouth, 2 times a day, # 180 tablet, Refills 3, Tot. Refills 3, Maintenance, 05/06/18 10:55:10 EST, Route to Pharmacy Electronically, [id number], [facility] Start Date: 05/06/18 Stop Date: [...] Maintenance, 05/06/18 10:56:08 EST,Route to Pharmacy Electronically, [id number], [facility] Start Date: 05/06/18 Stop [...] Com... Start Date: 05/08/16 Status: Ordered Pen [place], 31 G x 5 mm BD Ultra [...] and Radha, therapist, at [facility] in [place] Social History Social History Type Response Smoking Status Never smoker; Tobacc o user in household: No entered on: 05/25/15 Sex
--- OUTSIDE RECORDS SUMMARY | 2023-01-14 15:42 | XMS_ITS | Continuity of Care Document ---
Author Name Unknown Organization [facility] Address [address] [place] [address]- Care Team Providers Care Director Of Primary Name Role Phone Chyna Duarte MD Primary Care Physician [facility] Date[facility]): 11/14/19 - 12/14/[address] [address]- [facility] Allergies, Adverse Reactions, Alerts Substance [...] 08/06/19 0:18:00 EDT, Route to Pharmacy Electronically, [facility], 176, cm, 07/07/19 10:15:00 EDT, Height, 129, kg,... Start Date: 08/06/19 Status: Ordered albuterol CFC free 90 mcg/inh inhalation aerosol 2, puffs, Inhalation, Every 6 hours, PRN, # 9 Gm, Refills 5, Tot. Refills 5, Maintenance, 10/04/18 16:40:37 EDT, Aerosol, Route to Pharmacy Electronically, [id number], [facility] Start Date: 10/04/18 Status: Ordered amLODIPine 5 mg oral tablet 5 mg, 1, tablet, By Mouth, Daily, # 90 tablet, Refills 3, Tot. Refills 3, Maintenance, 05/30/19 13:21:00 EST, Route to Pharmacy Electronically, [facility], 176, cm, 03/31/19 9:59:00 EST, [...] 12/07/19 16:59:00 EDT, Route to Pharmacy Electronically, [facility], 176, cm, 09/23/19 8:30:00 EDT, Height, 129, kg, 05/29/18 0:31:00 EST, Dry Weight Start Date: 12/07/19 Status: Ordered gabapentin 300 mg oral capsule 300 mg, 1, capsule, By Mouth, 3 times a day, # 45 capsule, Refills 0, Tot. Refills 0, Maintenance, 08/06/19 0:18:00 EDT, Route to Pharmacy Electronically, [facility], 176, cm, 07/07/19 10:15:00 EDT, Height, 129, kg, 05/29/18 0:31:00 EST, DrFranco. Start Date: 08/06/19 Status: Ordered HumaLOG KwikPen 100 units/mL injectable solution See Instructions, s/c inj TID before meals acc to scale: 1u 150-200; 3u 201-250; 5u 251-300; 7u 301-350; 9u 351-400; 11u 401-450; call MD for BG over 450, # 10 mL, 11 Refills, Maintenance, 06/22/19 23:05:00 EST, [facility], 176, cm,... Start Date: 06/22/19 Status: Ordered ibuprofen 600 mg oral tablet 600 mg, 1, tablet, By Mouth, Every 6 hours, # 50 tablet, Refills 0, Tot. Refills 0, Maintenance, 08/06/19 0:18:00 EDT, Route to Pharmacy Electronically, [facility], 176, cm, 07/07/19 10:15:00 [...] 1 Refills, Maintenance, 09/07/19 17:07:00 EDT, Solution, [facility], 176, cm, 08/30/19 11:03:00 EDT, Height, [...] Com... Start Date: 05/08/16 Status: Ordered Pen [place], 31 G x 5 mm BD Ultra [...] and Radha, therapist, at [facility] in [place] Social History Social History Type Response Smoking Status Never smoker; Tobacc o user in household: No entered on: 05/25/15 Sex
--- OUTSIDE RECORDS SUMMARY | 2023-01-14 15:42 | XMS_ITS | Continuity of Care Document ---
Author Name Unknown Organization [facility] Address [address] [place] [address]- Care Team Providers Care Employee Relation Manager Name Role Phone Chyna Duarte MD Primary Care Physician [facility]): 04/[facility]/20 - 05/05/20 [facility] [address] [place] [address]- Allergies, Adverse Reactions, Alerts Substance Reaction Severity [...] VIS given 10/2011 6Admin Note: VIS GIVEN [id number] 7Admin Note: VIS GIVEN 03/14/2008 8Admin Note: vis given 9Result Note: pt states he has previously had this vaccine Medications acetaminophen 325 mg oral tablet 975 mg, 3, tablet, By Mouth, Every 6 hours, PRN, # 120 tablet, Refills 0, Tot. Refills 0, Maintenance, as needed for pain, 08/06/19 0:18:00 EDT, Route to Pharmacy Electronically, [facility], 176, cm, 07/07/19 10:15:00 EDT, Height, 129, kg,... Start Date: 08/06/19 Status: Ordered albuterol CFC free 90 mcg/inh inhalation aerosol 2, puffs, Inhalation, Every 6 hours, PRN, # 9 Gm, Refills 5, Tot. Refills 5, Maintenance, 10/04/18 16:40:37 EDT, Aerosol, Route to Pharmacy Electronically, [id number], [facility] Start Date: 10/04/18 Status: Ordered amLODIPine 5 mg oral tablet 5 mg, 1, tablet, By Mouth, Daily, # 90 tablet, Refills 3, Tot. Refills 3, Maintenance, 05/30/19 13:21:00 EST, Route to Pharmacy Electronically, [facility], 176, cm, 03/31/19 9:59:00 EST, Height, 129, kg, 05/29/18 0:31:00 EST, Dry Weight Start Date: 05/30/19 Status: Ordered atenolol 25 mg oral tablet 25 mg, 1, tablet, By Mouth, 2 times a day, # 180 tablet, Refills 3, Tot. Refills 3, Maintenance, 05/30/19 13:21:00 EST, Route to Pharmacy Electronically, [facility], 176, cm, 03/31/19 9:59:00 EST, [...] 0, Maintenance, use overnight and naps from [facility], 11/08/19 11:45:00 EDT, Compound, 176, [...] 12/07/19 16:59:00 EDT, Route to Pharmacy Electronically, [facility], 176, cm, 09/23/19 8:30:00 EDT, Height, 129, kg, 05/29/18 0:31:00 EST, Dry Weight Start Date: 12/07/19 Status: Ordered gabapentin 300 mg oral capsule 300 mg, 1, capsule, By Mouth, 3 times a day, # 45 capsule, Refills 0, Tot. Refills 0, Maintenance, 08/06/19 0:18:00 EDT, Route to Pharmacy Electronically, [facility], 176, cm, 07/07/19 10:15:00 EDT, Height, 129, kg, 05/29/18 0:31:00 EST, . Start Date: 08/06/19 Status: Ordered HumaLOG KwikPen 100 units/mL injectable solution See Instructions, s/c inj TID before meals acc to scale: 1u 150-200; 3u 201-250; 5u 251-300; 7u 301-350; 9u 351-400; 11u 401-450; call MD for BG over 450, # 10 mL, 11 Refills, Maintenance, 06/22/19 23:05:00 EST, [facility], 176, cm,... Start Date: 06/22/19 Status: Ordered ibuprofen 600 mg oral tablet 600 mg, 1, tablet, By Mouth, Every 6 hours, # 50 tablet, Refills 0, Tot. Refills 0, Maintenance, 08/06/19 0:18:00 EDT, Route to Pharmacy Electronically, [facility], 176, cm, 07/07/19 10:15:00 EDT, [...] 1 Refills, Maintenance, 09/07/19 17:07:00 EDT, Solution, [facility], 176, cm, 08/30/19 11:03:00 [...] Com... Start Date: 05/08/16 Status: Ordered Pen [place], 31 G x 5 mm BD Ultra [...] Radha, therapist, at [facility] in [place] Social History Social History Type Response Smoking Status Never smoker; Tobacc o user in household: No entered on: 05/25/15 Sex
--- OUTSIDE RECORDS SUMMARY | 2023-01-14 15:42 | XMS_ITS | Continuity of Care Document ---
Author Name Unknown Organization [facility] Address [address] [place] [address]- Care Team Providers Care Home Health Rn Name Role Phone Gerald GARRISON, Chyna Primary Care Physician [facility]): 05/04/20 - 09/01/20 [facility] [address] [place] [address]- Attending Physician: Abel Marin MD Allergies, Adverse Reactions, Alerts Substance Reaction [...] VIS given 10/2011 6Admin Note: VIS GIVEN [id number] 7Admin Note: VIS GIVEN 03/14/2008 8Admin Note: vis given 9Result Note: pt states he has previously had this vaccine Medications acetaminophen 325 mg oral tablet 975 mg, 3, tablet, By Mouth, Every 6 hours, PRN, # 120 tablet, Refills 0, Tot. Refills 0, Maintenance, as needed for pain, 08/06/19 0:18:00 EDT, Route to Pharmacy Electronically, [facility], 176, cm, [...] 16:40:37 EDT, Aerosol, Route to Pharmacy Electronically, [id number], [facility] Start Date: 10/04/18 Status: Ordered [...] 07/01/20 20:37:00 EST, Route to Pharmacy Electronically, [facility], 176, cm, 06/28/20 13:04:00 EST, [...] 0, Maintenance, use overnight and naps from [facility], 11/08/19 11:45:00 EDT, Compound, 176, cm, 09/23/19 8:30:00 EDT, Height, 129, kg... Start Date: 11/08/19 Status: Ordered clonazePAM 0.5 mg oral tablet 1 tablet = 0.5 mg, By Mouth, Daily at bedtime, ordered by Dr. Maria Elena Nino, 0 Refills, Maintenance,07/12/18 10:42:58 EDT Start Date: 11/05/17 Status: Ordered [...] Refills, Maintenance, 07/11/20 9:19:00 EDT, [facility], Partial fill [...] 12/07/19 16:59:00 EDT, Route to Pharmacy Electronically, [facility], 176, cm, 09/23/19 8:30:00 EDT, Height, 129, kg, 05/29/18 0:31:00 EST, Dry Weight Start Date: 12/07/19 Status: Ordered gabapentin 300 mg oral capsule 300 mg, 1, capsule, By Mouth, 3 times a day, # 45 capsule, Refills 0, Tot. Refills 0, Maintenance, 04/11/20 0:18:00 EDT, Route to Pharmacy Electronically, [facility], 176, cm, [...] mL, 11 Refills, Maintenance, 06/22/19 23:05:00 EST, [facility], 176, cm,... Start Date: [...] 1 Refills, Maintenance, 06/28/20 16:38:00 EST, Solution, [facility], 176, cm, 06/28/20 13:04:00 [...] Com... Start Date: 05/08/16 Status: Ordered Pen [place], 31 G x 5 mm BD Ultra [...] and Radha, therapist, at [facility] in [place] Social History Social History Type Response Smoking Status Former smoker, quit more than 30 days ago entered on: 06/28/20 Sex
--- OUTSIDE RECORDS SUMMARY | 2023-01-14 15:42 | XMS_ITS | Continuity of Care Document ---
Author Name Unknown Organization [facility] ter Address [address] [place] [address]- Care Team Providers Care Position Classification Specialist Name Role Phone Chyna Duarte MD Primary Care Physician [place] [facility] [place]16[place]19 - 06/16/[address] [address]- [facility] Attending Physician: Chyna Duarte MD Allergies, [...] VIS given 10/2011 6Admin Note: VIS GIVEN [id number] 7Admin Note: VIS GIVEN 03/14/2008 8Admin Note: vis given 9Result Note: pt states he has previously had this vaccine Medications albuterol CFC free 90 mcg/inh inhalation aerosol 2, puffs, Inhalation, Every 6 hours, PRN, # 9 Gm, Refills 5, Tot. Refills 5, Maintenance, 10/04/18 16:40:37 EDT, Aerosol, Route to Pharmacy Electronically, [id number], [facility] Start Date: 10/04/18 Status: Ordered amLODIPine 5 mg oral tablet 5 mg, 1, tablet, By Mouth, Daily, # 90 tablet, Refills 3, Tot. Refills 3, Maintenance, 05/30/19 13:21:00 EST, Route to Pharmacy Electronically, [facility], 176, cm, 03/31/19 9:59:00 EST, Height, 129, kg, 05/29/18 0:31:00 EST, Dry Weight Start Date: 05/30/19 Status: Ordered atenolol 25 mg oral tablet 25 mg, 1, tablet, By Mouth, 2 times a day, # 180 tablet, Refills 3, Tot. Refills 3, Maintenance, 05/30/19 13:21:00 EST, Route to Pharmacy Electronically, [facility], 176, cm, 03/31/19 9:59:00 EST, [...] Maintenance, 05/06/18 10:56:08 EST,Route to Pharmacy Electronically, [id number], [facility] Start Date: 05/06/18 Stop [...] Com... Start Date: 05/08/16 Status: Ordered Pen [place], 31 G x 5 mm BD Ultra [...] and Radha, therapist, at [facility] in [place] Social History Social History Type Response Smoking Status Never smoker; Tobacc o user in household: No entered on: 05/25/15 Sex
--- OUTSIDE RECORDS SUMMARY | 2023-01-14 15:43 | XMS_ITS | Continuity of Care Document ---
Author Name Unknown Organization [facility] Address [address] [place] [address]- Care Team Providers Care Dimension Warehouse Supervisor Name Role Phone Chyna Duarte MD Primary Care Physician [phone] Encounter [facility] Date(s): 09/23/19 - 10/23/19 [facility] [address] [place] [address]- [facility] Attending Physician: Pop Kaye Admitting Physician: Pop Kaye Referring Physician: AdmPop rasmussen Allergies, Adverse Reactions, Alerts Substance Reaction Severity [...] 08/06/19 0:18:00 EDT, Route to Pharmacy Electronically, [facility], 176, cm, 07/07/19 10:15:00 EDT, Height, 129, kg,... Start Date: 08/06/19 Status: Ordered albuterol CFC free 90 mcg/inh inhalation aerosol 2, puffs, Inhalation, Every 6 hours, PRN, # 9 Gm, Refills 5, Tot. Refills 5, Maintenance, 10/04/18 16:40:37 EDT, Aerosol, Route to Pharmacy Electronically, [id number], [facility] Start Date: 10/04/18 Status: Ordered amLODIPine 5 mg oral tablet 5 mg, 1, tablet, By Mouth, Daily, # 90 tablet, Refills 3, Tot. Refills 3, Maintenance, 05/30/19 13:21:00 EST, Route to Pharmacy Electronically, [facility], 176, cm, 03/31/19 9:59:00 EST, [...] Maintenance, use overnight and naps from [facility], 07/26/18 12:52:33 EDT, Compound Start Date: 07/26/18 [...] 09/26/19 9:42:00 EDT, Route to Pharmacy Electronically, [facility], 176, cm, 09/23/19 8:30:00 EDT, Height, 129, kg, 05/29/18 0:31:00 EST, Dry Weight Start Date: 09/26/19 Stop Date: 12/25/19 Status: Ordered gabapentin 300 mg oral capsule 300 mg, 1, capsule, By Mouth, 3 times a day, # 45 capsule, Refills 0, Tot. Refills 0, Maintenance, 08/06/19 0:18:00 EDT, Route to Pharmacy Electronically, [facility], 176, cm, 07/07/19 10:15:00 EDT, Height, 129, kg, 05/29/18 0:31:00 EST, Start Date: 08/06/19 Status: Ordered HumaLOG KwikPen 100 units/mL injectable solution See Instructions, s/c inj TID before meals acc to scale: 1u 150-200; 3u 201-250; 5u 251-300; 7u 301-350; 9u 351-400; 11u 401-450; call MD for BG over 450, # 10 mL, 11 Refills, Maintenance, 06/22/19 23:05:00 EST, [facility], 176, cm,... Start Date: 06/22/19 Status: Ordered ibuprofen 600 mg oral tablet 600 mg, 1, tablet, By Mouth, Every 6 hours, # 50 tablet, Refills 0, Tot. Refills 0, Maintenance, 08/06/19 0:18:00 EDT, Route to Pharmacy Electronically, [facility], 176, cm, 07/07/19 [...] 1 Refills, Maintenance, 09/07/19 17:07:00 EDT, Solution, [facility], 176, cm, 08/30/19 11:03:00 [...] Com... Start Date: 05/08/16 Status: Ordered Pen [place], 31 G x 5 mm BD Ultra [...] and Radha, therapist, at [facility] in [place] Social History Social History Type Response Smoking Status Never smoker; Tobacc o user in household: No entered on: 05/25/15 Sex
--- OUTSIDE RECORDS SUMMARY | 2023-01-14 15:43 | XMS_ITS | Continuity of Care Document ---
Author Name Unknown Organization [facility] Address [address] [place] [address]- Care Team Providers Care Assignment Desk Editor Name Role Phone Gerald GARRISON, Chyna Primary Care Physician [phone] [facility] Date[facility]s): 05/09/22 - 06/08/[address] [address]- Allergies, Adverse Reactions, Alerts No Known Allergies Immunizations Given and Recorded Vaccine Date Status Refusal Reason [id number] 12y+ bivalent booster vax 03/11/22 Given influenza [...] vaccine, inactivated 03/07/02 Give n SARS-CoV-2 mRNA ([id number]) vax 08/29/21 Given pneumococcal 23-valent vaccine 06/06/21 [...] Note: vis given 5Result Comment: DILUENT LOT#: [id number] EXP: 08/2022 MFG: FRESENSIUS 6Admin Note: VIS given 10/2011 7Admin Note: VIS GIVEN [id number] 8Admin Note: VIS GIVEN 03/14/2008 9Admin Note: [...] EDT, Route to Pharmacy Electronically, [facility], 176, cm, 07/07/19 10:15:00 EDT, [...] Maintenance, 01/15/22 14:49:00 EDT, [facility]), 50, USE 2 INHALATIONS BY [...] Route to Pharmacy Electronically, [facility] 176, cm, 08/29/21 9:11:00 EDT, [...] 0 Refills, Maintenance, 03/17/22 13:55:00 EST, Gel, [facility], [facility] fill upon patient [...] 12/31/21 14:28:00 EDT, Route to Pharmacy Electronically, [facility]), 176, cm, 08/29/21 9:11:00 EDT, Height, 131.6, kg, 06/03/20 4:19:00 EST, Dry Weight Start Date: 12/31/21 Status: Ordered gabapentin 300 mg oral capsule 300 mg, 1, capsule, By Mouth, 3 times a day, # 45 capsule, Refills 0, Tot. Refills 0, Maintenance, 08/06/19 0:18:00 EDT, Route to Pharmacy Electronically, [facility], 176, cm, 07/07/19 10:15:00 EDT, Height, 129, kg, 05/29/18 0:31:00 ESTDr... Start Date: 08/06/19 Status: Ordered HumaLOG KwikPen 100 units/mL injectable solution See Instructions, s/c inj TID before meals acc to scale: 1u 150-200; 3u 201-250; 5u 251-300; 7u 301-350; 9u 351-400; 11u 401-450; call MD for BG over 450, # 15 mL, 3 Refills, Maintenance, 01/14/22 16:55:00 EDT, [facility], 176, cm, ... Start Date: 01/14/22 [...] 3 Refills, Maintenance, 01/14/22 16:55:00 EDT, Solution, [facility], 176, cm, 08/29/21 9:11:00 [...] Gm, 1 Refills, Maintenance, 03/19/2211:23:00 EST, Ointment, [facility], [facility] fill upon patient [...] 05/02/22 10:17:00 EST, Tablet, [facility] Partial fill upon patient [...] Com... Start Date: 05/08/16 Status: Ordered Pen [place], 31 G x 5 mm BD Ultra Fine III See Instructions, # 300 each, Refills 3, Tot. 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 Goal-TO SURVIVE THIS YEAR Confirmed Active Hernia, ventral Confirmed Active Hypertension Confirmed Active Hypothyroidism Confirmed 2004 Active Secondary insomnia Confirmed Active Fatty liver disease based on CT Confirmed 08/21/08 Active Lower back pain Confirmed Active Lymphedema Confirmed Active Major depression 1 Confirmed Active SANJIV (obstructive sleep apnea) Confirmed Active Hip osteoarthritis Confirmed Active Sigmoid colon resection + complication Confirmed 2002 Active Right flank pain Confirmed Active Severe obesity Confirmed Active 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 Molina and Giancarlo, therapist, at [facility] in [place] Social History Social History Type Response Smoking Status Former smoker; Other : qiut 13 years; entered on: 05/24/14 Sex Patient Care team information Care Team Personnel Name: Florencio Saldana RN Position: [facility] ED RN W/OE and Tasks Member Role: Primary Care Nurse Name: Brooklyn Coyne NP Position: [facility] Associate Professional Member Role: Primary Care Nurse Address: Address: [address] [place] [address] Trauma [place] [address]- Name: Tatyana Cosme RN Position: [facility] RN Member Role: Primary Care Nurse Name: Chyna Duarte MD Position: [facility] Primary Care Physician Member Role: PCP Address: Address: [address] [place] [address]- Care Team Related Persons Name: SHILO VALE Address: home [address] [place] [address] Name: GIANCARLO BROOKS Address: [place] [address] Name: OLIVA VELOZ Address: home [address] [place] [address]
--- OUTSIDE RECORDS SUMMARY | 2023-01-14 15:43 | XMS_ITS | Continuity of Care Document ---
Author Name Unknown Organization [facility] ter Address [address] [place] [phone]- Care Team Providers Care Fire Equipment Operator Name Role Phone Chyna Duarte MD Primary Care Physician Encounter [facility] Date(s): 06/03/20 - 06/06/[address] [address] Discharge Disposition: Discharged to Hospice-Home (routine care Attending Physician: Sergio Donis MD Admitting Physician: Trudy Sinha DO Referring Physician: Not on Staff, Referring MD [...] VIS given 10/2011 6Admin Note: VIS GIVEN [id number] 7Admin Note: VIS GIVEN 03/14/2008 8Admin Note: vis given 9Result Note: pt states he has previously had this vaccine Medications acetaminophen 325 mg oral tablet 975 mg, 3, tablet, By Mouth, Every 6 hours, PRN, # 120 tablet, Refills 0, Tot. Refills 0, Maintenance, as needed for pain, 08/06/19 0:18:00 EDT, Route to Pharmacy Electronically, [facility], 176, cm, 07/07/19 10:15:00 EDT, Height, 129, kg,... Start Date: 08/06/19 Status: Ordered albuterol CFC free 90 mcg/inh inhalation aerosol 2, puffs, Inhalation, Every 6 hours, PRN, # 9 Gm, Refills 5, Tot. Refills 5, Maintenance, 10/04/18 16:40:37 EDT, Aerosol, Route to Pharmacy Electronically, [id number], [facility] Start Date: 10/04/18 Status: Ordered amLODIPine 5 mg oral tablet 5 mg, 1, tablet, By Mouth, Daily, # 90 tablet, Refills 3, Tot. Refills 3, Maintenance, 05/30/19 13:21:00 EST, Route to Pharmacy Electronically, [facility], 176, cm, 03/31/19 9:59:00 EST, [...] 0, Maintenance, use overnight and naps from [facility], 11/08/19 11:45:00 EDT, Compound, [...] 15:16:30, Compound Start Date: 05/13/16 Status: Ordered dexamethasone 6 mg oral tablet 1 tablet = 6 mg, By Mouth, Daily, for 6 days, # 6 tablet, 0 Refills, Acute 06/12/20 9:49:00 EST, 06/06/20 9:49:00 EST, Tablet, [facility], Partial fill upon patient request if the prescription is for a schedule II opioid drug., 176, cm,... Start Date: 06/06/20 Stop Date: 06/12/20 Status: Ordered free style lyndon reader free [...] 12/07/19 16:59:00 EDT, Route to Pharmacy Electronically, [facility], 176, cm, 09/23/19 8:30:00 EDT, Height, 129, kg, 05/29/18 0:31:00 EST, Dry Weight Start Date: 12/07/19 Status: Ordered gabapentin 300 mg oral capsule 300 mg, Capsule, By Mouth, 06/06/20 9:00:00 EST Start Date: 06/06/20 Stop Date: 06/06/20 Status: Completed gabapentin 300 mg oral capsule 300 mg, Capsule, By Mouth, 06/06/20 15:00:00 EST Start Date: 06/06/20 Stop Date: 06/06/20 Status: Completed gabapentin 300 mg oral capsule 300 mg, 1, capsule, By Mouth, 3 times a day, # 45 capsule, Refills 0, Tot. Refills 0, Maintenance, 08/06/19 0:18:00 EDT, Route to Pharmacy Electronically, [facility], 176, cm, 07/07/19 [...] mL, 11 Refills, Maintenance, 06/22/19 23:05:00 EST, [facility], 176, cm,... Start Date: 06/22/19 Status: Ordered Insulin Glargine Inj 0.55 mL = 55 units, Subcutaneous Injection, Daily, 0 Refills, Maintenance, 06/06/20 9:50:00 EST, Injection, Partial fill upon patient request if the prescription is for a schedule II opioid drug. Start Date: 06/06/20 Status: Ordered Insulin Syringe, BD Ultra-Fine 1 [...] 11:25:43, Compound Start Date: 05/01/17 Status: Ordered levothyroxine 150 mcg (0.15 mg) [...] Com... Start Date: 05/08/16 Status: Ordered Pen [place], 31 G x 5 mm BD Ultra [...] Dr. Molina and Radha, [facility] [place] Results Orders for Microbiology Reports Name Date Blood Culture 06/02/20 Microbiology Reports TEST:Blood Culture STATUS:Unauthenticated BODY SITE: SOURCE:Blood COLLECTED DATE/TIME:06/02/20 11:33 PM Blood Culture SPECIMEN DESCRIPTION : BLOOD LAC SPECIAL REQUESTS : NONE CULTURE : NO GROWTH 3 DAYS REPORT STATUS : PRELIMINARY REPORT Radiology Reports * Exam Date Time Procedure Performing Provider Status 06/03/20 1:35 AM Chest Portable Quirino Gloria; Arsenio (Cris ified) Notes: (Chest Portable) Reason For Exam: Cough RESULT: Chest Portable Chest Portable Refer to EMR; Hx of Present Illness: Pt biba; reports that he has been with increasing sob and cough x 2 weeks. +fever +body aches; +lethargy- diagnosed yesterday with Covid but comes in tonight to get checked out and see what is going to happen to me next . No cp; no n v d; no calf pain; Reason: Cough. COMPARISON: 08/11/2019. FINDINGS: LINES AND TUBES: Dual-lead left subclavian pacer wires are intact. LUNGS AND PLEURA: Patchy right lung base opacity. Left lung appears clear. No pleural effusion. No pneumothorax. HEART, MEDIASTINUM AND JACEK: Heart is normal in size. Normal upper mediastinal and hilar contour. BONES AND SOFT TISSUES: No acute abnormality. IMPRESSION: Patchy right lung base opacities consistent with pneumonia. WSN: [id number] Ordering Physician: Jluis Mancilla Dictated By: Zach Simons MD Dictated Date/Time: 06/03/20 9:05 am Reviewed By: Zach Simons MD Signed By: Zach Simons MD Signed Date/Time: 06/03/20 9:05 am Transcribed By: RAYMOND Transcribed Date/Time: 06/03/20 9:03 am Vital Signs Most recent to oldest [Reference Range]: 1 2 3 Height 176 cm (06/06/20 11:51 AM) 176 cm (06/06/20 8:18 AM) 176 cm (06/04/20 7:00 AM) Weight 131.2 kg (06/03/20 5:05 AM) 131.6 kg (06/03/20 4:19 AM) Oxygen Saturation [94-100 %] 92 % *L* (06/06/20 11:51 AM) 93 % *L* (06/06/20 8:18 AM) 96 % (06/06/20 4:00 AM) Pulse Rate [55-90 bpm] 52 bpm *L* (06/06/20 11:51 AM) 67 bpm (06/06/20 8:18 AM) 94 bpm *H* (06/06/20 4:00 AM) Body Mass Index [18.5-24.99] 42.48 *>HHI* (06/03/20 4:19 AM) Blood Pressure [90-138/55-84 mm Hg] 87/68mm Hg *L* (06/06/20 11:51 AM) 142/65mm Hg *H* (06/06/20 8:18 AM) 132/66mm Hg (06/06/20 4:00 AM) Respiratory Rate [16-30 br/min] 18 br/min (06/06/20 4:31 PM) 18 br/min (06/06/20 11:51 AM) 17 br/min (06/06/20 10:26 AM) Temperature [96.8-100.4 DegF] 97.9 DegF (06/06/20 11:51 AM) 97.8 DegF (06/06/20 8:18 AM) 97.8 DegF (06/06/20 4:00 AM) Liters per Minute 2 L/min (06/03/20 5:05 AM) 2 L/min (06/03/20 3:15 AM) 2 L/min (06/02/20 11:11 PM) Mode of Delivery (Oxygen) Room air (06/06/20 11:51 AM) Room air (06/06/20 8:18 AM) Room air (06/06/20 4:00 AM) Blood pressure sites Arm, right (06/06/20 11:51 AM) Arm, right (06/06/20 8:18 AM) Arm, right (06/06/20 4:00 AM) Temperature Route Oral (06/06/20 11:51 AM) Oral (06/06/20 8:18 AM) Oral (06/06/20 4:00 AM) Dry Weight 131.6 kg (06/03/20 4:19 AM) Weight Obtained Via Bed scale (06/03/20 5:05 AM) Patient/family stated (06/03/20 4:19 AM) Dry Weight Obtained Via Patient/family stated (06/03/20 4:19 AM) Social History Social History Type Response Smoking Status Never smoker; Tobacc o user in household: No entered on: 05/25/15 Sex
--- OUTSIDE RECORDS SUMMARY | 2023-01-14 15:43 | XMS_ITS | Continuity of Care Document ---
Author Name Unknown Organization [facility] Address [address] [place] [address]- Care Team Providers Care Meter Repairer Helper Name Role Phone Chyna Duarte MD Primary Care Physician [facility]counter [facility] Date(s): 05/08/22 - 07/06/[address] [address]- Attending Physician: Chyna Duarte MD Admitting Physician: Chyna Duarte MD Allergies, Adverse Reactions, Alerts No Known Allergies Immunizations Given and Recorded Vaccine Date Status Refusal Reason [id number] 12y+ bivalent booster vax 03/11/22 Given influenza [...] vaccine, inactivated 03/07/02 Give n SARS-CoV-2 mRNA (ncigibr-kwxi-oudas) vax 08/29/21 Given pneumococcal 23-valent vaccine 06/06/21 [...] Note: vis given 5Result Comment: DILUENT LOT#: [id number] EXP: 08/2022 MFG: FRESENSIUS 6Admin Note: VIS given 10/2011 7Admin Note: VIS GIVEN [id number] 8Admin Note: VIS GIVEN 03/14/2008 9Admin Note: [...] 08/06/19 0:18:00 EDT, [facility], 176, cm, 07/07/19 10:15:00 EDT, [...] Maintenance, 01/15/22 14:49:00 EDT, [facility]), 50, USE 2 INHALATIONS BY MOUTHEVERY 6 HOURS NEEDED FOR WHEEZING, 176, cm, ... Start Date: 01/15/22 Status: Ordered amLODIPine 5 mg oral tablet 1 tablet, By Mouth, Daily, # 90 tablet, 3 Refills, Maintenance, 01/15/22 14:49:00 EDT, [facility] ([facility]), 176, cm, 01/15/22 10:10:00 EDT, Height, 131.6, kg, 06/03/20 4:19:00 EST, Dry Weight Start Date: 01/15/22 Status: Ordered atenolol 25 mg oral tablet 1, tablet, By Mouth, 2 times a day, # 180 tablet, Refills 3, Maintenance, 12/31/21 14:27:00 EDT, Route to Pharmacy Electronically, [facility] ([facility]), 176, cm, 08/29/21 9:11:00 EDT, [...] 0 Refills, Maintenance, 03/17/22 13:55:00 EST, Gel, [facility], Partial fill upon patient request if [...] 12/31/21 14:28:00 EDT, [facility]), 176, cm, 08/29/21 9:11:00 EDT, Height, 131.6, kg, 06/03/20 4:19:00 EST, Dry Weight Start Date: 12/31/21 Status: Ordered gabapentin 300 mg oral capsule 300 mg, 1, capsule, By Mouth, 3 times a day, # 45 capsule, Refills 0, Tot. Refills 0, Maintenance, 08/06/19 0:18:00 EDT, Route to Pharmacy Electronically, [facility], 176, cm, 07/07/19 10:15:00 EDT, Height, 129, kg, 05/29/18 0:31:00 ESTDr... Start Date: 08/06/19 Status: Ordered HumaLOG KwikPen 100 units/mL injectable solution See Instructions, s/c inj TID before meals acc to scale: 1u 150-200; 3u 201-250; 5u 251-300; 7u 301-350; 9u 351-400; 11u 401-450; call MD for BG over 450, # 15 mL, 3 Refills, Maintenance, 01/14/22 16:55:00 EDT, [facility], 176, cm, .. Start Date: 01/14/22 Status: Ordered Insulin Syringe, [...] 01/14/22 16:55:00 EDT, Solution, [facility], 176, cm, 08/29/21 9:11:00 [...] Gm, 1 Refills, Maintenance, 03/19/2211:23:00 EST, Ointment, [facility], [facility] fill upon patient [...] 05/02/22 10:17:00 EST, Tablet, [facility] ([facility] ), Partial fill upon patient request if the prescription is for a schedule II... Start Date: 05/02/22 Status: Ordered omeprazole 40 mg oral enteric coated capsule 1 capsule, By Mouth, Daily, # 90 capsule, 3 Refills, Maintenance, 06/26/22 20:48:00 EST, [facility] ), 176, cm, 05/02/22 9:48:00 [...] Com... Start Date: 05/08/16 Status: Ordered Pen [place], 31 G x 5 mm BD Ultra Fine III See Instructions, # 300 each, Refills 3, Tot. Refills 3, Maintenance, use with lantus and humalog as directed dx: e11.65, 05/06/16 15:47:30, Compound Start Date: 05/06/16 Stop Date: 05/01/17 Status: Ordered Readi-Cat 2 oral suspension See Instructions, take as directed, # 2 each, 0 Refills, Maintenance, 12/05/20 15:52:00 EDT, [facility], Partial fill upon patient [...] each, 0 Refills, Maintenance, 10/15/20 18:05:00 EDT, [facility], Partial fill upon patient [...] FIT (fecal immunochemical test) Confirmed Active Suspected [place] disease Confirmed Active Goal-TO SURVIVE THIS YEAR [...] and Giancarlo, therapist, at [facility] [place] Social History Social History Type Response Smoking Status Former smoker; Other : qiut 13 years; entered on: 05/24/14 Sex Patient Care team information Care Team Personnel Name: Florencio Saldana RN Position: [facility] ED RN W/OE and Tasks Member Role: Primary Care Nurse Name: Brooklyn Coyne NP Position: [facility] Associate Professional Member Role: Primary Care Nurse Address: Address: [address] [place] [address] Trauma and [place] [address]- Name: Tatyana Cosme RN Position: [facility] RN Member Role: Primary Care Nurse Name: Chyna Duarte MD Position: [facility] Primary Care Physician Member Role: PCP Address: Address: [address] [place] [address]- Care Team Related Persons Name: SHILO VALE Address: home [address] [place] [id number] Name: GIANCARLO BROOKS Address: [place] [address] Name: OLIVA VELOZ Address: home [address] [place] [address]
--- OUTSIDE RECORDS SUMMARY | 2023-01-14 15:43 | XMS_ITS | Continuity of Care Document ---
Author Name Unknown Organization [facility] ter Address [address] [place] [address]- Care Team Providers Care Metal Stamper Name Role Phone Chyna Duarte MD Primary Care Physician [phone] [facility]counter [facility] Date(s): 04/28/19 - 04/28/[address] [address]- [facility] Attending Physician: Chyna Duarte MD Allergies, [...] 7 02/10/11 Given Diphth-Tetanus Toxoids Adsorbed(oldterm) 8 10/1/09 Given Pneumococcal Poly (PPV23) (oldterm) 9 03/04/06 Giv en Pneumococcal Vacc (oldterm) 06/25/01 Given Not Given Vaccine Date Status Refusal Reason pneumococcal 23-valent vaccine 5 01/19/14 Not Give n Patient Refuses 1Early/Late Reason: Other : GIVEN 03/31/19 DURING VISIT 2Admin Note: VIS 12/04/2009 3Admin Note: VIS GIVEN 12/05/2008 4Admin Note: vis given 5Admin Note: VIS given 10/2011 6Admin Note: VIS GIVEN [id number] 7Admin Note: VIS GIVEN 03/14/2008 8Admin Note: vis given 9Result Note: pt states he has previously had this vaccine Medications albuterol CFC free 90 mcg/inh inhalation aerosol 2, puffs, Inhalation, Every 6 hours, PRN, # 9 Gm, Refills 5, Tot. Refills 5, Maintenance, 10/04/18 16:40:37 EDT, Aerosol, Route to Pharmacy Electronically, [id number], [facility] Start Date: 10/04/18 Status: Ordered amLODIPine 5 mg oral tablet 5 mg, 1, tablet, By Mouth, Daily, # 90 tablet, Refills 1, Tot. Refills 1, Maintenance, 04/11/19 9:59:42 EST, Route to Pharmacy Electronically, [facility], 176, cm, 03/31/19 9:59:52 EST, Height, 129, kg, 05/29/18 0:31:25 EST, Dry Weight Start Date: 04/11/19 Status: Ordered atenolol 25 mg oral tablet 25 mg, 1, tablet, By Mouth, 2 times a day, # 180 tablet, Refills 3, Tot. Refills 3, Maintenance, 05/06/18 10:55:10 EST, Route to Pharmacy Electronically, [id number], [facility] Start Date: 05/06/18 Stop Date: 05/01/19 Status: Ordered atorvastatin 40 mg oral tablet 1 tablet = 40 mg, By Mouth, Daily, # 90 tablet, 3 Refills, Maintenance, Tablet, Route to Pharmacy Electronically, [id number], [facility] Start Date: 05/06/18 Status: [...] Maintenance, 05/06/18 10:56:08 EST,Route to Pharmacy Electronically, [id number], [facility] Start Date: 05/06/18 Stop [...] Com... Start Date: 05/08/16 Status: Ordered Pen [place], 31 G x 5 mm BD Ultra [...] and Radha, therapist, at [facility] in [place] Social History Social History Type Response Smoking Status Never smoker; Tobacc o user in household: No entered on: 05/25/15 Sex
--- OUTSIDE RECORDS SUMMARY | 2023-01-14 15:43 | XMS_ITS | Continuity of Care Document ---
Author Name Unknown Organization [facility] Address [address] [place] [address]- Care Team Providers Care Manager Float Name Role Phone Mary GARRISON, Jann Culp Primary Care Physician [facility]counter [facility] Date(s): 10/09/22 - 11/08/[address] [address]- Allergies, Adverse Reactions, Alerts No Known Allergies Immunizations Given and Recorded Vaccine Date Status Refusal Reason [id number] 12y+ bivalent booster vax 03/11/22 Given influenza [...] vaccine, inactivated 03/07/02 Give n SARS-CoV-2 mRNA (shzujvc-zlfv-sagoc) vax 08/29/21 Given pneumococcal 23-valent vaccine 06/06/21 [...] Note: vis given 5Result Comment: DILUENT LOT#: [id number] EXP: 08/2022 MFG: FRESENSIUS 6Admin Note: VIS given 10/2011 7Admin Note: VIS GIVEN [id number] 8Admin Note: VIS GIVEN 03/14/2008 9Admin Note: [...] 08/06/19 0:18:00 EDT, Route to Pharmacy Electronically, [facility], 176, cm, 07/07/19 [...] Maintenance, 01/15/22 14:49:00 EDT, [facility]), 50, USE 2 INHALATIONS BY [...] Route to Pharmacy Electronically, [facility]), 176, cm, 08/29/21 9:11:00 EDT, [...] 07/11/22 17:27:00 EDT, Powder, [facility] ([facility] ), Partial fill upon patient [...] Route to Pharmacy Electronically, [facility] ([facility]), 176, cm, 08/29/21 9:11:00 EDT, [...] mL, 3 Refills, Maintenance, 01/14/22 16:55:00 EDT, [facility], 176, cm, ... Start Date: 01/14/22 Status: Ordered Incruse Ellipta 62.5 mcg/inh inhalation powder 1 inhalation, Inhalation, Every 24 hours, APART., # 30 each, 11 Refills, Maintenance, 08/01/22 16:56:00 EDT, [facility] ([facility]), 176, cm, 07/10/22 14:41:00 EDT, [...] 3 Refills, Maintenance, 01/14/22 16:55:00 EDT, Solution, [facility], 176, cm, 08/29/21 9:11:00 EDT, Height, 131.6, kg, 06/03/20 4:19:00 EST, Dry Weight Start Date: 01/14/22 Stop Date: 01/09/23 Status: Ordered levothyroxine 150 mcg (0.15 mg) oral tablet 1 tablet, By Mouth, Daily, # 90 tablet, 3 Refills, Maintenance, 04/01/22 15:34:00 EST, [facility]), 176, cm, 03/24/22 14:42:00 EST, [...] Refills, Maintenance, 06/26/22 20:48:00 EST, [facility] ), 176, cm, 05/02/22 9:48:00 [...] Com... Start Date: 05/08/16 Status: Ordered Pen [place], 31 G x 5 mm BD Ultra [...] Maintenance, 04/01/22 15:34:00 EST, [facility]), 176, cm, 03/24/22 14:42:00 EST, [...] 11:46:00 EDT, 10/22/22 11:46:00 EDT, Chew Tablet, [facility], Partial fill upon patient request if [...] FIT (fecal immunochemical test) Confirmed Active Suspected [place] disease Confirmed Active Goal-TO SURVIVE THIS YEAR [...] and Giancarlo, therapist, at [facility] in [place] Social History Social History Type Response Smoking Status Former smoker; Other : qiut 13 years; entered on: 05/24/14 Sex Patient Care team information Care Team Personnel Name: Jann Hernandez MD Position: [facility] Physician - Primary Care Member Role: PCP Address: Address: [address] [place] [address]- Name: Florencio Saldana RN Position: [facility] ED RN W/OE and Tasks Member Role: Primary Care Nurse Name: Brooklyn Coyne NP Position: [facility] Associate Professional Member Role: Primary Care Nurse Address: Address: [address] [place] [address] Trauma [place] [address]- Name: Tatyana Cosme RN Position: S RN Member Role: Primary Care Nurse Name: Valencia Richards RN Position: [facility] RN Member Role: Primary Care Nurse Care Team Related Persons Name: SHILO VALE Address: home [address] [place] [address] Name: GIANCARLO BROOKS Address: [place] [address] Name: OLIVA VELOZ Address: home [address] [place] [address]
--- OUTSIDE RECORDS SUMMARY | 2023-01-14 15:43 | XMS_ITS | Continuity of Care Document ---
Author Name Unknown Organization [facility] Address [address] [place] [address]- Care Team Providers Care Wig Sales Consultant Name Role Phone Mary GARRISON, Jann Culp Primary Care Physician [facility] Date[facility]s): 09/17/22 - 11/05/[address] [address]- Attending Physician: Mary Holcomb MD Admitting Physician: Mary Holcomb MD Allergies, Adverse Reactions, Alerts No Known Allergies Immunizations Given and Recorded Vaccine Date Status Refusal Reason [id number] 12y+ bivalent booster vax 03/11/22 Given influenza [...] vaccine, inactivated 03/07/02 Give n SARS-CoV-2 mRNA (hehdxtj-vehw-buqsp) vax 08/29/21 Given pneumococcal 23-valent vaccine 06/06/21 [...] Note: vis given 5Result Comment: DILUENT LOT#: [id number] EXP: 08/2022 MFG: FRESENSIUS 6Admin Note: VIS given 10/2011 7Admin Note: VIS GIVEN [id number] 8Admin Note: VIS GIVEN 03/14/2008 9Admin Note: [...] Route to Pharmacy Electronically, [facility], 176, cm, 07/07/19 10:15:00 EDT, [...] Maintenance, 01/15/22 14:49:00 EDT, [facility]), 50, USE 2 INHALATIONS BY MOUTHEVERY 6 HOURS NEEDED FOR WHEEZING, 176, cm, ... Start Date: 01/15/22 Status: Ordered amLODIPine 5 mg oral tablet 1 tablet, By Mouth, Daily, # 90 tablet, 3 Refills, Maintenance, 01/15/22 14:49:00 EDT, [facility]), 176, cm, 01/15/22 10:10:00 EDT, Height, 131.6, kg, 06/03/20 4:19:00 EST, Dry Weight Start Date: 01/15/22 Status: Ordered atenolol 25 mg oral tablet 1, tablet, By Mouth, 2 times a day, # 180 tablet, Refills 3, Maintenance, 12/31/21 14:27:00 EDT, Route to Pharmacy Electronically, [facility] ([facility]), 176, cm, 08/29/21 9:11:00 EDT, [...] Route to Pharmacy Electronically, [facility]), 176, cm, 08/29/21 9:11:00 EDT, [...] mL, 3 Refills, Maintenance, 01/14/22 16:55:00 EDT, [facility], 176, cm, ... Start Date: 01/14/22 Status: Ordered Incruse Ellipta 62.5 mcg/inh inhalation powder 1 inhalation, Inhalation, Every 24 hours, APART., # 30 each, 11 Refills, Maintenance, 08/01/22 16:56:00 EDT, [facility]), 176, cm, 07/10/22 14:41:00 EDT, [...] 3 Refills, Maintenance, 01/14/22 16:55:00 EDT, Solution, [facility], 176, cm, 08/29/21 9:11:00 EDT, Height, [...] Com... Start Date: 05/08/16 Status: Ordered Pen [place], 31 G x 5 mm BD Ultra [...] Maintenance, 04/01/22 15:34:00 EST, [facility]), 176, cm, 03/24/22 14:42:00 EST, [...] 11:46:00 EDT, 10/22/22 11:46:00 EDT, Chew Tablet, [facility], Partial fill upon patient request if the prescription i... Start Date: 10/22/22 Stop Date: 10/17/23 Status: Ordered unna boot dressing change once a week unna boot dressing change once a week, See Instructions, # 1 each, Refills 0, Tot. Refills 0, Maintenance, for dx: diabetic leg wound, 11/14/19 10:32:00 EDT, Supply Start Date: 7/20/20 Status: Ordered warfarin 5 mg oral tablet [...] FIT (fecal immunochemical test) Confirmed Active Suspected [place] disease Confirmed Active Goal-TO SURVIVE THIS YEAR [...] and Giancarlo, therapist, at [facility] in [place] Social History Social History Type Response Smoking Status Former smoker; Other : qiut 13 years; entered on: 05/24/14 Sex Patient Care team information Care Team Personnel Name: Jann Hernandez MD Position: [facility] Physician - Primary Care Member Role: PCP Address: Address: [address] [place] [id number]- Name: Florencio Saldana RN Position: [facility] ED RN W/OE and Tasks Member Role: Primary Care Nurse Name: Brooklyn Coyne NP Position: [facility] Associate Professional Member Role: Primary Care Nurse Address: Address: [address] [place] [address] Trauma and Acute Care Surgery [place], [place] [address] Name: Tatyana Cosme RN Position: S RN Member Role: Primary Care Nurse Name: Valencia Richards RN Position: S RN Member Role: Primary Care Nurse Care Team Related Persons Name: SHILO VALE Address: home [address] [place] [address] Name: GIANCARLO BROOKS Address: [place] [address] Name: OLIVA VELOZ Address: home [address] [place] [address]
--- OUTSIDE RECORDS SUMMARY | 2023-01-14 15:44 | XMS_ITS | Continuity of Care Document ---
Author Name Unknown Organization [facility] Address [address] [place] [phone]- Care Team Providers Care Lamination Technician Name Role Phone Chyna Duarte MD Primary Care Physician [facility] 12/07/19 - 01/06/[address] [address]- [facility] Allergies, Adverse Reactions, Alerts Substance Reaction [...] VIS given 10/2011 6Admin Note: VIS GIVEN [id number] 7Admin Note: VIS GIVEN 03/14/2008 8Admin Note: vis given 9Result Note: pt states he has previously had this vaccine Medications acetaminophen 325 mg oral tablet 975 mg, 3, tablet, By Mouth, Every 6 hours, PRN, # 120 tablet, Refills 0, Tot. Refills 0, Maintenance, as needed for pain, 08/06/19 0:18:00 EDT, Route to Pharmacy Electronically, [facility], 176, cm, 07/07/19 10:15:00 EDT, Height, 129, kg,... Start Date: 08/06/19 Status: Ordered albuterol CFC free 90 mcg/inh inhalation aerosol 2, puffs, Inhalation, Every 6 hours, PRN, # 9 Gm, Refills 5, Tot. Refills 5, Maintenance, 10/04/18 16:40:37 EDT, Aerosol, Route to Pharmacy Electronically, [id number], [facility] Start Date: 10/04/18 Status: Ordered amLODIPine 5 mg oral tablet 5 mg, 1, tablet, By Mouth, Daily, # 90 tablet, Refills 3, Tot. Refills 3, Maintenance, 05/30/19 13:21:00 EST, Route to Pharmacy Electronically, [facility], 176, cm, 03/31/19 9:59:00 EST, [...] 0, Maintenance, use overnight and naps from [facility], 11/08/19 11:45:00 EDT, Compound, 176, cm, [...] 12/07/19 16:59:00 EDT, Route to Pharmacy Electronically, [facility], 176, cm, 09/23/19 8:30:00 EDT, Height, 129, kg, 05/29/18 0:31:00 EST, Dry Weight Start Date: 12/07/19 Status: Ordered gabapentin 300 mg oral capsule 300 mg, 1, capsule, By Mouth, 3 times a day, # 45 capsule, Refills 0, Tot. Refills 0, Maintenance, 08/06/19 0:18:00 EDT, Route to Pharmacy Electronically, [facility], 176, cm, 07/07/19 10:15:00 EDT, Height, 129, kg, 05/29/18 0:31:00 EST, Start Date: 08/06/19 Status: Ordered HumaLOG KwikPen 100 units/mL injectable solution See Instructions, s/c inj TID before meals acc to scale: 1u 150-200; 3u 201-250; 5u 251-300; 7u 301-350; 9u 351-400; 11u 401-450; call MD for BG over 450, # 10 mL, 11 Refills, Maintenance, 06/22/19 23:05:00 EST, [facility], 176, cm,... Start Date: 06/22/19 Status: Ordered ibuprofen 600 mg oral tablet 600 mg, 1, tablet, By Mouth, Every 6 hours, # 50 tablet, Refills 0, Tot. Refills 0, Maintenance, 08/06/19 0:18:00 EDT, Route to Pharmacy Electronically, [facility], 176, cm, 07/07/19 10:15:00 EDT, [...] 1 Refills, Maintenance, 09/07/19 17:07:00 EDT, Solution, [facility], 176, cm, 08/30/19 11:03:00 EDT, Height, [...] Com... Start Date: 05/08/16 Status: Ordered Pen [place], 31 G x 5 mm BD Ultra [...] Dr. Molina and Radha, [facility] [place] Social History Social History Type Response Smoking Status Never smoker; Tobacc o user in household: No entered on: 05/25/15 Sex
--- OUTSIDE RECORDS SUMMARY | 2023-01-14 15:44 | XMS_ITS | Continuity of Care Document ---
Author Name Unknown Organization [facility] Address [address] [place] [address]- Care Team Providers Care Rug Cutter Name Role Phone Chyna Duarte MD Primary Care Physician [facility] 06/28/20 - 07/28/[address] [address] Allergies, Adverse Reactions, Alerts Substance Reaction Severity [...] VIS given 10/2011 6Admin Note: VIS GIVEN [id number] 7Admin Note: VIS GIVEN 03/14/2008 8Admin Note: vis given 9Result Note: pt states he has previously had this vaccine Medications acetaminophen 325 mg oral tablet 975 mg, 3, tablet, By Mouth, Every 6 hours, PRN, # 120 tablet, Refills 0, Tot. Refills 0, Maintenance, as needed for pain, 08/06/19 0:18:00 EDT, Route to Pharmacy Electronically, [facility], 176, cm, 07/07/19 10:15:00 [...] 16:40:37 EDT, Aerosol, Route to Pharmacy Electronically, [id number], [facility] Start Date: 10/04/18 Status: [...] use overnight and naps from [facility], 11/08/19 11:45:00 EDT, Compound, 176, cm, [...] each, 0 Refills, Maintenance, 07/11/20 9:19:00 EDT, [facility], Partial fill upon patient [...] 12/07/19 16:59:00 EDT, Route to Pharmacy Electronically, [facility], 176, cm, 09/23/19 8:30:00 EDT, Height, 129, kg, 05/29/18 0:31:00 EST, Dry Weight Start Date: 12/07/19 Status: Ordered gabapentin 300 mg oral capsule 300 mg, 1, capsule, By Mouth, 3 times a day, # 45 capsule, Refills 0, Tot. Refills 0, Maintenance, 08/06/19 0:18:00 EDT, Route to Pharmacy Electronically, [facility], 176, cm, 07/07/19 10:15:00 [...] Refills, Maintenance, 06/22/19 23:05:00 EST, [facility], 176, cm,... Start Date: [...] Maintenance, 06/28/20 16:38:00 EST, Solution, [facility], 176, cm, 06/28/20 13:04:00 [...] Com... Start Date: 05/08/16 Status: Ordered Pen [place], 31 G x 5 mm BD Ultra [...] Molina and Radha, therapist, at [facility] [place] Social History Social History Type Response Smoking Status Former smoker, quit more than 30 days ago entered on: 06/28/20 Sex
--- OUTSIDE RECORDS SUMMARY | 2023-01-14 15:44 | XMS_ITS | Continuity of Care Document ---
Author Name Unknown Organization [facility] Address [address] [place] [address]- Care Team Providers Care Reporting Analyst Name Role Phone Mary GARRISON, Jann Culp Primary Care Physician [facility]): 10/06/22 - 11/05/[address] [address]- Allergies, Adverse Reactions, Alerts No Known Allergies Immunizations Given and Recorded Vaccine Date Status Refusal Reason [id number] 12y+ bivalent booster vax 03/11/22 Given influenza [...] vaccine, inactivated 03/07/02 Give n SARS-CoV-2 mRNA (xoqqxeb-tsxi-ryydd) vax 08/29/21 Given pneumococcal 23-valent vaccine 06/06/21 [...] Note: vis given 5Result Comment: DILUENT LOT#: [id number] EXP: 08/2022 MFG: FRESENSIUS 6Admin Note: VIS given 10/2011 7Admin Note: VIS GIVEN [id number] 8Admin Note: VIS GIVEN 03/14/2008 9Admin Note: [...] Maintenance, 01/15/22 14:49:00 EDT, [facility] ([facility]), 50, USE 2 INHALATIONS BY [...] Route to Pharmacy Electronically, [facility] ([facility]), 176, cm, 08/29/21 9:11:00 EDT, [...] 07/11/22 17:27:00 EDT, Powder, [facility] ([facility] ), Partial fill upon patient [...] Route to Pharmacy Electronically, [facility] ([facility]), 176, cm, 08/29/21 9:11:00 EDT, [...] mL, 3 Refills, Maintenance, 01/14/22 16:55:00 EDT, [facility], 176, cm, ... Start Date: 01/14/22 Status: Ordered Incruse Ellipta 62.5 mcg/inh inhalation powder 1 inhalation, Inhalation, Every 24 hours, APART., # 30 each, 11 Refills, Maintenance, 08/01/22 16:56:00 EDT, [facility] ([facility]), 176, cm, 07/10/22 14:41:00 EDT, [...] 3 Refills, Maintenance, 01/14/22 16:55:00 EDT, Solution, [facility], 176, cm, 08/29/21 9:11:00 EDT, Height, 131.6, kg, 06/03/20 4:19:00 EST, Dry Weight Start Date: 01/14/22 Stop Date: 01/09/23 Status: Ordered levothyroxine 150 mcg (0.15 mg) oral tablet 1 tablet, By Mouth, Daily, # 90 tablet, 3 Refills, Maintenance, 04/01/22 15:34:00 EST, [facility] ([facility]), 176, cm, 03/24/22 14:42:00 EST, [...] Refills, Maintenance, 06/26/22 20:48:00 EST, [facility] ([facility] ), 176, cm, 05/02/22 9:48:00 [...] Com... Start Date: 05/08/16 Status: Ordered Pen [place], 31 G x 5 mm BD Ultra [...] Maintenance, 04/01/22 15:34:00 EST, [facility] ([facility]), 176, cm, 03/24/22 14:42:00 EST, [...] 11:46:00 EDT, 10/22/22 11:46:00 EDT, Chew Tablet, [facility], Partial fill upon patient request [...] FIT (fecal immunochemical test) Confirmed Active Suspected [place] disease Confirmed Active Goal-TO SURVIVE THIS YEAR [...] and Giancarlo, therapist, at [facility] in [place] Social History Social History Type Response Smoking Status Former smoker; Other : qiut 13 years; entered on: 05/24/14 Sex Patient Care team information Care Team Personnel Name: Jann Hernandez MD Position: [facility] Physician - Primary Care Member Role: PCP Address: Address: [address] [place] [address]- Name: Florencio Saldana RN Position: [facility] ED RN W/OE and Tasks Member Role: Primary Care Nurse Name: Brooklyn Coyne NP Position: [facility] Associate Professional Member Role: Primary Care Nurse Address: Address: [address] [place] [address] Trauma [place] [address]- Name: Tatyana Cosme RN Position: S RN Member Role: Primary Care Nurse Name: Valencia Richards RN Position: [facility] RN Member Role: Primary Care Nurse Care Team Related Persons Name: SHILO VALE Address: home [address] [place] [id number] Name: GIANCARLO BROOKS Address: [place] [address] Name: OLIVA VELOZ Address: home [address] [place] [address]
--- OUTSIDE RECORDS SUMMARY | 2023-01-14 15:44 | XMS_ITS | Continuity of Care Document ---
Author Name Unknown Organization [facility] Address [address] [place] [address]- Care Team Providers Care Compliance Engineer Products Name Role Phone Gerald GARRISON, Chyna Primary Care Physician [facility] 03/12/22 - 04/11/[address] [address]- Allergies, Adverse Reactions, Alerts No Known Allergies Immunizations Given and Recorded Vaccine Date Status Refusal Reason [id number] 12y+ bivalent booster vax 03/11/22 Given influenza [...] vaccine, inactivated 03/07/02 Give n SARS-CoV-2 mRNA (cmetmwo-jqtw-puojf) vax 08/29/21 Given pneumococcal 23-valent vaccine 06/06/21 [...] Note: vis given 5Result Comment: DILUENT LOT#: [id number] EXP: 08/2022 MFG: FRESENSIUS 6Admin Note: VIS given 10/2011 7Admin Note: VIS GIVEN [id number] 8Admin Note: VIS GIVEN 03/14/2008 9Admin Note: [...] Route to Pharmacy Electronically, [facility]), 176, cm, 08/29/21 9:11:00 EDT, [...] 0 Refills, Maintenance, 03/17/22 13:55:00 EST, Gel, [facility], Partial fill upon patient request if [...] 12/31/21 14:28:00 EDT, Route to Pharmacy Electronically, [facility] ([facility]), 176, cm, 08/29/21 9:11:00 EDT, [...] mL, 3 Refills, Maintenance, 01/14/22 16:55:00 EDT, [facility], 176, cm, ... Start Date: [...] 3 Refills, Maintenance, 01/14/22 16:55:00 EDT, Solution, [facility] 3, 176, cm, 08/29/21 9:11:00 EDT, Height, [...] Gm, 1 Refills, Maintenance, 03/19/2211:23:00 EST, Ointment, [facility], Partial fill upon patient request if [...] capsule, 3 Refills, Maintenance, 07/09/20 16:32:00 EDT, [facility], 176, cm, 06/28/20 13:04:00 EST, [...] Com... Start Date: 05/08/16 Status: Ordered Pen [place], 31 G x 5 mm BD Ultra Fine III See Instructions, # 300 each, Refills 3, Tot. Refills 3, Maintenance, use with lantus and humalog as directed dx: e11.65, 05/06/16 15:47:30, Compound Start Date: 05/06/16 Stop Date: 05/01/17 Status: Ordered Readi-Cat 2 oral suspension See Instructions, take as directed, # 2 each, 0 Refills, Maintenance, 12/05/20 15:52:00 EDT, [facility], Partial fill upon patient request if the prescription is for a schedule II opioid drug., take as directed, 176, cm, 11/22/20 11:05:0... Start Date: 12/05/20 Status: Ordered rOPINIRole 0.5 mg oral tablet 1 tablet, By Mouth, Daily at bedtime, # 90 tablet, 3 Refills, Maintenance, 04/01/22 15:34:00 EST, [facility] ([facility]), 176, cm, 03/24/22 14:42:00 EST, [...] each, 0 Refills, Maintenance, 10/15/20 18:05:00 EDT, [facility], Partial fill upon patient request [...] FIT (fecal immunochemical test) Confirmed Active Suspected [place] disease Confirmed Active Goal-TO SURVIVE THIS [...] and Giancarlo, therapist, at [facility] in [place] Social History Social History Type Response Smoking Status Former smoker; Other : qiut 13 years; entered on: 05/24/14 Sex Patient Care team information Care Team Personnel Name: Florencio Saldana RN Position: [facility] ED RN W/OE and Tasks Member Role: Primary Care Nurse Name: Doretha WALTON, [place] Position: [facility] Associate Professional Member Role: Primary Care Nurse Address: Address: [address] [place] [address] Trauma [place] [address]- Name: Tatyana Cosme RN Position: [facility] RN Member Role: Primary Care Nurse Name: Chyna Duarte MD Position: [facility] Primary Care Physician Member Role: PCP Address: Address: [address] [place] [address]- Care Team Related Persons Name: SHILO VALE Address: home [address] [place] [address] Name: GIANCARLO BROOKS Address: [place] [address] Name: OLIVA VELOZ Address: home [address] [place] [address]
--- OUTSIDE RECORDS SUMMARY | 2023-01-14 15:44 | XMS_ITS | Continuity of Care Document ---
Author Name Unknown Organization [facility] Address [address] [place] [address]- Care Team Providers Care Employee Counselor Name Role Phone Chyna Duarte MD Primary Care Physician [phone] [facility] 11[facility] - 12/04/[address] [address]- Attending Physician: Not on Staff, Attending MD Allergies, Adverse Reactions, Alerts No Known Allergies Immunizations Given and Recorded Vaccine Date Status Refusal Reason SARS-CoV-2 mRNA (csnywln-znrm-allte) vax 08/29/21 Given pneumococcal 23-valent vaccine 06/06/21 Given pneumococcal 23-valent vaccine 04/16/14 Given SARS-CoV-2 (COVID-19) mRNA BNT-162b2 vac 2 03/04/21 Given SARS-CoV-2 (COVID-19) mRNA BNT-162b2 vac 08/29/20 Given SARS-CoV-2 (COVID-19) mRNA BNT-162b2 vac 08/07/20 Given influenza virus vaccine, inactivated 02/07/21 Give n influenza virus vaccine, inactivated 02/23/20 Give n influenza virus vaccine, inactivated 3 03/31/19 Gi aalna influenza virus vaccine, inactivated 02/10/18 Give n [...] n Patient Refuses 1Result Comment: DILUENT LOT#: [id number] EXP: 08/2022 MFG: FRESENSIUS 2Early/Late Reason: Other : GIVEN 03/31/19 DURING VISIT 3Admin Note: VIS 12/04/2009 4Admin Note: VIS GIVEN 12/05/2008 5Admin Note: vis given 6Admin Note: VIS given 10/2011 7Admin Note: VIS GIVEN [id number] 8Admin Note: VIS GIVEN 03/14/2008 9Admin Note: vis given 10Result Note: pt states he has previously had this vaccine Medications acetaminophen 325 mg oral tablet 975 mg, 3, tablet, By Mouth, Every 6 hours, PRN, # 120 tablet, Refills 0, Tot. Refills 0, Maintenance, as needed for pain, 08/06/19 0:18:00 EDT, Route to Pharmacy Electronically, [facility], 176, cm, 07/07/19 10:15:00 [...] 10:40:00 EDT, Aerosol, Route to Pharmacy Electronically, [id number], [facility], 176, cm, 08/29/21 9:11:00 [...] 0, Maintenance, use overnight and naps from [facility], 11/08/19 11:45:00 EDT, Compound, 176, [...] each, 3 Refills, Maintenance, 09/26/21 15:07:00 EDT, [facility]), Partial fill upon patient request [...] 01/04/21 14:54:00 EDT, Route to Pharmacy Electronically, [facility], 176, cm, 11/22/20 11:05:00 EDT, Height,131.6, kg, 06/03/20 4:19:00 EST, Dry Weight Start Date: 01/04/21 Status: Ordered gabapentin 300 mg oral capsule 300 mg, 1, capsule, By Mouth, 3 times a day, # 45 capsule, Refills 0, Tot. Refills 0, Maintenance, 08/06/19 0:18:00 EDT, Route to Pharmacy Electronically, [facility], 176, cm, 07/07/19 10:15:00 EDT, Height, 129, kg, 05/29/18 0:31:00 EST, . Start Date: 08/06/19 Status: Ordered HumaLOG KwikPen 100 units/mL injectable solution See Instructions, s/c inj TID before meals acc to scale: 1u 150-200; 3u 201-250; 5u 251-300; 7u 301-350; 9u 351-400; 11u 401-450; call MD for BG over 450, # 10 mL, 5 Refills, Maintenance, 08/26/21 14:44:00 EDT, [facility], 176, cm, ... Start [...] 0 Refills, Maintenance, 08/26/21 14:44:00 EDT, Solution, [facility], 176, cm, 06/06/21 9:59:00 [...] Com... Start Date: 05/08/16 Status: Ordered Pen [place], 31 G x 5 mm BD Ultra Fine III See Instructions, # 300 each, Refills 3, Tot. Refills 3, Maintenance, use with lantus and humalog as directed dx: e11.65, 05/06/16 15:47:30, Compound Start Date: 05/06/16 Stop Date: 05/01/17 Status: Ordered Readi-Cat 2 oral suspension See Instructions, take as directed, # 2 each, 0 Refills, Maintenance, 12/05/20 15:52:00 EDT, [facility], Partial fill upon patient request if [...] each, 0 Refills, Maintenance, 10/15/20 18:05:00 EDT, [facility] 3, Partial fill upon patient [...] and Radha, therapist, at [facility] in [place] Social History Social History Type Response Smoking Status Former smoker, quit more than 30 days ago entered on: 06/28/20 Sex
--- OUTSIDE RECORDS SUMMARY | 2023-01-14 15:44 | XMS_ITS | Continuity of Care Document ---
Author Name Unknown Organization [facility] Address [address] [place] [address]- Care Team Providers Care Blasting Gang Miner Name Role Phone Chyna Duarte MD Primary Care Physician [facility]): 03/24/22 - 04/23/[address] [address]- Attending Physician: Admtr, Ar8 Allergies, Adverse Reactions, Alerts No Known Allergies Immunizations Given and Recorded Vaccine Date Status Refusal Reason [id number] 12y+ bivalent booster vax 03/11/22 Given influenza [...] vaccine, inactivated 03/07/02 Give n SARS-CoV-2 mRNA (osiczxk-fvpc-zhmco) vax 08/29/21 Given pneumococcal 23-valent vaccine 06/06/21 [...] Note: vis given 5Result Comment: DILUENT LOT#: [id number] EXP: 08/2022 MFG: FRESENSIUS 6Admin Note: VIS given 10/2011 7Admin Note: VIS GIVEN [id number] 8Admin Note: VIS GIVEN 03/14/2008 9Admin Note: vis given 10Result Note: pt states he has previously had this vaccine Medications acetaminophen 325 mg oral tablet 975 mg, 3, tablet, By Mouth, Every 6 hours, PRN, # 120 tablet, Refills 0, Tot. Refills 0, Maintenance, as needed for pain, 08/06/19 0:18:00 EDT, Route to Pharmacy Electronically, [facility], 176, cm, 07/07/19 [...] Maintenance, 01/15/22 14:49:00 EDT, [facility]), 50, USE 2 INHALATIONS BY MOUTHEVERY 6 HOURS NEEDED FOR WHEEZING, 176, cm, ... Start Date: 01/15/22 Status: Ordered amLODIPine 5 mg oral tablet 1 tablet, By Mouth, Daily, # 90 tablet, 3 Refills, Maintenance, 01/15/22 14:49:00 EDT, [facility] ([facility]), 176, cm, 01/15/22 10:10:00 EDT, Height, 131.6, kg, 06/03/20 4:19:00 EST, Dry Weight Start Date: 01/15/22 Status: Ordered atenolol 25 mg oral tablet 1, tablet, By Mouth, 2 times a day, # 180 tablet, Refills 3, Maintenance, 12/31/21 14:27:00 EDT, Route to Pharmacy Electronically, [facility]), 176, cm, 08/29/21 9:11:00 EDT, [...] 0 Refills, Maintenance, 03/17/22 13:55:00 EST, Gel, [facility], Partial fill upon patient request if [...] 12/31/21 14:28:00 EDT, Route to Pharmacy Electronically, [facility]), 176, cm, 08/29/21 9:11:00 EDT, Height, 131.6, kg, 06/03/20 4:19:00 EST, Dry Weight Start Date: 12/31/21 Status: Ordered gabapentin 300 mg oral capsule 300 mg, 1, capsule, By Mouth, 3 times a day, # 45 capsule, Refills 0, Tot. Refills 0, Maintenance, 08/06/19 0:18:00 EDT, Route to Pharmacy Electronically, [facility], 176, cm, 07/07/19 [...] mL, 3 Refills, Maintenance, 01/14/22 16:55:00 EDT, [facility], 176, cm, ... Start Date: [...] 3 Refills, Maintenance, 01/14/22 16:55:00 EDT, Solution, [facility] 3, 176, cm, 08/29/21 9:11:00 EDT, Height, 131.6, kg, 06/03/20 4:19:00 EST, Dry Weight Start Date: 01/14/22 Stop Date: 01/09/23 Status: Ordered levothyroxine 150 mcg (0.15 mg) oral tablet 1 tablet, By Mouth, Daily, # 90 tablet, 3 Refills, Maintenance, 04/01/22 15:34:00 EST, [facility]), 176, cm, 03/24/22 14:42:00 EST, Height, 131.6, kg, 06/03/20 4:19:00 EST, Dry Weight Start Date: 04/01/22 Status: Ordered lidocaine 5% topical ointment 1 application, Topically, 3 times a day, PRN Pain , Mild, # 50 Gm, 1 Refills, Maintenance, 03/19/2211:23:00 EST, Ointment, [facility], Partial fill upon patient request if the [...] Com... Start Date: 05/08/16 Status: Ordered Pen [place], 31 G x 5 mm BD Ultra Fine III See Instructions, # 300 each, Refills 3, Tot. Refills 3, Maintenance, use with lantus and humalog as directed dx: e11.65, 05/06/16 15:47:30, Compound Start Date: 05/06/16 Stop Date: 05/01/17 Status: Ordered Readi-Cat 2 oral suspension See Instructions, take as directed, # 2 each, 0 Refills, Maintenance, 12/05/20 15:52:00 EDT, [facility], Partial fill upon patient request [...] each, 0 Refills, Maintenance, 10/15/20 18:05:00 EDT, [facility], Partial fill upon patient request [...] FIT (fecal immunochemical test) Confirmed Active Suspected [place] disease Confirmed Active Goal-TO SURVIVE THIS YEAR [...] and Giancarlo, therapist, at [facility] in [place] Social History Social History Type Response Smoking Status Former smoker; Other : qiut 13 years; entered on: 05/24/14 Sex Note * Event Display: Device Check Office Visit Authored Date: * Event Display: Device Check Office Visit Authored Date: * Event Display: Device Check Office Visit Authored Date: Patient Care team information Care Team Personnel Name: Florencio Saldana RN Position: [facility] ED RN W/OE and Tasks Member Role: Primary Care Nurse Name: Brooklyn Coyne NP Position: [facility] Associate Professional Member Role: Primary Care Nurse Address: Address: [address] [place] [address] Trauma and Acute Care Surgery [place], [place] [address] Name: Tatyana Cosme RN Position: [facility] RN Member Role: Primary Care Nurse Name: Chyna Duarte MD Position: [facility] Primary Care Physician Member Role: PCP Address: Address: [address] [place] [address] [address] Care Team Related Persons Name: SHILO VALE Address: home [address] [place] [id number] Name: GIANCARLO BROOKS Address: [place] [address] Name: OLIVA VELOZ Address: home [address] [place] [address]
--- OUTSIDE RECORDS SUMMARY | 2023-01-14 15:44 | XMS_ITS | Continuity of Care Document ---
Author Name Unknown Organization [facility] Address [address] [place] [address]- Care Team Providers Care Mobility Engineer Name Role Phone Jeffrey Bains DO Primary Care Physician [phone] [facility]counter [facility] Date(s): 11/21/22 - 12/21/[address] [address]- Allergies, Adverse Reactions, Alerts No Known Allergies Immunizations Given and Recorded Vaccine Date Status Refusal Reason [id number] 12y+ bivalent booster vax 03/11/22 Given influenza [...] vaccine, inactivated 03/07/02 Give n SARS-CoV-2 mRNA (tbyciiq-brcy-bfmoj) vax 08/29/21 Given pneumococcal 23-valent vaccine 06/06/21 [...] Note: vis given 5Result Comment: DILUENT LOT#: [id number] EXP: 08/2022 MFG: FRESENSIUS 6Admin Note: VIS given 10/2011 7Admin Note: VIS GIVEN [id number] 8Admin Note: VIS GIVEN 03/14/2008 9Admin Note: [...] 0:18:00 EDT, Route to Pharmacy Electronically, [facility], 176, cm, 07/07/19 10:15:00 EDT, [...] Route to Pharmacy Electronically, [facility]), 176, cm, 08/29/21 9:11:00 EDT, [...] 07/11/22 17:27:00 EDT, Powder, [facility] ([facility] ), Partial fill upon patient [...] Route to Pharmacy Electronically, [facility] ([facility]), 176, cm, 08/29/21 9:11:00 EDT, [...] mL, 3 Refills, Maintenance, 01/14/22 16:55:00 EDT, [facility], 176, cm, ... Start Date: 01/14/22 Status: Ordered Incruse Ellipta 62.5 mcg/inh inhalation powder 1 inhalation, Inhalation, Every 24 hours, APART., # 30 each, 11 Refills, Maintenance, 08/01/22 16:56:00 EDT, [facility] ([facility]), 176, cm, 07/10/22 14:41:00 EDT, [...] 3 Refills, Maintenance, 01/14/22 16:55:00 EDT, Solution, [facility], 176, cm, 08/29/21 9:11:00 EDT, Height, 131.6, kg, 06/03/20 4:19:00 EST, Dry Weight Start Date: 01/14/22 Stop Date: 01/09/23 Status: Ordered levothyroxine 150 mcg (0.15 mg) oral tablet 1 tablet, By Mouth, Daily, # 90 tablet, 3 Refills, Maintenance, 04/01/22 15:34:00 EST, [facility]), 176, cm, 03/24/22 14:42:00 EST, [...] Refills, Maintenance, 06/26/22 20:48:00 EST, [facility] ), 176, cm, 05/02/22 9:48:00 [...] Com... Start Date: 05/08/16 Status: Ordered Pen Claude, 31 G x 5 mm BD Ultra [...] Maintenance, 04/01/22 15:34:00 EST, [facility] ([facility]), 176, cm, 03/24/22 14:42:00 EST, [...] 11:46:00 EDT, 10/22/22 11:46:00 EDT, Chew Tablet, [facility], Partial fill upon patient request if [...] Maintenance, 12/31/21 14:28:00 EDT, [facility] ([facility]), 176, cm, 08/29/21 9:11:00 EDT, [...] FIT (fecal immunochemical test) Confirmed Active Suspected [place] disease Confirmed Active Goal-TO SURVIVE THIS YEAR [...] and Giancarlo, therapist, at [facility] in [place] Social History Social History Type Response Smoking Status Former smoker; Other : qiut 13 years; entered on: 05/24/14 Sex Patient Care team information Care Team Personnel Name: Florencio Saldana RN Position: [facility] ED RN W/OE and Tasks Member Role: Primary Care Nurse Name: Brooklyn Coyne NP Position: [facility] Associate Professional Member Role: Primary Care Nurse Address: Address: [address] [place] [address] Trauma and Acute Care Surgery [place], [place] [address] Name: Tatyana Cosme RN Position: [facility] RN Member Role: Primary Care Nurse Name: Jeffrey Bains DO Position: S Resident Member Role: PCP Address: Address: [address] [place] [address]- Name: Susie CONTRERAS, Valencia Position: S RN Member Role: Primary Care Nurse Care Team Related Persons Name: SHILO VALE Address: home [address] [place] [id number] Name: GIANCARLO BROOKS Address: [place] [address] Name: OLIVA VELOZ Address: home [address] [place] [address]
--- OUTSIDE RECORDS SUMMARY | 2023-01-14 15:44 | XMS_ITS | Continuity of Care Document ---
Author Name Unknown Organization [facility] Address [address] [place] [address]- Care Team Providers Care Accounting Machine Servicer Name Role Phone Chyna Duarte MD Primary Care Physician [facility]counter [facility] Date(s): 07/04/20 - 08/03/[address] [address]- Allergies, Adverse Reactions, Alerts Substance Reaction Severity [...] VIS given 10/2011 6Admin Note: VIS GIVEN [id number] 7Admin Note: VIS GIVEN 03/14/2008 8Admin Note: vis given 9Result Note: pt states he has previously had this vaccine Medications acetaminophen 325 mg oral tablet 975 mg, 3, tablet, By Mouth, Every 6 hours, PRN, # 120 tablet, Refills 0, Tot. Refills 0, Maintenance, as needed for pain, 08/06/19 0:18:00 EDT, Route to Pharmacy Electronically, [facility], 176, cm, 07/07/19 10:15:00 [...] 16:40:37 EDT, Aerosol, Route to Pharmacy Electronically, [id number], [facility] Start Date: 10/04/18 Status: [...] 0, Maintenance, use overnight and naps from [facility], 11/08/19 11:45:00 EDT, Compound, 176, [...] each, 0 Refills, Maintenance, 07/11/20 9:19:00 EDT, [facility], Partial fill upon patient [...] 12/07/19 16:59:00 EDT, Route to Pharmacy Electronically, [facility], 176, cm, 09/23/19 8:30:00 EDT, Height, 129, kg, 05/29/18 0:31:00 EST, Dry Weight Start Date: 12/07/19 Status: Ordered gabapentin 300 mg oral capsule 300 mg, 1, capsule, By Mouth, 3 times a day, # 45 capsule, Refills 0, Tot. Refills 0, Maintenance, 08/06/19 0:18:00 EDT, Route to Pharmacy Electronically, [facility], 176, cm, 07/07/19 10:15:00 EDT, Height, 129, kg, 05/29/18 0:31:00 EST, . Start Date: 08/06/19 Status: Ordered HumaLOG KwikPen 100 units/mL injectable solution See Instructions, s/c inj TID before meals acc to scale: 1u 150-200; 3u 201-250; 5u 251-300; 7u 301-350; 9u 351-400; 11u 401-450; call MD for BG over 450, # 10 mL, 11 Refills, Maintenance, 06/22/19 23:05:00 EST, [facility], 176, cm,... Start [...] 1 Refills, Maintenance, 06/28/20 16:38:00 EST, Solution, [facility], 176, cm, 06/28/20 [...] Com... Start Date: 05/08/16 Status: Ordered Pen [place], 31 G x 5 mm BD Ultra [...] and Radha, therapist, at [facility] in [place] Social History Social History Type Response Smoking Status Former smoker, quit more than 30 days ago entered on: 06/28/20 Sex
--- OUTSIDE RECORDS SUMMARY | 2023-01-14 15:45 | XMS_ITS | Continuity of Care Document ---
Author Name Unknown Organization [facility] Address [address] [place] [address]- Care Team Providers Care Egg Processing Supervisor Name Role Phone Chyna Duarte MD Primary Care Physician [phone] Encounter [facility] Date(s): 09/03/20 - 10/03/20 [facility] [address] [place] [address] Attending Physician: Pop Kaye Admitting Physician: AdmtrPop Referring Physician: Admtr, Ar8 Allergies, Adverse Reactions, Alerts [...] VIS given 10/2011 6Admin Note: VIS GIVEN [id number] 7Admin Note: VIS GIVEN 03/14/2008 8Admin Note: [...] 16:40:37 EDT, Aerosol, Route to Pharmacy Electronically, [id number], [facility] Start Date: 10/04/18 Status: [...] 07/11/20 9:19:00 EDT, [facility], Partial fill upon patient [...] 12/07/19 16:59:00 EDT, Route to Pharmacy Electronically, [facility], 176, cm, 09/23/19 8:30:00 EDT, [...] mL, 11 Refills, Maintenance, 06/22/19 23:05:00 EST, [facility], 176, cm,... Start Date: 06/22/19 [...] 1 Refills, Maintenance, 06/28/20 16:38:00 EST, Solution, [facility], 176, cm, 06/28/20 13:04:00 EST, [...] Com... Start Date: 05/08/16 Status: Ordered Pen [place], 31 G x 5 mm BD Ultra [...] and Radha, therapist, at [facility] in [place] Social History Social History Type Response Smoking Status Former smoker, quit more than 30 days ago entered on: 06/28/20 Sex
--- OUTSIDE RECORDS SUMMARY | 2023-01-14 15:45 | XMS_ITS | Continuity of Care Document ---
Author Name Unknown Organization [facility] Address [address] [place] [address]- Care Team Providers Care Staff Home Therapy Rn Name Role Phone Gerald GARRISON, Chyna Primary Care Physician [facility]counter [facility] Date(s): 01/16/22 - 02/15/[address] [address]- Allergies, Adverse Reactions, Alerts No Known Allergies Immunizations Given and Recorded Vaccine Date Status Refusal Reason SARS-CoV-2 mRNA (pzfehyh-ieje-qcvqf) vax 08/29/21 Given pneumococcal 23-valent vaccine 06/06/21 [...] n Patient Refuses 1Result Comment: DILUENT LOT#: [id number] EXP: 08/2022 MFG: FRESENSIUS 2Early/Late Reason: Other : GIVEN 03/31/19 DURING VISIT 3Admin Note: VIS 12/04/2009 4Admin Note: VIS GIVEN 12/05/2008 5Admin Note: vis given 6Admin Note: VIS given 10/2011 7Admin Note: VIS GIVEN [id number] 8Admin Note: VIS GIVEN 03/14/2008 9Admin Note: vis given 10Result Note: pt states he has previously had this vaccine Medications acetaminophen 325 mg oral tablet 975 mg, 3, tablet, By Mouth, Every 6 hours, PRN, # 120 tablet, Refills 0, Tot. Refills 0, Maintenance, as needed for pain, 08/06/19 0:18:00 EDT, Route to Pharmacy Electronically, [facility], 176, cm, 07/07/19 [...] Maintenance, 01/15/22 14:49:00 EDT, [facility]), 50, USE 2 INHALATIONS BY MOUTHEVERY 6 HOURS NEEDED FOR WHEEZING, 176, cm, ... Start Date: 01/15/22 Status: Ordered amLODIPine 5 mg oral tablet 1 tablet, By Mouth, Daily, # 90 tablet, 3 Refills, Maintenance, 01/15/22 14:49:00 EDT, [facility]), 176, cm, 01/15/22 10:10:00 EDT, Height, 131.6, kg, 06/03/20 4:19:00 EST, Dry Weight Start Date: 01/15/22 Status: Ordered atenolol 25 mg oral tablet 1, tablet, By Mouth, 2 times a day, # 180 tablet, Refills 3, Maintenance, 12/31/21 14:27:00 EDT, Route to Pharmacy Electronically, [facility] ([facility]), 176, cm, 08/29/21 9:11:00 EDT, Height, 131.6, kg, 06/03/20 4:19:00 EST, Dry... Start Date: 12/31/21 Status: Ordered atorvastatin 40 mg oral tablet 1 tablet, By Mouth, Daily, # 90 tablet, 1 Refills, Maintenance, 12/31/21 14:20:00 EDT, [facility]), 176, cm, 08/29/21 9:11:00 EDT, [...] each, 3 Refills, Maintenance, 09/26/21 15:07:00 EDT, [facility]), Partial fill upon patient request [...] 08/06/19 0:18:00 EDT, Route to Pharmacy Electronically, [facility], 176, cm, 07/07/19 [...] mL, 3 Refills, Maintenance, 01/14/22 16:55:00 EDT, [facility] 3, 176, cm, ... Start Date: [...] 3 Refills, Maintenance, 01/14/22 16:55:00 EDT, Solution, [facility] 3, 176, cm, 08/29/21 9:11:00 EDT, [...] Com... Start Date: 05/08/16 Status: Ordered Pen [place], 31 G x 5 mm BD Ultra Fine III See Instructions, # 300 each, Refills 3, Tot. Refills 3, Maintenance, use with lantus and humalog as directed dx: e11.65, 05/06/16 15:47:30, Compound Start Date: 05/06/16 Stop Date: 05/01/17 Status: Ordered Readi-Cat 2 oral suspension See Instructions, take as directed, # 2 each, 0 Refills, Maintenance, 12/05/20 15:52:00 EDT, [facility], Partial fill upon patient request if [...] each, 0 Refills, Maintenance, 10/15/20 18:05:00 EDT, [facility], Partial fill upon patient request if [...] FIT (fecal immunochemical test) Confirmed Active Suspected [place] disease Confirmed Active Goal-TO SURVIVE THIS YEAR [...] Wheezing Confirmed Active 1Sees Dr. Molina and Radha, therapist, at [facility] in [place] Social History Social History Type Response Smoking Status Former smoker, quit more than 30 days ago entered on: 06/28/20 Sex Patient Care team information Personnel Name: Chyna Duarte MD Address: Address: [address] [place] [id number]
--- OUTSIDE RECORDS SUMMARY | 2023-01-14 15:45 | XMS_ITS | Continuity of Care Document ---
Author Name Unknown Organization [facility] Address [address] [place] [address]- Care Team Providers Care Equine Manager Name Role Phone Chyna Duarte MD Primary Care Physician [phone] [facility] Date[facility]s): 06/14/20 - 07/14/[address] [id number] Allergies, Adverse Reactions, Alerts Substance Reaction Severity [...] VIS given 10/2011 6Admin Note: VIS GIVEN [id number] 7Admin Note: VIS GIVEN 03/14/2008 8Admin Note: vis given 9Result Note: pt states he has previously had this vaccine Medications acetaminophen 325 mg oral tablet 975 mg, 3, tablet, By Mouth, Every 6 hours, PRN, # 120 tablet, Refills 0, Tot. Refills 0, Maintenance, as needed for pain, 08/06/19 0:18:00 EDT, Route to Pharmacy Electronically, [facility], 176, cm, 07/07/19 [...] 16:40:37 EDT, Aerosol, Route to Pharmacy Electronically, [id number], [facility] Start Date: 10/04/18 Status: [...] 0, Maintenance, use overnight and naps from [facility], 11/08/19 11:45:00 EDT, Compound, 176, cm, 09/23/19 [...] each, 0 Refills, Maintenance, 07/11/20 9:19:00 EDT, [facility], Partial fill upon patient [...] 12/07/19 16:59:00 EDT, Route to Pharmacy Electronically, [facility], 176, cm, 09/23/19 8:30:00 EDT, Height, 129, kg, 05/29/18 0:31:00 EST, Dry Weight Start Date: 12/07/19 Status: Ordered gabapentin 300 mg oral capsule 300 mg, 1, capsule, By Mouth, 3 times a day, # 45 capsule, Refills 0, Tot. Refills 0, Maintenance, 08/06/19 0:18:00 EDT, Route to Pharmacy Electronically, [facility], 176, cm, 07/07/19 [...] mL, 11 Refills, Maintenance, 06/22/19 23:05:00 EST, [facility], 176, cm,... Start Date: [...] 1 Refills, Maintenance, 06/28/20 16:38:00 EST, Solution, [facility], 176, cm, 06/28/20 13:04:00 EST, Height, 131.6, kg, 06/03/20 4:19:00 EST, Dry Weight Start Date: 06/28/20 Stop Date: 12/25/20 Status: Ordered levothyroxine 150 mcg (0.15 mg) oral tablet 1 tablet, By Mouth, Daily, # 90 tablet, 3 Refills, Maintenance, 07/01/20 20:38:00 EST, [facility], 176, cm, 06/28/20 13:04:00 EST, Height, 131.6, [...] Com... Start Date: 05/08/16 Status: Ordered Pen [place], 31 G x 5 mm BD Ultra [...] and Radha, [facility] [place] Social History Social History Type Response Smoking Status Former smoker, quit more than 30 days ago entered on: 06/28/20 Sex
--- OUTSIDE RECORDS SUMMARY | 2023-01-14 15:45 | XMS_ITS | Continuity of Care Document ---
Author Name Unknown Organization [facility] Address [address] [place] [address]- Care Team Providers Care Economic Research Analyst Name Role Phone Chyna Duarte MD Primary Care Physician [phone] [facility] Date(s): 09/19/20 - 10/19/[address] [address]- Allergies, Adverse Reactions, Alerts Substance Reaction Severity [...] VIS given 10/2011 6Admin Note: VIS GIVEN [id number] 7Admin Note: VIS GIVEN 03/14/2008 8Admin Note: vis given 9Result Note: pt states he has previously had this vaccine Medications acetaminophen 325 mg oral tablet 975 mg, 3, tablet, By Mouth, Every 6 hours, PRN, # 120 tablet, Refills 0, Tot. Refills 0, Maintenance, as needed for pain, 08/06/19 0:18:00 EDT, Route to Pharmacy Electronically, [facility], 176, cm, 07/07/19 10:15:00 [...] 16:40:37 EDT, Aerosol, Route to Pharmacy Electronically, [id number], [facility] Start Date: 10/04/18 Status: [...] 0, Maintenance, use overnight and naps from [facility], 11/08/19 11:45:00 EDT, Compound, 176, cm, [...] each, 0 Refills, Maintenance, 07/11/20 9:19:00 EDT, [facility], Partial fill upon patient [...] 12/07/19 16:59:00 EDT, Route to Pharmacy Electronically, [facility], 176, cm, 09/23/19 8:30:00 EDT, Height, 129, kg, 05/29/18 0:31:00 EST, Dry Weight Start Date: 12/07/19 Status: Ordered gabapentin 300 mg oral capsule 300 mg, 1, capsule, By Mouth, 3 times a day, # 45 capsule, Refills 0, Tot. Refills 0, Maintenance, 08/06/19 0:18:00 EDT, Route to Pharmacy Electronically, [facility], 176, cm, 07/07/19 10:15:00 EDT, Height, 129, kg, 05/29/18 0:31:00 EST, . Start Date: 08/06/19 Status: Ordered HumaLOG KwikPen 100 units/mL injectable solution See Instructions, s/c inj TID before meals acc to scale: 1u 150-200; 3u 201-250; 5u 251-300; 7u 301-350; 9u 351-400; 11u 401-450; call MD for BG over 450, # 10 mL, 11 Refills, Maintenance, 06/22/19 23:05:00 EST, [facility], 176, cm,... Start [...] 1 Refills, Maintenance, 06/28/20 16:38:00 EST, Solution, [facility], 176, cm, 06/28/20 [...] Com... Start Date: 05/08/16 Status: Ordered Pen [place], 31 G x 5 mm BD Ultra [...] each, 0 Refills, Maintenance, 10/15/20 18:05:00 EDT, [facility], Partial fill upon patient request [...] and Radha, therapist, at [facility] in [place] Social History Social History Type Response Smoking Status Former smoker, quit more than 30 days ago entered on: 06/28/20 Sex
--- OUTSIDE RECORDS SUMMARY | 2023-01-14 15:45 | XMS_ITS | Continuity of Care Document ---
Author Name Unknown Organization [facility] Address [address] [place] [address]- Care Team Providers Care Skid Road Worker Name Role Phone Jeffrey Bains DO Primary Care Physician [facility] Date(s): 11/13/22 - 12/27/[address] [address]- Attending Physician: Not on Staff, Attending MD Referring Physician: Gini Azevedo DO Allergies, Adverse Reactions, Alerts No Known Allergies Immunizations Given and Recorded Vaccine Date Status Refusal Reason [id number] 12y+ bivalent booster vax 03/11/22 Given influenza [...] vaccine, inactivated 03/07/02 Give n SARS-CoV-2 mRNA (vifhrfh-ilch-kpyuh) vax 08/29/21 Given pneumococcal 23-valent vaccine 06/06/21 [...] Note: vis given 5Result Comment: DILUENT LOT#: [id number] EXP: 08/2022 MFG: FRESENSIUS 6Admin Note: VIS given 10/2011 7Admin Note: VIS GIVEN [id number] 8Admin Note: VIS GIVEN 03/14/2008 9Admin Note: [...] 08/06/19 0:18:00 EDT, Route to Pharmacy Electronically, [facility], 176, cm, 07/07/19 [...] Route to Pharmacy Electronically, [facility]), 176, cm, 08/29/21 9:11:00 EDT, [...] 07/11/22 17:27:00 EDT, Powder, [facility] ([facility] ), Partial fill upon patient request if the prescription is for a schedule II opioid drug., 1 puffs Inhalat... Start Date: 07/11/22 Status: Ordered free style lyndon reader free style lyndon reader, See Instructions, # 1 each, Refills 0, Tot. Refills 0, Maintenance, to be used to check BG up to 4 times a day dx: E 11.65 NATASHA = lifetime, 12/25/22 12:27:00 EDT, Compound Start Date: 12/25/22 Status: Ordered free style lyndon sensors free [...] Route to Pharmacy Electronically, [facility]), 176, cm, 08/29/21 9:11:00 EDT, [...] mL, 3 Refills, Maintenance, 01/14/22 16:55:00 EDT, [facility], 176, cm, ... Start Date: 01/14/22 Status: Ordered Incruse Ellipta 62.5 mcg/inh inhalation powder 1 inhalation, Inhalation, Every 24 hours, APART., # 30 each, 11 Refills, Maintenance, 08/01/22 16:56:00 EDT, [facility]), 176, cm, 07/10/22 14:41:00 EDT, [...] 3 Refills, Maintenance, 01/14/22 16:55:00 EDT, Solution, [facility], 176, cm, 08/29/21 9:11:00 EDT, Height, 131.6, kg, 06/03/20 4:19:00 EST, Dry Weight Start Date: 01/14/22 Stop Date: 01/09/23 Status: Ordered levothyroxine 150 mcg (0.15 mg) oral tablet 1 tablet, By Mouth, Daily, # 90 tablet, 3 Refills, Maintenance, 04/01/22 15:34:00 EST, [facility]), 176, cm, 03/24/22 14:42:00 EST, [...] Refills, Maintenance, 06/26/22 20:48:00 EST, [facility] ), 176, cm, 05/02/22 9:48:00 [...] Com... Start Date: 05/08/16 Status: Ordered Pen [place], 31 G x 5 mm BD Ultra [...] Maintenance, 04/01/22 15:34:00 EST, [facility]), 176, cm, 03/24/22 14:42:00 EST, [...] 11:46:00 EDT, 10/22/22 11:46:00 EDT, [facility]w Tablet, [facility], Partial fill upon patient request if [...] FIT (fecal immunochemical test) Confirmed Active Suspected [place] disease Confirmed Active Goal-TO SURVIVE THIS YEAR [...] Dr. Molina and Giancarlo, therapist, [facility] [place] Social History Social History Type Response Smoking Status Former smoker; Other : qiut 13 years; entered on: 05/24/14 Sex Patient Care team information Care Team Personnel Name: Florencio Saldana RN Position: [facility] ED RN W/OE and Tasks Member Role: Primary Care Nurse Name: Brooklyn Coyne NP Position: [facility] Associate Professional Member Role: Primary Care Nurse Address: Address: [address] [place] [address] Trauma and Acute [place] [address]- Name: Tatyana Cosme RN Position: [facility] RN Member Role: Primary Care Nurse Name: Jeffrey Bains DO Position: [facility] Resident Member Role: PCP Address: Address: [address] [place] [address]- Name: Valencia Richards RN Position: [facility] RN Member Role: Primary Care Nurse Care Team Related Persons Name: SHILO VLAE Address: home [address] [place] [address] Name: GIANCARLO BROOKS Address: [place] [address] Name: ROBERTO BENAVIDES Name: OLIVA VELOZ Address: home
--- OUTSIDE RECORDS SUMMARY | 2023-01-14 15:45 | XMS_ITS | Continuity of Care Document ---
Author Name Unknown Organization [facility] Address [address] [place] [address]- Care Team Providers Care College Associate Name Role Phone Chyna Duarte MD Primary Care Physician [facility] 12[facility]12[facility]19 - 01/11/[address] [address]- [facility] Allergies, Adverse Reactions, Alerts Substance Reaction [...] VIS given 10/2011 6Admin Note: VIS GIVEN [id number] 7Admin Note: VIS GIVEN 03/14/2008 8Admin Note: vis given 9Result Note: pt states he has previously had this vaccine Medications acetaminophen 325 mg oral tablet 975 mg, 3, tablet, By Mouth, Every 6 hours, PRN, # 120 tablet, Refills 0, Tot. Refills 0, Maintenance, as needed for pain, 08/06/19 0:18:00 EDT, Route to Pharmacy Electronically, [facility], 176, cm, 07/07/19 10:15:00 EDT, Height, 129, kg,... Start Date: 08/06/19 Status: Ordered albuterol CFC free 90 mcg/inh inhalation aerosol 2, puffs, Inhalation, Every 6 hours, PRN, # 9 Gm, Refills 5, Tot. Refills 5, Maintenance, 10/04/18 16:40:37 EDT, Aerosol, Route to Pharmacy Electronically, [id number], [facility] Start Date: 10/04/18 Status: Ordered amLODIPine 5 mg oral tablet 5 mg, 1, tablet, By Mouth, Daily, # 90 tablet, Refills 3, Tot. Refills 3, Maintenance, 05/30/19 13:21:00 EST, Route to Pharmacy Electronically, [facility], 176, cm, 03/31/19 9:59:00 EST, Height, 129, kg, 05/29/18 0:31:00 EST, Dry Weight Start Date: 05/30/19 Status: Ordered atenolol 25 mg oral tablet 25 mg, 1, tablet, By Mouth, 2 times a day, # 180 tablet, Refills 3, Tot. Refills 3, Maintenance, 05/30/19 13:21:00 EST, Route to Pharmacy Electronically, [facility], 176, cm, 03/31/19 9:59:00 EST, [...] 0, Maintenance, use overnight and naps from [facility], 11/08/19 11:45:00 EDT, Compound, 176, cm, 09/23/19 [...] 12/07/19 16:59:00 EDT, Route to Pharmacy Electronically, [facility], 176, cm, 09/23/19 8:30:00 EDT, Height, 129, kg, 05/29/18 0:31:00 EST, Dry Weight Start Date: 12/07/19 Status: Ordered gabapentin 300 mg oral capsule 300 mg, 1, capsule, By Mouth, 3 times a day, # 45 capsule, Refills 0, Tot. Refills 0, Maintenance, 08/06/19 0:18:00 EDT, Route to Pharmacy Electronically, [facility], 176, cm, 07/07/19 10:15:00 EDT, Height, 129, kg, 05/29/18 0:31:00 EST, Start Date: 08/06/19 Status: Ordered HumaLOG KwikPen 100 units/mL injectable solution See Instructions, s/c inj TID before meals acc to scale: 1u 150-200; 3u 201-250; 5u 251-300; 7u 301-350; 9u 351-400; 11u 401-450; call MD for BG over 450, # 10 mL, 11 Refills, Maintenance, 06/22/19 23:05:00 EST, [facility], 176, cm,... Start Date: 06/22/19 Status: Ordered ibuprofen 600 mg oral tablet 600 mg, 1, tablet, By Mouth, Every 6 hours, # 50 tablet, Refills 0, Tot. Refills 0, Maintenance, 08/06/19 0:18:00 EDT, Route to Pharmacy Electronically, [facility], 176, cm, 07/07/19 10:15:00 EDT, [...] 1 Refills, Maintenance, 09/07/19 17:07:00 EDT, Solution, [facility], 176, cm, 08/30/19 11:03:00 EDT, [...] Com... Start Date: 05/08/16 Status: Ordered Pen [place], 31 G x 5 mm BD Ultra [...] and Radha, therapist, at [facility] in [place] Social History Social History Type Response Smoking Status Never smoker; Tobacc o user in household: No entered on: 05/25/15 Sex
--- OUTSIDE RECORDS SUMMARY | 2023-01-14 15:45 | XMS_ITS | Continuity of Care Document ---
Author Name Unknown Organization [facility] Address [address] [place] [address]- Care Team Providers Care Environmental Air Specialist Name Role Phone Chyna Duarte MD Primary Care Physician [phone] [place] [facility] [place]s): 04/05/20 - 04/12/20 [facility] [address] [place] [address]- Attending Physician: Abel Marin MD Referring Physician: Chyna Duarte MD Allergies, Adverse Reactions, Alerts Substance Reaction Severity Status NKA Active Immunizations Given and Recorded Vaccine Date Status Refusal Reason influenza virus vaccine, inactivated 02/23/20 Give n influenza virus vaccine, inactivated 1 03/31/19 Gi alnaa influenza virus vaccine, inactivated [...] VIS given 10/2011 6Admin Note: VIS GIVEN [id number] 7Admin Note: VIS GIVEN 03/14/2008 8Admin Note: vis given 9Result Note: pt states he has previously had this vaccine Medications acetaminophen 325 mg oral tablet 975 mg, 3, tablet, By Mouth, Every 6 hours, PRN, # 120 tablet, Refills 0, Tot. Refills 0, Maintenance, as needed for pain, 08/06/19 0:18:00 EDT, Route to Pharmacy Electronically, [facility], 176, cm, 07/07/19 10:15:00 EDT, Height, 129, kg,... Start Date: 08/06/19 Status: Ordered albuterol CFC free 90 mcg/inh inhalation aerosol 2, puffs, Inhalation, Every 6 hours, PRN, # 9 Gm, Refills 5, Tot. Refills 5, Maintenance, 10/04/18 16:40:37 EDT, Aerosol, Route to Pharmacy Electronically, [id number], [facility] Start Date: 10/04/18 Status: Ordered amLODIPine 5 mg oral tablet 5 mg, 1, tablet, By Mouth, Daily, # 90 tablet, Refills 3, Tot. Refills 3, Maintenance, 05/30/19 13:21:00 EST, Route to Pharmacy Electronically, [facility], 176, cm, 03/31/19 9:59:00 EST, [...] use overnight and naps from [facility], 11/08/19 11:45:00 EDT, Compound, 176, [...] 12/07/19 16:59:00 EDT, Route to Pharmacy Electronically, [facility], 176, cm, 09/23/19 8:30:00 EDT, Height, 129, kg, 05/29/18 0:31:00 EST, Dry Weight Start Date: 12/07/19 Status: Ordered gabapentin 300 mg oral capsule 300 mg, 1, capsule, By Mouth, 3 times a day, # 45 capsule, Refills 0, Tot. Refills 0, Maintenance, 08/06/19 0:18:00 EDT, Route to Pharmacy Electronically, [facility], 176, cm, 07/07/19 10:15:00 EDT, Height, 129, kg, 05/29/18 0:31:00 [address] DrElian.. Start Date: 08/06/19 Status: Ordered HumaLOG KwikPen 100 units/mL injectable solution See Instructions, s/c inj TID before meals acc to scale: 1u 150-200; 3u 201-250; 5u 251-300; 7u 301-350; 9u 351-400; 11u 401-450; call MD for BG over 450, # 10 mL, 11 Refills, Maintenance, 06/22/19 23:05:00 EST, [facility], 176, cm,... Start Date: 06/22/19 Status: Ordered ibuprofen 600 mg oral tablet 600 mg, 1, tablet, By Mouth, Every 6 hours, # 50 tablet, Refills 0, Tot. Refills 0, Maintenance, 08/06/19 0:18:00 EDT, Route to Pharmacy Electronically, [facility], 176, cm, 07/07/19 [...] 1 Refills, Maintenance, 09/07/19 17:07:00 EDT, Solution, [facility], 176, cm, 08/30/19 [...] Com... Start Date: 05/08/16 Status: Ordered Pen [place], 31 G x 5 mm BD Ultra [...] and Radha, therapist, at [facility] in [place] Social History Social History Type Response Smoking Status Never smoker; Tobacc o user in household: No entered on: 05/25/15 Sex
--- OUTSIDE RECORDS SUMMARY | 2023-01-14 15:45 | XMS_ITS | Continuity of Care Document ---
Author Name Unknown Organization [facility] Address [address] [place] [address]- Care Team Providers Care Pole Frame Construction Worker Name Role Phone Chyna Duarte MD Primary Care Physician [phone] [facility] 11/[facility]19 - 12/02/[address] [address]- [facility] Allergies, Adverse Reactions, Alerts Substance Reaction [...] 08/06/19 0:18:00 EDT, Route to Pharmacy Electronically, [facility], 176, cm, 07/07/19 10:15:00 EDT, Height, 129, kg,... Start Date: 08/06/19 Status: Ordered albuterol CFC free 90 mcg/inh inhalation aerosol 2, puffs, Inhalation, Every 6 hours, PRN, # 9 Gm, Refills 5, Tot. Refills 5, Maintenance, 10/04/18 16:40:37 EDT, Aerosol, Route to Pharmacy Electronically, [id number], [facility] Start Date: 10/04/18 Status: Ordered amLODIPine 5 mg oral tablet 5 mg, 1, tablet, By Mouth, Daily, # 90 tablet, Refills 3, Tot. Refills 3, Maintenance, 05/30/19 13:21:00 EST, Route to Pharmacy Electronically, [facility], 176, cm, 03/31/19 9:59:00 EST, [...] 09/26/19 9:42:00 EDT, Route to Pharmacy Electronically, [facility], 176, cm, 09/23/19 8:30:00 EDT, Height, 129, kg, 05/29/18 0:31:00 EST, Dry Weight Start Date: 09/26/19 Stop Date: 12/25/19 Status: Ordered gabapentin 300 mg oral capsule 300 mg, 1, capsule, By Mouth, 3 times a day, # 45 capsule, Refills 0, Tot. Refills 0, Maintenance, 08/06/19 0:18:00 EDT, Route to Pharmacy Electronically, [facility], 176, cm, 07/07/19 10:15:00 EDT, Height, 129, kg, 05/29/18 0:31:00 EST, Start Date: 08/06/19 Status: Ordered HumaLOG KwikPen 100 units/mL injectable solution See Instructions, s/c inj TID before meals acc to scale: 1u 150-200; 3u 201-250; 5u 251-300; 7u 301-350; 9u 351-400; 11u 401-450; call MD for BG over 450, # 10 mL, 11 Refills, Maintenance, 06/22/19 23:05:00 EST, [facility], 176, cm,... Start Date: 06/22/19 Status: Ordered ibuprofen 600 mg oral tablet 600 mg, 1, tablet, By Mouth, Every 6 hours, # 50 tablet, Refills 0, Tot. Refills 0, Maintenance, 08/06/19 0:18:00 EDT, Route to Pharmacy Electronically, [facility], 176, cm, 07/07/19 [...] 1 Refills, Maintenance, 09/07/19 17:07:00 EDT, Solution, [facility], 176, cm, 08/30/19 11:03:00 [...] Com... Start Date: 05/08/16 Status: Ordered Pen [place], 31 G x 5 mm BD Ultra [...] Molina and Radha, therapist, at [facility] in [place] Social History Social History Type Response Smoking Status Never smoker; Tobacc o user in household: No entered on: 05/25/15 Sex
--- OUTSIDE RECORDS SUMMARY | 2023-01-14 15:46 | XMS_ITS | Continuity of Care Document ---
Author Name Unknown Organization [facility] Address [address] [place] [address]- Care Team Providers Care Last Inserter Name Role Phone Chyna Duarte MD Primary Care Physician [phone] [facility] 11/[facility]19 - 12/30/[address] [address]- [facility] Allergies, Adverse Reactions, Alerts Substance Reaction [...] 16:40:37 EDT, Aerosol, Route to Pharmacy Electronically, [id number], [facility] Start Date: 10/04/18 Status: Ordered amLODIPine 5 mg oral tablet 5 mg, 1, tablet, By Mouth, Daily, # 90 tablet, Refills 3, Tot. Refills 3, Maintenance, 05/30/19 13:21:00 EST, Route to Pharmacy Electronically, [facility], 176, cm, 03/31/19 9:59:00 EST, [...] use overnight and naps from [facility], 11/08/19 11:45:00 EDT, Compound, 176, cm, [...] 12/07/19 16:59:00 EDT, Route to Pharmacy Electronically, [facility], 176, cm, 09/23/19 8:30:00 [...] Maintenance, 09/07/19 17:07:00 EDT, Solution, [facility], 176, cm, 08/30/19 11:03:00 EDT, Height, [...] Com... Start Date: 05/08/16 Status: Ordered Pen [place], 31 G x 5 mm BD Ultra [...] and Radha, therapist, at [facility] in [place] Social History Social History Type Response Smoking Status Never smoker; Tobacc o user in household: No entered on: 05/25/15 Sex
--- OUTSIDE RECORDS SUMMARY | 2023-01-14 15:46 | XMS_ITS | Continuity of Care Document ---
Author Name Unknown Organization [facility] Address [address] [place] [id number]- Care Team Providers Care Lime Slaker Name Role Phone Chyna Duarte MD Primary Care Physician [facility]s): 08/03/20 - 09/02/20 [facility] [address] [place] [id number] Allergies, Adverse Reactions, Alerts Substance Reaction [...] VIS given 10/2011 6Admin Note: VIS GIVEN [id number] 7Admin Note: VIS GIVEN 03/14/2008 8Admin Note: vis given 9Result Note: pt states he has previously had this vaccine Medications acetaminophen 325 mg oral tablet 975 mg, 3, tablet, By Mouth, Every 6 hours, PRN, # 120 tablet, Refills 0, Tot. Refills 0, Maintenance, as needed for pain, 08/06/19 0:18:00 EDT, Route to Pharmacy Electronically, [facility], 176, cm, 07/07/19 [...] 16:40:37 EDT, Aerosol, Route to Pharmacy Electronically, [id number], [facility] Start Date: 10/04/18 Status: Ordered [...] 0, Maintenance, use overnight and naps from [facility], 11/08/19 11:45:00 EDT, Compound, 176, cm, [...] each, 0 Refills, Maintenance, 07/11/20 9:19:00 EDT, [facility], Partial fill upon patient [...] 12/07/19 16:59:00 EDT, Route to Pharmacy Electronically, [facility], 176, cm, 09/23/19 8:30:00 EDT, Height, 129, kg, 05/29/18 0:31:00 EST, Dry Weight Start Date: 12/07/19 Status: Ordered gabapentin 300 mg oral capsule 300 mg, 1, capsule, By Mouth, 3 times a day, # 45 capsule, Refills 0, Tot. Refills 0, Maintenance, 08/06/19 0:18:00 EDT, Route to Pharmacy Electronically, [facility], 176, cm, 07/07/19 [...] 1 Refills, Maintenance, 06/28/20 16:38:00 EST, Solution, [facility], 176, cm, 06/28/20 [...] Com... Start Date: 05/08/16 Status: Ordered Pen [place], 31 G x 5 mm BD Ultra [...] and Radha, therapist, at [facility] in [place] Social History Social History Type Response Smoking Status Former smoker, quit more than 30 days ago entered on: 06/28/20 Sex
--- OUTSIDE RECORDS SUMMARY | 2023-01-14 15:46 | XMS_ITS | Continuity of Care Document ---
Author Name Unknown Organization [facility] Address [address] [place] [address]- Care Team Providers Care Fixture Relamper Name Role Phone Chyna Duarte MD Primary Care Physician [facility]s): 11/21/19 - 12/21/[address] [address]- [facility] Allergies, Adverse Reactions, Alerts Substance [...] 08/06/19 0:18:00 EDT, Route to Pharmacy Electronically, [facility], 176, cm, 07/07/19 10:15:00 EDT, Height, 129, kg,... Start Date: 08/06/19 Status: Ordered albuterol CFC free 90 mcg/inh inhalation aerosol 2, puffs, Inhalation, Every 6 hours, PRN, # 9 Gm, Refills 5, Tot. Refills 5, Maintenance, 10/04/18 16:40:37 EDT, Aerosol, Route to Pharmacy Electronically, [id number], [facility] Start Date: 10/04/18 Status: Ordered amLODIPine 5 mg oral tablet 5 mg, 1, tablet, By Mouth, Daily, # 90 tablet, Refills 3, Tot. Refills 3, Maintenance, 05/30/19 13:21:00 EST, Route to Pharmacy Electronically, [facility], 176, cm, 03/31/19 9:59:00 EST, [...] 0, Maintenance, use overnight and naps from [facility], 11/08/19 11:45:00 EDT, Compound, 176, cm, 09/23/19 [...] Start Date: 05/13/16 Status: Ordered free style lydnon reader free style lyndon reader, See Instructions, [...] 12/07/19 16:59:00 EDT, Route to Pharmacy Electronically, [facility], 176, cm, 09/23/19 8:30:00 EDT, Height, 129, kg, 05/29/18 0:31:00 EST, Dry Weight Start Date: 12/07/19 Status: Ordered gabapentin 300 mg oral capsule 300 mg, 1, capsule, By Mouth, 3 times a day, # 45 capsule, Refills 0, Tot. Refills 0, Maintenance, 08/06/19 0:18:00 EDT, Route to Pharmacy Electronically, [facility], 176, cm, 07/07/19 10:15:00 EDT, Height, 129, kg, 05/29/18 0:31:00 EST, [facility].. Start Date: 08/06/19 Status: Ordered HumaLOG KwikPen 100 units/mL injectable solution See Instructions, s/c inj TID before meals acc to scale: 1u 150-200; 3u 201-250; 5u 251-300; 7u 301-350; 9u 351-400; 11u 401-450; call MD for BG over 450, # 10 mL, 11 Refills, Maintenance, 06/22/19 23:05:00 EST, [facility], 176, cm,... Start Date: 06/22/19 Status: Ordered ibuprofen 600 mg oral tablet 600 mg, 1, tablet, By Mouth, Every 6 hours, # 50 tablet, Refills 0, Tot. Refills 0, Maintenance, 08/06/19 0:18:00 EDT, Route to Pharmacy Electronically, [facility], 176, cm, 07/07/19 10:15:00 [...] 1 Refills, Maintenance, 09/07/19 17:07:00 EDT, Solution, [facility], 176, cm, 08/30/19 11:03:00 EDT, [...] Com... Start Date: 05/08/16 Status: Ordered Pen [place], 31 G x 5 mm BD Ultra [...] and Radha, therapist, at [facility] in [place] Social History Social History Type Response Smoking Status Never smoker; Tobacc o user in household: No entered on: 05/25/15 Sex
--- OUTSIDE RECORDS SUMMARY | 2023-01-14 15:46 | XMS_ITS | Continuity of Care Document ---
Author Name Unknown Organization [facility] Address [address] [place] [address]- Care Team Providers Care Hand Cell Tuber Name Role Phone Chyna Duarte MD Primary Care Physician [facility] - 07/15/19 [facility] [address] [place] [address]- [facility] Attending Physician: Hank Leal MD Admitting Physician: Hank Leal MD Referring Physician: Hank Leal MD Allergies, Adverse Reactions, Alerts Substance Reaction [...] VIS given 10/2011 6Admin Note: VIS GIVEN [id number] 7Admin Note: VIS GIVEN 03/14/2008 8Admin Note: vis given 9Result Note: pt states he has previously had this vaccine Medications albuterol CFC free 90 mcg/inh inhalation aerosol 2, puffs, Inhalation, Every 6 hours, PRN, # 9 Gm, Refills 5, Tot. Refills 5, Maintenance, 10/04/18 16:40:37 EDT, Aerosol, Route to Pharmacy Electronically, [id number], [facility] Start Date: 10/04/18 Status: Ordered amLODIPine 5 mg oral tablet 5 mg, 1, tablet, By Mouth, Daily, # 90 tablet, Refills 3, Tot. Refills 3, Maintenance, 05/30/19 13:21:00 EST, Route to Pharmacy Electronically, [facility], 176, cm, 03/31/19 9:59:00 EST, Height, 129, kg, 05/29/18 0:31:00 EST, Dry Weight Start Date: 05/30/19 Status: Ordered atenolol 25 mg oral tablet 25 mg, 1, tablet, By Mouth, 2 times a day, # 180 tablet, Refills 3, Tot. Refills 3, Maintenance, 05/30/19 13:21:00 EST, Route to Pharmacy Electronically, [facility], 176, cm, 03/31/19 9:59:00 EST, [...] 07/01/19 8:58:00 EST, Route to Pharmacy Electronically, [facility], 176, cm, 06/23/19 13:14:00 EST, [...] 11 Refills, Maintenance, 06/22/19 23:05:00 EST, [facility], 176, cm,... Start Date: 06/22/19 Status: [...] 3 Refills, Maintenance, 07/07/19 10:23:00 EDT, Solution, [facility], 176, cm, 07/07/19 10:15:00 EDT, Height, [...] Com... Start Date: 05/08/16 Status: Ordered Pen [place], 31 G x 5 mm BD Ultra [...] and Radha, therapist, at [facility] in [place] Social History Social History Type Response Smoking Status Never smoker; Tobacc o user in household: No entered on: 05/25/15 Sex
--- OUTSIDE RECORDS SUMMARY | 2023-01-14 15:46 | XMS_ITS | Continuity of Care Document ---
Author Name Unknown Organization [facility] Address [address] [place] [address]- Care Team Providers Care Legislative Aide Name Role Phone Jeffrey Bains DO Primary Care Physician [facility]): 10/24/22 - 11/23/[address] [address]- Allergies, Adverse Reactions, Alerts No Known Allergies Immunizations Given and Recorded Vaccine Date Status Refusal Reason [id number] 12y+ bivalent booster vax 03/11/22 Given influenza [...] vaccine, inactivated 03/07/02 Give n SARS-CoV-2 mRNA ([id number]) vax 08/29/21 Given pneumococcal 23-valent vaccine 06/06/21 [...] Note: vis given 5Result Comment: DILUENT LOT#: [id number] EXP: 08/2022 MFG: [id number] 6Admin Note: VIS given 10/2011 7Admin Note: VIS GIVEN [id number] 8Admin Note: VIS GIVEN 03/14/2008 9Admin Note: [...] 08/06/19 0:18:00 EDT, Route to Pharmacy Electronically, [facility], 176, cm, 07/07/19 10:15:00 [...] Maintenance, 01/15/22 14:49:00 EDT, [facility] 50, USE 2 INHALATIONS BY [...] Route to Pharmacy Electronically, [facility]), 176, cm, 08/29/21 9:11:00 EDT, [...] 07/11/22 17:27:00 EDT, Powder, [facility] ), Partial fill upon patient [...] Route to Pharmacy Electronically, [facility] ([facility]), 176, cm, 08/29/21 9:11:00 [...] mL, 3 Refills, Maintenance, 01/14/22 16:55:00 EDT, [facility], 176, cm, ... Start Date: 01/14/22 Status: Ordered Incruse Ellipta 62.5 mcg/inh inhalation powder 1 inhalation, Inhalation, Every 24 hours, APART., # 30 each, 11 Refills, Maintenance, 08/01/22 16:56:00 EDT, [facility] ([facility]), 176, cm, 07/10/22 14:41:00 EDT, [...] 3 Refills, Maintenance, 01/14/22 16:55:00 EDT, Solution, [facility], 176, cm, 08/29/21 9:11:00 EDT, Height, 131.6, kg, 06/03/20 4:19:00 EST, Dry Weight Start Date: 01/14/22 Stop Date: 01/09/23 Status: Ordered levothyroxine 150 mcg (0.15 mg) oral tablet 1 tablet, By Mouth, Daily, # 90 tablet, 3 Refills, Maintenance, 04/01/22 15:34:00 EST, [facility] ([facility]), 176, cm, 03/24/22 14:42:00 [...] Refills, Maintenance, 06/26/22 20:48:00 EST, [facility] 176, cm, 05/02/22 9:48:00 [...] Com... 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 THIS YEAR [...] and Giancarlo, therapist, at [facility] in [place] Social History Social History Type Response Smoking Status Former smoker; Other : qiut 13 years; entered on: 05/24/14 Sex Patient Care team information Care Team Personnel Name: Florencio Saldana RN Position: [facility] ED RN W/OE and Tasks Member Role: Primary Care Nurse Name: Brooklyn Coyne NP Position: S Associate Professional Member Role: Primary Care Nurse Address: Address: [address] [place] [address] Trauma and Acute Care Surgery [address] Name: Tatyana Cosme RN Position: S RN Member Role: Primary Care Nurse Name: Jeffrey Bains DO Position: [facility] Resident Member Role: PCP Address: Address: [address] [place], [place] [address] Name: Valencia Richards RN Position: [facility] RN Member Role: Primary Care Nurse Care Team Related Persons Name: SHILO VALE Address: home [address] [place] [id number] Name: GIANCARLO BROOKS Address: [place] [address] Name: OLIVA VELOZ Address: home [address] [place] [address]
--- OUTSIDE RECORDS SUMMARY | 2023-01-14 15:46 | XMS_ITS | Continuity of Care Document ---
Author Name Unknown Organization [facility] Address [address] [place] [address]- Care Team Providers Care General Sales Manager Name Role Phone Chyna Duarte MD Primary Care Physician Encounter [facility] [place] Date(s): 09/15/19 - 09/22/[address] [address] Encounter Diagnosis Trauma of chest(Discharge Diagnosis) - 09/15/19 Major depression(Discharge Diagnosis) - 09/15/19 Attending Physician: Chyna Duarte MD Allergies, Adverse [...] VIS given 10/2011 6Admin Note: VIS GIVEN [id number] 7Admin Note: VIS GIVEN 03/14/2008 8Admin Note: vis given 9Result Note: pt states he has previously had this vaccine Medications acetaminophen 325 mg oral tablet 975 mg, 3, tablet, By Mouth, Every 6 hours, PRN, # 120 tablet, Refills 0, Tot. Refills 0, Maintenance, as needed for pain, 08/06/19 0:18:00 EDT, Route to Pharmacy Electronically, [facility], 176, cm, 07/07/19 10:15:00 EDT, Height, 129, kg,... Start Date: 08/06/19 Status: Ordered albuterol CFC free 90 mcg/inh inhalation aerosol 2, puffs, Inhalation, Every 6 hours, PRN, # 9 Gm, Refills 5, Tot. Refills 5, Maintenance, 10/04/18 16:40:37 EDT, Aerosol, Route to Pharmacy Electronically, [id number], [facility] Start Date: 10/04/18 Status: Ordered amLODIPine 5 mg oral tablet 5 mg, 1, tablet, By Mouth, Daily, # 90 tablet, Refills 3, Tot. Refills 3, Maintenance, 05/30/19 13:21:00 EST, Route to Pharmacy Electronically, [facility], 176, cm, 03/31/19 9:59:00 EST, [...] 0, Maintenance, [facility], 07/26/18 12:52:33 EDT, Compound Start Date: [...] 07/01/19 8:58:00 EST, Route to Pharmacy Electronically, [facility], 176, cm, 06/23/19 13:14:00 EST, Height, 129,kg, 05/29/18 0:31:00 EST, Dry Weight Start Date: 07/01/19 Stop Date: 09/29/19 Status: Ordered gabapentin 300 mg oral capsule 300 mg, 1, capsule, By Mouth, 3 times a day, # 45 capsule, Refills 0, Tot. Refills 0, Maintenance, 08/06/19 0:18:00 EDT, Route to Pharmacy Electronically, [facility], 176, cm, 07/07/19 10:15:00 EDT, Height, 129, kg, 05/29/18 0:31:00 EST, [facility] Start Date: 08/06/19 Status: Ordered HumaLOG KwikPen [...] 08/06/19 0:18:00 EDT, Route to Pharmacy Electronically, [facility], 176, cm, 07/07/19 [...] Maintenance, 09/07/19 17:07:00 EDT, Solution, [facility], 176, cm, 08/30/19 11:03:00 [...] Com... Start Date: 05/08/16 Status: Ordered Pen [place], 31 G x 5 mm BD Ultra [...] and Radha, therapist, at [facility] in [place] Diagnosis Diagnosis Type Effective Dates Health Status Clinical Service Informant Trauma of chest Discharge Diagnosis 09/15/19 Major depression Discharge Diagnosis 09/15/19 Social History Social History Type Response Smoking Status Never smoker; Tobacc o user in household: No entered on: 05/25/15 Sex
--- OUTSIDE RECORDS SUMMARY | 2023-01-14 15:46 | XMS_ITS | Continuity of Care Document ---
Author Name Unknown Organization [facility] Address [address] [place] [address]- Care Team Providers Care Last Cleaner Name Role Phone Chyna Duarte MD Primary Care Physician Encounter [facility] Date(s): 01/15/21 - 02/14/[address] [address]- Allergies, Adverse Reactions, Alerts Substance Reaction Severity Status NKA Active Immunizations Given and Recorded Vaccine Date Status Refusal Reason influenza virus vaccine, inactivated 02/07/21 Give n [...] virus vaccine, inactivated 03/07/02 Give n SARS-CoV-2 (COVID-19) mRNA BNT-162b2 vac 08/29/20 Given SARS-CoV-2 (COVID-19) mRNA BNT-162b2 vac 08/07/20 Given pneumococcal 13-valent vaccine 02/23/20 Given pneumococcal 13-valent vaccine 02/10/18 Given tetanus/diphtheria/pertussis, acel(Tdap) 12/5/19 Given pneumococcal 23-valent vaccine 04/16/14 Given FluLaval [...] VIS given 10/2011 6Admin Note: VIS GIVEN [id number] 7Admin Note: VIS GIVEN 03/14/2008 8Admin Note: vis given 9Result Note: pt states he has previously had this vaccine Medications acetaminophen 325 mg oral tablet 975 mg, 3, tablet, By Mouth, Every 6 hours, PRN, # 120 tablet, Refills 0, Tot. Refills 0, Maintenance, as needed for pain, 08/06/19 0:18:00 EDT, Route to Pharmacy Electronically, [facility], 176, cm, 07/07/19 10:15:00 [...] 12:17:00 EDT, Aerosol, Route to Pharmacy Electronically, [id number], [facility], 176, cm, 11/22/20 11:05:00 [...] 0, Maintenance, use overnight and naps from [facility], 11/08/19 11:45:00 EDT, Compound, 176, cm, [...] each, 0 Refills, Maintenance, 07/11/20 9:19:00 EDT, [facility], Partial fill upon patient [...] 01/04/21 14:54:00 EDT, Route to Pharmacy Electronically, [facility], 176, cm, 11/22/20 11:05:00 EDT, Height,131.6, kg, 06/03/20 4:19:00 EST, Dry Weight Start Date: 01/04/21 Status: Ordered gabapentin 300 mg oral capsule 300 mg, 1, capsule, By Mouth, 3 times a day, # 45 capsule, Refills 0, Tot. Refills 0, Maintenance, 08/06/19 0:18:00 EDT, Route to Pharmacy Electronically, [facility], 176, cm, 07/07/19 10:15:00 EDT, Height, 129, kg, 05/29/18 0:31:00 EST, Start Date: 08/06/19 Status: Ordered HumaLOG KwikPen 100 units/mL injectable solution See Instructions, s/c inj TID before meals acc to scale: 1u 150-200; 3u 201-250; 5u 251-300; 7u 301-350; 9u 351-400; 11u 401-450; call MD for BG over 450, # 10 mL, 5 Refills, Maintenance, 11/08/20 7:18:00 EDT, [facility], 176, cm, 08/25... Start [...] 1 Refills, Maintenance, 06/28/20 16:38:00 EST, Solution, [facility], 176, cm, 06/28/20 13:04:00 EST, Height, [...] Com... Start Date: 05/08/16 Status: Ordered Pen [place], 31 G x 5 mm BD Ultra Fine III See Instructions, # 300 each, Refills 3, Tot. Refills 3, Maintenance, use with lantus and humalog as directed dx: e11.65, 05/06/16 15:47:30, Compound Start Date: 05/06/16 Stop Date: 05/01/17 Status: Ordered Readi-Cat 2 oral suspension See Instructions, take as directed, # 2 each, 0 Refills, Maintenance, 12/05/20 15:52:00 EDT, [facility], Partial fill upon patient [...] each, 0 Refills, Maintenance, 10/15/20 18:05:00 EDT, [facility], Partial fill upon patient [...] and Radha, therapist, at [facility] in [place] Social History Social History Type Response Smoking Status Former smoker, quit more than 30 days ago entered on: 06/28/20 Sex
--- OUTSIDE RECORDS SUMMARY | 2023-01-14 15:46 | XMS_ITS | Continuity of Care Document ---
Author Name Unknown Organization [facility] Address [address] [place] [address]- Care Team Providers Care Greaser Operator Name Role Phone Jeffrey Bains DO Primary Care Physician [phone] Encounter [facility] Date(s): 10/24/22 - 11/23/[address] [address]- Allergies, Adverse Reactions, Alerts No Known Allergies Immunizations Given and Recorded Vaccine Date Status Refusal Reason [id number] 12y+ bivalent booster vax 03/11/22 Given influenza [...] vaccine, inactivated 03/07/02 Give n SARS-CoV-2 mRNA (vnorcqd-zhiy-nktyp) vax 08/29/21 Given pneumococcal 23-valent vaccine 06/06/21 [...] Note: vis given 5Result Comment: DILUENT LOT#: [id number] EXP: 08/2022 MFG: FRESENSIUS 6Admin Note: VIS given 10/2011 7Admin Note: VIS GIVEN [id number] 8Admin Note: VIS GIVEN 03/14/2008 9Admin Note: [...] 08/06/19 0:18:00 EDT, Route to Pharmacy Electronically, [facility], 176, cm, 07/07/19 [...] Maintenance, 01/15/22 14:49:00 EDT, [facility]), 50, USE 2 INHALATIONS BY [...] Route to Pharmacy Electronically, [facility]), 176, cm, 08/29/21 9:11:00 EDT, [...] 07/11/22 17:27:00 EDT, Powder, [facility] ([facility] ), Partial fill upon patient [...] Route to Pharmacy Electronically, [facility] ([facility]), 176, cm, 08/29/21 9:11:00 EDT, [...] mL, 3 Refills, Maintenance, 01/14/22 16:55:00 EDT, [facility], 176, cm, ... Start Date: 01/14/22 Status: Ordered Incruse Ellipta 62.5 mcg/inh inhalation powder 1 inhalation, Inhalation, Every 24 hours, APART., # 30 each, 11 Refills, Maintenance, 08/01/22 16:56:00 EDT, [facility] ([facility]), 176, cm, 07/10/22 14:41:00 EDT, [...] 3 Refills, Maintenance, 01/14/22 16:55:00 EDT, Solution, [facility], 176, cm, 08/29/21 9:11:00 EDT, Height, 131.6, kg, 06/03/20 4:19:00 EST, Dry Weight Start Date: 01/14/22 Stop Date: 01/09/23 Status: Ordered levothyroxine 150 mcg (0.15 mg) oral tablet 1 tablet, By Mouth, Daily, # 90 tablet, 3 Refills, Maintenance, 04/01/22 15:34:00 EST, [facility] ([facility]), 176, cm, 03/24/22 14:42:00 EST, [...] Refills, Maintenance, 06/26/22 20:48:00 EST, [facility] ), 176, cm, 05/02/22 9:48:00 [...] Com... Start Date: 05/08/16 Status: Ordered Pen [place], 31 G x 5 mm BD Ultra [...] Maintenance, 04/01/22 15:34:00 EST, [facility] ([facility]), 176, cm, 03/24/22 14:42:00 EST, [...] 11:46:00 EDT, 10/22/22 11:46:00 EDT, [facility]w Tablet, [facility] Partial fill upon patient request if [...] FIT (fecal immunochemical test) Confirmed Active Suspected [place] disease Confirmed Active Goal-TO SURVIVE THIS YEAR [...] and Giancarlo, therapist, at [facility] in [place] Social History Social History Type Response Smoking Status Former smoker; Other : qiut 13 years; entered on: 05/24/14 Sex Patient Care team information Care Team Personnel Name: Florencio Saldana RN Position: [facility] ED RN W/OE and Tasks Member Role: Primary Care Nurse Name: Brooklyn Coyne NP Position: S Associate Professional Member Role: Primary Care Nurse Address: Address: [address] [place] [address] Trauma and Acute Care Surgery [address] Name: Tatyana Cosme RN Position: S RN Member Role: Primary Care Nurse Name: Jeffrey Bains DO Position: [facility] Resident Member Role: PCP Address: Address: [address] [place], [place] [address] Name: Valencia Richards RN Position: [facility] RN Member Role: Primary Care Nurse Care Team Related Persons Name: SHILO VALE Address: home [address] [place] [id number] Name: GIANCARLO BROOKS Address: [place] [address] Name: OLIVA VELOZ Address: home [address] [place] [address]
--- OUTSIDE RECORDS SUMMARY | 2023-01-14 15:46 | XMS_ITS | Continuity of Care Document ---
Author Name Unknown Organization [facility] Address [address] [place] [address]- Care Team Providers Care Valuation Consultant Name Role Phone Chyna Duarte MD Primary Care Physician [place] [facility] [place] Date(s): 05/26/22 - 06/25/22 [facility] [address] [place] [address]- Attending Physician: Pop Kaye Admitting Physician: AdmPop rasmussen Referring Physician: Admtr, Ar8 Allergies, Adverse Reactions, Alerts No Known Allergies Immunizations Given and Recorded Vaccine Date Status Refusal Reason [id number] 12y+ bivalent booster vax 03/11/22 Given influenza [...] vaccine, inactivated 03/07/02 Give n SARS-CoV-2 mRNA (pvzpqxp-fdff-dniyq) vax 08/29/21 Given pneumococcal 23-valent vaccine 06/06/21 [...] Note: vis given 5Result Comment: DILUENT LOT#: [id number] EXP: 08/2022 MFG: FRESENSIUS 6Admin Note: VIS given 10/2011 7Admin Note: VIS GIVEN [id number] 8Admin Note: VIS GIVEN 03/14/2008 9Admin Note: [...] 08/06/19 0:18:00 EDT, Route to Pharmacy Electronically, [facility], 176, cm, [...] Maintenance, 01/15/22 14:49:00 EDT, [facility]), 50, USE 2 INHALATIONS BY [...] Route to Pharmacy Electronically, [facility]), 176, cm, 08/29/21 9:11:00 EDT, [...] 0 Refills, Maintenance, 03/17/22 13:55:00 EST, Gel, [facility], Partial fill upon patient request if [...] 12/31/21 14:28:00 EDT, Route to Pharmacy Electronically, [facility]), 176, cm, 08/29/21 9:11:00 EDT, Height, 131.6, kg, 06/03/20 4:19:00 EST, Dry Weight Start Date: 12/31/21 Status: Ordered gabapentin 300 mg oral capsule 300 mg, 1, capsule, By Mouth, 3 times a day, # 45 capsule, Refills 0, Tot. Refills 0, Maintenance, 08/06/19 0:18:00 EDT, Route to Pharmacy Electronically, [facility], 176, cm, [...] 3 Refills, Maintenance, 01/14/22 16:55:00 EDT, [facility], 176, cm, ... Start Date: 01/14/22 [...] 3 Refills, Maintenance, 01/14/22 16:55:00 EDT, Solution, [facility], 176, cm, 08/29/21 9:11:00 EDT, Height, [...] Gm, 1 Refills, Maintenance, 03/19/2211:23:00 EST, Ointment, [facility], Partial fill upon patient request if [...] 05/02/22 10:17:00 EST, Tablet, [facility] ), Partial fill upon patient [...] Com... Start Date: 05/08/16 Status: Ordered Pen [place], 31 G x 5 mm BD Ultra Fine III See Instructions, # 300 each, Refills 3, Tot. Refills 3, Maintenance, use with lantus and humalog as directed dx: e11.65, 05/06/16 15:47:30, Compound Start Date: 05/06/16 Stop Date: 05/01/17 Status: Ordered Readi-Cat 2 oral suspension See Instructions, take as directed, # 2 each, 0 Refills, Maintenance, 12/05/20 15:52:00 EDT, [facility], Partial fill upon patient [...] each, 0 Refills, Maintenance, 10/15/20 18:05:00 EDT, [facility], Partial fill upon patient request if [...] (fecal immunochemical test) Confirmed Active Suspected [place] disease Confirmed Active Goal-TO SURVIVE THIS YEAR [...] and Giancarlo, therapist, at [facility] in [place] Social History Social History Type Response Smoking Status Former smoker; Other : qiut 13 years; entered on: 05/24/14 Sex Note * Event Display: Device Check Office Visit Authored Date: * Elvis GARRISON, Hank T: REVIEW Event Display: Device Check Office Visit Authored Date: Patient Care team information Care Team Personnel Name: Florencio Saldana RN Position: [facility] ED RN W/OE and Tasks Member Role: Primary Care Nurse Name: Brooklyn Coyne NP Position: [facility] Associate Professional Member Role: Primary Care Nurse Address: Address: [address] [place] [address] Trauma [place] [address]- Name: Carmelina CONTRERAS, Tatyana Position: [facility] RN Member Role: Primary Care Nurse Name: Chyna Duarte MD Position: [facility] Primary Care Physician Member Role: PCP Address: Address: [address] [place] [id number] Care Team Related Persons Name: SHILO VALE Address: home [address] [place] [id number] Name: GIANCARLO BROOKS Address: [place] [address] Name: OLIVA VELOZ Address: home [address] [place] [address]
--- OUTSIDE RECORDS SUMMARY | 2023-01-14 15:46 | XMS_ITS | Continuity of Care Document ---
Author Name Unknown Organization [facility] Address [address] [place] [address]- Care Team Providers Care Equipment Sales Specialist Name Role Phone Mary GARRISON, Jann Culp Primary Care Physician Encounter [facility] Date(s): 10/09/22 - 11/08/[address] [address]- Allergies, Adverse Reactions, Alerts No Known Allergies Immunizations Given and Recorded Vaccine Date Status Refusal Reason [id number] 12y+ bivalent booster vax 03/11/22 Given influenza [...] vaccine, inactivated 03/07/02 Give n SARS-CoV-2 mRNA (pvcvfnf-pxre-fmezl) vax 08/29/21 Given pneumococcal 23-valent vaccine 06/06/21 [...] Note: vis given 5Result Comment: DILUENT LOT#: [id number] EXP: 08/2022 MFG: FRESENSIUS 6Admin Note: VIS given 10/2011 7Admin Note: VIS GIVEN [id number] 8Admin Note: VIS GIVEN 03/14/2008 9Admin Note: [...] 0:18:00 EDT, Route to Pharmacy Electronically, [facility], 176, cm, 07/07/19 [...] Maintenance, 01/15/22 14:49:00 EDT, [facility]), 50, USE 2 INHALATIONS BY [...] Route to Pharmacy Electronically, [facility] ([facility]), 176, cm, 08/29/21 9:11:00 EDT, [...] 07/11/22 17:27:00 EDT, Powder, [facility] ([facility] ), Partial fill upon patient [...] Route to Pharmacy Electronically, [facility] ([facility]), 176, cm, 08/29/21 9:11:00 [...] mL, 3 Refills, Maintenance, 01/14/22 16:55:00 EDT, [facility], 176, cm, ... Start Date: 01/14/22 Status: Ordered Incruse Ellipta 62.5 mcg/inh inhalation powder 1 inhalation, Inhalation, Every 24 hours, APART., # 30 each, 11 Refills, Maintenance, 08/01/22 16:56:00 EDT, [facility] ([facility]), 176, cm, 07/10/22 14:41:00 EDT, [...] 3 Refills, Maintenance, 01/14/22 16:55:00 EDT, Solution, [facility], 176, cm, 08/29/21 9:11:00 EDT, Height, 131.6, kg, 06/03/20 4:19:00 EST, Dry Weight Start Date: 01/14/22 Stop Date: 01/09/23 Status: Ordered levothyroxine 150 mcg (0.15 mg) oral tablet 1 tablet, By Mouth, Daily, # 90 tablet, 3 Refills, Maintenance, 04/01/22 15:34:00 EST, [facility]), 176, cm, 03/24/22 14:42:00 EST, [...] Refills, Maintenance, 06/26/22 20:48:00 EST, [facility] ), 176, cm, 05/02/22 9:48:00 [...] Com... Start Date: 05/08/16 Status: Ordered Pen [place], 31 G x 5 mm BD Ultra [...] Maintenance, 04/01/22 15:34:00 EST, [facility]), 176, cm, 03/24/22 14:42:00 EST, [...] 11:46:00 EDT, 10/22/22 11:46:00 EDT, [facility]w Tablet, [facility] fill upon patient request [...] FIT (fecal immunochemical test) Confirmed Active Suspected [place] disease Confirmed Active Goal-TO SURVIVE THIS YEAR [...] and Giancarlo, therapist, at [facility] in [place] Social History Social History Type Response Smoking Status Former smoker; Other : qiut 13 years; entered on: 05/24/14 Sex Patient Care team information Care Team Personnel Name: Jann Hernandez MD Position: [facility] Physician - Primary Care Member Role: PCP Address: Address: [address] [place] [id number]- Name: Florencio Saldana RN Position: [facility] ED RN W/OE and Tasks Member Role: Primary Care Nurse Name: Brooklyn Coyne NP Position: [facility] Associate Professional Member Role: Primary Care Nurse Address: Address: [address] [place] [address] Trauma [place] [address]- Name: Tatyana Cosme RN Position: S RN Member Role: Primary Care Nurse Name: Valencia Richards RN Position: [facility] RN Member Role: Primary Care Nurse Care Team Related Persons Name: SHILO VALE Address: [address] [address] Name: GIANCARLO BROOKS Address: [place] [address] Name: OLIVA VELOZ Address: home [address] [place] [address]
--- OUTSIDE RECORDS SUMMARY | 2023-01-14 15:47 | XMS_ITS | Continuity of Care Document ---
Author Name Unknown Organization [facility] Address [address] [place] [address]- Care Team Providers Care Electrical Cad Designer Name Role Phone Chyna Duarte MD Primary Care Physician [facility] Date(s): 03/31/21 - 04/30/[address] [address]- Allergies, Adverse Reactions, Alerts Substance Reaction Severity [...] influenza virus vaccine, inactivated 4 01/25/09 Gi aalna influenza virus vaccine, inactivated 5 03/04/06 Gi [...] n Patient Refuses 1Result Comment: DILUENT LOT#: [id number] EXP: 08/2022 MFG: FRESENSIUS 2Early/Late Reason: Other : GIVEN 03/31/19 DURING VISIT 3Admin Note: VIS 12/04/2009 4Admin Note: VIS GIVEN 12/05/2008 5Admin Note: vis given 6Admin Note: VIS given 10/2011 7Admin Note: VIS GIVEN [id number] 8Admin Note: VIS GIVEN 03/14/2008 9Admin Note: [...] 12:17:00 EDT, Aerosol, Route to Pharmacy Electronically, [id number], [facility], 176, cm, 11/22/20 [...] each, 0 Refills, Maintenance, 07/11/20 9:19:00 EDT, [facility], Partial fill upon patient request [...] 01/04/21 14:54:00 EDT, Route to Pharmacy Electronically, [facility], 176, cm, 11/22/20 11:05:00 EDT, [...] mL, 5 Refills, Maintenance, 11/08/20 7:18:00 EDT, [facility], 176, cm, 08/25... [...] Orders in system. Please go to any [facility] lab., # 75 mL, 0 Refills, Maintenance, 04/09/21 13:49:00 EST, Solution, [facility], 176, cm, 02/07/21 [...] Com... Start Date: 05/08/16 Status: Ordered Pen [place], 31 G x 5 mm BD Ultra Fine III See Instructions, # 300 each, Refills 3, Tot. Refills 3, Maintenance, use with lantus and humalog as directed dx: e11.65, 05/06/16 15:47:30, Compound Start Date: 05/06/16 Stop Date: 05/01/17 Status: Ordered Readi-Cat 2 oral suspension See Instructions, take as directed, # 2 each, 0 Refills, Maintenance, 12/05/20 15:52:00 EDT, [facility], Partial fill upon patient request [...] each, 0 Refills, Maintenance, 10/15/20 18:05:00 EDT, [facility], Partial fill upon patient request [...] and Radha, therapist, at [facility] [place] Social History Social History Type Response Smoking Status Former smoker, quit more than 30 days ago entered on: 06/28/20 Sex
--- OUTSIDE RECORDS SUMMARY | 2023-01-14 15:47 | XMS_ITS | Continuity of Care Document ---
Author Name Unknown Organization [facility] ter Address [address] [place] [address]- Care Team Providers Care Precision Lens Centerer And Edger Name Role Phone Chyna Duarte MD Primary Care Physician [phone] Encounter [facility] Date(s): 06/09/19 - 06/09/[address] [address]- [facility] Attending Physician: Chyna Duarte MD Allergies, [...] VIS given 10/2011 6Admin Note: VIS GIVEN [id number] 7Admin Note: VIS GIVEN 03/14/2008 8Admin Note: vis given 9Result Note: pt states he has previously had this vaccine Medications albuterol CFC free 90 mcg/inh inhalation aerosol 2, puffs, Inhalation, Every 6 hours, PRN, # 9 Gm, Refills 5, Tot. Refills 5, Maintenance, 10/04/18 16:40:37 EDT, Aerosol, Route to Pharmacy Electronically, [id number], [facility] Start Date: 10/04/18 Status: Ordered amLODIPine 5 mg oral tablet 5 mg, 1, tablet, By Mouth, Daily, # 90 tablet, Refills 3, Tot. Refills 3, Maintenance, 05/30/19 13:21:00 EST, Route to Pharmacy Electronically, [facility], 176, cm, 03/31/19 9:59:00 EST, Height, 129, kg, 05/29/18 0:31:00 EST, Dry Weight Start Date: 05/30/19 Status: Ordered atenolol 25 mg oral tablet 25 mg, 1, tablet, By Mouth, 2 times a day, # 180 tablet, Refills 3, Tot. Refills 3, Maintenance, 05/30/19 13:21:00 EST, Route to Pharmacy Electronically, [facility], 176, cm, 03/31/19 9:59:00 EST, [...] Maintenance, 05/06/18 10:56:08 EST,Route to Pharmacy Electronically, [id number], [facility] Start Date: 05/06/18 Stop [...] Com... Start Date: 05/08/16 Status: Ordered Pen [place], 31 G x 5 mm BD Ultra [...] and Radha, therapist, at [facility] in [place] Social History Social History Type Response Smoking Status Never smoker; Tobacc o user in household: No entered on: 05/25/15 Sex
--- OUTSIDE RECORDS SUMMARY | 2023-01-14 15:47 | XMS_ITS | Continuity of Care Document ---
Author Name Unknown Organization [facility] Address [address] [place] [address]- Care Team Providers Care Hand Tire Trimmer Name Role Phone Chyna Duarte MD Primary Care Physician [facility] Date(s): 01/09/20 - 02/08/[address] [address]- [facility] Allergies, Adverse Reactions, Alerts Substance Reaction Severity [...] VIS given 10/2011 6Admin Note: VIS GIVEN [id number] 7Admin Note: VIS GIVEN 03/14/2008 8Admin Note: [...] 16:40:37 EDT, Aerosol, Route to Pharmacy Electronically, [id number], [facility] Start Date: 10/04/18 Status: Ordered amLODIPine 5 mg oral tablet 5 mg, 1, tablet, By Mouth, Daily, # 90 tablet, Refills 3, Tot. Refills 3, Maintenance, 05/30/19 13:21:00 EST, Route to Pharmacy Electronically, [facility], 176, cm, 03/31/19 9:59:00 EST, Height, 129, kg, 05/29/18 0:31:00 EST, Dry Weight Start Date: 05/30/19 Status: Ordered atenolol 25 mg oral tablet 25 mg, 1, tablet, By Mouth, 2 times a day, # 180 tablet, Refills 3, Tot. Refills 3, Maintenance, 05/30/19 13:21:00 EST, Route to Pharmacy Electronically, [facility], 176, cm, 03/31/19 9:59:00 EST, [...] 0, Maintenance, use overnight and naps from [facility], 11/08/19 11:45:00 EDT, Compound, 176, [...] 12/07/19 16:59:00 EDT, Route to Pharmacy Electronically, [facility], 176, cm, 09/23/19 8:30:00 EDT, [...] mL, 11 Refills, Maintenance, 06/22/19 23:05:00 EST, [facility], 176, cm,... Start Date: [...] 1 Refills, Maintenance, 09/07/19 17:07:00 EDT, Solution, [facility], 176, cm, 08/30/19 11:03:00 [...] Com... Start Date: 05/08/16 Status: Ordered Pen [place], 31 G x 5 mm BD Ultra [...] and Radha, therapist, at [facility] in [place] Social History Social History Type Response Smoking Status Never smoker; Tobacc o user in household: No entered on: 05/25/15 Sex
--- OUTSIDE RECORDS SUMMARY | 2023-01-14 15:47 | XMS_ITS | Continuity of Care Document ---
Author Name Unknown Organization [facility] ter Address [address] [place] [address]- Care Team Providers Care Race Starter Name Role Phone Mary GARRISON, Jann Culp Primary Care Physician [facility] Date(s): 10/13/22 - 10/13/[address] [address]- Discharge Disposition: A-D/C Walkout Attending Physician: Not on Staff, Attending MD Admitting Physician: Not on Staff, Admitting MD Referring Physician: Not on Staff, Referring MD Allergies, Adverse Reactions, Alerts No Known Allergies Immunizations Given and Recorded Vaccine Date Status Refusal Reason [id number]-5bSMM 12y+ bivalent booster vax 03/11/22 Given influenza [...] vaccine, inactivated 03/07/02 Give n SARS-CoV-2 mRNA (zwyewmm-cfwk-szpeo) vax 08/29/21 Given pneumococcal 23-valent vaccine 06/06/21 [...] Note: vis given 5Result Comment: DILUENT LOT#: [id number] EXP: 08/2022 MFG: FRESENSIUS 6Admin Note: VIS given 10/2011 7Admin Note: VIS GIVEN [id number] 8Admin Note: VIS GIVEN 03/14/2008 9Admin Note: [...] 08/06/19 0:18:00 EDT, Route to Pharmacy Electronically, [facility], 176, cm, 07/07/19 10:15:00 [...] Maintenance, 01/15/22 14:49:00 EDT, [facility]), 50, USE 2 INHALATIONS BY MOUTHEVERY 6 HOURS NEEDED FOR WHEEZING, 176, cm, ... Start Date: 01/15/22 Status: Ordered amLODIPine 5 mg oral tablet 1 tablet, By Mouth, Daily, # 90 tablet, 3 Refills, Maintenance, 01/15/22 14:49:00 EDT, [facility] ([facility]), 176, cm, 01/15/22 10:10:00 EDT, Height, 131.6, kg, 06/03/20 4:19:00 EST, Dry Weight Start Date: 01/15/22 Status: Ordered atenolol 25 mg oral tablet 1, tablet, By Mouth, 2 times a day, # 180 tablet, Refills 3, Maintenance, 12/31/21 14:27:00 EDT, Route to Pharmacy Electronically, [facility]), 176, cm, 08/29/21 9:11:00 EDT, [...] Route to Pharmacy Electronically, [facility]), 176, cm, 08/29/21 9:11:00 EDT, [...] mL, 3 Refills, Maintenance, 01/14/22 16:55:00 EDT, [facility], 176, cm, ... Start Date: [...] 3 Refills, Maintenance, 01/14/22 16:55:00 EDT, Solution, [facility], 176, cm, 08/29/21 9:11:00 EDT, [...] Com... Start Date: 05/08/16 Status: Ordered Pen [place], 31 G x 5 mm BD Ultra [...] Maintenance, 12/31/21 14:28:00 EDT, [facility]), 176, cm, 08/29/21 9:11:00 EDT, [...] FIT (fecal immunochemical test) Confirmed Active Suspected [place] disease Confirmed Active Goal-TO SURVIVE THIS YEAR [...] Dr. Molina and Giancarlo, therapist, at [facility] [place] Vital Signs Most recent to oldest [Reference Range]: 1 2 Height 176 cm (10/13/22 3:31 PM) Weight 127 kg (10/13/22 3:31 PM) Oxygen Saturation [94-100 %] 99 % (10/13/22 8:20 PM) 95 % (10/13/22 2:43 PM) Pulse Rate [55-90 bpm] 51 bpm *L* (10/13/22 8:20 PM) 74 bpm (10/13/22 2:43 PM) Blood Pressure [90-138/55-84 mm Hg] 131/ 51mm Hg (10/13/22 8:20 PM) 139/99mm Hg *H* (10/13/22 2:43 PM) Respiratory Rate [16-30 br/min] 20 br/mi n (10/13/22 2:43 PM) Temperature [96.8-100.4 DegF] 97.5 DegF (10/13/22 8:20 PM) 98.0 DegF (10/13/22 2:43 PM) Mode of Delivery (Oxygen) Room air (10/13/22 8:20 PM) Room air (10/13/22 2:43 PM) Blood pressure sites Arm, right (10/13/22 8:20 PM) Temperature Route Oral (10/13/22 8:20 PM) Oral (10/13/22 2:43 PM) Dry Weight 127 kg (10/13/22 3:31 PM) Social History Social History Type Response Smoking Status Former smoker; Other : qiut 13 years; entered on: 05/24/14 Sex Patient Care team information Care Team Personnel Name: Catrina Payton RN Position: [facility] RN Member Role: Primary Care Nurse Name: Jann Hernandez MD Position: [facility] Physician - Primary Care Member Role: PCP Address: Address: [address] [place] [address]- Name: Florencio Saldana RN Position: [facility] ED RN W/OE and Tasks Member Role: Primary Care Nurse Name: Brooklyn Coyne NP Position: [facility] Associate Professional Member Role: Primary Care Nurse Address: Address: [address] [place] [address] Trauma [place] [address]- Name: Tatyana Cosme RN Position: [facility] RN Member Role: Primary Care Nurse Name: Valencia Richards RN Position: [facility] RN Member Role: Primary Care Nurse Name: Jennifer Murillo Position: [facility] ED TA [facility] Member Role: Validation Consultant Care Team Related Persons Name: SHILO VALE Address: home [address] [address] Name: GIANCARLO BROOKS Address: [place] [address] UM Name: OLIVA VELOZ Address: home [address] [place] [address]
--- OUTSIDE RECORDS SUMMARY | 2023-01-14 15:47 | XMS_ITS | Continuity of Care Document ---
Author Name Unknown Organization [facility] Address [address] [place] [address]- Care Team Providers Care Group Home Supervisor Name Role Phone Chyna Duarte MD Primary Care Physician [phone] En[place] [facility] [place] [id number] Date(s): 11/22/20 - 12/22/[address] [address]- Attending Physician: Admtr, Ar8 Allergies, Adverse Reactions, [...] VIS given 10/2011 6Admin Note: VIS GIVEN [id number] 7Admin Note: VIS GIVEN 03/14/2008 8Admin Note: vis given 9Result Note: pt states he has previously had this vaccine Medications acetaminophen 325 mg oral tablet 975 mg, 3, tablet, By Mouth, Every 6 hours, PRN, # 120 tablet, Refills 0, Tot. Refills 0, Maintenance, as needed for pain, 08/06/19 0:18:00 EDT, Route to Pharmacy Electronically, [facility], 176, cm, 07/07/19 [...] 12:17:00 EDT, Aerosol, Route to Pharmacy Electronically, [id number], [facility], 176, cm, 11/22/20 11:05:00 [...] 0, Maintenance, use overnight and naps from [facility], 11/08/19 11:45:00 EDT, Compound, 176, cm, [...] each, 0 Refills, Maintenance, 07/11/20 9:19:00 EDT, [facility], Partial fill upon [...] 12/07/19 16:59:00 EDT, Route to Pharmacy Electronically, [facility], 176, cm, 09/23/19 8:30:00 EDT, Height, 129, kg, 05/29/18 0:31:00 EST, Dry Weight Start Date: 12/07/19 Status: Ordered gabapentin 300 mg oral capsule 300 mg, 1, capsule, By Mouth, 3 times a day, # 45 capsule, Refills 0, Tot. Refills 0, Maintenance, 08/06/19 0:18:00 EDT, Route to Pharmacy Electronically, [facility], 176, cm, 07/07/19 [...] mL, 5 Refills, Maintenance, 11/08/20 7:18:00 EDT, [facility], 176, cm, 08/25... [...] 1 Refills, Maintenance, 06/28/20 16:38:00 EST, Solution, [facility], 176, cm, 06/28/20 [...] Com... Start Date: 05/08/16 Status: Ordered Pen [place], 31 G x 5 mm BD Ultra Fine III See Instructions, # 300 each, Refills 3, Tot. Refills 3, Maintenance, use with lantus and humalog as directed dx: e11.65, 05/06/16 15:47:30, Compound Start Date: 05/06/16 Stop Date: 05/01/17 Status: Ordered Readi-Cat 2 oral suspension See Instructions, take as directed, # 2 each, 0 Refills, Maintenance, 12/05/20 15:52:00 EDT, [facility], Partial fill upon [...] each, 0 Refills, Maintenance, 10/15/20 18:05:00 EDT, [facility], Partial fill upon [...] and Radha, therapist, at [facility] in [place] Social History Social History Type Response Smoking Status Former smoker, quit more than 30 days ago entered on: 06/28/20 Sex
--- OUTSIDE RECORDS SUMMARY | 2023-01-14 15:47 | XMS_ITS | Continuity of Care Document ---
Author Name Unknown Organization [facility] Address [address] [place] [address]- Care Team Providers Care Configuration Specialist Name Role Phone Chyna Duarte MD Primary Care Physician [place] [facility] Date(s): 01/20/22 - 02/19/22 [facility] [address] [place] [address]- [place] Allergies, Adverse Reactions, Alerts No Known Allergies Immunizations Given and Recorded Vaccine Date Status Refusal Reason SARS-CoV-2 mRNA (ehxodsi-xohy-hvtgr) vax 08/29/21 Given pneumococcal 23-valent vaccine 06/06/21 [...] n Patient Refuses 1Result Comment: DILUENT LOT#: [id number] EXP: 08/2022 MFG: FRESENSIUS 2Early/Late Reason: Other : GIVEN 03/31/19 DURING VISIT 3Admin Note: VIS 12/04/2009 4Admin Note: VIS GIVEN 12/05/2008 5Admin Note: vis given 6Admin Note: VIS given 10/2011 7Admin Note: VIS GIVEN [id number] 8Admin Note: VIS GIVEN 03/14/2008 9Admin Note: vis given 10Result Note: pt states he has previously had this vaccine Medications acetaminophen 325 mg oral tablet 975 mg, 3, tablet, By Mouth, Every 6 hours, PRN, # 120 tablet, Refills 0, Tot. Refills 0, Maintenance, as needed for pain, 08/06/19 0:18:00 EDT, Route to Pharmacy Electronically, [facility], 176, cm, 07/07/19 [...] Maintenance, 01/15/22 14:49:00 EDT, [facility]), 176, cm, 01/15/22 10:10:00 EDT, Height, 131.6, kg, 06/03/20 4:19:00 EST, Dry Weight Start Date: 01/15/22 Status: Ordered atenolol 25 mg oral tablet 1, tablet, By Mouth, 2 times a day, # 180 tablet, Refills 3, Maintenance, 12/31/21 14:27:00 EDT, Route to Pharmacy Electronically, [facility]), 176, cm, 08/29/21 9:11:00 EDT, [...] Maintenance, use overnight and naps from [facility], 11/08/19 11:45:00 EDT, Compound, 176, cm, [...] Route to Pharmacy Electronically, [facility]), 176, cm, 05/05/22 9:11:00 EDT, Height, 131.6, kg, 06/03/20 4:19:00 EST, Dry Weight Start Date: 12/31/21 Status: Ordered gabapentin 300 mg oral capsule 300 mg, 1, capsule, By Mouth, 3 times a day, # 45 capsule, Refills 0, Tot. Refills 0, Maintenance, 08/06/19 0:18:00 EDT, Route to Pharmacy Electronically, [facility], 176, cm, 07/07/19 [...] mL, 3 Refills, Maintenance, 01/14/22 16:55:00 EDT, [facility], 176, cm, ... Start Date: 01/14/22 [...] 3 Refills, Maintenance, 01/14/22 16:55:00 EDT, Solution, [facility], 176, cm, 08/29/21 9:11:00 EDT, [...] Com... Start Date: 05/08/16 Status: Ordered Pen [place], 31 G x 5 mm BD Ultra Fine III See Instructions, # 300 each, Refills 3, Tot. Refills 3, Maintenance, use with lantus and humalog as directed dx: e11.65, 05/06/16 15:47:30, Compound Start Date: 05/06/16 Stop Date: 05/01/17 Status: Ordered Readi-Cat 2 oral suspension See Instructions, take as directed, # 2 each, 0 Refills, Maintenance, 12/05/20 15:52:00 EDT, [facility], Partial fill upon patient request if [...] 0 Refills, Maintenance, 10/15/20 18:05:00 EDT, [facility], Partial fill upon patient request if [...] FIT (fecal immunochemical test) Confirmed Active Suspected [place] disease Confirmed Active Goal-TO SURVIVE THIS YEAR [...] and Radha, therapist, at [facility] in [place] Social History Social History Type Response Smoking Status Former smoker, quit more than 30 days ago entered on: 06/28/20 Sex Patient Care team information Personnel Name: Chyna Duarte MD Address: Address: [address] [place] [address]
--- OUTSIDE RECORDS SUMMARY | 2023-01-14 15:47 | XMS_ITS | Continuity of Care Document ---
Author Name Unknown Organization [facility] Address [address] [place] [address]- Care Team Providers Care Burnishing Machine Operator Name Role Phone Chyna Duarte MD Primary Care Physician [facility]counter [facility] Date(s): 12/03/20 - 01/02/[address] [address]- Allergies, Adverse Reactions, Alerts Substance Reaction Severity [...] VIS given 10/2011 6Admin Note: VIS GIVEN [id number] 7Admin Note: VIS GIVEN 03/14/2008 8Admin Note: [...] 12:17:00 EDT, Aerosol, Route to Pharmacy Electronically, [id number], [facility], 176, cm, 11/22/20 11:05:00 EDT,... Start [...] Refills, Maintenance, 07/11/20 9:19:00 EDT, [facility], Partial fill upon patient request if the [...] 12/07/19 16:59:00 EDT, Route to Pharmacy Electronically, [facility], 176, cm, 09/23/19 8:30:00 EDT, [...] mL, 5 Refills, Maintenance, 11/08/20 7:18:00 EDT, [facility], 176, cm, 08/25... [...] Com... Start Date: 05/08/16 Status: Ordered Pen [place], 31 G x 5 mm BD Ultra Fine III See Instructions, # 300 each, Refills 3, Tot. Refills 3, Maintenance, use with lantus and humalog as directed dx: e11.65, 05/06/16 15:47:30, Compound Start Date: 05/06/16 Stop Date: 05/01/17 Status: Ordered Readi-Cat 2 oral suspension See Instructions, take as directed, # 2 each, 0 Refills, Maintenance, 12/05/20 15:52:00 EDT, [facility], Partial fill upon [...] 0 Refills, Maintenance, 10/15/20 18:05:00 EDT, [facility], Partial fill upon [...] and Radha, therapist, at [facility] in [place] Social History Social History Type Response Smoking Status Former smoker, quit more than 30 days ago entered on: 06/28/20 Sex
--- OUTSIDE RECORDS SUMMARY | 2023-01-14 15:47 | XMS_ITS | Continuity of Care Document ---
Author Name Unknown Organization [facility] ter Address [address] [place] [address]- Care Team Providers Care Engraver Name Role Phone Chyna Duarte MD Primary Care Physician [phone] Encounter [facility] Date(s): 06/02/19 - 06/02/[address] [address] [facility] Attending Physician: Chyna Duarte MD Allergies, [...] VIS given 10/2011 6Admin Note: VIS GIVEN [id number] 7Admin Note: VIS GIVEN 03/14/2008 8Admin Note: vis given 9Result Note: pt states he has previously had this vaccine Medications albuterol CFC free 90 mcg/inh inhalation aerosol 2, puffs, Inhalation, Every 6 hours, PRN, # 9 Gm, Refills 5, Tot. Refills 5, Maintenance, 10/04/18 16:40:37 EDT, Aerosol, Route to Pharmacy Electronically, [id number], [facility] Start Date: 10/04/18 Status: Ordered amLODIPine 5 mg oral tablet 5 mg, 1, tablet, By Mouth, Daily, # 90 tablet, Refills 3, Tot. Refills 3, Maintenance, 05/30/19 13:21:00 EST, Route to Pharmacy Electronically, [facility], 176, cm, 03/31/19 9:59:00 EST, Height, 129, kg, 05/29/18 0:31:00 EST, Dry Weight Start Date: 05/30/19 Status: Ordered atenolol 25 mg oral tablet 25 mg, 1, tablet, By Mouth, 2 times a day, # 180 tablet, Refills 3, Tot. Refills 3, Maintenance, 05/30/19 13:21:00 EST, Route to Pharmacy Electronically, [facility], 176, cm, 03/31/19 9:59:00 EST, [...] Maintenance, 05/06/18 10:56:08 EST,Route to Pharmacy Electronically, [id number], [facility] Start Date: 05/06/18 Stop [...] Com... Start Date: 05/08/16 Status: Ordered Pen [place], 31 G x 5 mm BD Ultra [...] and Radha, therapist, at [facility] in [place] Social History Social History Type Response Smoking Status Never smoker; Tobacc o user in household: No entered on: 05/25/15 Sex
--- OUTSIDE RECORDS SUMMARY | 2023-01-14 15:47 | XMS_ITS | Continuity of Care Document ---
Author Name Unknown Organization [facility] Address [address] [place] [address]- Care Team Providers Care Urologic Nurse Name Role Phone Chyna Daurte MD Primary Care Physician Encounter [facility] Date(s): 07/01/19 - 07/11/19 [facility] [address] [place] [address]- [facility] Attending Physician: Pop Kaye Admitting Physician: Pop [...] 16:40:37 EDT, Aerosol, Route to Pharmacy Electronically, [id number], [facility] Start Date: 10/04/18 Status: Ordered amLODIPine 5 mg oral tablet 5 mg, 1, tablet, By Mouth, Daily, # 90 tablet, Refills 3, Tot. Refills 3, Maintenance, 05/30/19 13:21:00 EST, Route to Pharmacy Electronically, [facility], 176, cm, 03/31/19 9:59:00 EST, Height, 129, kg, 05/29/18 0:31:00 EST, Dry Weight Start Date: 05/30/19 Status: Ordered atenolol 25 mg oral tablet 25 mg, 1, tablet, By Mouth, 2 times a day, # 180 tablet, Refills 3, Tot. Refills 3, Maintenance, 05/30/19 13:21:00 EST, Route to Pharmacy Electronically, [facility], 176, cm, 03/31/19 9:59:00 EST, [...] 07/01/19 8:58:00 EST, Route to Pharmacy Electronically, [facility], 176, cm, 06/23/19 13:14:00 EST, [...] mL, 11 Refills, Maintenance, 06/22/19 23:05:00 EST, [facility], 176, cm,... Start Date: 06/22/19 [...] 3 Refills, Maintenance, 07/07/19 10:23:00 EDT, Solution, [facility], 176, cm, 07/07/19 [...] Com... Start Date: 05/08/16 Status: Ordered Pen [place], 31 G x 5 mm BD Ultra [...] and Radha, therapist, at [facility] in [place] Social History Social History Type Response Smoking Status Never smoker; Tobacc o user in household: No entered on: 05/25/15 Sex
--- OUTSIDE RECORDS SUMMARY | 2023-01-14 15:48 | XMS_ITS | Continuity of Care Document ---
Author Name Unknown Organization [facility] Address [address] [place] [address]- Care Team Providers Care Baggage Checker Name Role Phone Chyna Duarte MD Primary Care Physician [phone] Encounter [facility] Date(s): 06/15/19 - 07/16/19 W[facility] [address] [place] [address]- [facility] Attending Physician: Pawan Henderson MD Admitting Physician: [...] VIS given 10/2011 6Admin Note: VIS GIVEN [id number] 7Admin Note: VIS GIVEN 03/14/2008 8Admin Note: vis given 9Result Note: pt states he has previously had this vaccine Medications albuterol CFC free 90 mcg/inh inhalation aerosol 2, puffs, Inhalation, Every 6 hours, PRN, # 9 Gm, Refills 5, Tot. Refills 5, Maintenance, 10/04/18 16:40:37 EDT, Aerosol, Route to Pharmacy Electronically, [id number], [facility] Start Date: 10/04/18 Status: Ordered amLODIPine 5 mg oral tablet 5 mg, 1, tablet, By Mouth, Daily, # 90 tablet, Refills 3, Tot. Refills 3, Maintenance, 05/30/19 13:21:00 EST, Route to Pharmacy Electronically, [facility], 176, cm, 03/31/19 9:59:00 EST, Height, 129, kg, 05/29/18 0:31:00 EST, Dry Weight Start Date: 05/30/19 Status: Ordered atenolol 25 mg oral tablet 25 mg, 1, tablet, By Mouth, 2 times a day, # 180 tablet, Refills 3, Tot. Refills 3, Maintenance, 05/30/19 13:21:00 EST, Route to Pharmacy Electronically, [facility], 176, cm, 03/31/19 9:59:00 EST, [...] 07/01/19 8:58:00 EST, Route to Pharmacy Electronically, [facility], 176, cm, 06/23/19 13:14:00 EST, [...] mL, 11 Refills, Maintenance, 06/22/19 23:05:00 EST, [facility], 176, cm,... Start Date: [...] 3 Refills, Maintenance, 07/07/19 10:23:00 EDT, Solution, [facility], 176, cm, 07/07/19 10:15:00 [...] Com... Start Date: 05/08/16 Status: Ordered Pen [place], 31 G x 5 mm BD Ultra [...] and Radha, therapist, at [facility] in [place] Social History Social History Type Response Smoking Status Never smoker; Tobacc o user in household: No entered on: 05/25/15 Sex
--- OUTSIDE RECORDS SUMMARY | 2023-01-14 15:48 | XMS_ITS | Continuity of Care Document ---
Author Name Unknown Organization [facility] Address [address] [place] [address]- Care Team Providers Care Fence Installer Foreman Name Role Phone Chyna Duarte MD Primary Care Physician [facility] Date[facility]): 11/01/20 - 12/01/[address] [address]- Allergies, Adverse Reactions, Alerts Substance Reaction Severity [...] VIS given 10/2011 6Admin Note: VIS GIVEN [id number] 7Admin Note: VIS GIVEN 03/14/2008 8Admin Note: vis given 9Result Note: pt states he has previously had this vaccine Medications acetaminophen 325 mg oral tablet 975 mg, 3, tablet, By Mouth, Every 6 hours, PRN, # 120 tablet, Refills 0, Tot. Refills 0, Maintenance, as needed for pain, 08/06/19 0:18:00 EDT, Route to Pharmacy Electronically, [facility], 176, cm, 07/07/19 10:15:00 [...] 12:17:00 EDT, Aerosol, Route to Pharmacy Electronically, [id number], [facility], [facility], cm, 11/22/20 11:05:00 EDT,... [...] Maintenance, use overnight and naps from [facility], 11/08/19 11:45:00 EDT, Compound, 176, cm, [...] each, 0 Refills, Maintenance, 07/11/20 9:19:00 EDT, [facility], Partial fill upon patient [...] 12/07/19 16:59:00 EDT, Route to Pharmacy Electronically, [facility], 176, cm, 09/23/19 8:30:00 EDT, Height, 129, kg, 05/29/18 0:31:00 EST, Dry Weight Start Date: 12/07/19 Status: Ordered gabapentin 300 mg oral capsule 300 mg, 1, capsule, By Mouth, 3 times a day, # 45 capsule, Refills 0, Tot. Refills 0, Maintenance, 08/06/19 0:18:00 EDT, Route to Pharmacy Electronically, [facility], 176, cm, 07/07/19 10:15:00 [...] 5 Refills, Maintenance, 11/08/20 7:18:00 EDT, [facility], 176, cm, 08/25... Start [...] Refills, Maintenance, 06/28/20 16:38:00 EST, Solution, [facility], 176, cm, 06/28/20 13:04:00 [...] Com... Start Date: 05/08/16 Status: Ordered Pen [place], 31 G x 5 mm BD Ultra [...] 0 Refills, Maintenance, 10/15/20 18:05:00 EDT, [facility], Partial fill upon patient request if [...] and Radha, therapist, at [facility] in [place] Social History Social History Type Response Smoking Status Former smoker, quit more than 30 days ago entered on: 06/28/20 Sex
--- OUTSIDE RECORDS SUMMARY | 2023-01-14 15:48 | XMS_ITS | Continuity of Care Document ---
Author Name Unknown Organization [facility] Address [address] [place] [address]- Care Team Providers Care Memory Care Program Resident Name Role Phone Chyna Duarte MD Primary Care Physician [facility] Date(s): 07/13/20 - 08/12/[address] [address]- Allergies, Adverse Reactions, Alerts Substance Reaction Severity Status NKA Active Immunizations Given and Recorded Vaccine Date Status Refusal Reason SARS-CoV-2 (COVID-19) mRNA BNT-162b2 vac 08/07/20 Given [...] 08/06/19 0:18:00 EDT, Route to Pharmacy Electronically, [facility], 176, cm, 07/07/19 10:15:00 [...] 16:40:37 EDT, Aerosol, Route to Pharmacy Electronically, [id number], [facility] Start Date: 10/04/18 Status: [...] Maintenance, use overnight and naps from [facility], 11/08/19 11:45:00 EDT, Compound, 176, [...] each, 0 Refills, Maintenance, 07/11/20 9:19:00 EDT, [facility], Partial fill upon patient [...] 12/07/19 16:59:00 EDT, Route to Pharmacy Electronically, [facility], 176, cm, 09/23/19 8:30:00 EDT, Height, 129, kg, 05/29/18 0:31:00 EST, Dry Weight Start Date: 12/07/19 Status: Ordered gabapentin 300 mg oral capsule 300 mg, 1, capsule, By Mouth, 3 times a day, # 45 capsule, Refills 0, Tot. Refills 0, Maintenance, 08/06/19 0:18:00 EDT, Route to Pharmacy Electronically, [facility], 176, cm, 07/07/19 10:15:00 EDT, Height, 129, kg, 05/29/18 0:31:00 EST, . Start Date: 08/06/19 Status: Ordered HumaLOG KwikPen 100 units/mL injectable solution See Instructions, s/c inj TID before meals acc to scale: 1u 150-200; 3u 201-250; 5u 251-300; 7u 301-350; 9u 351-400; 11u 401-450; call MD for BG over 450, # 10 mL, 11 Refills, Maintenance, 06/22/19 23:05:00 EST, [facility], 176, cm,... Start Date: [...] Com... Start Date: 05/08/16 Status: Ordered Pen [place], 31 G x 5 mm BD Ultra [...] and Radha, therapist, at [facility] in [place] Social History Social History Type Response Smoking Status Former smoker, quit more than 30 days ago entered on: 06/28/20 Sex
--- OUTSIDE RECORDS SUMMARY | 2023-01-14 15:48 | XMS_ITS | Continuity of Care Document ---
Author Name Unknown Organization [facility] Address [address] [place] [address]- Care Team Providers Care Liquid Center Assembler Name Role Phone Chyna Duarte MD Primary Care Physician [phone] [facility] Date[facility]s): 12/13/20 - 01/12/[address] [address]- Allergies, Adverse Reactions, Alerts Substance Reaction Severity [...] VIS given 10/2011 6Admin Note: VIS GIVEN [id number] 7Admin Note: VIS GIVEN 03/14/2008 8Admin Note: [...] 12:17:00 EDT, Aerosol, Route to Pharmacy Electronically, [id number], [facility], 176, cm, 11/22/20 11:05:00 EDT,... [...] Maintenance, use overnight and naps from [facility], 11/08/19 11:45:00 EDT, Compound, 176, cm, 09/23/19 [...] each, 0 Refills, Maintenance, 07/11/20 9:19:00 EDT, [facility], Partial fill upon patient [...] 01/04/21 14:54:00 EDT, Route to Pharmacy Electronically, [facility], 176, cm, 11/22/20 11:05:00 EDT, [...] mL, 5 Refills, Maintenance, 11/08/20 7:18:00 EDT, [facility], 176, cm, 08/25... Start Date: [...] 1 Refills, Maintenance, 06/28/20 16:38:00 EST, Solution, [facility], 176, cm, 06/28/20 13:04:00 EST, [...] Com... Start Date: 05/08/16 Status: Ordered Pen [place], 31 G x 5 mm BD Ultra Fine III See Instructions, # 300 each, Refills 3, Tot. Refills 3, Maintenance, use with lantus and humalog as directed dx: e11.65, 05/06/16 15:47:30, Compound Start Date: 05/06/16 Stop Date: 05/01/17 Status: Ordered Readi-Cat 2 oral suspension See Instructions, take as directed, # 2 each, 0 Refills, Maintenance, 12/05/20 15:52:00 EDT, [facility], Partial fill upon patient request [...] each, 0 Refills, Maintenance, 10/15/20 18:05:00 EDT, [facility], Partial fill upon patient request [...] Radha, therapist, at [facility] in [place] Social History Social History Type Response Smoking Status Former smoker, quit more than 30 days ago entered on: 06/28/20 Sex
--- OUTSIDE RECORDS SUMMARY | 2023-01-14 15:48 | XMS_ITS | Continuity of Care Document ---
Author Name Unknown Organization [facility] Address [address] [place] [address]- Care Team Providers Care Laborer Drying Department Name Role Phone Gerald GARRISON, Chyna Primary Care Physician [facility] Date[facility]s): 01/10/22 - 02/09/[address] [address]- Allergies, Adverse Reactions, Alerts No Known Allergies Immunizations Given and Recorded Vaccine Date Status Refusal Reason SARS-CoV-2 mRNA (xzqkcdh-hxqs-aechx) vax 08/29/21 Given pneumococcal 23-valent vaccine 06/06/21 [...] n Patient Refuses 1Result Comment: DILUENT LOT#: [id number] EXP: 08/2022 [facility]: FRESENSIUS 2Early/Late Reason: Other : GIVEN 03/31/19 DURING VISIT 3Admin Note: VIS 12/04/2009 4Admin Note: VIS GIVEN 12/05/2008 5Admin Note: vis given 6Admin Note: VIS given 10/2011 7Admin Note: VIS GIVEN [id number] 8Admin Note: VIS GIVEN 03/14/2008 9Admin Note: vis given 10Result Note: pt states he has previously had this vaccine Medications acetaminophen 325 mg oral tablet 975 mg, 3, tablet, By Mouth, Every 6 hours, PRN, # 120 tablet, Refills 0, Tot. Refills 0, Maintenance, as needed for pain, 08/06/19 0:18:00 EDT, Route to Pharmacy Electronically, [facility], 176, cm, [...] Maintenance, 01/15/22 14:49:00 EDT, [facility]), 50, USE 2 INHALATIONS BY MOUTHEVERY 6 HOURS NEEDED FOR WHEEZING, 176, cm, ... Start Date: 01/15/22 Status: Ordered amLODIPine 5 mg oral tablet 1 tablet, By Mouth, Daily, # 90 tablet, 3 Refills, Maintenance, 01/15/22 14:49:00 EDT, [facility] ([facility]), 176, cm, 01/15/22 10:10:00 EDT, Height, 131.6, kg, 06/03/20 4:19:00 EST, Dry Weight Start Date: 01/15/22 Status: Ordered atenolol 25 mg oral tablet 1, tablet, By Mouth, 2 times a day, # 180 tablet, Refills 3, Maintenance, 12/31/21 14:27:00 EDT, Route to Pharmacy Electronically, [facility] ([facility]), 176, cm, 08/29/21 9:11:00 EDT, Height, 131.6, kg, 06/03/20 4:19:00 EST, Dry... Start Date: 12/31/21 Status: Ordered atorvastatin 40 mg oral tablet 1 tablet, By Mouth, Daily, # 90 tablet, 1 Refills, Maintenance, 12/31/21 14:20:00 EDT, [facility] ([facility]), 176, cm, 08/29/21 9:11:00 EDT, [...] each, 3 Refills, Maintenance, 09/26/21 15:07:00 EDT, [facility] ([facility]), Partial fill upon patient request [...] 08/06/19 0:18:00 EDT, Route to Pharmacy Electronically, [facility], 176, cm, [...] mL, 3 Refills, Maintenance, 01/14/22 16:55:00 EDT, [facility], 176, cm, ... Start Date: [...] 3 Refills, Maintenance, 01/14/22 16:55:00 EDT, Solution, [facility], 176, cm, 08/29/21 9:11:00 EDT, [...] Com... Start Date: 05/08/16 Status: Ordered Pen [place], 31 G x 5 mm BD Ultra Fine III See Instructions, # 300 each, Refills 3, Tot. Refills 3, Maintenance, use with lantus and humalog as directed dx: e11.65, 05/06/16 15:47:30, Compound Start Date: 05/06/16 Stop Date: 05/01/17 Status: Ordered Readi-Cat 2 oral suspension See Instructions, take as directed, # 2 each, 0 Refills, Maintenance, 12/05/20 15:52:00 EDT, [facility], Partial fill upon patient request if [...] each, 0 Refills, Maintenance, 10/15/20 18:05:00 EDT, [facility], Partial fill upon patient request [...] FIT (fecal immunochemical test) Confirmed Active Suspected [place] disease Confirmed Active Goal-TO SURVIVE THIS YEAR [...] and Radha, therapist, at [facility] in [place] Social History Social History Type Response Smoking Status Former smoker, quit more than 30 days ago entered on: 06/28/20 Sex Patient Care team information Personnel Name: Chyna Duarte MD Address: Address: [address] [place] [id number]
--- OUTSIDE RECORDS SUMMARY | 2023-01-14 15:48 | XMS_ITS | Continuity of Care Document ---
Author Name Unknown Organization [facility] Address [address] [place] [address]- Care Team Providers Care Supervisor Forming Department Name Role Phone Chyna Duarte MD Primary Care Physician Encounter [facility] [place] [place] Date(s): 12/17/20 - 01/16/21 [facility] [address] [place] [id number]- Attending Physician: Mikki, Pop Admitting Physician: Admtr, Pop Referring Physician: Admtr, Ar8 Allergies, Adverse Reactions, [...] VIS given 10/2011 6Admin Note: VIS GIVEN [id number] 7Admin Note: VIS GIVEN 03/14/2008 8Admin Note: [...] 12:17:00 EDT, Aerosol, Route to Pharmacy Electronically, [id number], [facility], 176, cm, 11/22/20 11:05:00 EDT,... Start [...] 0, Maintenance, use overnight and naps from [facility], 11/08/19 11:45:00 EDT, Compound, 176, [...] each, 0 Refills, Maintenance, 07/11/20 9:19:00 EDT, [facility], Partial fill upon patient [...] 01/04/21 14:54:00 EDT, Route to Pharmacy Electronically, [facility], 176, cm, 11/22/20 11:05:00 EDT, [...] 5 Refills, Maintenance, 11/08/20 7:18:00 EDT, [facility], 176, cm, 08/25... Start [...] Refills, Maintenance, 06/28/20 16:38:00 EST, Solution, [facility], 176, cm, 06/28/20 13:04:00 [...] Com... Start Date: 05/08/16 Status: Ordered Pen [place], 31 G x 5 mm BD Ultra Fine III See Instructions, # 300 each, Refills 3, Tot. Refills 3, Maintenance, use with lantus and humalog as directed dx: e11.65, 05/06/16 15:47:30, Compound Start Date: 05/06/16 Stop Date: 05/01/17 Status: Ordered Readi-Cat 2 oral suspension See Instructions, take as directed, # 2 each, 0 Refills, Maintenance, 12/05/20 15:52:00 EDT, [facility], Partial fill upon patient [...] 0 Refills, Maintenance, 10/15/20 18:05:00 EDT, [facility], Partial fill upon patient [...] and Radha, therapist, at [facility] in [place] Social History Social History Type Response Smoking Status Former smoker, quit more than 30 days ago entered on: 06/28/20 Sex
--- OUTSIDE RECORDS SUMMARY | 2023-01-14 15:48 | XMS_ITS | Continuity of Care Document ---
Author Name Unknown Organization [facility] Address [address] [place] [address]- Care Team Providers Care Pharmacy Technician Name Role Phone Chyna Duarte MD Primary Care Physician Encounter [facility] Date(s): 06/01/20 - 07/04/[address] [email or web address] Attending Physician: Chyna Duarte MD Admitting Physician: Chyna Duarte MD Referring Physician: Chyna Duarte MD Allergies, [...] influenza virus vaccine, inactivated 4 03/04/06 Gi laana influenza virus vaccine, inactivated 03/15/05 Give n influenza virus vaccine, inactivated 03/20/04 Give n influenza virus vaccine, inactivated 02/15/03 Give n influenza virus vaccine, inactivated 03/07/02 Give n pneumococcal 13-valent vaccine 02/23/20 Given pneumococcal 13-valent vaccine 02/10/18 Given tetanus/diphtheria/pertussis, acel(Tdap) 03/31/19 Given pneumococcal 23-valent vaccine 04/16/14 Given FluLaval (oldterm) 6 9/10/12 Given Influenza Vaccine (oldterm) 7 02/10/11 Given [...] VIS given 10/2011 6Admin Note: VIS GIVEN [id number] 7Admin Note: VIS GIVEN 03/14/2008 8Admin Note: vis given 9Result Note: pt states he has previously had this vaccine Medications acetaminophen 325 mg oral tablet 975 mg, 3, tablet, By Mouth, Every 6 hours, PRN, # 120 tablet, Refills 0, Tot. Refills 0, Maintenance, as needed for pain, 08/06/19 0:18:00 EDT, Route to Pharmacy Electronically, [facility], 176, cm, 07/07/19 10:15:00 EDT, Height, 129, kg,... Start Date: 08/06/19 Status: Ordered albuterol CFC free 90 mcg/inh inhalation aerosol 2, puffs, Inhalation, Every 6 hours, PRN, # 9 Gm, Refills 5, Tot. Refills 5, Maintenance, 10/04/18 16:40:37 EDT, Aerosol, Route to Pharmacy Electronically, [id number], [facility] Start Date: 10/04/18 Status: Ordered amLODIPine 5 mg oral tablet 5 mg, 1, tablet, By Mouth, Daily, # 90 tablet, Refills 3, Tot. Refills 3, Maintenance, 05/30/19 13:21:00 EST, Route to Pharmacy Electronically, [facility], 176, cm, 03/31/19 9:59:00 EST, Height, 129, kg, 05/29/18 0:31:00 EST, Dry Weight Start Date: 05/30/19 Status: Ordered atenolol 25 mg oral tablet 1, tablet, By Mouth, 2 times a day, # 180 tablet, Refills 3, Tot. Refills 0, Maintenance, 07/01/20 20:37:00 EST, Route to Pharmacy Electronically, [facility], 176, cm, 06/28/20 13:04:00 EST, [...] 12/07/19 16:59:00 EDT, Route to Pharmacy Electronically, [facility], 176, cm, 09/23/19 8:30:00 EDT, Height, 129, kg, 05/29/18 0:31:00 EST, Dry Weight Start Date: 12/07/19 Status: Ordered gabapentin 300 mg oral capsule 300 mg, 1, capsule, By Mouth, 3 times a day, # 45 capsule, Refills 0, Tot. Refills 0, Maintenance, 08/06/19 0:18:00 EDT, Route to Pharmacy Electronically, [facility], 176, cm, 07/07/19 10:15:00 [...] 1 Refills, Maintenance, 06/28/20 16:38:00 EST, Solution, [facility], 176, cm, 06/28/20 13:04:00 EST, Height, [...] be used with CPAP machine for dx: SANIJV G47.30 length of need: 99=lifetime, 05/08/16 13:26:55, Com... Start Date: 05/08/16 Status: Ordered Pen [place], 31 G x 5 mm BD Ultra [...] and Radha, therapist, at [facility] in [place] Social History Social History Type Response Smoking Status Former smoker, quit more than 30 days ago entered on: 06/28/20 Sex
--- OUTSIDE RECORDS SUMMARY | 2023-01-14 15:48 | XMS_ITS | Continuity of Care Document ---
Author Name Unknown Organization [facility] Address [address] [place] [address]- Care Team Providers Care Fire Engine Pump Operator Name Role Phone Jeffrey Bains DO Primary Care Physician [facility] Date[facility]s): 10/22/22 - 01/09/[address] [address]- Attending Physician: Not on Staff, Attending MD Referring Physician: Hiren Mims NP Allergies, Adverse Reactions, Alerts No Known Allergies Immunizations Given and Recorded Vaccine Date Status Refusal Reason [id number] 12y+ bivalent booster vax 03/11/22 Given influenza [...] vaccine, inactivated 03/07/02 Give n SARS-CoV-2 mRNA (ptqujyd-hfik-epkrc) vax 08/29/21 Given pneumococcal 23-valent vaccine 06/06/21 [...] Note: vis given 5Result Comment: DILUENT LOT#: [id number] EXP: 08/2022 [facility]: FRESENSIUS 6Admin Note: VIS given 10/2011 7Admin Note: VIS GIVEN [id number] 8Admin Note: VIS GIVEN 03/14/2008 9Admin Note: vis given Medications Abilify 2 mg oral tablet 2 mg, 1, tablet, By Mouth, Daily, # 30 tablet, Refills 0, Maintenance, 05/02/22 9:55:00 EST, Partial fill upon patient request if the prescription is for a schedule II opioid drug. Start Date: 05/02/22 Status: Ordered acetaminophen 500 mg oral capsule 2 capsule = 1,000 mg, By Mouth, Every 4 hours, PRN for pain, not to exceed 4000 mg/day, # 120 capsule, 0 Refills, Maintenance, 01/09/23 9:14:00 EDT, Capsule, Partial fill upon patient request if the prescription is for a schedule II opioid drug. Start Date: 01/09/23 Status: Ordered Aerochamber w/Mask (Large) See Instructions, [...] to Pharmacy Electronically, [facility]), 176, cm, 08/29/21 9:11:00 EDT, [...] 07/11/22 17:27:00 EDT, Powder, [facility] ([facility] ), Partial fill upon patient request if the prescription is for a schedule II opioid drug., 1 puffs Inhalat... Start Date: 07/11/22 Status: Ordered free style lyndon reader free style lyndon reader, See Instructions, # 1 each, Refills 0, Tot. Refills 0, Maintenance, to be used to check BG up to 4 times a day dx: E 11.65 NATASHA = lifetime, 01/06/23 11:24:00 EDT, Compound Start Date: 01/06/23 Status: Ordered free style lyndon sensors free [...] to Pharmacy Electronically, [facility]), 176, cm, 08/29/21 9:11:00 EDT, [...] mL, 3 Refills, Maintenance, 01/14/22 16:55:00 EDT, [facility], 176, cm, ... Start [...] 3 Refills, Maintenance, 01/14/22 16:55:00 EDT, Solution, [facility], 176, cm, 08/29/21 9:11:00 EDT, Height, 131.6, kg, 06/03/20 4:19:00 EST, Dry Weight Start Date: 01/14/22 Stop Date: 01/09/23 Status: Ordered levothyroxine 150 mcg (0.15 mg) oral tablet 1 tablet, By Mouth, Daily, # 90 tablet, 3 Refills, Maintenance, 04/01/22 15:34:00 EST, [facility]), 176, cm, 03/24/22 14:42:00 EST, [...] Com... Start Date: 05/08/16 Status: Ordered Pen [place], 31 G x 5 mm BD Ultra [...] Maintenance, 04/01/22 15:34:00 EST, [facility] ([facility]), 176, cm, 03/24/22 14:42:00 EST, [...] 11:46:00 EDT, 10/22/22 11:46:00 EDT, [facility]w Tablet, [facility] fill upon patient request [...] FIT (fecal immunochemical test) Confirmed Active Suspected [place] disease Confirmed Active Goal-TO SURVIVE THIS YEAR [...] and Giancarlo, therapist, at [facility] in [place] Social History Social History Type Response Smoking Status Former smoker; Other : qiut 13 years; entered on: 05/24/14 Sex Patient Care team information Care Team Personnel Name: Florencio Saldana RN Position: [facility] ED RN W/OE and Tasks Member Role: Primary Care Nurse Name: Brooklyn Coyne NP Position: [facility] Associate Professional Member Role: Primary Care Nurse Address: Address: [address] [place] [address] Trauma [facility] Acute [facility] [address] Name: Tatyana Cosme RN Position: [facility] RN Member Role: Primary Care Nurse Name: Jeffrey Bains DO Position: S Resident Member Role: PCP Address: Address: [address] [place] [id number]- Name: Susie CONTRERAS, [place] Position: S RN Member Role: Primary Care Nurse Care Team Related Persons Name: SHILO VALE Address: home [address] [place] [id number] Name: GIANCARLO BROOKS Address: [place] [address] UM Name: ROBERTO BENAVIDES Name: OLIVA VELOZ Address: home
--- OUTSIDE RECORDS SUMMARY | 2023-01-14 15:48 | XMS_ITS | Continuity of Care Document ---
Author Name Unknown Organization [facility] Address [address] [place] [address]- Care Team Providers Care Gear Technician Name Role Phone Chyna Duarte MD Primary Care Physician Encounter [facility] Date(s): 12/04/20 - 01/09/21 Wound Care [address] [place] [address] Attending Physician: Pawan Hednerson MD Admitting Physician: Pawan Henderson MD Referring [...] VIS given 10/2011 6Admin Note: VIS GIVEN [id number] 7Admin Note: VIS GIVEN 03/14/2008 8Admin Note: vis given 9Result Note: pt states he has previously had this vaccine Medications acetaminophen 325 mg oral tablet 975 mg, 3, tablet, By Mouth, Every 6 hours, PRN, # 120 tablet, Refills 0, Tot. Refills 0, Maintenance, as needed for pain, 08/06/19 0:18:00 EDT, Route to Pharmacy Electronically, [facility], 176, cm, 07/07/19 [...] 12:17:00 EDT, Aerosol, Route to Pharmacy Electronically, [id number], [facility], 176, cm, 11/22/20 11:05:00 EDT,... [...] each, 0 Refills, Maintenance, 07/11/20 9:19:00 EDT, [facility], Partial fill upon [...] 01/04/21 14:54:00 EDT, Route to Pharmacy Electronically, [facility], 176, cm, 11/22/20 11:05:00 EDT, Height,131.6, kg, 06/03/20 4:19:00 EST, Dry Weight Start Date: 01/04/21 Status: Ordered gabapentin 300 mg oral capsule 300 mg, 1, capsule, By Mouth, 3 times a day, # 45 capsule, Refills 0, Tot. Refills 0, Maintenance, 08/06/19 0:18:00 EDT, Route to Pharmacy Electronically, [facility], 176, cm, 07/07/19 [...] mL, 5 Refills, Maintenance, 11/08/20 7:18:00 EDT, [facility], 176, cm, 08/25... Start [...] 1 Refills, Maintenance, 06/28/20 16:38:00 EST, Solution, [facility], 176, cm, 06/28/20 13:04:00 [...] Com... Start Date: 05/08/16 Status: Ordered Pen [place], 31 G x 5 mm BD Ultra Fine III See Instructions, # 300 each, Refills 3, Tot. Refills 3, Maintenance, use with lantus and humalog as directed dx: e11.65, 05/06/16 15:47:30, Compound Start Date: 05/06/16 Stop Date: 05/01/17 Status: Ordered Readi-Cat 2 oral suspension See Instructions, take as directed, # 2 each, 0 Refills, Maintenance, 12/05/20 15:52:00 EDT, [facility], Partial fill upon patient [...] each, 0 Refills, Maintenance, 10/15/20 18:05:00 EDT, [facility], Partial fill upon patient [...] Major depression(Confirmed) 1 Active Morbid obesity(Confirmed) Active SANJVI (obstructive sleep apnea)(Confirmed) Active Sigmoid colon resection + complication(Confirmed) 2002 Active Tachy-nelda syndrome(Confirmed) Active Diabetic leg ulcer(Confirmed) Active 1Sees Dr. Molina and Radha, therapist, at [facility] in [place] Social History Social History Type Response Smoking Status Former smoker, quit more than 30 days ago entered on: 06/28/20 Sex
--- OUTSIDE RECORDS SUMMARY | 2023-01-14 15:48 | XMS_ITS | Continuity of Care Document ---
Author Name Unknown Organization [facility] Address [address] [place] [address]- Care Team Providers Care Motor Vehicle Field Representative Name Role Phone Gerald GARRISON, Chyna Primary Care Physician Encounter [facility] Date(s): 02/21/22 - 03/23/[address] [address]- Allergies, Adverse Reactions, Alerts No Known Allergies Immunizations Given and Recorded Vaccine Date Status Refusal Reason [id number] 12y+ bivalent booster vax 03/11/22 Given influenza [...] vaccine, inactivated 03/07/02 Give n SARS-CoV-2 mRNA (izzqokl-ckbm-wwcsm) vax 08/29/21 Given pneumococcal 23-valent vaccine 06/06/21 [...] Note: vis given 5Result Comment: DILUENT LOT#: [id number] EXP: 08/2022 MFG: FRESENSIUS 6Admin Note: VIS given 10/2011 7Admin Note: VIS GIVEN [id number] 8Admin Note: VIS GIVEN 03/14/2008 9Admin Note: [...] Maintenance, 01/15/22 14:49:00 EDT, [facility] ([facility]), 176, cm, 01/15/22 10:10:00 EDT, Height, 131.6, kg, 06/03/20 4:19:00 EST, Dry Weight Start Date: 01/15/22 Status: Ordered atenolol 25 mg oral tablet 1, tablet, By Mouth, 2 times a day, # 180 tablet, Refills 3, Maintenance, 12/31/21 14:27:00 EDT, Route to Pharmacy Electronically, [facility] ([facility]), 176, cm, 08/29/21 9:11:00 EDT, [...] 03/25/22 14:44:00 EST, 03/18/22 14:44:00 EST, Capsule, [facility], Partial fill upon patient request if [...] 0 Refills, Maintenance, 03/17/22 13:55:00 EST, Gel, [facility], Partial fill upon patient request if [...] mL, 3 Refills, Maintenance, 01/14/22 16:55:00 EDT, [facility] 3, 176, cm, ... Start Date: [...] 3 Refills, Maintenance, 01/14/22 16:55:00 EDT, Solution, [facility] 3, 176, cm, 08/29/21 9:11:00 EDT, [...] Gm, 1 Refills, Maintenance, 03/19/2211:23:00 EST, [facility]intment, [facility] Partial fill upon patient request if [...] Com... Start Date: 05/08/16 Status: Ordered Pen [place], 31 G x 5 mm BD Ultra Fine III See Instructions, # 300 each, Refills 3, Tot. Refills 3, Maintenance, use with lantus and humalog as directed dx: e11.65, 05/06/16 15:47:30, Compound Start Date: 05/06/16 Stop Date: 05/01/17 Status: Ordered Readi-Cat 2 oral suspension See Instructions, take as directed, # 2 each, 0 Refills, Maintenance, 12/05/20 15:52:00 EDT, [facility], Partial fill upon patient [...] FIT (fecal immunochemical test) Confirmed Active Suspected [place] disease Confirmed Active Goal-TO SURVIVE THIS YEAR [...] and Giancarlo, therapist, at [facility] in [place] Social History Social History Type Response Smoking Status Former smoker, quit more than 30 days ago entered on: 06/28/20 Sex Patient Care team information Care Team Personnel Name: Florencio Saldana RN Position: [facility] ED RN W/OE and Tasks Member Role: Primary Care Nurse Name: Brooklyn Coyne NP Position: [facility] Associate Professional Member Role: Primary Care Nurse Address: Address: [address] [place] [address] Trauma and [place] [address]- Name: Tatyana Cosme RN Position: [facility] RN Member Role: Primary Care Nurse Name: Chyna Duarte MD Position: [facility] Primary Care Physician Member Role: PCP Address: Address: [address] [place] [address]- Care Team Related Persons Name: SHILO VALE Address: home [address] [place] [address] Name: GIANCARLO BROOKS Address: [place] [address] Name: OLIVA VELOZ Address: home [address] [place] [address]
--- OUTSIDE RECORDS SUMMARY | 2023-01-14 15:49 | XMS_ITS | Continuity of Care Document ---
Author Name Unknown Organization [facility] Address [address] [place] [address]- Care Team Providers Care Blending Coordinator Name Role Phone Chyna Duarte MD Primary Care Physician Encounter [facility] Date(s): 06/05/22 - 08/03/[address] [address]- Attending Physician: Chyna Duarte MD Admitting Physician: Chyna Duarte MD Allergies, Adverse Reactions, Alerts No Known Allergies Immunizations Given and Recorded Vaccine Date Status Refusal Reason [id number] 12y+ bivalent booster vax 03/11/22 Given influenza [...] influenza virus vaccine, inactivated 3 01/25/09 Gi alaan influenza virus vaccine, inactivated 03/04/06 Gi alana influenza virus vaccine, inactivated 03/15/05 Give n influenza virus vaccine, inactivated 03/20/04 Give n influenza virus vaccine, inactivated 02/15/03 Give n influenza virus vaccine, inactivated 03/07/02 Give n SARS-CoV-2 mRNA (zsvaxod-sddq-ytlmd) vax 08/29/21 Given pneumococcal 23-valent vaccine 06/06/21 [...] Note: vis given 5Result Comment: DILUENT LOT#: [id number] EXP: 08/2022 MFG: FRESENSIUS 6Admin Note: VIS given 10/2011 7Admin Note: VIS GIVEN [id number] 8Admin Note: VIS GIVEN 03/14/2008 9Admin Note: [...] 08/06/19 0:18:00 EDT, Route to Pharmacy Electronically, [facility], 176, cm, 07/07/19 10:15:00 [...] Maintenance, 01/15/22 14:49:00 EDT, [facility] ([facility]), 50, USE 2 INHALATIONS BY MOUTHEVERY 6 HOURS NEEDED FOR WHEEZING, 176, cm, ... Start Date: 01/15/22 Status: Ordered amLODIPine 5 mg oral tablet 1 tablet, By Mouth, Daily, # 90 tablet, 3 Refills, Maintenance, 01/15/22 14:49:00 EDT, [facility] ([facility]), 176, cm, 01/15/22 10:10:00 EDT, Height, 131.6, kg, 06/03/20 4:19:00 EST, Dry Weight Start Date: 01/15/22 Status: Ordered atenolol 25 mg oral tablet 1, tablet, By Mouth, 2 times a day, # 180 tablet, Refills 3, Maintenance, 12/31/21 14:27:00 EDT, Route to Pharmacy Electronically, [facility] ([facility]), 176, cm, 08/29/21 9:11:00 EDT, [...] 0 Refills, Maintenance, 03/17/22 13:55:00 EST, Gel, [facility], Partial fill upon patient request if the prescription is for a schedule II opioid drug., 176, cm, 11/... Start Date: 03/17/22 Status: Ordered Flovent Diskus 250 mcg/inh inhalation [...] 12/31/21 14:28:00 EDT, Route to Pharmacy Electronically, [facility] ([facility]), 176, cm, 08/29/21 9:11:00 EDT, Height, 131.6, kg, 06/03/20 4:19:00 EST, Dry Weight Start Date: 12/31/21 Status: Ordered gabapentin 300 mg oral capsule 300 mg, 1, capsule, By Mouth, 3 times a day, # 45 capsule, Refills 0, Tot. Refills 0, Maintenance, 08/06/19 0:18:00 EDT, Route to Pharmacy Electronically, [facility], 176, cm, 07/07/19 10:15:00 EDT, Height, 129, kg, 05/29/18 0:31:00 ESTDr... Start Date: 08/06/19 Status: Ordered HumaLOG KwikPen 100 units/mL injectable solution See Instructions, s/c inj TID before meals acc to scale: 1u 150-200; 3u 201-250; 5u 251-300; 7u 301-350; 9u 351-400; 11u 401-450; call MD for BG over 450, # 15 mL, 3 Refills, Maintenance, 01/14/22 16:55:00 EDT, [facility], 176, cm, ... Start Date: [...] 3 Refills, Maintenance, 01/14/22 16:55:00 EDT, Solution, [facility], 176, cm, 08/29/21 9:11:00 EDT, [...] Gm, 1 Refills, Maintenance, 03/19/2211:23:00 EST, Ointment, [facility], Partial fill upon patient request [...] Com... Start Date: 05/08/16 Status: Ordered Pen [place], 31 G x 5 mm BD Ultra Fine III See Instructions, # 300 each, Refills 3, Tot. Refills 3, Maintenance, use with lantus and humalog as directed dx: e11.65, 05/06/16 15:47:30, Compound Start Date: 05/06/16 Stop Date: 05/01/17 Status: Ordered Readi-Cat 2 oral suspension See Instructions, take as directed, # 2 each, 0 Refills, Maintenance, 12/05/20 15:52:00 EDT, [facility] 3, Partial fill upon patient request if the prescription is for a schedule II opioid drug., take as directed, 176, cm, 11/22/20 11:05:0... 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 Molina and Giancarlo, therapist[facility] [place] Social History Social History Type Response Smoking Status Former smoker; Other : qiut 13 years; entered on: 05/24/14 Sex Patient Care team information Care Team Personnel Name: Florencio Saldana RN Position: [facility] ED RN W/OE and Tasks Member Role: Primary Care Nurse Name: Brooklyn Coyne NP Position: [facility] Associate Professional Member Role: Primary Care Nurse Address: Address: [address] [place] [address] Trauma and [place] [address]- Name: Tatyana Cosme RN Position: [facility] RN Member Role: Primary Care Nurse Name: Chyna Duarte MD Position: [facility] Primary Care Physician Member Role: PCP Address: Address: [address] [place] [address] Care Team Related Persons Name: SHILO VALE Address: home [address] [place] [address] Name: GIANCARLO BROOKS Address: [place] [address] UM Name: OLIVA VELOZ Address: [facility] [address] [place] [address]
--- OUTSIDE RECORDS SUMMARY | 2023-01-14 15:49 | XMS_ITS | Continuity of Care Document ---
Author Name Unknown Organization [facility] Address [address] [place] [address]- Care Team Providers Care Overhead Cleaner Maintainer Name Role Phone Chyna Duarte MD Primary Care Physician [phone] Encounter [facility] Date(s): 07/18/20 - 08/17/[address] [address]- Allergies, Adverse Reactions, Alerts Substance Reaction Severity [...] VIS given 10/2011 6Admin Note: VIS GIVEN [id number] 7Admin Note: VIS GIVEN 03/14/2008 8Admin Note: [...] 16:40:37 EDT, Aerosol, Route to Pharmacy Electronically, [id number], [facility] Start Date: 10/04/18 Status: [...] each, 0 Refills, Maintenance, 07/11/20 9:19:00 EDT, [facility], Partial fill upon [...] 12/07/19 16:59:00 EDT, Route to Pharmacy Electronically, [facility], 176, cm, 09/23/19 8:30:00 EDT, [...] mL, 11 Refills, Maintenance, 06/22/19 23:05:00 EST, [facility], 176, cm,... Start Date: [...] 1 Refills, Maintenance, 06/28/20 16:38:00 EST, Solution, [facility], 176, cm, 06/28/20 13:04:00 EST, Height, [...] Com... Start Date: 05/08/16 Status: Ordered Pen [place], 31 G x 5 mm BD Ultra [...] and Radha, therapist, at [facility] in [place] Social History Social History Type Response Smoking Status Former smoker, quit more than 30 days ago entered on: 06/28/20 Sex
--- OUTSIDE RECORDS SUMMARY | 2023-01-14 15:49 | XMS_ITS | Continuity of Care Document ---
Author Name Unknown Organization [facility] Address [address] [place] [address]- Care Team Providers Care Communications Lead Name Role Phone Chyna Duarte MD Primary Care Physician Encounter [facility] Date(s): 06/06/20 - 07/06/[address] [address] Attending Physician: Not on Staff, Attending MD [...] VIS given 10/2011 6Admin Note: VIS GIVEN [id number] 7Admin Note: VIS GIVEN 03/14/2008 8Admin Note: vis given 9Result Note: pt states he has previously had this vaccine Medications acetaminophen 325 mg oral tablet 975 mg, 3, tablet, By Mouth, Every 6 hours, PRN, # 120 tablet, Refills 0, Tot. Refills 0, Maintenance, as needed for pain, 08/06/19 0:18:00 EDT, Route to Pharmacy Electronically, [facility], 176, cm, 07/07/19 10:15:00 EDT, Height, 129, kg,... Start Date: 08/06/19 Status: Ordered albuterol CFC free 90 mcg/inh inhalation aerosol 2, puffs, Inhalation, Every 6 hours, PRN, # 9 Gm, Refills 5, Tot. Refills 5, Maintenance, 10/04/18 16:40:37 EDT, Aerosol, Route to Pharmacy Electronically, [id number], [facility] Start Date: 10/04/18 Status: Ordered amLODIPine 5 mg oral tablet 5 mg, 1, tablet, By Mouth, Daily, # 90 tablet, Refills 3, Tot. Refills 3, Maintenance, 05/30/19 13:21:00 EST, Route to Pharmacy Electronically, [facility], 176, cm, 03/31/19 9:59:00 EST, Height, 129, kg, 05/29/18 0:31:00 EST, Dry Weight Start Date: 05/30/19 Status: Ordered atenolol 25 mg oral tablet 1, tablet, By Mouth, 2 times a day, # 180 tablet, Refills 3, Tot. Refills 0, Maintenance, 07/01/20 20:37:00 EST, Route to Pharmacy Electronically, [email or web address], 176, cm, 06/28/20 13:04:00 EST, [...] 12/07/19 16:59:00 EDT, Route to Pharmacy Electronically, [facility], 176, cm, 09/23/19 8:30:00 EDT, Height, 129, kg, 05/29/18 0:31:00 EST, Dry Weight Start Date: 12/07/19 Status: Ordered gabapentin 300 mg oral capsule 300 mg, 1, capsule, By Mouth, 3 times a day, # 45 capsule, Refills 0, Tot. Refills 0, Maintenance, 08/06/19 0:18:00 EDT, Route to Pharmacy Electronically, [facility], 176, cm, 07/07/19 [...] mL, 11 Refills, Maintenance, 06/22/19 23:05:00 EST, [facility], 176, cm,... Start Date: 06/22/19 [...] 1 Refills, Maintenance, 06/28/20 16:38:00 EST, Solution, [facility], 176, cm, 06/28/20 13:04:00 EST, Height, [...] Com... Start Date: 05/08/16 Status: Ordered Pen [place], 31 G x 5 mm BD Ultra [...] and Radha, therapist, at [facility] in [place] Social History Social History Type Response Smoking Status Former smoker, quit more than 30 days ago entered on: 06/28/20 Sex
--- OUTSIDE RECORDS SUMMARY | 2023-01-14 15:49 | XMS_ITS | Continuity of Care Document ---
Author Name Unknown Organization [facility] Address [address] [place] [address]- Care Team Providers Care Photovoltaic Technician Name Role Phone Jeffrey Bains DO Primary Care Physician Encounter [facility] R [id number] Date(s): 12/01/22 - 12/31/22 [facility] [address] [place] [address]- Attending Physician: Pop Kaye Admitting Physician: Pop Kaye Referring Physician: AdmtrPop Allergies, Adverse Reactions, Alerts No Known Allergies Immunizations Given and Recorded Vaccine Date Status Refusal Reason [id number] 12y+ bivalent booster vax 03/11/22 Given influenza [...] vaccine, inactivated 03/07/02 Give n SARS-CoV-2 mRNA (kcqdboh-ecuf-jaziv) vax 08/29/21 Given pneumococcal 23-valent vaccine 06/06/21 [...] Note: vis given 5Result Comment: DILUENT LOT#: [id number] EXP: 08/2022 MFG: FRESENSIUS 6Admin Note: VIS given 10/2011 7Admin Note: VIS GIVEN [id number] 8Admin Note: VIS GIVEN 03/14/2008 9Admin Note: [...] Route to Pharmacy Electronically, [facility] ([facility]), 176, cm, 08/29/21 9:11:00 EDT, [...] 07/11/22 17:27:00 EDT, Powder, [facility] ([facility] ), Partial fill upon patient [...] Route to Pharmacy Electronically, [facility] ([facility]), 176, cm, 08/29/21 9:11:00 EDT, [...] mL, 3 Refills, Maintenance, 01/14/22 16:55:00 EDT, [facility], 176, cm, ... Start Date: 01/14/22 Status: Ordered Incruse Ellipta 62.5 mcg/inh inhalation powder 1 inhalation, Inhalation, Every 24 hours, APART., # 30 each, 11 Refills, Maintenance, 08/01/22 16:56:00 EDT, [facility] ([facility]), 176, cm, 07/10/22 14:41:00 EDT, [...] 3 Refills, Maintenance, 01/14/22 16:55:00 EDT, Solution, [facility], 176, cm, 08/29/21 9:11:00 EDT, Height, 131.6, kg, 06/03/20 4:19:00 EST, Dry Weight Start Date: 01/14/22 Stop Date: 01/09/23 Status: Ordered levothyroxine 150 mcg (0.15 mg) oral tablet 1 tablet, By Mouth, Daily, # 90 tablet, 3 Refills, Maintenance, 04/01/22 15:34:00 EST, [facility] ([facility]), 176, cm, 03/24/22 14:42:00 EST, [...] Refills, Maintenance, 06/26/22 20:48:00 EST, [facility] ), 176, cm, 05/02/22 9:48:00 EST, Height Start Date: 06/26/22 Status: Ordered oxyCODONE 5 mg oral tablet 5 mg, 1, tablet, By Mouth, Every 8 hours, PRN, for 3 days, may cause drowsiness, # 9 tablet, Refills 0, Tot. Refills 0, Acute 01/02/23 16:00:00 EDT, leg pain, 12/30/22 16:00:00 EDT, Route to PharmacyElectronically, [facility], Partial fill... Start Date: 12/30/22 Stop Date: 01/02/23 Status: Ordered PAP Supplies - Mask, Tubing, [...] Maintenance, 04/01/22 15:34:00 EST, [facility] ([facility]), 176, cm, 03/24/22 14:42:00 EST, [...] 11:46:00 EDT, 10/22/22 11:46:00 EDT, [facility]w Tablet, [facility], Partial fill upon patient request if the [...] FIT (fecal immunochemical test) Confirmed Active Suspected [place] disease Confirmed Active Goal-TO SURVIVE THIS YEAR [...] and Giancarlo, therapist, at [facility] in [place] Social History Social History Type Response Smoking Status Former smoker; Other : qiut 13 years; entered on: 05/24/14 Sex Patient Care team information Care Team Personnel Name: Florencio Saldana RN Position: [facility] ED RN W/OE and Tasks Member Role: Primary Care Nurse Name: Brooklyn Coyne NP Position: [facility] Associate Professional Member Role: Primary Care Nurse Address: Address: [address] [place] [address] Trauma and [place] [address]- Name: Tatyana Cosme RN Position: [facility] RN Member Role: Primary Care Nurse Name: Jeffrey Bains DO Position: [facility] Resident Member Role: PCP Address: Address: [address] [place] [address]- Name: Valencia Richards RN Position: [facility] RN Member Role: Primary Care Nurse Care Team Related Persons Name: SHILO VALE Address: home [address] [place] [id number] Name: GIANCARLO BROOKS Address: [place] [address] Name: ROBERTO BENAVIDES Name: OLIVA VELOZ Address: home
--- OUTSIDE RECORDS SUMMARY | 2023-01-14 15:49 | XMS_ITS | Continuity of Care Document ---
Author Name Unknown Organization [facility] Address [address] [place] [address]- Care Team Providers Care Service Order Clerk Name Role Phone Chyna Duarte MD Primary Care Physician [phone] [facility] - 07/21/[address] [address] Allergies, Adverse Reactions, Alerts Substance [...] VIS given 10/2011 6Admin Note: VIS GIVEN [id number] 7Admin Note: VIS GIVEN 03/14/2008 8Admin Note: vis given 9Result Note: pt states he has previously had this vaccine Medications acetaminophen 325 mg oral tablet 975 mg, 3, tablet, By Mouth, Every 6 hours, PRN, # 120 tablet, Refills 0, Tot. Refills 0, Maintenance, as needed for pain, 08/06/19 0:18:00 EDT, Route to Pharmacy Electronically, [facility], 176, cm, 07/07/19 10:15:00 [...] 16:40:37 EDT, Aerosol, Route to Pharmacy Electronically, [id number], [facility] Start Date: 10/04/18 Status: [...] each, 0 Refills, Maintenance, 07/11/20 9:19:00 EDT, [facility], Partial fill upon patient [...] 12/07/19 16:59:00 EDT, Route to Pharmacy Electronically, [facility], 176, cm, 09/23/19 8:30:00 EDT, Height, 129, kg, 05/29/18 0:31:00 EST, Dry Weight Start Date: 12/07/19 Status: Ordered gabapentin 300 mg oral capsule 300 mg, 1, capsule, By Mouth, 3 times a day, # 45 capsule, Refills 0, Tot. Refills 0, Maintenance, 08/06/19 0:18:00 EDT, Route to Pharmacy Electronically, [facility], 176, cm, 07/07/19 10:15:00 EDT, Height, 129, kg, 05/29/18 0:31:00 EST, [facility]. Start Date: 08/06/19 Status: Ordered HumaLOG KwikPen 100 units/mL injectable solution See Instructions, s/c inj TID before meals acc to scale: 1u 150-200; 3u 201-250; 5u 251-300; 7u 301-350; 9u 351-400; 11u 401-450; call MD for BG over 450, # 10 mL, 11 Refills, Maintenance, 06/22/19 23:05:00 EST, [facility], 176, cm,... Start Date: [...] 1 Refills, Maintenance, 06/28/20 16:38:00 EST, Solution, [facility], 176, cm, 06/28/20 13:04:00 [...] Com... Start Date: 05/08/16 Status: Ordered Pen [place], 31 G x 5 mm BD Ultra [...] Dr. Molina and Radha, therapist, [facility] [place] Social History Social History Type Response Smoking Status Former smoker, quit more than 30 days ago entered on: 06/28/20 Sex
--- OUTSIDE RECORDS SUMMARY | 2023-01-14 15:49 | XMS_ITS | Continuity of Care Document ---
Author Name Unknown Organization [facility] Address [address] [place] [address]- Care Team Providers Care Metal Bed Assembler Name Role Phone Chyna Duarte MD Primary Care Physician [facility]s): 08/20/20 - 09/19/[address] [address]- Allergies, Adverse Reactions, Alerts Substance Reaction Severity [...] VIS given 10/2011 6Admin Note: VIS GIVEN [id number] 7Admin Note: VIS GIVEN 03/14/2008 8Admin Note: vis given 9Result Note: pt states he has previously had this vaccine Medications acetaminophen 325 mg oral tablet 975 mg, 3, tablet, By Mouth, Every 6 hours, PRN, # 120 tablet, Refills 0, Tot. Refills 0, Maintenance, as needed for pain, 08/06/19 0:18:00 EDT, Route to Pharmacy Electronically, [facility], 176, cm, 07/07/19 [...] 16:40:37 EDT, Aerosol, Route to Pharmacy Electronically, [id number], [facility] Start Date: 10/04/18 Status: [...] 0, Maintenance, use overnight and naps from [facility], 11/08/19 11:45:00 EDT, Compound, 176, cm, 09/23/19 [...] each, 0 Refills, Maintenance, 07/11/20 9:19:00 EDT, [facility], Partial fill upon [...] 12/07/19 16:59:00 EDT, Route to Pharmacy Electronically, [facility], 176, cm, 09/23/19 8:30:00 EDT, Height, 129, kg, 05/29/18 0:31:00 EST, Dry Weight Start Date: 12/07/19 Status: Ordered gabapentin 300 mg oral capsule 300 mg, 1, capsule, By Mouth, 3 times a day, # 45 capsule, Refills 0, Tot. Refills 0, Maintenance, 08/06/19 0:18:00 EDT, Route to Pharmacy Electronically, [facility], 176, cm, 07/07/19 [...] mL, 11 Refills, Maintenance, 06/22/19 23:05:00 EST, [facility], 176, cm,... Start [...] 1 Refills, Maintenance, 06/28/20 16:38:00 EST, Solution, [facility], 176, cm, 06/28/20 [...] Com... Start Date: 05/08/16 Status: Ordered Pen [place], 31 G x 5 mm BD Ultra [...] and Radha, therapist, at [facility] in [place] Social History Social History Type Response Smoking Status Former smoker, quit more than 30 days ago entered on: 3/4/21 Sex
--- OUTSIDE RECORDS SUMMARY | 2023-01-14 15:49 | XMS_ITS | Continuity of Care Document ---
Author Name Unknown Organization [facility] Address [address] [place] [address]- Care Team Providers Care Dampener Operator Name Role Phone Chyna Duarte MD Primary Care Physician [phone] [facility] Date[facility]s): 05/25/20 - 06/24/[address] [address]- Allergies, Adverse Reactions, Alerts Substance Reaction Severity [...] VIS given 10/2011 6Admin Note: VIS GIVEN [id number] 7Admin Note: VIS GIVEN 03/14/2008 8Admin Note: [...] 16:40:37 EDT, Aerosol, Route to Pharmacy Electronically, [id number], [facility] Start Date: 10/04/18 Status: Ordered amLODIPine 5 mg oral tablet 5 mg, 1, tablet, By Mouth, Daily, # 90 tablet, Refills 3, Tot. Refills 3, Maintenance, 05/30/19 13:21:00 EST, Route to Pharmacy Electronically, [facility], 176, cm, 03/31/19 9:59:00 EST, [...] Maintenance, use overnight and naps from [facility], 11/08/19 11:45:00 EDT, Compound, 176, cm, 09/23/19 [...] 12/07/19 16:59:00 EDT, Route to Pharmacy Electronically, [facility], 176, cm, 09/23/19 8:30:00 EDT, [...] mL, 11 Refills, Maintenance, 06/22/19 23:05:00 EST, [facility], 176, cm,... Start [...] Com... Start Date: 05/08/16 Status: Ordered Pen [place], 31 G x 5 mm BD Ultra [...] and Radha, therapist, at [facility] in [place] Social History Social History Type Response Smoking Status Never smoker; Tobacc o user in household: No entered on: 05/25/15 Sex
--- OUTSIDE RECORDS SUMMARY | 2023-01-14 15:49 | XMS_ITS | Continuity of Care Document ---
Author Name Unknown Organization [facility] Address [address] [place] [address]- Care Team Providers Care Leather Skinner Name Role Phone Chyna Duarte MD Primary Care Physician [phone] [facility] Date[facility]s): 08/02/20 - 09/01/[address] [address]- Allergies, Adverse Reactions, Alerts Substance Reaction Severity [...] VIS given 10/2011 6Admin Note: VIS GIVEN [id number] 7Admin Note: VIS GIVEN 03/14/2008 8Admin Note: [...] 16:40:37 EDT, Aerosol, Route to Pharmacy Electronically, [id number], [facility] Start Date: 10/04/18 Status: [...] each, 0 Refills, Maintenance, 07/11/20 9:19:00 EDT, [facility], Partial fill upon [...] 12/07/19 16:59:00 EDT, Route to Pharmacy Electronically, [facility], 176, cm, 09/23/19 8:30:00 EDT, [...] mL, 11 Refills, Maintenance, 06/22/19 23:05:00 EST, [facility], 176, cm,... Start Date: [...] 1 Refills, Maintenance, 06/28/20 16:38:00 EST, Solution, [facility], 176, cm, 06/28/20 13:04:00 [...] Com... Start Date: 05/08/16 Status: Ordered Pen [place], 31 G x 5 mm BD Ultra [...] and Radha, therapist, at [facility] in [place] Social History Social History Type Response Smoking Status Former smoker, quit more than 30 days ago entered on: 06/28/20 Sex
--- OUTSIDE RECORDS SUMMARY | 2023-01-14 15:49 | XMS_ITS | Continuity of Care Document ---
Author Name Unknown Organization [facility] Address [address] [place] [address]- Care Team Providers Care Suspect Artist Supervisor Name Role Phone Chyna Duarte MD Primary Care Physician [phone] Encounter [facility] AC[facility] R [id number] Date(s): 01/15/22 - 02/14/[address] [address]- Attending Physician: Admtr, Ar8 Allergies, Adverse Reactions, Alerts No Known Allergies Immunizations Given and Recorded Vaccine Date Status Refusal Reason SARS-CoV-2 mRNA ([id number]-[id number]) vax 08/29/21 Given pneumococcal 23-valent vaccine 06/06/21 [...] n Patient Refuses 1Result Comment: DILUENT LOT#: [id number] EXP: 08/2022 MFG: FRESENSIUS 2Early/Late Reason: Other : GIVEN 03/31/19 DURING VISIT 3Admin Note: VIS 12/04/2009 4Admin Note: VIS GIVEN 12/05/2008 5Admin Note: vis given 6Admin Note: VIS given 10/2011 7Admin Note: VIS GIVEN [id number] 8Admin Note: VIS GIVEN 03/14/2008 9Admin Note: vis given 10Result Note: pt states he has previously had this vaccine Medications acetaminophen 325 mg oral tablet 975 mg, 3, tablet, By Mouth, Every 6 hours, PRN, # 120 tablet, Refills 0, Tot. Refills 0, Maintenance, as needed for pain, 08/06/19 0:18:00 EDT, Route to Pharmacy Electronically, [facility], 176, cm, 07/07/19 10:15:00 EDT, [...] Maintenance, 01/15/22 14:49:00 EDT, [facility]), 50, USE 2 INHALATIONS BY MOUTHEVERY 6 HOURS NEEDED FOR WHEEZING, 176, cm, ... Start Date: 01/15/22 Status: Ordered amLODIPine 5 mg oral tablet 1 tablet, By Mouth, Daily, # 90 tablet, 3 Refills, Maintenance, 01/15/22 14:49:00 EDT, [facility] ([facility]), 176, cm, 01/15/22 10:10:00 EDT, Height, 131.6, kg, 06/03/20 4:19:00 EST, Dry Weight Start Date: 01/15/22 Status: Ordered atenolol 25 mg oral tablet 1, tablet, By Mouth, 2 times a day, # 180 tablet, Refills 3, Maintenance, 12/31/21 14:27:00 EDT, Route to Pharmacy Electronically, [facility] ([facility]), 176, cm, 08/29/21 9:11:00 EDT, Height, 131.6, kg, 06/03/20 4:19:00 EST, Dry... Start Date: 12/31/21 Status: Ordered atorvastatin 40 mg oral tablet 1 tablet, By Mouth, Daily, # 90 tablet, 1 Refills, Maintenance, 12/31/21 14:20:00 EDT, [facility] ([facility]), 176, cm, 08/29/21 9:11:00 EDT, [...] each, 3 Refills, Maintenance, 09/26/21 15:07:00 EDT, [facility] ([facility]), Partial fill upon patient request [...] Route to Pharmacy Electronically, [facility] ([facility]), 176, cm, 08/29/21 9:11:00 EDT, Height, 131.6, kg, 06/03/20 4:19:00 EST, Dry Weight Start Date: 12/31/21 Status: Ordered gabapentin 300 mg oral capsule 300 mg, 1, capsule, By Mouth, 3 times a day, # 45 capsule, Refills 0, Tot. Refills 0, Maintenance, 08/06/19 0:18:00 EDT, Route to Pharmacy Electronically, [facility], 176, cm, 07/07/19 10:15:00 EDT, Height, 129, kg, 05/29/18 0:31:00 EST, . Start Date: 08/06/19 Status: Ordered HumaLOG KwikPen 100 units/mL injectable solution See Instructions, s/c inj TID before meals acc to scale: 1u 150-200; 3u 201-250; 5u 251-300; 7u 301-350; 9u 351-400; 11u 401-450; call MD for BG over 450, # 15 mL, 3 Refills, Maintenance, 01/14/22 16:55:00 EDT, [facility], 176, cm, ... Start Date: 01/14/22 [...] 3 Refills, Maintenance, 01/14/22 16:55:00 EDT, Solution, [facility], 176, cm, 08/29/21 9:11:00 EDT, Height, [...] Com... Start Date: 05/08/16 Status: Ordered Pen [place], 31 G x 5 mm BD Ultra Fine III See Instructions, # 300 each, Refills 3, Tot. Refills 3, Maintenance, use with lantus and humalog as directed dx: e11.65, 05/06/16 15:47:30, Compound Start Date: 05/06/16 Stop Date: 05/01/17 Status: Ordered Readi-Cat 2 oral suspension See Instructions, take as directed, # 2 each, 0 Refills, Maintenance, 12/05/20 15:52:00 EDT, [facility], Partial fill upon patient request [...] each, 0 Refills, Maintenance, 10/15/20 18:05:00 EDT, [facility], Partial fill upon patient request [...] 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
--- OUTSIDE RECORDS SUMMARY | 2023-01-14 15:50 | XMS_ITS | Continuity of Care Document ---
Author Name Unknown Organization [facility] Address [address] [place] [address]- Care Team Providers Care Forest Examiner Name Role Phone Chyna Duarte MD Primary Care Physician [phone] Encounter [facility] Date(s): 08/24/20 - 09/23/20 [facility] [address] [place] [id number] Attending Physician: Admvalery, Pop Admitting Physician: AdmtrPop Referring Physician: Admtr, Ar8 [...] VIS given 10/2011 6Admin Note: VIS GIVEN [id number] 7Admin Note: VIS GIVEN 03/14/2008 8Admin Note: [...] 16:40:37 EDT, Aerosol, Route to Pharmacy Electronically, [id number], [facility] Start Date: 10/04/18 Status: [...] 0, Maintenance, use overnight and naps from [facility], 11/08/19 11:45:00 EDT, Compound, 176, [...] 0 Refills, Maintenance, 07/11/20 9:19:00 EDT, [facility], Partial fill upon patient request [...] 12/07/19 16:59:00 EDT, Route to Pharmacy Electronically, [facility], 176, cm, 09/23/19 8:30:00 [...] mL, 11 Refills, Maintenance, 06/22/19 23:05:00 EST, [facility], 176, cm,... Start Date: [...] Com... Start Date: 05/08/16 Status: Ordered Pen [place], 31 G x 5 mm BD Ultra [...] and Radha, therapist, at [facility] in [place] Social History Social History Type Response Smoking Status Former smoker, quit more than 30 days ago entered on: 06/28/20 Sex
--- OUTSIDE RECORDS SUMMARY | 2023-01-14 15:50 | XMS_ITS | Continuity of Care Document ---
Author Name Unknown Organization [facility] Address [address] [place] [address]- Care Team Providers Care Raspberry Checker Name Role Phone Gerald GARRISON, Chyna Primary Care Physician [phone] [facility]s): 04/24/22 - 05/24/[address] [address]- Allergies, Adverse Reactions, Alerts No Known Allergies Immunizations Given and Recorded Vaccine Date Status Refusal Reason [id number] 12y+ bivalent booster vax 03/11/22 Given influenza [...] vaccine, inactivated 03/07/02 Give n SARS-CoV-2 mRNA (vmhmvgj-zbmx-ucaxo) vax 08/29/21 Given pneumococcal 23-valent vaccine 06/06/21 [...] Note: vis given 5Result Comment: DILUENT LOT#: [id number] EXP: 08/2022 MFG: FRESENSIUS 6Admin Note: VIS given 10/2011 7Admin Note: VIS GIVEN [id number] 8Admin Note: VIS GIVEN 03/14/2008 9Admin Note: [...] Maintenance, 01/15/22 14:49:00 EDT, [facility]), 50, USE 2 INHALATIONS BY [...] Route to Pharmacy Electronically, [facility]), 176, cm, 08/29/21 9:11:00 EDT, [...] 0 Refills, Maintenance, 03/17/22 13:55:00 EST, Gel, [facility], Partial fill upon patient request if [...] Ordered free style lyndon reader free style lnydon reader, See Instructions, # 1 each, Refills [...] 12/31/21 14:28:00 EDT, Route to Pharmacy Electronically, [facility]), 176, cm, 08/29/21 9:11:00 EDT, [...] 01/14/22 16:55:00 EDT, [facility], 176, cm, ... Start [...] 3 Refills, Maintenance, 01/14/22 16:55:00 EDT, Solution, [facility] 3, 176, cm, 08/29/21 9:11:00 [...] 03/19/2211:23:00 EST, Ointment, [facility], Partial fill upon patient request if [...] 05/02/22 10:17:00 EST, Tablet, [facility] ([facility] ), Partial fill upon patient [...] Com... 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 [...] and Giancarlo, therapist, at [facility] in [place] Social History Social History Type Response Smoking Status Former smoker; Other : qiut 13 years; entered on: 05/24/14 Sex Patient Care team information Care Team Personnel Name: Florencio Saldana RN Position: [facility] ED RN W/OE and Tasks Member Role: Primary Care Nurse Name: [place] Coyne NP Position: [facility] Associate Professional Member Role: Primary Care Nurse Address: Address: [address] [place] [address] Trauma and [place] [address]- Name: Tatyana Cosme RN Position: [facility] RN Member Role: Primary Care Nurse Name: Chyna Duarte MD Position: [facility] Primary Care Physician Member Role: PCP Address: Address: [address] [place] [address]- Care Team Related Persons Name: SHILO VALE Address: home [address] [place] [address] Name: GIANCARLO BROOKS Address: [place] [address] Name: OLIVA VELOZ Address: home [address] [place] [address]
--- OUTSIDE RECORDS SUMMARY | 2023-01-14 15:50 | XMS_ITS | Continuity of Care Document ---
Author Name Unknown Organization [facility] Address [address] [place] [address]- Care Team Providers Care Still Worker Helper Name Role Phone Gerald GARRISON, Chyna Primary Care Physician [phone] [facility] Date[facility]s): 02/17/22 - 03/28/[address] [address]- Attending Physician: Not on Staff, Attending MD Allergies, Adverse Reactions, Alerts No Known Allergies Immunizations Given and Recorded Vaccine Date Status Refusal Reason [id number] 12y+ bivalent booster vax 03/11/22 Given influenza [...] vaccine, inactivated 03/07/02 Give n SARS-CoV-2 mRNA ([id number]-eowe-nwflj) vax 08/29/21 Given pneumococcal 23-valent vaccine 06/06/21 [...] Note: vis given 5Result Comment: DILUENT LOT#: [id number] EXP: 08/2022 MFG: FRESENSIUS 6Admin Note: VIS given 10/2011 7Admin Note: VIS GIVEN [id number] 8Admin Note: VIS GIVEN 03/14/2008 9Admin Note: vis given 10Result Note: pt states he has previously had this vaccine Medications acetaminophen 325 mg oral tablet 975 mg, 3, tablet, By Mouth, Every 6 hours, PRN, # 120 tablet, Refills 0, Tot. Refills 0, Maintenance, as needed for pain, 08/06/19 0:18:00 EDT, Route to Pharmacy Electronically, [facility], 176, cm, 07/07/19 10:15:00 [...] Maintenance, 01/15/22 14:49:00 EDT, [facility]), 50, USE 2 INHALATIONS BY MOUTHEVERY 6 HOURS NEEDED FOR WHEEZING, 176, cm, ... Start Date: 01/15/22 Status: Ordered amLODIPine 5 mg oral tablet 1 tablet, By Mouth, Daily, # 90 tablet, 3 Refills, Maintenance, 01/15/22 14:49:00 EDT, [facility]), 176, cm, 01/15/22 10:10:00 EDT, Height, 131.6, kg, 06/03/20 4:19:00 EST, Dry Weight Start Date: 01/15/22 Status: Ordered atenolol 25 mg oral tablet 1, tablet, By Mouth, 2 times a day, # 180 tablet, Refills 3, Maintenance, 12/31/21 14:27:00 EDT, Route to Pharmacy Electronically, [facility]), 176, cm, 08/29/21 9:11:00 EDT, [...] 0 Refills, Maintenance, 03/17/22 13:55:00 EST, Gel, [facility], Partial fill upon patient request [...] 12/31/21 14:28:00 EDT, Route to Pharmacy Electronically, [facility]), 176, cm, 08/29/21 9:11:00 EDT, Height, 131.6, kg, 06/03/20 4:19:00 EST, Dry Weight Start Date: 12/31/21 Status: Ordered gabapentin 300 mg oral capsule 300 mg, 1, capsule, By Mouth, 3 times a day, # 45 capsule, Refills 0, Tot. Refills 0, Maintenance, 08/06/19 0:18:00 EDT, Route to Pharmacy Electronically, [facility], 176, cm, 07/07/19 10:15:00 [...] Maintenance, 01/14/22 16:55:00 EDT, [facility], 176, cm, ... Start Date: 01/14/22 [...] Refills, Maintenance, 01/14/22 16:55:00 EDT, Solution, [facility] 3, 176, cm, 08/29/21 9:11:00 [...] Gm, 1 Refills, Maintenance, 03/19/2211:23:00 EST, Ointment, [facility], Partial fill upon patient request if [...] Com... Start Date: 05/08/16 Status: Ordered Pen [place], 31 G x 5 mm BD Ultra Fine III See Instructions, # 300 each, Refills 3, Tot. Refills 3, Maintenance, use with lantus and humalog as directed dx: e11.65, 05/06/16 15:47:30, Compound Start Date: 05/06/16 Stop Date: 05/01/17 Status: Ordered Readi-Cat 2 oral suspension See Instructions, take as directed, # 2 each, 0 Refills, Maintenance, 12/05/20 15:52:00 EDT, [facility], Partial fill upon patient request if [...] each, 0 Refills, Maintenance, 10/15/20 18:05:00 EDT, [facility], Partial fill upon patient [...] Maintenance, 12/31/21 14:28:00 EDT, [facility]), 176, cm, 08/29/21 9:11:00 EDT, [...] FIT (fecal immunochemical test) Confirmed Active Suspected [place] disease Confirmed Active Goal-TO SURVIVE THIS YEAR [...] Dr. Molina and Giancarlo, therapist, at [facility] in [place] Social History Social History Type Response Smoking Status Former smoker; Other : qiut 13 years; entered on: 05/24/14 Sex Patient Care team information Care Team Personnel Name: Florencio Saldana RN Position: [facility] ED RN W/OE and Tasks Member Role: Primary Care Nurse Name: Doretha WALTON, [place] Position: [facility] Associate Professional Member Role: Primary Care Nurse Address: Address: [address] [place] [address] Trauma [place] [address]- Name: Tatyana Cosme RN Position: [facility] RN Member Role: Primary Care Nurse Name: Chyna Duarte MD Position: [facility] Primary Care Physician Member Role: PCP Address: Address: [address] [place] [address]- Care Team Related Persons Name: SHILO VALE Address: home [address] [place] [address] Name: GIANCARLO BROOKS Address: [place] [address] UM Name: OLIVA VELOZ Address: home [address] [place] [address]
--- OUTSIDE RECORDS SUMMARY | 2023-01-14 15:50 | XMS_ITS | Continuity of Care Document ---
Author Name Unknown Organization [facility] Address [address] [place] [address]- Care Team Providers Care River Rat Name Role Phone Chyna Duarte MD Primary Care Physician [phone] Encounter [facility] [id number] Date(s): 06/06/21 - 07/06/[address] [address]- Attending Physician: Admtr, Pop Allergies, Adverse Reactions, Alerts No Known Allergies Immunizations Given and Recorded Vaccine Date Status Refusal Reason pneumococcal 23-valent vaccine 06/06/21 Given pneumococcal 23-valent [...] n Patient Refuses 1Result Comment: DILUENT LOT#: [id number] EXP: 08/2022 MFG: FRESENSIUS 2Early/Late Reason: Other : GIVEN 03/31/19 DURING VISIT 3Admin Note: VIS 12/04/2009 4Admin Note: VIS GIVEN 12/05/2008 5Admin Note: vis given 6Admin Note: VIS given 10/2011 7Admin Note: VIS GIVEN [id number] 8Admin Note: VIS GIVEN 03/14/2008 9Admin Note: vis given 10Result Note: pt states he has previously had this vaccine Medications acetaminophen 325 mg oral tablet 975 mg, 3, tablet, By Mouth, Every 6 hours, PRN, # 120 tablet, Refills 0, Tot. Refills 0, Maintenance, as needed for pain, 08/06/19 0:18:00 EDT, Route to Pharmacy Electronically, [facility], 176, cm, 07/07/19 10:15:00 EDT, [...] 12:17:00 EDT, Aerosol, Route to Pharmacy Electronically, [id number], [facility], 176, cm, 11/22/20 11:05:00 [...] [facility], 11/08/19 11:45:00 EDT, Compound, 176, cm, [...] each, 0 Refills, Maintenance, 07/11/20 9:19:00 EDT, [facility], Partial fill upon patient request if [...] 01/04/21 14:54:00 EDT, Route to Pharmacy Electronically, [facility], 176, cm, 11/22/20 11:05:00 EDT, Height,131.6, kg, 06/03/20 4:19:00 EST, Dry Weight Start Date: 01/04/21 Status: Ordered gabapentin 300 mg oral capsule 300 mg, 1, capsule, By Mouth, 3 times a day, # 45 capsule, Refills 0, Tot. Refills 0, Maintenance, 08/06/19 0:18:00 EDT, Route to Pharmacy Electronically, [facility], 176, cm, 07/07/19 10:15:00 EDT, [...] Orders in system. Please go to any [facility] lab., # 75 mL, 0 Refills, Maintenance, 04/09/21 13:49:00 EST, Solution, [facility], 176, cm, 02/07/21 8:49:00 [...] Com... Start Date: 05/08/16 Status: Ordered Pen [place], 31 G x 5 mm BD Ultra Fine III See Instructions, # 300 each, Refills 3, Tot. Refills 3, Maintenance, use with lantus and humalog as directed dx: e11.65, 05/06/16 15:47:30, Compound Start Date: 05/06/16 Stop Date: 05/01/17 Status: Ordered Readi-Cat 2 oral suspension See Instructions, take as directed, # 2 each, 0 Refills, Maintenance, 12/05/20 15:52:00 EDT[facility], Partial fill upon patient request if [...] 0 Refills, Maintenance, 10/15/20 18:05:00 EDT, [facility] 3, Partial fill upon patient [...] Sigmoid colon resection + complication(Confirmed) 2002 Active Severe obesity(Confirmed) Active Tachy-nelda syndrome(Confirmed) Active Diabetic leg ulcer(Confirmed) Active 1Sees Dr. Molina and Radha, therapist, at [facility] in [place] Social History Social History Type Response Smoking Status Former smoker, quit more than 30 days ago entered on: 06/28/20 Sex
--- OUTSIDE RECORDS SUMMARY | 2023-01-14 15:50 | XMS_ITS | Continuity of Care Document ---
Author Name Unknown Organization [facility] Address [address] [place] [address]- Care Team Providers Care Food Service Team Member Name Role Phone Chyna Duarte MD Primary Care Physician [phone] Encounter [facility] Date(s): 11/08/20 - 12/08/[address] [address]- Allergies, Adverse Reactions, Alerts Substance Reaction Severity [...] VIS given 10/2011 6Admin Note: VIS GIVEN [id number] 7Admin Note: VIS GIVEN 03/14/2008 8Admin Note: [...] 12:17:00 EDT, Aerosol, Route to Pharmacy Electronically, [id number], [facility], 176, cm, 11/22/20 11:05:00 EDT,... [...] each, 0 Refills, Maintenance, 07/11/20 9:19:00 EDT, [facility], Partial fill upon patient request [...] unit = 30 day supply dx: E11.65 NATSAHA: lifetime, 07/19/18 12:54:41 EDT, Compound Start Date: 07/19/18 Status: Ordered furosemide 40 mg oral tablet 1, tablet, By Mouth, Daily, # 90 tablet, Refills 3, Tot. Refills 0, Maintenance, 12/07/19 16:59:00 EDT, Route to Pharmacy Electronically, [facility], 176, cm, 09/23/19 8:30:00 EDT, [...] 5 Refills, Maintenance, 11/08/20 7:18:00 EDT, [facility], 176, cm, 08/25... Start Date: [...] 1 Refills, Maintenance, 06/28/20 16:38:00 EST, Solution, [facility], 176, cm, 06/28/20 13:04:00 EST, [...] Com... Start Date: 05/08/16 Status: Ordered Pen [place], 31 G x 5 mm BD Ultra Fine III See Instructions, # 300 each, Refills 3, Tot. Refills 3, Maintenance, use with lantus and humalog as directed dx: e11.65, 05/06/16 15:47:30, Compound Start Date: 05/06/16 Stop Date: 05/01/17 Status: Ordered Readi-Cat 2 oral suspension See Instructions, take as directed, # 2 each, 0 Refills, Maintenance, 12/05/20 15:52:00 EDT, [facility], Partial fill upon patient request [...] 0 Refills, Maintenance, 10/15/20 18:05:00 EDT, [facility], Partial fill upon patient request [...] and Radha, therapist, at [facility] in [place] Social History Social History Type Response Smoking Status Former smoker, quit more than 30 days ago entered on: 06/28/20 Sex
--- OUTSIDE RECORDS SUMMARY | 2023-01-14 15:50 | XMS_ITS | Continuity of Care Document ---
Author Name Unknown Organization [facility] Address [address] [place] [address] ve [address] [place] [address]- Care Team Providers Care Assembler Chassis Name Role Phone Chyna Duarte MD Primary Care Physician [phone] Encounter [facility] Date(s): 08/11/19 - 08/21/[address] [place] [address]- [facility] Attending Physician: Pop Kaye Admitting Physician: Pop [...] 16:40:37 EDT, Aerosol, Route to Pharmacy Electronically, [id number], [facility] Start Date: 10/04/18 Status: Ordered amLODIPine 5 mg oral tablet 5 mg, 1, tablet, By Mouth, Daily, # 90 tablet, Refills 3, Tot. Refills 3, Maintenance, 05/30/19 13:21:00 EST, Route to Pharmacy Electronically, [facility], 176, cm, 03/31/19 9:59:00 EST, [...] 0, Maintenance, use overnight and naps from [facility], 07/26/18 12:52:33 EDT, Compound Start Date: [...] 07/01/19 8:58:00 EST, Route to Pharmacy Electronically, [facility], 176, cm, 06/23/19 13:14:00 EST, [...] mL, 11 Refills, Maintenance, 06/22/19 23:05:00 EST, [facility], 176, cm,... Start Date: [...] 3 Refills, Maintenance, 07/07/19 10:23:00 EDT, Solution, [facility], 176, cm, 07/07/19 10:15:00 [...] 0 Refills, Maintenance, 08/06/19 0:18:00 EDT, Capsule, [facility], Partial fill [...] and Radha, therapist, at [facility] in [place] Social History Social History Type Response Smoking Status Never smoker; Tobacc o user in household: No entered on: 05/25/15 Sex
--- OUTSIDE RECORDS SUMMARY | 2023-01-14 15:50 | XMS_ITS | Continuity of Care Document ---
Author Name Unknown Organization [facility] Address [address] [place] [address]- Care Team Providers Care Three Knife Trimmer Name Role Phone Jeffrey Bains DO Primary Care Physician Encounter [facility] Date(s): 10/15/22 - 11/14/[address] [address]- Allergies, Adverse Reactions, Alerts No Known Allergies Immunizations Given and Recorded Vaccine Date Status Refusal Reason [id number] 12y+ bivalent booster vax 03/11/22 Given influenza [...] vaccine, inactivated 03/07/02 Give n SARS-CoV-2 mRNA (envujqv-lobp-zweoj) vax 08/29/21 Given pneumococcal 23-valent vaccine 06/06/21 [...] Note: vis given 5Result Comment: DILUENT LOT#: [id number] EXP: 08/2022 MFG: FRESENSIUS 6Admin Note: VIS given 10/2011 7Admin Note: VIS GIVEN [id number] 8Admin Note: VIS GIVEN 03/14/2008 9Admin Note: [...] 08/06/19 0:18:00 EDT, Route to Pharmacy Electronically, [facility], 176, cm, 07/07/19 [...] Maintenance, 01/15/22 14:49:00 EDT, [facility] 50, USE 2 INHALATIONS BY [...] Route to Pharmacy Electronically, [facility] 176, cm, 08/29/21 9:11:00 EDT, [...] 07/11/22 17:27:00 EDT, Powder, [facility] ), Partial fill upon patient [...] Route to Pharmacy Electronically, [facility]), 176, cm, 08/29/21 9:11:00 EDT, [...] mL, 3 Refills, Maintenance, 01/14/22 16:55:00 EDT, [facility], 176, cm, ... Start Date: 01/14/22 Status: Ordered Incruse Ellipta 62.5 mcg/inh inhalation powder 1 inhalation, Inhalation, Every 24 hours, APART., # 30 each, 11 Refills, Maintenance, 08/01/22 16:56:00 EDT, [facility]), 176, cm, 07/10/22 14:41:00 EDT, [...] 3 Refills, Maintenance, 01/14/22 16:55:00 EDT, Solution, [facility], 176, cm, 08/29/21 9:11:00 EDT, Height, 131.6, kg, 06/03/20 4:19:00 EST, Dry Weight Start Date: 01/14/22 Stop Date: 01/09/23 Status: Ordered levothyroxine 150 mcg (0.15 mg) oral tablet 1 tablet, By Mouth, Daily, # 90 tablet, 3 Refills, Maintenance, 04/01/22 15:34:00 EST, [facility]), 176, cm, 03/24/22 14:42:00 EST, [...] Refills, Maintenance, 06/26/22 20:48:00 EST, [facility] 176, cm, 05/02/22 9:48:00 [...] Com... Start Date: 05/08/16 Status: Ordered Pen [place], 31 G x 5 mm BD Ultra [...] Maintenance, 04/01/22 15:34:00 EST, [facility]), 176, cm, 03/24/22 14:42:00 EST, [...] 11:46:00 EDT, 10/22/22 11:46:00 EDT, [facility]w Tablet, [facility] fill upon patient request [...] FIT (fecal immunochemical test) Confirmed Active Suspected [place] disease Confirmed Active Goal-TO SURVIVE THIS YEAR [...] and Giancarlo, therapist, at [facility] in [place] Social [...] Role: Primary Care Nurse Address: Address: [address] [place] [address] Trauma and Acute Care Surgery [address] Name: Tatyana Cosme RN Position: S RN Member Role: Primary Care Nurse Name: Jeffrey Bains DO Position: S Resident Member Role: PCP Address: Address: [address] [place], [place] [address] Name: Valencia Richards RN Position: S RN Member Role: Primary Care Nurse Care Team Related Persons Name: SHILO VALE Address: home [address] [address] Name: GIANCARLO BROOKS Address: [place] [address] Name: OLIVA VELOZ Address: home [address] [place] [address]
--- OUTSIDE RECORDS SUMMARY | 2023-01-14 15:51 | XMS_ITS | Continuity of Care Document ---
Author Name Unknown Organization [facility] Address [address] [place] [address]- Care Team Providers Care Ultrasound Manager Name Role Phone Chyna Duarte MD Primary Care Physician Encounter [facility] Date(s): 05/28/20 - 06/27/[address] [address]- Allergies, Adverse Reactions, Alerts Substance Reaction Severity [...] VIS given 10/2011 6Admin Note: VIS GIVEN [id number] 7Admin Note: VIS GIVEN 03/14/2008 8Admin Note: [...] 16:40:37 EDT, Aerosol, Route to Pharmacy Electronically, [id number], [facility] Start Date: 10/04/18 Status: Ordered amLODIPine 5 mg oral tablet 5 mg, 1, tablet, By Mouth, Daily, # 90 tablet, Refills 3, Tot. Refills 3, Maintenance, 05/30/19 13:21:00 EST, Route to Pharmacy Electronically, [facility], 176, cm, 03/31/19 9:59:00 EST, Height, 129, kg, 05/29/18 0:31:00 EST, Dry Weight Start Date: 05/30/19 Status: Ordered atenolol 25 mg oral tablet 25 mg, 1, tablet, By Mouth, 2 times a day, # 180 tablet, Refills 3, Tot. Refills 3, Maintenance, 05/30/19 13:21:00 EST, Route to Pharmacy Electronically, [facility], 176, cm, 03/31/19 9:59:00 EST, [...] use overnight and naps from [facility], 11/08/19 11:45:00 EDT, Compound, 176, cm, 09/23/19 [...] 12/07/19 16:59:00 EDT, Route to Pharmacy Electronically, [facility], 176, cm, 09/23/19 8:30:00 EDT, [...] mL, 11 Refills, Maintenance, 06/22/19 23:05:00 EST, [facility], 176, cm,... Start Date: 06/22/19 [...] cm, 09/23/19 8:30:00 EDT, Height, 129, kg, 02/02/19 0:31:00 EST, Dry Weight Start Date: 12/19/19 [...] Com... Start Date: 05/08/16 Status: Ordered Pen [place], 31 G x 5 mm BD Ultra [...] and Radha, therapist, at [facility] in [place] Social History Social History Type Response Smoking Status Never smoker; Tobacc o user in household: No entered on: 05/25/15 Sex
--- OUTSIDE RECORDS SUMMARY | 2023-01-14 15:51 | XMS_ITS | Continuity of Care Document ---
Author Name Unknown Organization [facility] Address [address] [place] [address]- Care Team Providers Care Internal Affairs Investigator Name Role Phone Chyna Duarte MD Primary Care Physician [facility]counter [facility] Date(s): 07/10/22 - 08/09/[address] [address]- Attending Physician: Admtr, Ar8 Allergies, Adverse Reactions, Alerts No Known Allergies Immunizations Given and Recorded Vaccine Date Status Refusal Reason [id number] 12y+ bivalent booster vax 03/11/22 Given influenza [...] vaccine, inactivated 03/07/02 Give n SARS-CoV-2 mRNA (sychdoh-wewn-doxot) vax 08/29/21 Given pneumococcal 23-valent vaccine 06/06/21 [...] Note: vis given 5Result Comment: DILUENT LOT#: [id number] EXP: 08/2022 MFG: FRESENSIUS 6Admin Note: VIS given 10/2011 7Admin Note: VIS GIVEN [id number] 8Admin Note: VIS GIVEN 03/14/2008 9Admin Note: [...] 08/06/19 0:18:00 EDT, Route to Pharmacy Electronically, [facility], 176, cm, 07/07/19 10:15:00 [...] Route to Pharmacy Electronically, [facility] 176, cm, 08/29/21 9:11:00 EDT, [...] 0 Refills, Maintenance, 03/17/22 13:55:00 EST, Gel, [facility], Partial fill upon patient request if the prescription is for a schedule II opioid drug., 176, cm, /... Start Date: 03/17/22 Status: Ordered Flovent Diskus [...] Route to Pharmacy Electronically, [facility]), 176, cm, 08/29/21 9:11:00 EDT, Height, 131.6, kg, 06/03/20 4:19:00 EST, Dry Weight Start Date: 12/31/21 Status: Ordered gabapentin 300 mg oral capsule 300 mg, 1, capsule, By Mouth, 3 times a day, # 45 capsule, Refills 0, Tot. Refills 0, Maintenance, 08/06/19 0:18:00 EDT, Route to Pharmacy Electronically, [facility], 176, cm, 07/07/19 10:15:00 [...] Maintenance, 01/14/22 16:55:00 EDT, [facility], 176, cm, ... Start Date: [...] 3 Refills, Maintenance, 01/14/22 16:55:00 EDT, Solution, [facility], 176, cm, 08/29/21 9:11:00 EDT, Height, 131.6, kg, 06/03/20 4:19:00 EST, Dry Weight Start Date: 01/14/22 Stop Date: 01/09/23 Status: Ordered levothyroxine 150 mcg (0.15 mg) oral tablet 1 tablet, By Mouth, Daily, # 90 tablet, 3 Refills, Maintenance, 04/01/22 15:34:00 EST, [facility]), 176, cm, 03/24/22 14:42:00 EST, Height, 131.6, kg, 06/03/20 4:19:00 EST, Dry Weight Start Date: 04/01/22 Status: Ordered lidocaine 5% topical ointment 1 application, Topically, 3 times a day, PRN Pain , Mild, # 50 Gm, 1 Refills, Maintenance, 03/19/2211:23:00 EST, [facility]intment, [facility] fill upon patient request [...] Com... Start Date: 05/08/16 Status: Ordered Pen [place], 31 G x 5 mm BD Ultra Fine III See Instructions, # 300 each, Refills 3, Tot. Refills 3, Maintenance, use with lantus and humalog as directed dx: e11.65, 05/06/16 15:47:30, Compound Start Date: 05/06/16 Stop Date: 05/01/17 Status: Ordered Readi-Cat 2 oral suspension See Instructions, take as directed, # 2 each, 0 Refills, Maintenance, 12/05/20 15:52:00 EDT, [facility], Partial fill upon patient request if the prescription is for a schedule II opioid drug., take as directed, 176, cm, 11/22/20 11:05:0... Start Date: 12/05/20 Status: Ordered rOPINIRole 0.5 mg oral tablet 1 tablet, By Mouth, Daily at bedtime, # 90 tablet, 3 Refills, Maintenance, 04/01/22 15:34:00 EST, [facility]), 176, cm, 03/24/22 14:42:00 EST, [...] Maintenance, 10/15/20 18:05:00 EDT, [facility], Partial fill upon patient request [...] FIT (fecal immunochemical test) Confirmed Active Suspected [place] disease Confirmed Active Goal-TO SURVIVE THIS YEAR [...] and Giancarlo, therapist, at [facility] in [place] Social History Social History Type Response Smoking Status Former smoker; Other : qiut 13 years; entered on: 05/24/14 Sex Note * Event Display: Device Check Office Visit Authored Date: * Event Display: Device Check Office Visit Authored Date: * Event Display: Device Check Office Visit Authored Date: Patient Care team information Care Team Personnel Name: Florencio Saldana RN Position: [facility] ED RN W/OE and Tasks Member Role: Primary Care Nurse Name: Brooklyn Coyne NP Position: S Associate Professional Member Role: Primary Care Nurse Address: Address: [address] [place] [address] Trauma and Acute Care Surgery [address] Name: Tatyana Cosme RN Position: [facility] RN Member Role: Primary Care Nurse Name: Chyna Duarte MD Position: [facility] Primary Care Physician Member Role: PCP Address: Address: [address] [place] [address]- Care Team Related Persons Name: SHILO VALE Address: home [address] [facility] [address] [place] [address] Name: GIANCARLO BROOKS Address: [place] [address] Name: OLIVA VELOZ Address: home [address] [place] [address]
--- OUTSIDE RECORDS SUMMARY | 2023-01-14 15:51 | XMS_ITS | Continuity of Care Document ---
Author Name Unknown Organization [facility] Address [address] [place] [address]- Care Team Providers Care Travel Counselor Automobile Club Name Role Phone Chyna Duarte MD Primary Care Physician [phone] Encounter [facility] Date(s): 08/03/20 - 11/25/20 [facility] [address] [place] [address]- Attending Physician: Hank Lael MD Admitting Physician: Hnak Leal MD Referring Physician: Hank Leal MD [...] VIS given 10/2011 6Admin Note: VIS GIVEN [id number] 7Admin Note: VIS GIVEN 03/14/2008 8Admin Note: [...] 12:17:00 EDT, Aerosol, Route to Pharmacy Electronically, [id number], [facility], 176, cm, 11/22/20 11:05:00 EDT,... Start [...] Maintenance, use overnight and naps from [facility], 11/08/19 11:45:00 EDT, Compound, 176, cm, 09/23/19 [...] 07/11/20 9:19:00 EDT, [facility], Partial fill upon patient request [...] 12/07/19 16:59:00 EDT, Route to Pharmacy Electronically, [facility], 176, cm, 09/23/19 8:30:00 EDT, [...] mL, 5 Refills, Maintenance, 11/08/20 7:18:00 EDT, [facility], 176, cm, 08/25... Start [...] 1 Refills, Maintenance, 06/28/20 16:38:00 EST, Solution, [facility], 176, cm, 06/28/20 13:04:00 [...] Com... Start Date: 05/08/16 Status: Ordered Pen [place], 31 G x 5 mm BD Ultra [...] each, 0 Refills, Maintenance, 10/15/20 18:05:00 EDT, [facility], Partial fill upon patient request if [...] and Radha, therapist, at [facility] in [place] Social History Social History Type Response Smoking Status Former smoker, quit more than 30 days ago entered on: 06/28/20 Sex
--- OUTSIDE RECORDS SUMMARY | 2023-01-14 15:51 | XMS_ITS | Continuity of Care Document ---
Author Name Unknown Organization [facility] Address [address] [place] [address]- Care Team Providers Care High Risk Ob Name Role Phone Gerald GARRISON, Chyna Primary Care Physician [facility] - 03/19/22 [facility] [address] [place] [id number] Allergies, Adverse Reactions, Alerts No Known Allergies Immunizations Given and Recorded Vaccine Date Status Refusal Reason [id number] 12y+ bivalent booster vax 03/11/22 Given influenza [...] vaccine, inactivated 03/07/02 Give n SARS-CoV-2 mRNA ([id number]-ggmzc) vax 08/29/21 Given pneumococcal 23-valent vaccine 06/06/21 [...] Note: vis given 5Result Comment: DILUENT LOT#: [id number] EXP: 08/2022 MFG: FRESENSIUS 6Admin Note: VIS given 10/2011 7Admin Note: VIS GIVEN [id number] 8Admin Note: VIS GIVEN 03/14/2008 9Admin Note: vis given 10Result Note: pt states he has previously had this vaccine Medications acetaminophen 325 mg oral tablet 975 mg, 3, tablet, By Mouth, Every 6 hours, PRN, # 120 tablet, Refills 0, Tot. Refills 0, Maintenance, as needed for pain, 08/06/19 0:18:00 EDT, Route to Pharmacy Electronically, [facility], 176, cm, 07/07/19 10:15:00 [...] Maintenance, 01/15/22 14:49:00 EDT, [facility]), 176, cm, 01/15/22 10:10:00 EDT, Height, 131.6, kg, 06/03/20 4:19:00 EST, Dry Weight Start Date: 01/15/22 Status: Ordered atenolol 25 mg oral tablet 1, tablet, By Mouth, 2 times a day, # 180 tablet, Refills 3, Maintenance, 12/31/21 14:27:00 EDT, Route to Pharmacy Electronically, [facility]), 176, cm, 08/29/21 9:11:00 EDT, [...] 03/25/22 14:44:00 EST, 03/18/22 14:44:00 EST, Capsule, [facility], Partial fill upon patient request [...] 0 Refills, Maintenance, 03/17/22 13:55:00 EST, Gel, [facility], Partial fill upon patient request [...] 08/06/19 0:18:00 EDT, Route to Pharmacy Electronically, [facility], 176, cm, 07/07/19 10:15:00 EDT, Height, 129, kg, 05/29/18 0:31:00 ESTDr... Start Date: 08/06/19 Status: Ordered HumaLOG KwikPen 100 units/mL injectable solution See Instructions, s/c inj TID before meals acc to scale: 1u 150-200; 3u 201-250; 5u 251-300; 7u 301-350; 9u 351-400; 11u 401-450; call MD for BG over 450, # 15 mL, 3 Refills, Maintenance, 01/14/22 16:55:00 EDT, [facility], 176, cm, .. Start Date: 01/14/22 [...] 3 Refills, Maintenance, 01/14/22 16:55:00 EDT, Solution, [facility] 3, 176, cm, 08/29/21 9:11:00 EDT, [...] Gm, 1 Refills, Maintenance, 03/19/2211:23:00 EST, [facility]intment, [facility] Partial fill upon patient request if [...] Com... Start Date: 05/08/16 Status: Ordered Pen [place], 31 G x 5 mm BD Ultra Fine III See Instructions, # 300 each, Refills 3, Tot. Refills 3, Maintenance, use with lantus and humalog as directed dx: e11.65, 05/06/16 15:47:30, Compound Start Date: 05/06/16 Stop Date: 05/01/17 Status: Ordered Readi-Cat 2 oral suspension See Instructions, take as directed, # 2 each, 0 Refills, Maintenance, 12/05/20 15:52:00 EDT, [facility], Partial fill upon patient [...] each, 0 Refills, Maintenance, 10/15/20 18:05:00 EDT, [facility], Partial fill upon patient [...] FIT (fecal immunochemical test) Confirmed Active Suspected [place] disease Confirmed Active Goal-TO SURVIVE THIS YEAR [...] Dr. Molina and Giancarlo, therapist, [facility] [place] Social History Social History Type Response Smoking Status Former smoker, quit more than 30 days ago entered on: 06/28/20 Sex Patient Care team information Care Team Personnel Name: Florencio Saldana RN Position: [facility] ED RN W/OE and Tasks Member Role: Primary Care Nurse Name: [place] Coyne NP Position: [facility] Associate Professional Member Role: Primary Care Nurse Address: Address: [address] [place] [address] Trauma and [place] [address]- Name: Tatyana Cosme RN Position: [facility] RN Member Role: Primary Care Nurse Name: Chyna Duarte MD Position: [facility] Primary Care Physician Member Role: PCP Address: Address: [address] [place] [address]- Care Team Related Persons Name: SHILO VALE Address: home [address] [place] [address] Name: GIANCARLO BROOKS Address: [place] [address] Name: OLIVA VELOZ Address: home [address] [place] [address]
--- OUTSIDE RECORDS SUMMARY | 2023-01-14 15:51 | XMS_ITS | Continuity of Care Document ---
Author Name Unknown Organization [facility] Address [address] [place] [address]- Care Team Providers Care Scrap Metal Burner Name Role Phone Chyna Duarte MD Primary Care Physician [facility]): 01/03/20 - 02/02/[address] [address]- [facility] Allergies, Adverse Reactions, Alerts Substance [...] VIS given 10/2011 6Admin Note: VIS GIVEN [id number] 7Admin Note: VIS GIVEN 03/14/2008 8Admin Note: [...] 16:40:37 EDT, Aerosol, Route to Pharmacy Electronically, [id number], [facility] Start Date: 10/04/18 Status: Ordered amLODIPine 5 mg oral tablet 5 mg, 1, tablet, By Mouth, Daily, # 90 tablet, Refills 3, Tot. Refills 3, Maintenance, 05/30/19 13:21:00 EST, Route to Pharmacy Electronically, [facility], 176, cm, 03/31/19 9:59:00 EST, [...] overnight and naps from [facility], 11/08/19 11:45:00 EDT, Compound, [...] 12/07/19 16:59:00 EDT, Route to Pharmacy Electronically, [facility], 176, cm, 09/23/19 8:30:00 EDT, [...] mL, 11 Refills, Maintenance, 06/22/19 23:05:00 EST, [facility], 176, cm,... Start Date: [...] 1 Refills, Maintenance, 09/07/19 17:07:00 EDT, Solution, [facility], 176, cm, 08/30/19 11:03:00 EDT, [...] Com... Start Date: 05/08/16 Status: Ordered Pen [place], 31 G x 5 mm BD Ultra [...] and Radha, therapist, at [facility] in [place] Social History Social History Type Response Smoking Status Never smoker; Tobacc o user in household: No entered on: 05/25/15 Sex
--- OUTSIDE RECORDS SUMMARY | 2023-01-14 15:51 | XMS_ITS | Continuity of Care Document ---
Author Name Unknown Organization [facility] Address [address] [place] [address]- Care Team Providers Care Pharmacology Teacher Name Role Phone Chyna Duarte MD Primary Care Physician [phone] [facility] 11/29/19 - 12/29/[address] [address]- [facility] Allergies, Adverse Reactions, Alerts Substance Reaction Severity [...] 08/06/19 0:18:00 EDT, Route to Pharmacy Electronically, [facility], 176, cm, 07/07/19 10:15:00 EDT, Height, 129, kg,... Start Date: 08/06/19 Status: Ordered albuterol CFC free 90 mcg/inh inhalation aerosol 2, puffs, Inhalation, Every 6 hours, PRN, # 9 Gm, Refills 5, Tot. Refills 5, Maintenance, 10/04/18 16:40:37 EDT, Aerosol, Route to Pharmacy Electronically, [id number], [facility] Start Date: 10/04/18 Status: Ordered amLODIPine 5 mg oral tablet 5 mg, 1, tablet, By Mouth, Daily, # 90 tablet, Refills 3, Tot. Refills 3, Maintenance, 05/30/19 13:21:00 EST, Route to Pharmacy Electronically, [facility], 176, cm, 03/31/19 9:59:00 EST, [...] Maintenance, use overnight and naps from [facility], 11/08/19 11:45:00 EDT, Compound, 176, cm, [...] 12/07/19 16:59:00 EDT, Route to Pharmacy Electronically, [facility], 176, cm, 09/23/19 8:30:00 EDT, Height, 129, kg, 05/29/18 0:31:00 EST, Dry Weight Start Date: 12/07/19 Status: Ordered gabapentin 300 mg oral capsule 300 mg, 1, capsule, By Mouth, 3 times a day, # 45 capsule, Refills 0, Tot. Refills 0, Maintenance, 08/06/19 0:18:00 EDT, Route to Pharmacy Electronically, [facility], 176, cm, 07/07/19 [...] mL, 11 Refills, Maintenance, 06/22/19 23:05:00 EST, [facility], 176, cm,... Start Date: 06/22/19 Status: Ordered ibuprofen 600 mg oral tablet 600 mg, 1, tablet, By Mouth, Every 6 hours, # 50 tablet, Refills 0, Tot. Refills 0, Maintenance, 08/06/19 0:18:00 EDT, Route to Pharmacy Electronically, [facility], 176, cm, 07/07/19 [...] 1 Refills, Maintenance, 09/07/19 17:07:00 EDT, Solution, [facility], 176, cm, 08/30/19 11:03:00 [...] Com... Start Date: 05/08/16 Status: Ordered Pen [place], 31 G x 5 mm BD Ultra [...] and Radha, therapist, at [facility] in [place] Social History Social History Type Response Smoking Status Never smoker; Tobacc o user in household: No entered on: 05/25/15 Sex
--- OUTSIDE RECORDS SUMMARY | 2023-01-14 15:51 | XMS_ITS | Continuity of Care Document ---
Author Name Unknown Organization [facility] Address [address] [place] [address]- Care Team Providers Care Garment Fitter Name Role Phone Gerald GARRISON, Chyna Primary Care Physician [facility]s): 03/25/22 - 04/24/[address] [address]- Allergies, Adverse Reactions, Alerts No Known Allergies Immunizations Given and Recorded Vaccine Date Status Refusal Reason [id number] 12y+ bivalent booster vax 03/11/22 Given influenza [...] vaccine, inactivated 03/07/02 Give n SARS-CoV-2 mRNA ([id number]-ifww-[id number]) vax 08/29/21 Given pneumococcal 23-valent vaccine 06/06/21 [...] Note: vis given 5Result Comment: DILUENT LOT#: [id number] EXP: 08/2022 MFG: FRESENSIUS 6Admin Note: VIS given 10/2011 7Admin Note: VIS GIVEN [id number] 8Admin Note: VIS GIVEN 03/14/2008 9Admin Note: vis given 10Result Note: pt states he has previously had this vaccine Medications acetaminophen 325 mg oral tablet 975 mg, 3, tablet, By Mouth, Every 6 hours, PRN, # 120 tablet, Refills 0, Tot. Refills 0, Maintenance, as needed for pain, 08/06/19 0:18:00 EDT, Route to Pharmacy Electronically, [facility], 176, cm, 07/07/19 10:15:00 [...] Maintenance, 01/15/22 14:49:00 EDT, [facility]), 176, cm, 01/15/22 10:10:00 EDT, Height, 131.6, kg, 06/03/20 4:19:00 EST, Dry Weight Start Date: 01/15/22 Status: Ordered atenolol 25 mg oral tablet 1, tablet, By Mouth, 2 times a day, # 180 tablet, Refills 3, Maintenance, 12/31/21 14:27:00 EDT, Route to Pharmacy Electronically, [facility]), 176, cm, 08/29/21 9:11:00 EDT, [...] 0 Refills, Maintenance, 03/17/22 13:55:00 EST, Gel, [facility] fill upon patient [...] 12/31/21 14:28:00 EDT, Route to Pharmacy Electronically, [facility]), 176, cm, 08/29/21 9:11:00 EDT, Height, 131.6, kg, 06/03/20 4:19:00 EST, Dry Weight Start Date: 12/31/21 Status: Ordered gabapentin 300 mg oral capsule 300 mg, 1, capsule, By Mouth, 3 times a day, # 45 capsule, Refills 0, Tot. Refills 0, Maintenance, 08/06/19 0:18:00 EDT, Route to Pharmacy Electronically, [facility], 176, cm, 07/07/19 10:15:00 EDT, Height, 129, kg, 05/29/18 0:31:00 EST, . Start Date: 08/06/19 Status: Ordered HumaLOG KwikPen 100 units/mL injectable solution See Instructions, s/c inj TID before meals acc to scale: 1u 150-200; 3u 201-250; 5u 251-300; 7u 301-350; 9u 351-400; 11u 401-450; call MD for BG over 450, # 15 mL, 3 Refills, Maintenance, 01/14/22 16:55:00 EDT, [facility] [...] 3 Refills, Maintenance, 01/14/22 16:55:00 EDT, Solution, [facility] 3, 176, cm, 08/29/21 9:11:00 [...] Gm, 1 Refills, Maintenance, 03/19/2211:23:00 EST, Ointment, [facility], Partial fill upon patient [...] capsule, 3 Refills, Maintenance, 07/09/20 16:32:00 EDT, [facility], 176, cm, 06/28/20 13:04:00 EST, [...] Com... Start Date: 05/08/16 Status: Ordered Pen [place], 31 G x 5 mm BD Ultra Fine III See Instructions, # 300 each, Refills 3, Tot. Refills 3, Maintenance, use with lantus and humalog as directed dx: e11.65, 05/06/16 15:47:30, Compound Start Date: 05/06/16 Stop Date: 05/01/17 Status: Ordered Readi-Cat 2 oral suspension See Instructions, take as directed, # 2 each, 0 Refills, Maintenance, 12/05/20 15:52:00 EDT, [facility] 3, Partial fill upon patient request if the prescription is for a schedule II opioid drug., take as directed, 176, cm, 11/22/20 11:05:0... Start Date: 12/05/20 Status: Ordered rOPINIRole 0.5 mg oral tablet 1 tablet, By Mouth, Daily at bedtime, # 90 tablet, 3 Refills, Maintenance, 04/01/22 15:34:00 EST, [facility]), 176, cm, 03/24/22 14:42:00 EST, [...] Refills, Maintenance, 10/15/20 18:05:00 EDT, [facility], Partial fill upon patient [...] FIT (fecal immunochemical test) Confirmed Active Suspected [place] disease Confirmed Active Goal-TO SURVIVE THIS YEAR [...] and Giancarlo, therapist, at [facility] in [place] Social History Social History Type Response Smoking Status Former smoker; Other : qiut 13 years; entered on: 05/24/14 Sex Patient Care team information Care Team Personnel Name: Florencio Saldana RN Position: [facility] ED RN W/OE and Tasks Member Role: Primary Care Nurse Name: Doretha WALTON, [place] Position: [facility] Associate Professional Member Role: Primary Care Nurse Address: Address: [address] [place] [address] Trauma and [place] [address]- Name: Tatyana Cosme RN Position: [facility] RN Member Role: Primary Care Nurse Name: Chyna Duarte MD Position: [facility] Primary Care Physician Member Role: PCP Address: Address: [address] [place] [address]- Care Team Related Persons Name: SHILO VALE Address: home [address] [address] Name: GIANCARLO BROOKS Address: [place] [address] Name: OLIVA VELOZ Address: home [address] [place] [address]
--- OUTSIDE RECORDS SUMMARY | 2023-01-14 15:52 | XMS_ITS | Continuity of Care Document ---
Author Name Unknown Organization [facility] Address [address] [place] [address]- Care Team Providers Care Die Maker Stamping Name Role Phone Chyna Duarte MD Primary Care Physician [phone] [facility]): [facility]22 - 03/13/[address] [address]- Discharge Disposition: A-D/C Walkout Attending Physician: Not on Staff, Attending MD Admitting Physician: Not on Staff, Admitting MD Referring Physician: Not on Staff, Referring MD Allergies, Adverse Reactions, Alerts No Known Allergies Immunizations Given and Recorded Vaccine Date Status Refusal Reason [id number] 12y+ bivalent booster vax 03/11/22 Given influenza [...] vaccine, inactivated 03/07/02 Give n SARS-CoV-2 mRNA ([id number]-[id number]) vax 08/29/21 Given pneumococcal 23-valent vaccine 06/06/21 [...] Note: vis given 5Result Comment: DILUENT LOT#: [id number] EXP: 08/2022 MFG: FRESENSIUS 6Admin Note: VIS given 10/2011 7Admin Note: VIS GIVEN [id number] 8Admin Note: VIS GIVEN 03/14/2008 9Admin Note: [...] Route to Pharmacy Electronically, [facility]), 176, cm, 08/29/21 9:11:00 EDT, [...] 03/18/22 14:44:00 EST, 03/11/22 14:44:00 EST, [facility]apsule, [facility], Partial fill upon [...] 12/31/21 14:28:00 EDT, Route to Pharmacy Electronically, [facility]), 176, cm, 08/29/21 9:11:00 EDT, [...] mL, 3 Refills, Maintenance, 01/14/22 16:55:00 EDT, [facility], 176, cm, ... Start Date: 01/14/22 [...] 3 Refills, Maintenance, 01/14/22 16:55:00 EDT, Solution, [facility], 176, cm, 08/29/21 9:11:00 EDT, [...] Com... Start Date: 05/08/16 Status: Ordered Pen [place], 31 G x 5 mm BD Ultra Fine III See Instructions, # 300 each, Refills 3, Tot. Refills 3, Maintenance, use with lantus and humalog as directed dx: e11.65, 05/06/16 15:47:30, Compound Start Date: 05/06/16 Stop Date: 05/01/17 Status: Ordered Readi-Cat 2 oral suspension See Instructions, take as directed, # 2 each, 0 Refills, Maintenance, 12/05/20 15:52:00 EDT, [facility] 3, Partial fill upon patient [...] Refills, Maintenance, 10/15/20 18:05:00 EDT, [facility], [facility] fill upon patient request if [...] Maintenance, 12/31/21 14:28:00 EDT, [facility]), 176, cm, 08/29/21 9:11:00 EDT, [...] FIT (fecal immunochemical test) Confirmed Active Suspected [place] disease Confirmed Active Goal-TO SURVIVE THIS YEAR [...] Dr. Molina and Giancarlo, therapist, at [facility] in [place] Vital Signs Most recent to oldest [Reference Range]: 1 Oxygen Saturation [94-100 %] 100 % (03/13/22 6:08 PM) Pulse Rate [55-90 bpm] 68 bpm (03/13/22 6:08 PM) Blood Pressure [90-138/55-84 mm Hg] 164/ 59mm Hg *H* (03/13/22 6:08 PM) Respiratory Rate [16-30 br/min] 16 br/mi n (03/13/22 6:08 PM) Temperature [96.8-100.4 DegF] 98.2 DegF (03/13/22 6:08 PM) Mode of Delivery (Oxygen) Room air (03/13/22 6:08 PM) Blood pressure sites Arm, right (03/13/22 6:08 PM) Temperature Route Oral (03/13/22 6:08 PM) Social History Social History Type Response Smoking Status Former smoker, quit more than 30 days ago entered on: 06/28/20 Sex Patient Care team information Care Team Personnel Name: Florencio Saldana RN Position: [facility] ED RN W/OE and Tasks Member Role: Primary Care Nurse Name: Doretha WALTON, [place] Position: [facility] Associate Professional Member Role: Primary Care Nurse Address: Address: [address] [place] [address] Trauma and Acute Care Surgery [place], [place] [address] Name: Tatyana Cosme RN Position: [facility] RN Member Role: Primary Care Nurse Name: Chyna Duarte MD Position: [facility] Primary Care Physician Member Role: PCP Address: Address: [address] [place] [address] Care Team Related Persons Name: SHILO VALE Address: home [address] [place] [address] Name: GIANCARLO BROOKS Address: [place] [address] Name: OLIVA VELOZ Address: home [address] [place] [address]
--- NOTE | 2023-01-14 16:32 | PM.EVENT ---
Event Note Date of Service: 01/16/23 Event Note: Patient seen again on late afternoon rounds He is now in room 487 - he stated he did not want to go back to the 3rd floor Sitting on recliner, appears comfortable Some mild shortness of breath Abdomen soft and benign No guarding rebound I have ordered for clear liquids for him The hospitalist service will continue to follow - discussed with them Patient states he is willing to stay overnight Time Spent With Patient Time: Total time managing care of this patient today ____ minutes.
[2023-01-14] MEDS: Heparin Sodium,Porcine 5,000 UNIT/ML VIAL 5000 UNIT SUBCUT (17:45)
[2023-01-14] MEDS: Lactated Ringers 1,000 ML 60 ML IVCONT ×2 (17:45→18:54)
[2023-01-14] MEDS: 0.9 % Sodium Chloride Flush 3 ML SYRINGE IVFLUSH (17:46)
[2023-01-14 19:07] VITALS: BP 144/67; PULSE 65; RESP 16; TEMP 37.1; O2SAT 96
--- NOTE | 2023-01-16 14:40 | PM.DS ---
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 He has CT scan had showed 2 large hernias with bowel loops and these bowel loops appeared distended. He was admitted for question of obstruction secondary to this hernias. He had an NG tube placed. There was minimal out from his hernias. At the time of admission, his pain pain had resolved. He denies any nausea or vomiting. He did admit that his hernias had been chronic and he had previous seen a surgeon for this. His NG tube was discontinued on January 14, 2023. He was started on clear liquids. He signed out against medical advise that afternoon but changes mind and was transferred to a different room as he had multiple complaints with regards to care at the 3rd floor. He did not have any nausea or vomiting and remained symptomatic. He again signed out against medical advise late on the evening of 01/14/2023. Time Spent with Patient Time attestation: Total time managing care of this patient today ____ minutes. Discharge coordination time: Less than 30 minutes Quality: Safe Use of Opioids Does Pt have an Active Cancer Diagnosis on the Problem List?: No Quality: Stroke Does the patient have a stroke diagnosis?: No Physical Exam Vital Signs: Vital Signs: Last Vital Signs Temp 98.7 F 01/14/23 19:07 Pulse 65 01/14/23 19:07 Resp 16 01/14/23 19:07 BP 144/67 H 01/14/23 19:07 Pulse Ox 96 01/14/23 19:07 O2 Del Method Room Air 01/14/23 19:07 Const: Other: Morbidly obese General: comfortable and no acute distress Orientation/consciousness: patient oriented x3 Neck: Neck: Yes no lymphadenopathy Resp: Auscultation: clear to auscultation bilaterally Cardio: Rhythm: regular rhythm GI: Other: Two large hernias on the abdomen with bowel loops, partially reducible, nontender Palpation (GI): Soft to palpation, nontender and no guarding Neuro: General: patient oriented x3 Discharge Plan Discharge Anticipated Discharge Date/Time: 01/14/23 21:38 Patient Disposition: Left Against Medical Advice Discharge Diagnosis: hernia Referrals: Physician,Unknown J [Primary Care Provider] - 1 Week Discharge Medications: No Action furosemide 40 mg tablet 40 mg PO DAILY atorvastatin 40 mg tablet 40 mg PO BEDTIME sertraline 100 mg tablet 200 mg PO DAILY atenolol 25 mg tablet 25 mg PO BID amlodipine 5 mg tablet 5 mg PO DAILY omeprazole 40 mg capsule,delayed release(DR/EC) 40 mg PO SUTUTHSA@0630 lithium carbonate 300 mg capsule 300 mg PO BID ropinirole 0.5 mg tablet 0.5 mg PO BEDTIME warfarin 5 mg tablet 5 mg PO DAILY@1800 levothyroxine 150 mcg tablet 150 mcg PO DAILY@0600 gabapentin 100 mg capsule 200 mg PO BEDTIME insulin lispro [Humalog KwikPen Insulin] 100 unit/mL insulin pen See Protocol subcut TID Protocol: Insulin Correction Scale Less than or equal to 110 ---- Give (units): 0 111 to 150 Give (units): 0 151 to 200 Give (units): 2 201 to 250 Give (units): 4 251 to 300 Give (units): 6 301 to 350 Give (units): 8 Greater than 350 Give (units): 10 Call MD if Blood Glucose > : 350 aripiprazole 2 mg tablet 2 mg PO DAILY insulin glargine [Lantus Solostar U-100 Insulin] 100 unit/mL (3 mL) insulin pen 60 unit subcut BEDTIME acetaminophen [Tylenol] 325 mg Tablet 650 mg PO BEDTIME PRN (Reason: Pain) Discharge Orders: Discharge Order (Routine); Ordered 01/16/23 Ordered By: Edgard Howard Care Plan Goals: Control COPD Monitor hernia Blood sugar control Health Concerns: COPD Large ventral hernias Diabetes Plan of Treatment: Patient signed out against medical advise Assessment: Looks well but signed out against medical advise Discharge Date/Time: 01/14/23 21:39
== END 2023-01-14 21:39 | disposition left against medical advice (07) | DRG 395 ==
PROVIDERS: Admitting Provider Surgery; Visit Provider Surgery
DX: K46.0 Unspecified abdominal hernia with obstruction, without gangrene (principal); E11.9 Type 2 diabetes mellitus without complications; Z95.0 Presence of cardiac pacemaker; Z79.4 Long term (current) use of insulin; Z79.01 Long term (current) use of anticoagulants; Z79.890 Hormone replacement therapy; Z79.899 Other long term (current) drug therapy
CPT/HCPCS: J1643

== ENCOUNTER → 2023-01-14 15:35 | Outpatient (BNV) | payer MEDICARE, SELFPAY | PROVIDERS: Admitting Provider Surgery; Visit Provider Surgery | DX: K43.9 Ventral hernia without obstruction or gangrene (principal) | CPT/HCPCS: 99238; 99499 ==